=== PATIENT | male | born 1970 | race American Indian/Alaskan Native ===

== ENCOUNTER 2016-10-09 08:55 | Emergency (ER) | payer MEDICAID ==
[2016-10-09 09:06] VITALS: BP 130/86
--- NOTE | 2016-10-09 09:26 | Emergency Department Report ---
ED Medical Clearance HPI - General Chief complaint: Medical Clearance Stated complaint: PRESCRIPTION REFILL/SEIZURE MEDS Time Seen by Provider: 10/09/16 09:12 Source: patient, family Mode of arrival: Ambulatory - History of Present Illness Initial comments: Worry 6-year-old male with history of seizure disorder currently on Dilantin 300 mg twice a day presenting to the ED for refill of his medication. Denies any symptoms at this time. Home medications: Previous Rx's Medication Instructions Recorded Last Taken Type Phenytoin Sodium Extended 300 mg PO BID #120 capsule 10/09/16 Unknown Rx Allergies/Adverse reactions: Allergies Allergy/AdvReac Type Severity Reaction Status Date / Time No Known Allergies Allergy Unverified 10/09/16 09:01 ED Review of Systems ROS: Stated complaint: PRESCRIPTION REFILL/SEIZURE MEDS Other details as noted in HPI Constitutional: denies: chills, fever Eyes: denies: eye pain, eye discharge, vision change ENT: denies: ear pain, throat pain Respiratory: denies: cough, shortness of breath, wheezing Cardiovascular: denies: chest pain, palpitations Endocrine: no symptoms reported Gastrointestinal: denies: abdominal pain, nausea, diarrhea Genitourinary: denies: urgency, dysuria Musculoskeletal: denies: back pain, joint swelling, arthralgia Skin: denies: rash, lesions Neurological: denies: headache, weakness, paresthesias Psychiatric: denies: anxiety, depression Hematological/Lymphatic: denies: easy bleeding, easy bruising ED Past Medical Hx - Past Medical History Previous Medical History?: Yes Hx Seizures: Yes - Surgical History Past Surgical History?: No - Social History Smoking Status: Former Smoker Substance Use Type: Prescribed - Medications Home Medications: Home Medications Medication Instructions Recorded Confirmed Last Taken Type Phenytoin Sodium Extended 300 mg PO BID #120 capsule 10/09/16 Unknown Rx ED Physical Exam - General Limitations: No Limitations General appearance: alert, in no apparent distress - Head Head exam: Present: atraumatic, normocephalic - Eye Eye exam: Present: normal appearance - ENT ENT exam: Present: mucous membranes moist - Neck Neck exam: Present: normal inspection - Respiratory Respiratory exam: Present: normal lung sounds bilaterally. Absent: respiratory distress - Cardiovascular Cardiovascular Exam: Present: regular rate, normal rhythm. Absent: systolic murmur, diastolic murmur, rubs, gallop - GI/Abdominal GI/Abdominal exam: Present: soft, normal bowel sounds - Rectal Rectal exam: Present: deferred - Extremities Exam Extremities exam: Present: normal inspection - Back Exam Back exam: Present: normal inspection - Neurological Exam Neurological exam: Present: alert, oriented X3 - Psychiatric Psychiatric exam: Present: normal affect, normal mood - Skin Skin exam: Present: warm, dry, intact, normal color. Absent: rash ED Course Vital Signs 10/09/16 09:02 Temperature 98.5 F Pulse Rate 76 Respiratory 18 Rate Blood Pressure 130/86 O2 Sat by Pulse 99 Oximetry ED Medical Decision Making - Medical Decision Making patient in NAD at this time. VSS and will fu with [facility] for future refills. ED Disposition Clinical Impression: Medication refill Disposition: DISCHARGED TO HOME OR SELFCARE Is pt being admited?: No Does the pt Need Aspirin: No Condition: Good Instructions: Epilepsy (ED) Additional Instructions: follow up with [facility] for medication refill. Prescriptions: Phenytoin Sodium Extended 300 mg PO BID #120 capsule Referrals: PRIMARY CARE, [Primary Care Provider] - 3-5 Days [facility] [Provider Group] - 3-5 Days Forms: Work/School Release Form(ED) Time of Disposition: 09:25
== END 2016-10-09 09:33 | disposition home or self-care (01) ==
LOC: ED 08:55
DX: Z76.0 Encounter for issue of repeat prescription (principal); Z87.891 Personal history of nicotine dependence
CPT/HCPCS: 99282

== ENCOUNTER 2017-01-14 14:47 | Outpatient (CLI) | payer MEDICAID ==
--- NOTE | 2017-01-14 16:49 | Magnetic Resonance Report ---
MRI BRAIN WITHOUT CONTRAST INDICATION: Seizure. COMPARISON: None similar at this institution. FINDINGS: Noncontrast multiplanar and multisequence MRI of the brain demonstrates normal ventricles and sulci without acute infarct, hemorrhage, mass effect or midline shift. No abnormal extra-axial masses or fluid collections. Normal major intracranial vascular flow voids. Mild to moderate cerebellar atrophy noted. Symmetric seventh and eighth nerve complexes. Grossly unremarkable eye globes. Right mastoiditis. Right frontoethmoid mucosal thickening as well. Slight bilateral maxillary sinus mucosal thickening inferiorly. Clear remainder imaged paranasal sinuses and mastoid air cells. Approximately 8mm Thornwaldt cyst may be present. Normal remainder midline structures without evidence of Chiari malformation. CONCLUSION: 1. Cerebellar atrophy, of uncertain etiology. Please correlate clinically. 2. Few other incidental findings, including right mastoiditis and mild sinusitis. Thank you for the opportunity to participate in this patient's care.
== END 2017-01-14 14:48 | disposition home or self-care (01) ==
LOC: MRI 14:47
PROVIDERS: ATTEND Psychiatry & Neurology Neurology
DX: G40.309 Generalized idiopathic epilepsy and epileptic syndromes, not intractable, without status epilepticus (principal); G31.89 Other specified degenerative diseases of nervous system; H70.91 Unspecified mastoiditis, right ear; J32.9 Chronic sinusitis, unspecified
CPT/HCPCS: 70551

== ENCOUNTER 2018-04-13 20:41 | Emergency (ER) | payer MEDICAID ==
[2018-04-13] MEDS ORDERED: NACL 0.9% 1000 ML 1,000 ML IV ONE (21:02)
[2018-04-13] MEDS ORDERED: ATIVAN IV ONE (21:02)
--- NOTE | 2018-04-13 21:02 | Emergency Department Report ---
ED Seizure HPI - General Chief Complaint: Seizure Stated Complaint: SEIZURE Time Seen by Provider: 04/13/18 21:02 Source: patient, EMS Mode of arrival: Stretcher Limitations: No Limitations - History of Present Illness MD Complaint: seizure -: Sudden, This evening Description of Episode: loss of consciousness, tonic-clonic movement Witnessed:: No Trauma: No Seizure History: known seizure disorder, history of non-compliance Place: other ([facility]) Possible Precipitating Event: head injury Associated Symptoms: denies other symptoms Treatments Prior to Arrival: none - Related Data Previous Rx's Medication Instructions Recorded Last Taken Type Phenytoin Sodium Extended 300 mg PO BID #120 capsule 10/09/16 Unknown Rx Ibuprofen [Motrin] 800 mg PO Q8HR PRN #20 tablet 04/14/18 Unknown Rx Phenytoin Sodium Extended 300 mg PO BID #60 capsule 04/14/18 Unknown Rx [Dilantin] Allergies Allergy/AdvReac Type Severity Reaction Status Date / Time No Known Allergies Allergy Verified 04/13/18 21:13 ED Review of Systems ROS: Stated complaint: SEIZURE Other details as noted in HPI Comment: All other systems reviewed and negative Constitutional: denies: chills, fever Eyes: denies: eye pain ENT: denies: ear pain Respiratory: denies: cough, shortness of breath Cardiovascular: denies: chest pain, palpitations, dyspnea on exertion Endocrine: no symptoms reported Gastrointestinal: denies: abdominal pain, nausea, vomiting, diarrhea Genitourinary: denies: urgency, dysuria, frequency Musculoskeletal: denies: back pain, joint swelling Skin: denies: rash, lesions, change in color Neurological: headache. denies: weakness, numbness, paresthesias, confusion Psychiatric: denies: anxiety, depression Hematological/Lymphatic: denies: easy bleeding, easy bruising ED Past Medical Hx - Past Medical History Hx Seizures: Yes - Social History Smoking Status: Current Every Day Smoker Substance Use Type: None - Medications Home Medications: Home Medications Medication Instructions Recorded Confirmed Last Taken Type Phenytoin Sodium Extended 300 mg PO BID #120 capsule 10/09/16 Unknown Rx Ibuprofen [Motrin] 800 mg PO Q8HR PRN #20 tablet 04/14/18 Unknown Rx Phenytoin Sodium Extended 300 mg PO BID #60 capsule 04/14/18 Unknown Rx [Dilantin] ED Physical Exam - General Limitations: No Limitations General appearance: alert, in no apparent distress - Head Head exam: Present: other (Left eye brow laceration.) - Eye Eye exam: Present: normal appearance, PERRL, EOMI Pupils: Present: normal accommodation - ENT ENT exam: Present: normal exam, normal orophraynx, mucous membranes moist - Neck Neck exam: Present: normal inspection, tenderness, full ROM - Respiratory Respiratory exam: Present: normal lung sounds bilaterally. Absent: respiratory distress, wheezes, rales, rhonchi, stridor - Cardiovascular Cardiovascular Exam: Present: regular rate, normal rhythm, normal heart sounds - GI/Abdominal GI/Abdominal exam: Present: soft, normal bowel sounds. Absent: distended, tenderness, guarding, rebound, rigid - Extremities Exam Extremities exam: Present: normal inspection, full ROM, normal capillary refill. Absent: tenderness, pedal edema - Back Exam Back exam: Present: normal inspection, full ROM. Absent: tenderness - Neurological Exam Neurological exam: Present: alert, oriented X3, CN II-XII intact - Psychiatric Psychiatric exam: Present: normal affect, normal mood - Skin Skin exam: Present: warm, dry, normal color. Absent: rash ED Course Vital Signs 04/13/18 04/13/18 04/13/18 20:59 21:00 22:00 Temperature 98.6 F Pulse Rate 84 82 82 Respiratory 12 17 16 Rate Blood Pressure 114/77 126/74 Blood Pressure 122/76 [Left] O2 Sat by Pulse 100 99 100 Oximetry 04/13/18 04/13/18 04/14/18 23:00 23:25 00:00 Temperature Pulse Rate 78 76 79 Respiratory 16 11 L 17 Rate Blood Pressure 123/77 123/77 111/72 Blood Pressure [Left] O2 Sat by Pulse 100 100 100 Oximetry 04/14/18 04/14/18 01:00 02:00 Temperature Pulse Rate 82 77 Respiratory 16 26 H Rate Blood Pressure 105/81 105/81 Blood Pressure [Left] O2 Sat by Pulse 100 100 Oximetry - Reevaluation(s) Reevaluation #1: 04/14/18 03:56 Patient is awake and alert. He has no medical complaint currently. - Laceration /Wound Repair Left Upper Face Wound Location: face Wound Length (cm): 3 Wound's Depth, Shape: superficial Wound Explored: clean Irrigated w/ Saline (ccs): 100 Betadine Prep?: Yes Anesthesia: Lidocaine w/ Epi Wound Repaired With: sutures Suture Size/Type: 5:0, proline Number of Sutures: 4 Layer Closure?: No Sterile Dressing Applied?: No (Bacitracin Ointment) Progress: Patient tolerated the procedure well. No complication. ED Medical Decision Making - Lab Data Result diagrams: 04/13/18 21:25 04/13/18 21:25 - Radiology Data Radiology results: report reviewed, image reviewed - Medical Decision Making Seizure Disorder. Head injury. Left Eyebrow Laceration. Critical care attestation.: If time is entered above; I have spent that time in minutes in the direct care of this critically ill patient, excluding procedure time. ED Disposition Clinical Impression: Seizure disorder Laceration of left eyebrow Qualifiers: Encounter type: initial encounter Qualified Code(s): S01.112A - Laceration without foreign body of left eyelid and periocular area, initial encounter Disposition: TO HOME OR SELFCARE Is pt being admited?: No Does the pt Need Aspirin: No Condition: Stable Instructions: Epilepsy (ED), Laceration (ED), Suture Care (ED), Minor Head Injury (ED) Additional Instructions: Please follow up with the Neurologist Dr Radha pires on Saturday morning. Return to the ED if your condition worsens. Prescriptions: Ibuprofen [Motrin] 800 mg PO Q8HR PRN #20 tablet PRN Reason: Pain , Severe (7-10) Phenytoin Sodium Extended [Dilantin] 300 mg PO BID #60 capsule Referrals: PRIMARY CAREMD [Primary Care Provider] - 3-5 Days MILLICENT MENA MD [Staff] - 3-5 Days Time of Disposition: 03:56
[2018-04-13 21:47] LABS: Basophils % (Auto) 0.8 % (0.0-1.8); Eosinophils # (Auto) 0.2 K/mm3 (0.0-0.4); Eosinophils % (Auto) 3.4 % (0.0-4.3); Hematocrit 37.3 % (35.5-45.6); Hemoglobin 11.9 gm/dl (11.8-15.2); Lymphocytes # (Auto) 1.1 K/mm3 (1.2-5.4); Lymphocytes % (Auto) 22.4 % (13.4-35.0); Mean Corpuscular HGB Conc 32 % (32-34); Mean Corpuscular Volume 78 fl (84-94); Monocytes # (Auto) 0.5 K/mm3 (0.0-0.8); Monocytes % (Auto) 10.8 % (0.0-7.3); Platelet Count 185 K/mm3 (140-440); Red Cell Distribution Width 13.4 % (13.2-15.2)
[2018-04-13 21:48] LABS: Mean Corpuscular Hemoglobin 25 pg (28-32)
[2018-04-13] MEDS ORDERED: NACL 0.9% 500 ML IR ONE (21:48)
--- NOTE | 2018-04-13 21:56 | Cat Scan Report ---
FINAL REPORT PROCEDURE: CT CERVICAL SPINE WO CON TECHNIQUE: Computerized tomography of the cervical spine was performed from the skull base to T1 without contrast material. HISTORY: Seizure, fall COMPARISON: No prior studies are available for comparison. FINDINGS: Vertebral height is normal. An acute fracture is not identified. Visualized lung apices are clear. C1-2: No significant abnormality. C2-3: No significant abnormality. C3-4: Broad-based disc osteophyte complex is noted resulting in mild degree spinal canal stenosis. Mild to moderate degree left neural foraminal stenosis is noted secondary to uncovertebral and facet degenerative changes.. C4-5: No significant abnormality. C5-6: No significant abnormality. C6-7: No significant abnormality. C7-T1: No significant abnormality. Other: No additional findings. IMPRESSION: No acute fracture Multilevel cervical spondylosis most marked at C3-4 as described above..
[2018-04-13] MEDS ORDERED: POLYSPORIN TP ONE (22:00)
[2018-04-13] MEDS ORDERED: BOOSTRIX IM ONE (22:00)
[2018-04-13] MEDS ORDERED: XYLOCAINE 1%/ EPI 1:100,000 INFILTRATI NR (22:00)
--- NOTE | 2018-04-13 22:00 | Cat Scan Report ---
FINAL REPORT PROCEDURE: CT HEAD/BRAIN WO CON TECHNIQUE: Computerized tomography of the head was performed without contrast material. HISTORY: Seizure COMPARISON: No prior studies are available for comparison. FINDINGS: Skull and scalp: Normal. Paranasal sinuses: Mild degree mucosal thickening is noted involving left maxillary sinus. Left ethmoid air cells also demonstrate mild degree mucosal thickening.. Ventricles and subarachnoid spaces: Are prominent consistent with cerebral atrophy appropriate for patient's age.. Cerebrum: No evidence of hemorrhage, acute infarction or mass . Cerebellum and brainstem: Prominent cerebellar sulci are noted which appear to be advanced for patient's age.. Vasculature: Atherosclerotic calcification is noted involving vertebral arteries.. Comments: None. IMPRESSION: No acute intracranial abnormality Cerebellar atrophy which appears to be advanced for patient's age Chronic left maxillary and ethmoid sinusitis
[2018-04-13 22:03] LABS: BUN/Creatinine Ratio 13; Blood Urea Nitrogen 10 mg/dL (9-20); Calcium 8.8 mg/dL (8.4-10.2); Hemolysis Index 7
[2018-04-13 22:07] LABS: Alanine Aminotransferase 14 units/L (7-56); Albumin 3.7 g/dL (3.9-5)
[2018-04-13 22:10] LABS: Bilirubin,Direct < 0.2 mg/dL (0-0.2)
[2018-04-13] MEDS ORDERED: CEREBYX 1,000 MG.PE in NACL 0.9% 100 ML IV ONE (22:28)
[2018-04-13 23:46] LABS: Bilirubin,Urine NEG (Negative); Blood,Urine NEG (Negative); Color,Urine Straw (Yellow); Mucus,Urine FEW /HPF; Protein,Urine <15 mg/dL mg/dL (Negative); Urobilinogen,Urine < 2.0 mg/dL (<2.0); WBC,Urine < 1.0 /HPF (0.0-6.0)
[2018-04-14 06:26] VITALS: BP 115/66
== END 2018-04-14 08:27 | disposition home or self-care (01) ==
LOC: ED 04-14 01:56
DX: G40.909 Epilepsy, unspecified, not intractable, without status epilepticus (principal); S01.112A Laceration without foreign body of left eyelid and periocular area, initial encounter; F17.200 Nicotine dependence, unspecified, uncomplicated; X58.XXXA Exposure to other specified factors, initial encounter; Y93.89 Activity, other specified; Y92.89 Other specified places as the place of occurrence of the external cause; Y99.8 Other external cause status
CPT/HCPCS: 12013; 36415; 70450; 72125; 80048; 80074; 80185; 81001; 82962; 85025; 85027; 90471; 90715; 96365; 96375; 99285; G0480; J2060; J7030; Q2009; 80320

== ENCOUNTER 2019-03-24 20:17 | Emergency (ER) | payer MEDICAID ==
[2019-03-24 20:48] LABS: Basophils # (Auto) 0.1 K/mm3 (0.0-0.1); Basophils % (Auto) 1.1 % (0.0-1.8); Eosinophils # (Auto) 0.1 K/mm3 (0.0-0.4); Eosinophils % (Auto) 1.9 % (0.0-4.3); Hematocrit 41.1 % (35.5-45.6); Hemoglobin 13.3 gm/dl (11.8-15.2); Lymphocytes % (Auto) 40.5 % (13.4-35.0); Mean Corpuscular HGB Conc 32 % (32-34); Mean Corpuscular Volume 76 fl (84-94); Monocytes # (Auto) 0.4 K/mm3 (0.0-0.8); Monocytes % (Auto) 8.5 % (0.0-7.3); Platelet Count 222 K/mm3 (140-440); Red Blood Count 5.39 M/mm3 (3.65-5.03); Red Cell Distribution Width 13.2 % (13.2-15.2)
[2019-03-24 21:09] LABS: Bilirubin,Urine NEG (Negative); Blood,Urine SM (Negative); Calcium Oxalate Crystals,Urine 1+; Color,Urine Yellow (Yellow); Mucus,Urine FEW /HPF; Protein,Urine <15 mg/dL mg/dL (Negative); Urobilinogen,Urine < 2.0 mg/dL (<2.0)
[2019-03-24 21:11] LABS: Alanine Aminotransferase 12 units/L (7-56); Albumin 4.3 g/dL (3.9-5); BUN/Creatinine Ratio 30; Blood Urea Nitrogen 21 mg/dL (9-20); Calcium 9.6 mg/dL (8.4-10.2); Hemolysis Index 17
[2019-03-24 21:15] LABS: Amphetamine Screen,Urine PRESUMPTIVE NEGATIVE; Benzodiazepines Screen,Urine PRESUMPTIVE NEGATIVE; Cannabinoid Screen,Urine PRESUMPTIVE NEGATIVE; Cocaine Screen,Urine PRESUMPTIVE NEGATIVE; Methadone Screen,Urine PRESUMPTIVE NEGATIVE; Opiate Screen,Urine PRESUMPTIVE NEGATIVE
--- NOTE | 2019-03-24 22:09 | Emergency Department Report ---
ED Psych HPI - General Chief Complaint: Psych Stated Complaint: MH EVAL/SUICIDAL Time Seen by Provider: 03/24/19 21:23 Source: patient, EMS Mode of arrival: Ambulatory - History of Present Illness Initial Comments: Patient reports hx of seizures. Reports he had a seizure today. Denies trauma. Denies drugs/alcohol. MD Complaint: suicidal ideation, feels depressed -: Gradual, days(s) Associated Psychiatric Symptoms: depression, suicidal ideation Quality: getting worse Improves With: none Worsens With: none Associated Symptoms: other (seizure today. Reports last seizure approximately 2 months ago. Reports compliant with anti-epileptics) Treatments Prior to Arrival: placed on mental he If Self Harm: admits thoughts of - Related Data Home Medications Medication Instructions Recorded Confirmed Last Taken PHENobarbital 03/24/19 Unknown Previous Rx's Medication Instructions Recorded Last Taken Type Phenytoin Sodium Extended 300 mg PO BID #120 capsule 10/09/16 Unknown Rx Ibuprofen [Motrin] 800 mg PO Q8HR PRN #20 tablet 04/14/18 Unknown Rx Allergies Allergy/AdvReac Type Severity Reaction Status Date / Time No Known Allergies Allergy Verified 04/18/18 08:26 ED Review of Systems ROS: Stated complaint: MH EVAL/SUICIDAL Other details as noted in HPI Other: GENERAL: No weight change, fatigue, weakness, fever, chills, or night sweats SKIN: No changes in skin or hair, no itching, no rashes, no jaundice HEAD: No trauma, headache, or visual changes EYES: No blurriness, tearing, itching, acute visual loss, conjunctival discoloration, or scleral icterus EARS: No hearing loss, tinnitus, vertigo, or earache NOSE: No rhinorrhea, stuffiness, sneezing, itching, or epistaxis MOUTH: No bleeding gums, hoarseness, sore throat, or swelling CARDIAC: No new murmur, chest pain, palpitations, dyspnea on exertion, orthopnea, PND, or edema RESPIRATORY: No shortness of breath, wheeze, cough, sputum production, hemoptysis, pneumonia, asthma, bronchitis, or emphysema GI: No change in appetite, nausea, vomiting, dysphagia, change in bowel frequency, diarrhea, constipation, bleeding, hematemesis, melena, hematochezia, or abdominal pain URINARY: No frequency, urgency, polyuria, dysuria, hematuria, or incontinence MUSCULOSKELETAL: No muscle weakness, joint stiffness, decrease in range of motion, redness, swelling NEUROLOGIC: Seizure. No loss of sensation, numbness, tingling, tremors, weakness, paralysis HEMATOLOGIC: No anemia, easy bruising, bleeding, petechiae, or purpura ENDOCRINE: No hot or cold intolerance, sweating, polyuria, polydipsia or, polyphagia no thyroid problems PSYCHIATRIC: Depression and SI ED Past Medical Hx - Past Medical History Hx Seizures: Yes Hx Psychiatric Treatment: Yes (bipolar) - Surgical History Past Surgical History?: No - Social History Smoking Status: Current Every Day Smoker Substance Use Type: None - Medications Home Medications: Home Medications Medication Instructions Recorded Confirmed Last Taken Type Phenytoin Sodium Extended 300 mg PO BID #120 capsule 10/09/16 03/24/19 Unknown Rx Ibuprofen [Motrin] 800 mg PO Q8HR PRN #20 tablet 04/14/18 03/24/19 Unknown Rx PHENobarbital 03/24/19 Unknown History ED Physical Exam - General Limitations: No Limitations - Other Other exam information: GENERAL: Patient in no acute distress HEAD: Normocephalic, atraumatic EYES: PERRLA, EOM intact, no scleral icterus, no conjunctival hemorrhage, visual grey and acuity wnl NOSE: No tenderness, discharge, sinus tenderness MOUTH: No erythema, bleeding, exudate HEART: Regular rate and rhythm, no murmur, S1-S2 are auscultated, pulses are symmetric LUNGS: Bilateral breath sounds, No tachypnea, No retractions, No wheezing, rales, rhonchi ABDOMEN: Normal bowel sounds, no tenderness, no rebound, no guarding, no masses, no CVA tenderness MUSCULOSKELETAL: Normal joint range of motion, no redness, no swelling, no tenderness NEUROLOGIC: GCS 15, Alert and Oriented x3, Cranial nerves intact, normal sensation, normal strength, normal gait, no cerebellar deficit PSYCHIATRIC: Depression, SI. No HI. No hallucinations SKIN: Skin is warm and dry, no wounds, no rashes ED Course Vital Signs 03/24/19 03/24/19 20:49 22:10 Temperature 98.6 F Pulse Rate 55 L Respiratory 16 16 Rate Blood Pressure 120/74 [Left] O2 Sat by Pulse 96 98 Oximetry ED Medical Decision Making - Lab Data Result diagrams: 03/24/19 20:38 03/24/19 20:38 Laboratory Results - last 24 hr 03/24/19 03/24/19 03/24/19 20:38 20:38 20:38 WBC 4.9 RBC 5.39 H Hgb 13.3 Hct 41.1 MCV 76 L MCH 25 L MCHC 32 RDW 13.2 Plt Count 222 Lymph % (Auto) 40.5 H Barren % (Auto) 8.5 H Eos % (Auto) 1.9 Baso % (Auto) 1.1 Lymph # 2.0 Barren # 0.4 Eos # 0.1 Baso # 0.1 Seg Neutrophils % 48.0 Seg Neutrophils # 2.3 Sodium 138 Potassium 4.0 Chloride 102.5 Carbon Dioxide 20 L Anion Gap 20 BUN 21 H Creatinine 0.7 L Estimated GFR > 60 BUN/Creatinine Ratio 30 Glucose 111 H Calcium 9.6 Total Bilirubin < 0.20 AST 16 ALT 12 Alkaline Phosphatase 95 Total Protein 7.8 Albumin 4.3 Albumin/Globulin Ratio 1.2 Urine Color Urine Turbidity Urine pH Ur Specific [place] Urine Protein Urine Glucose (UA) Urine Ketones Urine Blood Urine Nitrite Urine Bilirubin Urine Urobilinogen Ur Leukocyte Esterase Urine WBC (Auto) Urine RBC (Auto) U Epithel Cells (Auto) Calcium Oxalate Crystal Urine Mucus Salicylates < 0.3 L Urine Opiates Screen Urine Methadone Screen Acetaminophen Ur Barbiturates Screen Ur Phencyclidine Scrn Ur Amphetamines Screen U Benzodiazepines Scrn Urine Cocaine Screen U Marijuana (THC) Screen Drugs of Abuse Note Plasma/Serum Alcohol 03/24/19 03/24/19 03/24/19 20:38 20:38 20:55 WBC RBC Hgb Hct MCV MCH MCHC RDW Plt Count Lymph % (Auto) Barren % (Auto) Eos % (Auto) Baso % (Auto) Lymph # Barren # Eos # Baso # Seg Neutrophils % Seg Neutrophils # Sodium Potassium Chloride Carbon Dioxide Anion Gap BUN Creatinine Estimated GFR BUN/Creatinine Ratio Glucose Calcium Total Bilirubin AST ALT Alkaline Phosphatase Total Protein Albumin Albumin/Globulin Ratio Urine Color Yellow Urine Turbidity Clear Urine pH 5.0 Ur Specific [place] 1.026 Urine Protein <15 mg/dl Urine Glucose (UA) Neg Urine Ketones Neg Urine Blood Sm Urine Nitrite Neg Urine Bilirubin Neg Urine Urobilinogen < 2.0 Ur Leukocyte Esterase Tr Urine WBC (Auto) 4.0 Urine RBC (Auto) 5.0 U Epithel Cells (Auto) 1.0 Calcium Oxalate Crystal 1+ Urine Mucus Few Salicylates Urine Opiates Screen Urine Methadone Screen Acetaminophen < 5.0 L Ur Barbiturates Screen Ur Phencyclidine Scrn Ur Amphetamines Screen U Benzodiazepines Scrn Urine Cocaine Screen U Marijuana (THC) Screen Drugs of Abuse Note Plasma/Serum Alcohol < 0.01 03/24/19 20:55 WBC RBC Hgb Hct MCV MCH MCHC RDW Plt Count Lymph % (Auto) Barren % (Auto) Eos % (Auto) Baso % (Auto) Lymph # Barren # Eos # Baso # Seg Neutrophils % Seg Neutrophils # Sodium Potassium Chloride Carbon Dioxide Anion Gap BUN Creatinine Estimated GFR BUN/Creatinine Ratio Glucose Calcium Total Bilirubin AST ALT Alkaline Phosphatase Total Protein Albumin Albumin/Globulin Ratio Urine Color Urine Turbidity Urine pH Ur Specific [place] Urine Protein Urine Glucose (UA) Urine Ketones Urine Blood Urine Nitrite Urine Bilirubin Urine Urobilinogen Ur Leukocyte Esterase Urine WBC (Auto) Urine RBC (Auto) U Epithel Cells (Auto) Calcium Oxalate Crystal Urine Mucus Salicylates Urine Opiates Screen Presumptive negative Urine Methadone Screen Presumptive negative Acetaminophen Ur Barbiturates Screen Presumptive negative Ur Phencyclidine Scrn Presumptive negative Ur Amphetamines Screen Presumptive negative U Benzodiazepines Scrn Presumptive negative Urine Cocaine Screen Presumptive negative U Marijuana (THC) Screen Presumptive negative Drugs of Abuse Note Disclamer Plasma/Serum Alcohol - Medical Decision Making Patient medically clear for transfer. Critical care attestation.: If time is entered above; I have spent that time in minutes in the direct care of this critically ill patient, excluding procedure time. ED Disposition Clinical Impression: Seizure disorder, Suicidal ideation Disposition: [id number] PSY HOSP/PSY UNIT Is pt being admited?: No Condition: Stable Referrals: CINDY MARKS MD [Primary Care Provider] - 3-5 Days
[2019-03-25] MEDS ORDERED: NON-FORMULARY (Levetiracetam [Keppra Tab] 750 MG) PO SCH (10:00)
[2019-03-25] MEDS ORDERED: KEPPRA PO ONE (10:01)
[2019-03-25] MEDS: KEPPRA PO SCH ×2 (10:49→22:16)
--- NOTE | 2019-03-25 15:52 | Consultation ---
History of Present Illness - Reason for Consult Consult date: 03/25/19 Reason for consult: Initial Psychiatric Evaluation - Chief Complaint Chief complaint: " I came for epilepsy" - History of Present Psychiatric Illness Patient is a 49 year old male that presents to the emergency room after a seizure. Patient unsure of PPHx. Today the patient is cooperative but anxious during the assessment. Appears somewhat confused. Alert and oriented x 2 . He is alert and oriented to person and place. Patient reports " every time I have a seizure I tend to think that I'm going to hurt myself." He presents with impoverished thought process. Patient not oriented to date. Patient is unable to explain the events that happen prior to seizure. He reports decrease energy, good appetite, and decrease sleep. Endorses intermittent AH's and paranoid delusions toward family. Responses to questions are inappropriate and not logical. Needs redirection to stay on topic. Currently, patient denies SI/HI's and A/VH's . Current Psychiatric Medications: Patient denies any current psychiatric me dications. He states, " I've only taken medication for epilepsy." Past Psychiatric History: Unsure of any previous psychiatric diagnosis; no inpatient psychiatric hospitalizations; no outpatient psychiatrist; no previous suicide attempt other than the most current. Past Medication Trials: Patient denies. History of Trauma/Abuse: Patient denies trauma. Patient denies sexual, physical, and mental abuse. History of Drug/Alcohol Abuse: Patient denies. UDS negative. Social History: GED - highest level of education ; Lives with brother; SSI - $ 693; limited support system; 2 children; no pending legal issues. Family History of Psychiatric Illness/Substance Abuse: Patient denies. able Medications and Allergies Allergies Allergy/AdvReac Type Severity Reaction Status Date / Time No Known Allergies Allergy Verified 04/18/18 08:26 Home Medications Medication Instructions Recorded Confirmed Last Taken Type levETIRAcetam [Keppra TAB] 750 mg PO BID 03/25/19 03/25/19 Unknown History Active Meds: Active Medications Levetiracetam (Keppra) 750 mg PO BID LEYDA Last Admin: 03/25/19 10:49 Dose: Not Given Documented by: Mental Status Exam - Vital signs Last Vital Signs Temp 97.7 F 03/25/19 07:00 Pulse 61 08/14/19 07:00 Resp 18 03/25/19 07:00 BP 163/82 03/25/19 07:00 Pulse Ox 100 03/25/19 07:00 - Exam Narrative exam: Mental Status Exam Appearance: calm, cooperative Behavior: regular eye contact Speech: regular rate and tone Mood: "not too good" Affect: congruent to mood Thought Process: circumstantial Thought Content: denies SI/HI's and A/VH's; + paranoid delusions toward family Motor Activity: ambulatory Cognition: A/O x 2 Insight: variable Judgment: variable Results Result Diagrams: 03/24/19 20:38 03/24/19 20:38 Abnormal lab results 03/24/19 03/24/19 03/24/19 Range/Units 20:38 20:38 20:38 RBC 5.39 H (3.65-5.03) M/mm3 MCV 76 L (84-94) fl MCH 25 L (28-32) pg Lymph % (Auto) 40.5 H (13.4-35.0) % [place] % (Auto) 8.5 H (0.0-7.3) % Carbon Dioxide 20 L (22-30) mmol/L BUN 21 H (9-20) mg/dL Creatinine 0.7 L (0.8-1.5) mg/dL Glucose 111 H (75-100) mg/dL Salicylates < 0.3 L (2.8-20.0) mg/dL Acetaminophen (10.0-30.0) ug/mL 03/24/19 Range/Units 20:38 RBC (3.65-5.03) M/mm3 MCV (84-94) fl MCH (28-32) pg Lymph % (Auto) (13.4-35.0) % [place] % (Auto) (0.0-7.3) % Carbon Dioxide (22-30) mmol/L BUN (9-20) mg/dL Creatinine (0.8-1.5) mg/dL Glucose (75-100) mg/dL Salicylates (2.8-20.0) mg/dL Acetaminophen < 5.0 L (10.0-30.0) ug/mL All other labs normal. Assessment and Plan Assessment and plan: Impression: Mood Disorder with psychotic features. Today the patient is cooperative but anxious during the assessment. He denies SI/HI's, A/VH's, and delusions. Patient appears confused. Alert and oriented x 2 ( person, place). Recommendations/Plan: 1. Continue 1013. 2. Will attempt to gain collateral and reassess in 24 hours. 3. Will determine if psychiatric medication is necessary after patient is reassess on 03/26/19 and after patient is less confused. Disposition: Will reassess in 24 hours. Will staff with Dr. Miguel Saldaña.
[2019-03-25 19:54] VITALS: BP 130/86
== END 2019-03-26 01:15 ==
LOC: ED 20:17 → EEVIPCON 20:17 → ED 03-26 01:15
DX: G40.909 Epilepsy, unspecified, not intractable, without status epilepticus (principal); F31.9 Bipolar disorder, unspecified; F17.200 Nicotine dependence, unspecified, uncomplicated; Z79.1 Long term (current) use of non-steroidal anti-inflammatories (NSAID)
CPT/HCPCS: 36415; 80053; 80307; 80320; 81001; 85025; 99285; G0480

== ENCOUNTER 2019-04-03 17:32 | Inpatient (IN) | payer MEDICAID ==
--- NOTE | 2019-04-03 17:51 | Event Note ---
ED Screening Note ED Screening Note: pt called EMS for ear popping reports this is what happened before his last sz he has paperwork with him- just dc from [facility] yesterday has rx in folder- never filled rx- keppra, zyprexa, seroquel admit to cocaine 3 days ago no hi no si agitated in triage no focal def concern for aura for sz This initial assessment/diagnostic orders/clinical plan/treatment(s) is/are subject to change based on patients health status, clinical progression and re- assessment by fellow clinical providers in the ED. Further treatment and workup at subsequent clinical providers discretion. Patient/guardian urged not to elope from the ED as their condition may be serious if not clinically assessed and managed. Initial orders include: labs monitor for sz
[2019-04-03 18:13] LABS: Hematocrit 41.1 % (35.5-45.6); Mean Corpuscular HGB Conc 32 % (32-34); Mean Corpuscular Volume 78 fl (84-94); Platelet Count 200 K/mm3 (140-440); Red Cell Distribution Width 13.5 % (13.2-15.2)
[2019-04-03 18:25] LABS: Alanine Aminotransferase 15 units/L (7-56); Albumin 4.5 g/dL (3.9-5); BUN/Creatinine Ratio 17; Blood Urea Nitrogen 12 mg/dL (9-20); Calcium 10.2 mg/dL (8.4-10.2); Hemolysis Index 29
--- NOTE | 2019-04-03 18:39 | Emergency Department Report ---
ED General Adult HPI - General Chief complaint: Altered Mental Status Stated complaint: EARS POPPING Time Seen by Provider: 04/03/19 17:48 Source: patient Mode of arrival: Wheelchair Limitations: Altered Mental Status - History of Present Illness Initial comments: Patient is a 49-year-old male that presents emergency room with complaints of ears popping. Patient states he going on for 24 hours ago. Patient states she was discharged from [facility] yesterday. Patient states she is staying with his in a new apartment. Denies ear pain. Patient denies any physical pain.. Patient denies physical symptoms. Patient denies diff iculties walking. Report from EMS reviewed and EMS states the patient called EMS. Her popping and patient was confused and had an unsteady gait. EMS states patient was unable to answer questions. -: Sudden - Related Data Home Medications Medication Instructions Recorded Confirmed Last Taken levETIRAcetam [Keppra TAB] 750 mg PO BID 03/25/19 04/03/19 Unknown Allergies Allergy/AdvReac Type Severity Reaction Status Date / Time No Known Allergies Allergy Verified 04/18/18 08:26 ED Review of Systems ROS: Stated complaint: EARS POPPING Other details as noted in HPI Constitutional: denies: chills, fever Eyes: denies: eye pain, eye discharge, vision change ENT: as per HPI, other. denies: ear pain, throat pain Respiratory: denies: cough, shortness of breath, wheezing Cardiovascular: denies: chest pain, palpitations Endocrine: no symptoms reported Gastrointestinal: denies: abdominal pain, nausea, diarrhea Genitourinary: denies: urgency, dysuria Musculoskeletal: denies: back pain, joint swelling, arthralgia Skin: denies: rash, lesions Neurological: denies: headache, weakness, paresthesias Psychiatric: auditory hallucinations, visual hallucinations. denies: anxiety, depression Hematological/Lymphatic: denies: easy bleeding, easy bruising ED Past Medical Hx - Past Medical History Previous Medical History?: Yes Hx Seizures: Yes Hx Psychiatric Treatment: Yes (bipolar) - Surgical History Past Surgical History?: No - Social History Smoking Status: Never Smoker Substance Use Type: None - Medications Home Medications: Home Medications Medication Instructions Recorded Confirmed Last Taken Type levETIRAcetam [Keppra TAB] 750 mg PO BID 08/14/19 08/23/19 Unknown History ED Physical Exam - General Limitations: No Limitations General appearance: alert, in no apparent distress - Head Head exam: Present: atraumatic, normocephalic - Eye Eye exam: Present: normal appearance, PERRL, EOMI Pupils: Present: normal accommodation - ENT ENT exam: Present: normal exam, mucous membranes dry, TM's normal bilaterally, normal external ear exam - Neck Neck exam: Present: normal inspection, full ROM. Absent: tenderness, meningismus - Respiratory Respiratory exam: Present: normal lung sounds bilaterally. Absent: respiratory distress, wheezes, rales - Cardiovascular Cardiovascular Exam: Present: regular rate, normal rhythm. Absent: systolic murmur, diastolic murmur, rubs, gallop - GI/Abdominal GI/Abdominal exam: Present: soft, normal bowel sounds. Absent: distended, tenderness, guarding - Rectal Rectal exam: Present: deferred - Extremities Exam Extremities exam: Present: normal inspection, full ROM. Absent: tenderness - Back Exam Back exam: Present: normal inspection - Neurological Exam Neurological exam: Present: alert, altered, abnormal gait - Psychiatric Psychiatric exam: Present: flat affect - Expanded Psychiatric Exam Expanded Focused psych exam: Present: delusional, paranoid, loose associations - Skin Skin exam: Present: warm, dry, intact, normal color. Absent: rash ED Course Vital Signs 04/03/19 04/03/19 04/03/19 17:47 19:00 19:15 Temperature 98.8 F Pulse Rate 81 69 82 Respiratory 18 25 H 14 Rate Blood Pressure 114/78 119/77 Blood Pressure [Right] O2 Sat by Pulse 99 100 97 Oximetry 04/03/19 04/03/19 04/03/19 19:16 19:20 19:30 Temperature 97.9 F Pulse Rate 82 73 Respiratory 18 18 14 Rate Blood Pressure 119/75 Blood Pressure 119/77 [Right] O2 Sat by Pulse 99 99 100 Oximetry 04/03/19 04/03/19 04/03/19 19:45 20:03 20:15 Temperature Pulse Rate 85 101 H 78 Respiratory 11 L 25 H Rate Blood Pressure 119/77 97/58 119/76 Blood Pressure [Right] O2 Sat by Pulse 92 97 Oximetry 04/03/19 04/03/19 04/03/19 20:37 20:45 21:01 Temperature Pulse Rate 74 77 Respiratory 11 L 13 Rate Blood Pressure 97/58 132/80 119/76 Blood Pressure [Right] O2 Sat by Pulse 100 99 Oximetry 04/03/19 04/03/19 04/03/19 21:15 21:30 21:45 Temperature Pulse Rate 71 74 84 Respiratory 14 14 12 Rate Blood Pressure 119/77 123/80 132/72 Blood Pressure [Right] O2 Sat by Pulse 99 98 98 Oximetry 04/03/19 04/03/19 04/03/19 22:10 22:15 22:30 Temperature Pulse Rate 71 79 80 Respiratory 18 14 15 Rate Blood Pressure 126/77 116/76 124/74 Blood Pressure [Right] O2 Sat by Pulse 96 Oximetry 04/03/19 04/03/19 04/03/19 22:45 23:05 23:30 Temperature 97.8 F Pulse Rate 76 91 H 84 Respiratory 15 15 13 Rate Blood Pressure 120/74 124/83 Blood Pressure 123/82 [Right] O2 Sat by Pulse 95 96 Oximetry 04/04/19 00:00 Temperature Pulse Rate 75 Respiratory 12 Rate Blood Pressure 124/77 Blood Pressure [Right] O2 Sat by Pulse 94 Oximetry - Reevaluation(s) Reevaluation #1: Patient is still unable to ambulate. Patient is still confused. Patient is still having hallucinations. 04/03/19 21:27 - Consultations Consultation #1: Hospitalist consult for admission. Hospital to admit patient. 04/03/19 23:18 ED Medical Decision Making - Lab Data Result diagrams: 04/03/19 17:52 04/03/19 17:52 - Radiology Data Radiology results: report reviewed CT LUMBAR SPINE WITHOUT CONTRAST INDICATION / CLINICAL INFORMATION: unsteady gait. TECHNIQUE: Axial CT images were obtained through the lumbar spine. Sagittal and coronal reformatted images were produced. All CT scans at this location are performed using CT dose reduction for ALARA by means of automated exposure control. COMPARISON: None available. FINDINGS: VERTEBRAE: No significant abnormality. ALIGNMENT: No significant abnormality. DISC SPACES: No significant abnormality. FACET JOINTS: Mild diffuse facet degenerative change throughout the lumbar spine. SPINAL CANAL: No significant abnormality. SACRUM:No significant abnormality of the visualized sacrum. PARASPINAL SOFT TISSUES: No significant abnormality. ADDITIONAL FINDINGS: Mild central disc bulge is noted at L3-L4, L4-L5, and L5- S1. IMPRESSION: 1. Multilevel mild central disc bulges, as described above. 2. No other significant finding. CT HEAD WITHOUT CONTRAST INDICATION : AMS. TECHNIQUE: Axial, coronal and sagittal CT imaging was performed from the skull apex through the skull base without contrast. All CT scans at this location are performed using CT dose reduction for ALARA by means of automated exposure control. COMPARISON: CT head without contrast from 04/13/2018. FINDINGS: PARENCHYMA: No mass, midline shift, hemorrhage, extraaxial collection or acute territorial infarction. Atrophy is again seen that is predominantly infratentorial. VENTRICLES: Symmetric and normal in size. SOFT TISSUES: Soft tissues including the orbits appear normal. BONES: No acute osseous abnormality. SINUSES: No significant abnormality. ADDITIONAL FINDINGS: None. IMPRESSION: No acute intracranial abnormality. - Medical Decision Making Patient is a 49-year-old male that presents emergency room with complaints of confusion, unsteady gait, altered mental status, acute psychosis and hallucinations. Patient has a long psychiatric history of just discharged from a psychiatric 1 day ago. The patient's labs. Patient had a lumbar CT was negative for acute finding. Patient had a head CT was negative for acute findings. Patient still confused and unable to ambulate. Patient admitted to the hospitalist service. Patient's labs unremarkable except for a UTI. - Differential Diagnosis unsteady gait. Altered mental status. Acute psychosis. Confusion Critical Care Time: Yes Critical care attestation.: If time is entered above; I have spent that time in minutes in the direct care of this critically ill patient, excluding procedure time. Critical Care Time: 35 minutes ED Disposition Clinical Impression: Confusion, Unsteady gait, Acute psychosis, Hallucination, Delusions, Encephalopathy Altered mental state Qualifiers: Altered mental status type: unspecified Qualified Code(s): R41.82 - Altered mental status, unspecified UTI (urinary tract infection) Qualifiers: Urinary tract infection type: acute cystitis Hematuria presence: with hematuria Qualified Code(s): N30.01 - Acute cystitis with hematuria Disposition: 09 OP ADMIT IP TO THIS HOSP Is pt being admited?: Yes Does the pt Need Aspirin: No Condition: Critical Time of Disposition: 23:18
[2019-04-03 19:28] LABS: Bacteria,Urine 1+ /HPF (Negative); Bilirubin,Urine NEG (Negative); Blood,Urine SM (Negative); Color,Urine Yellow (Yellow); Mucus,Urine FEW /HPF; Protein,Urine <15 mg/dL mg/dL (Negative); Urobilinogen,Urine < 2.0 mg/dL (<2.0)
[2019-04-03 19:43] LABS: Amphetamine Screen,Urine PRESUMPTIVE NEGATIVE; Benzodiazepines Screen,Urine PRESUMPTIVE NEGATIVE; Cannabinoid Screen,Urine PRESUMPTIVE NEGATIVE; Cocaine Screen,Urine PRESUMPTIVE NEGATIVE; Methadone Screen,Urine PRESUMPTIVE NEGATIVE; Opiate Screen,Urine PRESUMPTIVE NEGATIVE
--- NOTE | 2019-04-03 20:54 | Cat Scan Report ---
CT HEAD WITHOUT CONTRAST INDICATION : AMS. TECHNIQUE: Axial, coronal and sagittal CT imaging was performed from the skull apex through the skul l base without contrast. All CT scans at this location are performed using CT dose reduction for ALA RA by means of automated exposure control. COMPARISON: CT head without contrast from 04/13/2018. FINDINGS: PARENCHYMA: No mass, midline shift, hemorrhage, extraaxial collection or acute territorial infarctio n. Atrophy is again seen that is predominantly infratentorial. VENTRICLES: Symmetric and normal in size. SOFT TISSUES: Soft tissues including the orbits appear normal. BONES: No acute osseous abnormality. SINUSES: No significant abnormality. ADDITIONAL FINDINGS: None. IMPRESSION: No acute intracranial abnormality. Signer Name: Juan Carlos Fraser MD Signed: 04/03/2019 8:50 PM Workstation Name: [id number]
[2019-04-03] MEDS ORDERED: MAXIPIME/NS 2 GM/100 ML 2 GM/100 ML BAG IV ONE (21:28)
--- NOTE | 2019-04-03 22:34 | Cat Scan Report ---
CT LUMBAR SPINE WITHOUT CONTRAST INDICATION / CLINICAL INFORMATION: unsteady gait. TECHNIQUE: Axial CT images were obtained through the lumbar spine. Sagittal and coronal reformatted images were produced. All CT scans at this location are performed using CT dose reduction for ALARA by means of a utomated exposure control. COMPARISON: None available. FINDINGS: VERTEBRAE: No significant abnormality. ALIGNMENT: No significant abnormality. DISC SPACES: No significant abnormality. FACET JOINTS: Mild diffuse facet degenerative change throughout the lumbar spine. SPINAL CANAL: No significant abnormality. SACRUM:No significant abnormality of the visualized sacrum. PARASPINAL SOFT TISSUES: No significant abnormality. ADDITIONAL FINDINGS: Mild central disc bulge is noted at L3-L4, L4-L5, and L5-S1. IMPRESSION: 1. Multilevel mild central disc bulges, as described above. 2. No other significant finding. Signer Name: Maggie Garvin MD Signed: 04/03/2019 10:29 PM Workstation Name: [id number]
[2019-04-03] MEDS ORDERED: SODIUM CHLORIDE FLUSH SYRINGE 10 ML IV PRN (23:52)
[2019-04-03] MEDS ORDERED: TYLENOL PO PRN (23:52)
[2019-04-03] MEDS ORDERED: ZOFRAN IV PRN (23:52)
--- NOTE | 2019-04-03 23:54 | History and Physical Report ---
History of Present Illness Date of examination: 04/04/19 History of present illness: 49-year-old man with a history of bipolar, seizure was just discharged from [facility] psych facility comes to this emergency room for evaluation. She is thought to be confused and is being admitted. He was seen earlier this month by psych and they thought that he was confused versus this being is normal baseline. Patient can give me a clear reason why he is here, state that he really his medication. He was given prescriptions from [facility] to fill however he has not filled those prescription. He is upset that I'm asking him all these questions, review of system is difficult to obtain and as he will not participate. Patient totally emergency physician that terry walk. He was able to ambulate in the ER PAST MEDICAL HISTORY:bipolar, seizure PAST SURGICAL HISTORY: Cholecystectomy FAMILY HISTORY:hypertension, diabetes SOCIAL HISTORY: Denies tobacco, drugs, alcohol Medications and Allergies Allergies Allergy/AdvReac Type Severity Reaction Status Date / Time No Known Allergies Allergy Verified 04/18/18 08:26 Home Medications Medication Instructions Recorded Confirmed Last Taken Type levETIRAcetam [Keppra TAB] 750 mg PO BID 03/25/19 04/03/19 Unknown History Exam - Physical Exam Narrative exam: General Apperance: The patient sitting in bed no acute distress HEENT: Normocephalic, atraumatic. Pupils equally round and reactive to light, extraocular movement intact, and no sclericterus or JVD or thyromegaly or nodule. Neck supple, no carotid bruit, mucous membranes moist, no exudate or erythema Heart: S1-S2, regular is rhythm Lungs: Clear to auscultation bilaterally, breathing comfortable Abdomen: Positive bowel sounds, soft, nontender, nondistended, no organomegaly Extremities: No edema cyanosis clubbing Skin: no rash, nodule, warm and dry Neuro:CN 2 -12 intact, motor/sensory intact, speech is fluent - Constitutional Vitals: Temp Pulse Resp BP Pulse Ox 97.8 F 91 H 15 123/82 95 04/03/19 23:05 04/03/19 23:05 04/03/19 23:05 04/03/19 23:05 04/03/19 23:05 Results - Labs CBC & Chem 7: 04/03/19 17:52 04/03/19 17:52 Labs: Abnormal lab results 04/03/19 04/03/19 04/03/19 Range/Units 17:52 17:52 17:57 RBC 5.30 H (3.65-5.03) M/mm3 MCV 78 L (84-94) fl MCH 25 L (28-32) pg Creatinine 0.7 L (0.8-1.5) mg/dL Total Creatine Kinase 333 H (55-170) units/L Urine WBC (Auto) (0.0-6.0) /HPF Salicylates < 0.3 L (2.8-20.0) mg/dL Acetaminophen (10.0-30.0) ug/mL 04/03/19 04/03/19 Range/Units 17:57 18:54 RBC (3.65-5.03) M/mm3 MCV (84-94) fl MCH (28-32) pg Creatinine (0.8-1.5) mg/dL Total Creatine Kinase (55-170) units/L Urine WBC (Auto) 28.0 H (0.0-6.0) /HPF Salicylates (2.8-20.0) mg/dL Acetaminophen < 5.0 L (10.0-30.0) ug/mL - Imaging and Cardiology EKG: image reviewed Chest x-ray: image reviewed Assessment and Plan Assessment Failure to thrive Urinary Tract infection Bipolar seizure Plan admit to medicine Consult psych, start rocephin His mental status appeared to be at baseline DVT prophalaxis
[2019-04-04 05:14] LABS: Basophils # (Auto) 0.1 K/mm3 (0.0-0.1); Basophils % (Auto) 1.6 % (0.0-1.8); Eosinophils # (Auto) 0.2 K/mm3 (0.0-0.4); Eosinophils % (Auto) 3.5 % (0.0-4.3); Hematocrit 44.1 % (35.5-45.6); Hemoglobin 14.3 gm/dl (11.8-15.2); Mean Corpuscular HGB Conc 32 % (32-34); Mean Corpuscular Volume 77 fl (84-94); Monocytes # (Auto) 0.5 K/mm3 (0.0-0.8); Monocytes % (Auto) 9.7 % (0.0-7.3); Platelet Count 208 K/mm3 (140-440); Red Blood Count 5.73 M/mm3 (3.65-5.03); Red Cell Distribution Width 13.4 % (13.2-15.2)
[2019-04-04 05:32] LABS: BUN/Creatinine Ratio 16; Blood Urea Nitrogen 11 mg/dL (9-20); Calcium 9.7 mg/dL (8.4-10.2); Hemolysis Index 3
[2019-04-04] MEDS ORDERED: KEPPRA 1,000 MG/NS 0.75% 100ML 1,000 MG/100 ML BAG IV ONE (05:41)
[2019-04-04] MEDS ORDERED: ATIVAN IV PRN (05:41)
--- NOTE | 2019-04-04 10:05 | Consultation ---
History of Present Illness - Reason for Consult Consult date: 04/04/19 Reason for consult: Mental Health Evaluation Requesting physician: SEVEN BAUM - Chief Complaint Chief complaint: "The patient was sedated" - History of Present Psychiatric Illness 49 y.o. AA male who presented to the hospital for "ear popping." Psychiatry was consulted to see the patient because he was seen by our team in the ER on 03/25/2019. Today the patient was sedated during the assessment. Per the MAR, the patient was given Ativan PRN for seizure activity at 0554. No gestures of SI/HI's. Medications and Allergies Allergies Allergy/AdvReac Type Severity Reaction Status Date / Time No Known Allergies Allergy Verified 04/18/18 08:26 Home Medications Medication Instructions Recorded Confirmed Last Taken Type levETIRAcetam [Keppra TAB] 750 mg PO BID 03/25/19 04/03/19 Unknown History Active Meds: Active Medications Acetaminophen (Tylenol) 650 mg PO Q4H PRN PRN Reason: Pain MILD(1-3)/Fever >100.5/SEPULVEDA Enoxaparin Sodium (Lovenox) 40 mg SUB-Q QDAY LEYDA Ceftriaxone Sodium (Rocephin/Ns 1 Gm/50 Ml) 1 gm in 50 mls @ 100 mls/hr IV Q24HR LEYDA; Protocol Levetiracetam (Keppra) 750 mg PO BID LEYDA Lorazepam (Ativan) 1 mg IV Q4H PRN PRN Reason: Seizures Last Admin: 04/04/19 05:54 Dose: 1 mg Documented by: Ondansetron HCl (Zofran) 4 mg IV Q8H PRN PRN Reason: Nausea And Vomiting Sodium Chloride (Sodium Chloride Flush Syringe 10 Ml) 10 ml IV BID LEYDA Sodium Chloride (Sodium Chloride Flush Syringe 10 Ml) 10 ml IV PRN PRN PRN Reason: LINE FLUSH Past psychiatric history - Past Medical History Past Medical History: other (Unable to obtain ) Past Surgical History: Other (Unable to obtain ) - past Psychiatric treatment and history psychiatric treatment history: Per the record, the patient was recently discharged from a mental health facility. Unable to obtain a fam psy hx. - Social History Social history: other (Unable to obtain ) Mental Status Exam - Vital signs Last Vital Signs Temp 97.8 F 04/04/19 05:43 Pulse 91 H 04/04/19 05:49 Resp 24 04/04/19 05:43 BP 130/65 04/04/19 05:43 Pulse Ox 100 04/04/19 09:50 - Exam Narrative exam: Unable to complete the MSE because of the patient's condition. Results Result Diagrams: 04/04/19 04:52 04/04/19 04:52 Abnormal lab results 04/03/19 04/03/19 04/03/19 Range/Units 17:52 17:52 17:57 RBC 5.30 H (3.65-5.03) M/mm3 MCV 78 L (84-94) fl MCH 25 L (28-32) pg Lymph % (Auto) (13.4-35.0) % [place] % (Auto) (0.0-7.3) % Creatinine 0.7 L (0.8-1.5) mg/dL Glucose (75-100) mg/dL Total Creatine Kinase 333 H (55-170) units/L Urine WBC (Auto) (0.0-6.0) /HPF Salicylates < 0.3 L (2.8-20.0) mg/dL Acetaminophen (10.0-30.0) ug/mL 04/03/19 04/03/19 04/04/19 Range/Units 17:57 18:54 04:52 RBC 5.73 H (3.65-5.03) M/mm3 MCV 77 L (84-94) fl MCH 25 L (28-32) pg Lymph % (Auto) 36.0 H (13.4-35.0) % [place] % (Auto) 9.7 H (0.0-7.3) % Creatinine (0.8-1.5) mg/dL Glucose (75-100) mg/dL Total Creatine Kinase (55-170) units/L Urine WBC (Auto) 28.0 H (0.0-6.0) /HPF Salicylates (2.8-20.0) mg/dL Acetaminophen < 5.0 L (10.0-30.0) ug/mL 04/04/19 Range/Units 04:52 RBC (3.65-5.03) M/mm3 MCV (84-94) fl MCH (28-32) pg Lymph % (Auto) (13.4-35.0) % [place] % (Auto) (0.0-7.3) % Creatinine 0.7 L (0.8-1.5) mg/dL Glucose 74 L (75-100) mg/dL Total Creatine Kinase (55-170) units/L Urine WBC (Auto) (0.0-6.0) /HPF Salicylates (2.8-20.0) mg/dL Acetaminophen (10.0-30.0) ug/mL All other labs normal. Assessment and Plan Assessment and plan: Impression: The patient was sedated during the assessment. Recommendation/Plan: Will attempt to reassess the patient in [address] Miguel Saldaña.
[2019-04-04] MEDS: LOVENOX SUB-Q SCH (12:11)
[2019-04-04] MEDS: ROCEPHIN/NS 1 GM/50 ML 1 GM/50 ML BAG IV SCH (12:11)
[2019-04-04] MEDS: KEPPRA PO SCH ×2 (12:12→21:28)
[2019-04-04] MEDS: SODIUM CHLORIDE FLUSH SYRINGE 10 ML IV SCH ×2 (12:13→21:28)
--- NOTE | 2019-04-04 12:35 | Progress Note ---
Assessment and Plan Acute encephalopathy, likely metabolic Failure to thrive with unsteady gait Urinary Tract infection without sepsis Bipolar disorder seizure disorder Plan Monitor at medicine, IV fluid Consulted psych - we'll follow recommendation Continue rocephin, follow blood culture His mental status appeared to be at baseline today Nutrition consults, PT consult DVT prophalaxis Disposition: Continue to monitor, disciplining per PT and psych recommendation Brief History: Patient is a 49-year-old male that presents emergency room with complaints of ears popping for 24 hours. Patient was discharged from [facility] recently. Patient states he is staying with his in a new apartment. Report from EMS reviewed and EMS states the patient called EMS. EMS noted that patient was confused and had an unsteady gait. EMS states patient was unable to answer questions so he was brought to ER for further management. CT head: No acute intracranial abnormality. CT cervical spine and lumbar spine: No acute fracture Multilevel cervical spondylosis most marked at C3-4 and Multilevel mild central disc bulges on lumbar area, Hospitalist Physical exam: GENERAL: well-developed and well-nourished -English male lying on bed appeared to be in no discomfort. HEENT: Normocephalic. Atraumatic. No conjunctival congestion or icterus. Patient has moist mucous membranes. NECK: Supple. Trachea midline. CHEST/LUNGS: Clear to auscultated bilaterally, breathing nonlabored. No wheezes crackles or rhonchi. HEART/CARDIOVASCULAR: Regular in rate and rhythm. S1 and S2 positive. ABDOMEN: Abdomen is soft, nontender. Patient has normal bowel sounds. SKIN: There is no rash. Warm and dry. NEURO: No focal motor deficit. Follows command. MUSCULOSKELETAL: No joint effusion or tenderness. EXTRIMITY: No edema, no cyanosis or clubbing. PSYCH: Cooperative. Subjective Date of service: 04/04/19 Interval history: Patient seen and examined. Medical records and medication list reviewed. No acute event overnight noted by the RN. Patient denies any chest pain or difficulty breathing. Patient is uncooperative with the exam, prefers not to be bothered Objective - Constitutional Vitals: Vital Signs - 12hr 04/04/19 04/04/19 04/04/19 01:24 02:19 02:30 Temperature 98.3 F Pulse Rate 87 74 Respiratory 22 16 Rate Blood Pressure 120/76 Blood Pressure 125/82 [Right] O2 Sat by Pulse 96 100 96 Oximetry 04/04/19 04/04/19 04/04/19 05:43 05:49 09:50 Temperature 97.8 F Pulse Rate 91 H Respiratory 24 Rate Blood Pressure 130/65 Blood Pressure [Right] O2 Sat by Pulse 100 100 Oximetry 04/04/19 11:27 Temperature 98.4 F Pulse Rate 69 Respiratory 22 Rate Blood Pressure 118/71 Blood Pressure [Right] O2 Sat by Pulse 100 Oximetry - Labs CBC & Chem 7: 04/04/19 04:52 04/04/19 04:52 Labs: Abnormal lab results 04/03/19 04/03/19 04/03/19 Range/Units 17:52 17:52 17:57 RBC 5.30 H (3.65-5.03) M/mm3 MCV 78 L (84-94) fl MCH 25 L (28-32) pg Lymph % (Auto) (13.4-35.0) % [place] % (Auto) (0.0-7.3) % Creatinine 0.7 L (0.8-1.5) mg/dL Glucose (75-100) mg/dL Total Creatine Kinase 333 H (55-170) units/L Urine WBC (Auto) (0.0-6.0) /HPF Salicylates < 0.3 L (2.8-20.0) mg/dL Acetaminophen (10.0-30.0) ug/mL 04/03/19 04/03/19 04/04/19 Range/Units 17:57 18:54 04:52 RBC 5.73 H (3.65-5.03) M/mm3 MCV 77 L (84-94) fl MCH 25 L (28-32) pg Lymph % (Auto) 36.0 H (13.4-35.0) % [place] % (Auto) 9.7 H (0.0-7.3) % Creatinine (0.8-1.5) mg/dL Glucose (75-100) mg/dL Total Creatine Kinase (55-170) units/L Urine WBC (Auto) 28.0 H (0.0-6.0) /HPF Salicylates (2.8-20.0) mg/dL Acetaminophen < 5.0 L (10.0-30.0) ug/mL 04/04/19 Range/Units 04:52 RBC (3.65-5.03) M/mm3 MCV (84-94) fl MCH (28-32) pg Lymph % (Auto) (13.4-35.0) % [place] % (Auto) (0.0-7.3) % Creatinine 0.7 L (0.8-1.5) mg/dL Glucose 74 L (75-100) mg/dL Total Creatine Kinase (55-170) units/L Urine WBC (Auto) (0.0-6.0) /HPF Salicylates (2.8-20.0) mg/dL Acetaminophen (10.0-30.0) ug/mL
[2019-04-05] MEDS: KEPPRA PO SCH ×2 (09:20→21:03)
[2019-04-05] MEDS: ROCEPHIN/NS 1 GM/50 ML 1 GM/50 ML BAG IV SCH (09:22)
[2019-04-05] MEDS: LOVENOX SUB-Q SCH (09:22)
[2019-04-05] MEDS: SODIUM CHLORIDE FLUSH SYRINGE 10 ML IV SCH ×2 (10:00→21:03)
--- NOTE | 2019-04-05 11:14 | Progress Note ---
Subjective - Reason for Consult Consult date: 04/05/19 Reason for consult: Psychiatry Follow-up - Chief Complaint Chief complaint: "It's the seizures" 49 y.o. AA male who presented to the hospital for "ear popping." Psychiatry was consulted to see the patient because he was seen by our team in the ER on 03/25/2019. Today the patient was calm and cooperative with some confusion during the assessment. He is adamant that his issues stem from his seizures. He was asked about his hospital stay recently at [facility], he stated, "My seizures was my issue." Per the chart the patient was transferred to [facility] mental health 03/26/2019 from [facility]. He was able to give me his brother's number (Luis A [phone]) to obtain collateral information. The patient denies SI/HI's and AVH's. The patient was able to follow simple commands, state his , but could only recall 1/3 numbers in 5 mins. Mental Status Exam - Vital signs Last Vital Signs Temp 97.6 F 04/05/19 05:13 Pulse 62 04/05/19 05:13 Resp 18 04/05/19 05:13 BP 104/58 04/05/19 05:13 Pulse Ox 97 04/05/19 05:13 - Exam Narrative exam: MSE: Appearance: calm, cooperative Behavior: regular eye contact Speech: regular rate and tone Mood: "okay" Affect: congruent to mood Thought Process: somewhat circumstantial Thought Content: denies SI/HI's and AVH's Motor Activity: sitting up in bed Cognition: A/O x2, with some confusion Insight: variable to fair Judgment: fair Assessment and Plan Impression: Today the patient was calm and cooperative, with some confusion during the assessment. Recommendation/Plan: Gather collateral information from [facility] to help determine patient's baseline. Recommend Neuro Consult. Will staff with Dr Miguel Saldaña.
--- NOTE | 2019-04-05 15:50 | Progress Note ---
Assessment and Plan Acute encephalopathy, likely metabolic Failure to thrive with unsteady gait Urinary Tract infection without sepsis Bipolar disorder seizure disorder Plan Monitor at medicine, IV fluid Consulted psych - we'll follow recommendation Continue rocephin, follow blood culture His mental status appeared to be at baseline today Nutrition consults, PT consult DVT prophalaxis Disposition: Continue to monitor, discharge planning per PT and psych recommendation Brief History: Patient is a 49-year-old male that presents emergency room with complaints of ears popping for 24 hours. Patient was discharged from [facility] recently. Patient states he is staying with his in a new apartment. Report from EMS reviewed and EMS states the patient called EMS. EMS noted that patient was confused and had an unsteady gait. EMS states patient was unable to answer questions so he was brought to ER for further management. CT head: No acute intracranial abnormality. CT cervical spine and lumbar spine: No acute fracture Multilevel cervical spondylosis most marked at C3-4 and Multilevel mild central disc bulges on lumbar area, Hospitalist Physical exam: GENERAL: well-developed and well-nourished -Luxembourger male lying on bed appeared to be in no discomfort. HEENT: Normocephalic. Atraumatic. No conjunctival congestion or icterus. Patient has moist mucous membranes. NECK: Supple. Trachea midline. CHEST/LUNGS: Clear to auscultated bilaterally, breathing nonlabored. No wheezes crackles or rhonchi. HEART/CARDIOVASCULAR: Regular in rate and rhythm. S1 and S2 positive. ABDOMEN: Abdomen is soft, nontender. Patient has normal bowel sounds. SKIN: There is no rash. Warm and dry. NEURO: No focal motor deficit. Follows command. MUSCULOSKELETAL: No joint effusion or tenderness. EXTRIMITY: No edema, no cyanosis or clubbing. PSYCH: Cooperative. Subjective Date of service: 04/05/19 Interval history: Patient seen and examined. Medical records and medication list reviewed. No acute event overnight noted by the RN. Patient denies any chest pain or difficulty breathing. Patient is much cooperative today Objective - Constitutional Vitals: Vital Signs - 12hr 04/05/19 04/05/19 04/05/19 05:13 10:00 11:21 Temperature 97.6 F 98.0 F Pulse Rate 62 72 Respiratory 18 22 Rate Respiratory 20 Rate [ Generalized] Blood Pressure 104/58 112/71 O2 Sat by Pulse 97 100 Oximetry - Labs CBC & Chem 7: 04/04/19 04:52 04/04/19 04:52
[2019-04-06] MEDS: KEPPRA PO SCH (09:44)
[2019-04-06] MEDS: LOVENOX SUB-Q SCH (09:44)
[2019-04-06] MEDS: SODIUM CHLORIDE FLUSH SYRINGE 10 ML IV SCH (09:45)
[2019-04-06] MEDS: ROCEPHIN/NS 1 GM/50 ML 1 GM/50 ML BAG IV SCH (10:00)
--- NOTE | 2019-04-06 12:51 | Progress Note ---
Subjective - Reason for Consult Consult date: 04/06/19 Reason for consult: Psychiatry Follow-up - Chief Complaint Chief complaint: "Hello" 49 y.o. AA male who presented to the hospital for "ear popping." Psychiatry was consulted to see the patient because he was seen by our team in the ER on 03/25/2019. Today the patient was calm and cooperative during the assessment. He was more organized today. The patient stated that the number that he gave to me the provider yesterday is the only number he had to contact his brother (wrong number). He stated that his biggest issue is being homeless. He was asked about his mental health, he stated, "I will see someone if need be." He denies SI/HI's, AVH's, and being depressed. Per the record, no behavioral disturbances overnight by the patient. Mental Status Exam - Vital signs Last Vital Signs Temp 98.2 F 04/06/19 05:33 Pulse 54 L 04/06/19 05:33 Resp 18 04/06/19 05:33 BP 118/76 04/06/19 05:33 Pulse Ox 100 04/06/19 05:33 - Exam Narrative exam: MSE: Appearance: calm, cooperative Behavior: regular eye contact Speech: regular rate and tone Mood: "okay" Affect: congruent to mood Thought Process: more organized Thought Content: denies SI/HI's and AVH's Motor Activity: sitting up in bed Cognition: A/O x3 Insight: fair Judgment: fair Assessment and Plan Impression: Today the patient was calm and cooperative during the assessment. Recommendation/Plan: Discussed the importance to follow up with his PCP (seizures), he verbalized understanding. Case Mgmt involvement, the patient will need assistance with placement. Psy sign off. Dispo: The patient can follow up with [facility] for outpatient psy services. Will staff with Dr Miguel Saldaña.
--- NOTE | 2019-04-06 16:16 | Discharge Summary ---
Providers - Providers Date of Admission: 04/03/19 23:52 Date of discharge: 04/06/19 Attending physician: MELANIE FERRERA 04/03/19 23:54 psychiatry consult [Consult to Mental Health] [CONS] Routine Reason For Exam: pysch Place consult to:: psych Notified:: Phone number called:: [phone] Was contact made?: No Time called:: 08:02 Comment:: no answer. 04/05/19 15:48 Consult to Dietitian/Nutrition [CONS] Routine Physician Instructions: Reason For Exam: Reason for Consult: Malnutrition Physical Therapy Evaluation and Treat [CONS] Routine Comment: Reason For Exam: placement 04/06/19 12:53 Consult to Case Management [CONS] Stat Services Needed at Discharge: Waste Water Operator Notified:: called assistant case manager [facility] Hospital[facility] Condition: Fair Hospital course: Patient is a 49-year-old male that presents emergency room with complaints of ears popping for 24 hours. Patient was discharged from [facility] recently. Patient states he is staying with his in a new apartment. Report from EMS reviewed and EMS states the patient called EMS. EMS noted that patient was confused and had an unsteady gait. EMS states patient was unable to answer questions so he was brought to ER for further management. Monitor at medicine, IV fluid Consulted psych - we'll follow recommendation Continue rocephin, follow blood culture His mental status appeared to be at baseline today CT head: No acute intracranial abnormality. CT cervical spine and lumbar spine: No acute fracture Multilevel cervical spondylosis most marked at C3-4 and Multilevel mild central disc bulges on lumbar area, Discharge diagnosis: Acute encephalopathy, likely metabolic vs postictal from likely from breakthrough seizure Failure to thrive with unsteady gait, PT cleared for d/c Urinary Tract infection without sepsis, treated Bipolar disorder, outpt f/u seizure disorder, outpt f/u Disposition: home with self care when clears by psych Hospitalist Physical exam: GENERAL: well-developed and well-nourished -Ugandan male lying on bed appeared to be in no discomfort. HEENT: Normocephalic. Atraumatic. No conjunctival congestion or icterus. Patient has moist mucous membranes. NECK: Supple. Trachea midline. CHEST/LUNGS: Clear to auscultated bilaterally, breathing nonlabored. No wheezes crackles or rhonchi. HEART/CARDIOVASCULAR: Regular in rate and rhythm. S1 and S2 positive. ABDOMEN: Abdomen is soft, nontender. Patient has normal bowel sounds. SKIN: There is no rash. Warm and dry. NEURO: No focal motor deficit. Follows command. MUSCULOSKELETAL: No joint effusion or tenderness. EXTRIMITY: No edema, no cyanosis or clubbing. PSYCH: Cooperative. Disposition: -01 TO HOME OR SELFCARE Time spent for discharge: 34 minutes Core Measure Documentation - Palliative Care Palliative Care/ Comfort Measures: Not Applicable - Core Measures Any of the following diagnoses?: none Exam - Constitutional Vitals: Temp Pulse Resp BP Pulse Ox 97.7 F 65 14 110/69 100 04/06/19 12:04 04/06/19 12:04 04/06/19 12:04 04/06/19 12:04 04/06/19 12:04 Plan Activity: advance as tolerated Weight Bearing Status: Weight Bear as Tolerated Diet: regular Follow up with: CINDY MARKS MD [Primary Care Provider] - 3-5 Days Prescriptions: levETIRAcetam [Keppra TAB] 750 mg PO BID #60 tablet
[2019-04-06 17:47] VITALS: BP 135/81
== END 2019-04-06 18:36 | disposition home or self-care (01) | DRG 690 ==
LOC: ED 17:32 → 3A 23:52
PROVIDERS: ADMIT Internal Medicine; ATTEND Internal Medicine
DX: N30.01 Acute cystitis with hematuria (principal); F23 Brief psychotic disorder; Z68.1 Body mass index [BMI] 19.9 or less, adult; G40.909 Epilepsy, unspecified, not intractable, without status epilepticus; F31.9 Bipolar disorder, unspecified; R26.9 Unspecified abnormalities of gait and mobility; Z90.49 Acquired absence of other specified parts of digestive tract; R62.7 Adult failure to thrive; M47.812 Spondylosis without myelopathy or radiculopathy, cervical region
CPT/HCPCS: 36415; 70450; 72131; 80048; 80053; 80177; 80307; 80320; 81001; 82550; 82962; 85025; 85027; 87086; 87116; 94760; 99406; G0378; G0480; J0692; J0696; J1650; J1953; J2060

== ENCOUNTER 2019-04-22 07:16 | Emergency (ER) | payer MEDICAID ==
[2019-04-22] MEDS ORDERED: KEPPRA 1,000 MG/NS 0.75% 100ML 1,000 MG/100 ML BAG IV ONE (07:48)
[2019-04-22 08:30] LABS: Basophils % (Auto) 0.5 % (0.0-1.8); Eosinophils % (Auto) 0.2 % (0.0-4.3); Hematocrit 42.7 % (35.5-45.6); Hemoglobin 13.8 gm/dl (11.8-15.2); Lymphocytes # (Auto) 0.9 K/mm3 (1.2-5.4); Lymphocytes % (Auto) 11.8 % (13.4-35.0); Mean Corpuscular HGB Conc 32 % (32-34); Mean Corpuscular Volume 77 fl (84-94); Monocytes # (Auto) 0.7 K/mm3 (0.0-0.8); Monocytes % (Auto) 9.1 % (0.0-7.3); Platelet Count 173 K/mm3 (140-440); Red Blood Count 5.56 M/mm3 (3.65-5.03); Red Cell Distribution Width 13.3 % (13.2-15.2)
[2019-04-22 08:39] LABS: INR 1.04 (0.87-1.13); Partial Thromboplastin Time 27.6 Sec. (24.2-36.6)
[2019-04-22 08:50] LABS: Alanine Aminotransferase 24 units/L (7-56); Albumin 4.8 g/dL (3.9-5); BUN/Creatinine Ratio 13; Blood Urea Nitrogen 8 mg/dL (9-20); Calcium 9.8 mg/dL (8.4-10.2); Hemolysis Index 10
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
--- NOTE | 2019-04-22 09:30 | XRay Report ---
LEFT HAND 2 VIEWS INDICATION: hand swelling COMPARISON: None available. FINDINGS: There is no fracture, subluxation, or other acute radiographic abnormality of the left hand. Moderate osteoarthritis of the basal joint of the thumb, the first MCP joint and PIP joints of the index and middle fingers. Mild nonspecific swelling of the dorsum of the hand the index and middle fingers. No soft tissue air or foreign body. IMPRESSION: Nonspecific soft tissue swelling. Osteoarthritis. Signer Name: Juni Rivera MD Signed: 04/22/2019 9:26 AM Workstation Name: [id number]
[2019-04-22 09:55] LABS: Amphetamine Screen,Urine PRESUMPTIVE NEGATIVE; Benzodiazepines Screen,Urine PRESUMPTIVE NEGATIVE; Cannabinoid Screen,Urine PRESUMPTIVE NEGATIVE; Cocaine Screen,Urine PRESUMPTIVE NEGATIVE; Methadone Screen,Urine PRESUMPTIVE NEGATIVE; Opiate Screen,Urine PRESUMPTIVE NEGATIVE
[2019-04-22 09:56] LABS: Bilirubin,Urine NEG (Negative); Blood,Urine SM (Negative); Color,Urine Yellow (Yellow); Mucus,Urine FEW /HPF; Protein,Urine <15 mg/dL mg/dL (Negative); Urobilinogen,Urine < 2.0 mg/dL (<2.0)
[2019-04-22 09:59] LABS: Bacteria,Urine 1+ /HPF (Negative)
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
[2019-04-22 16:18] VITALS: BP 113/64
== END 2019-04-22 16:24 | disposition home or self-care (01) ==
LOC: ED 07:16
DX: S60.222A Contusion of left hand, initial encounter (principal); S60.512A Abrasion of left hand, initial encounter; S60.511A Abrasion of right hand, initial encounter; I10 Essential (primary) hypertension; F31.9 Bipolar disorder, unspecified; R10.9 Unspecified abdominal pain; M54.6 Pain in thoracic spine; Z90.49 Acquired absence of other specified parts of digestive tract; F17.200 Nicotine dependence, unspecified, uncomplicated; Z79.899 Other long term (current) drug therapy; V03.99XA Pedestrian with other conveyance injured in collision with car, pick-up truck or van, unspecified whether traffic or nontraffic accident, initial encounter; Y93.89 Activity, other specified; Y92.488 Other paved roadways as the place of occurrence of the external cause; Y99.8 Other external cause status
CPT/HCPCS: 36415; 70450; 70486; 71045; 71250; 72125; 73130; 74176; 80053; 80307; 81001; 82962; 83735; 85025; 85610; 85730; 86850; 86900; 86901; 96374; 99285; J1953; 80320; G0480

== ENCOUNTER 2019-04-23 23:12 | Emergency (ER) | payer MEDICAID ==
[2019-04-24 00:12] LABS: Basophils # (Auto) 0.1 K/mm3 (0.0-0.1); Basophils % (Auto) 0.9 % (0.0-1.8); Eosinophils # (Auto) 0.1 K/mm3 (0.0-0.4); Eosinophils % (Auto) 0.7 % (0.0-4.3); Hematocrit 38.6 % (35.5-45.6); Hemoglobin 12.2 gm/dl (11.8-15.2); Lymphocytes # (Auto) 1.5 K/mm3 (1.2-5.4); Lymphocytes % (Auto) 20.4 % (13.4-35.0); Mean Corpuscular HGB Conc 32 % (32-34); Mean Corpuscular Volume 77 fl (84-94); Monocytes # (Auto) 0.7 K/mm3 (0.0-0.8); Monocytes % (Auto) 9.9 % (0.0-7.3); Platelet Count 173 K/mm3 (140-440); Red Blood Count 5.02 M/mm3 (3.65-5.03); Red Cell Distribution Width 13.5 % (13.2-15.2)
[2019-04-24 00:35] LABS: BUN/Creatinine Ratio 19; Blood Urea Nitrogen 15 mg/dL (9-20); Calcium 9.3 mg/dL (8.4-10.2); Hemolysis Index 4
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
[2019-04-24 07:04] LABS: Bacteria,Urine 4+ /HPF (Negative); Bilirubin,Urine NEG (Negative); Blood,Urine MOD (Negative); Color,Urine Yellow (Yellow); Mucus,Urine 2+ /HPF; Protein,Urine <15 mg/dL mg/dL (Negative); Urobilinogen,Urine < 2.0 mg/dL (<2.0)
[2019-04-24 13:41] LABS: Amphetamine Screen,Urine PRESUMPTIVE NEGATIVE; Cannabinoid Screen,Urine PRESUMPTIVE NEGATIVE; Cocaine Screen,Urine PRESUMPTIVE NEGATIVE; Methadone Screen,Urine PRESUMPTIVE NEGATIVE; Opiate Screen,Urine PRESUMPTIVE NEGATIVE
[2019-04-24 13:54] LABS: Benzodiazepines Screen,Urine PRESUMPTIVE POSITIVE
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
[2019-04-24] MEDS ORDERED: MELATONIN PO PRN (15:45)
[2019-04-24] MEDS: INVEGA PO SCH (16:36)
[2019-04-24] MEDS: COGENTIN PO SCH (22:30)
--- NOTE | 2019-04-25 09:43 | Progress Note ---
Subjective - Reason for Consult Consult date: 04/25/19 Reason for consult: Psychiatry Follow-up - Chief Complaint Chief complaint: "Brenda" 49 y.o. A male who presented to the ER for bizarre behavior. This patient is known to me. Today the patient was calm and cooperative during the assessment. He still could not explain what happened to his face when asked, but was more engaging. He stated he got "much rest" last night. Per the staff, the patient have been pleasant since his ER arrival. He denies SI/HI's and AVH's. No indications of side effects from his medication. Mental Status Exam - Vital signs Last Vital Signs Temp 97.9 F 04/25/19 09:33 Pulse 102 H 04/25/19 09:33 Resp 18 04/25/19 01:00 BP 125/80 04/25/19 09:33 Pulse Ox 98 04/25/19 09:33 - Exam Narrative exam: MSE: Appearance: calm, cooperative Behavior: regular eye contact Speech: regular rate and tone Mood: "okay" Affect: congruent to mood Thought Process: circumstantial Thought Content: denies SI/HI's and AVH's Motor Activity: sitting up in bed Cognition: A/O x3 Insight: variable Judgment: variable to fair Assessment and Plan Impression: Unspecified Psychosis. Today the patient was calm and cooperative during the assessment. DDX: Schizophrenia, Delusional Do Recommendation/Plan: reevaluate the patient's 1013 in 24 hours. Continue Invega 3 mg PO daily for psychosis, Cogentin 0.5 mg PO daily for EPS prevention, and Melatonin 5 mg PO HS PRN for sleep. Attempted to discuss possible metabolic side effects of Invega with the patient. Case Mgmt involvement, the patient may need assistance with placement. Dispo: If the patient's 1013 is rescinded in 24 hours, he can follow up with [facility] for outpatient psy services. Will staff with Dr Miguel Saldaña.
[2019-04-25] MEDS: INVEGA PO SCH (10:18)
[2019-04-25] MEDS: COGENTIN PO SCH (22:57)
[2019-04-25] MEDS ORDERED: TYLENOL ONE (23:18)
[2019-04-25] MEDS ORDERED: TYLENOL PO ONE (23:19)
[2019-04-26 08:17] VITALS: BP 115/87
[2019-04-26] MEDS ORDERED: COGENTIN PO SCH (10:00)
[2019-04-26] MEDS: INVEGA PO SCH (10:35)
--- NOTE | 2019-04-26 11:36 | Progress Note ---
Subjective - Reason for Consult Consult date: 04/26/19 Reason for consult: Psychiatry Follow-up - Chief Complaint Chief complaint: "Will I be leaving today" 49 y.o. A male who presented to the ER for bizarre behavior. This patient is known to me. Today the patient was calm and cooperative during the assessment. He was more engaging. He stated that he want to return to his home that he share with his brother. Per the record, no behavioral disturbances overnight. The patient denies SI/HI's and AVH's. No indications of side effects from his medication. Mental Status Exam - Vital signs Last Vital Signs Temp 98.6 F 04/26/19 08:15 Pulse 89 04/26/19 08:15 Resp 18 04/26/19 08:15 BP 115/87 04/26/19 08:15 Pulse Ox 100 04/26/19 08:15 - Exam Narrative exam: MSE: Appearance: calm, cooperative Behavior: regular eye contact Speech: regular rate and tone Mood: "okay" Affect: congruent to mood Thought Process: circumstantial Thought Content: denies SI/HI's and AVH's Motor Activity: sitting up in bed Cognition: A/O x3 Insight: fair Judgment: fair Assessment and Plan Impression: Unspecified Psychosis. Today the patient was calm and cooperative during the assessment. DDX: Schizophrenia, Delusional DO Recommendation/Plan: Rescind 1013 and continue Invega 3 mg PO daily for psychosis, Cogentin 0.5 mg PO daily for EPS prevention, and Klonopin 0.5 mg PO HS. Discussed possible metabolic side effects of Invega with the patient, he verbalized understanding. Case Mgmt involvement, the patient may need assistance with placement. Dispo: The patient can fdollow up with [facility] for outpatient psy services. Will staff with Dr Miguel Saldaña.
== END 2019-04-26 12:42 | disposition home or self-care (01) ==
LOC: ED 23:12 → EEVIPCON 23:12 → ED 04-26 12:42
DX: F25.0 Schizoaffective disorder, bipolar type (principal); I10 Essential (primary) hypertension; Z90.49 Acquired absence of other specified parts of digestive tract; Z79.899 Other long term (current) drug therapy
CPT/HCPCS: 36415; 80048; 80307; 80320; 81001; 85025; G0480

== ENCOUNTER 2019-05-14 21:52 | Inpatient (IN) | payer MEDICAID ==
[2019-05-15] MEDS ORDERED: PHENYTOIN 100 MG CAPSULE.ER PO ONE (00:20)
[2019-05-15] MEDS ORDERED: SODIUM CHLORIDE 0.9% 1000 ML 1,000 ML IV ONE (00:27)
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
--- NOTE | 2019-05-15 00:54 | XRay Report ---
CHEST 1 VIEW 05/15/2019 12:32 AM INDICATION / CLINICAL INFORMATION: fever. COMPARISON: 04/22/19 FINDINGS: SUPPORT DEVICES: None. HEART / MEDIASTINUM: No significant abnormality. LUNGS / PLEURA: New, patchy densities in the right midlung and right lung base could represent infilt rate such as pneumonia. Mild patchy density in the left lung base as well. No pneumothorax. ADDITIONAL FINDINGS: No significant additional findings. IMPRESSION: 1. Possible multifocal pneumonia. Signer Name: Prosper Healy MD Signed: 05/15/2019 12:50 AM Workstation Name: [id number]
[2019-05-15 01:02] LABS: Basophils # (Auto) 0.1 K/mm3 (0.0-0.1); Basophils % (Auto) 0.4 % (0.0-1.8); Eosinophils % (Auto) 0.2 % (0.0-4.3); Hemoglobin 11.6 gm/dl (11.8-15.2); Lymphocytes # (Auto) 1.6 K/mm3 (1.2-5.4); Mean Corpuscular HGB Conc 31 % (32-34); Mean Corpuscular Volume 76 fl (84-94); Monocytes # (Auto) 1.4 K/mm3 (0.0-0.8); Monocytes % (Auto) 6.9 % (0.0-7.3); Platelet Count 202 K/mm3 (140-440); Red Blood Count 4.84 M/mm3 (3.65-5.03); Red Cell Distribution Width 13.2 % (13.2-15.2)
[2019-05-15 01:24] LABS: BUN/Creatinine Ratio 21; Blood Urea Nitrogen 15 mg/dL (9-20); Calcium 9.2 mg/dL (8.4-10.2); Hemolysis Index 1
[2019-05-15] MEDS ORDERED: VANCOMYCIN PHARMACY TO DOSE IV SCH (02:00)
[2019-05-15] MEDS ORDERED: CEFEPIME/NS 2 GM/100 ML 2 GM/100 ML BAG IV SCH (02:00)
[2019-05-15] MEDS ORDERED: VANCOMYCIN 1,500 MG in SODIUM CHLORIDE 0.9% 500 ML 500 ML IV ONE (02:15)
[2019-05-15] MEDS ORDERED: ACETAMINOPHEN 325 MG TAB PO PRN (02:50)
[2019-05-15] MEDS ORDERED: ONDANSETRON 4 MG/2 ML INJ IV PRN (02:50)
--- NOTE | 2019-05-15 02:53 | History and Physical Report ---
History of Present Illness Date of examination: 05/15/19 History of present illness: 49-year-old man with a history of seizure comes emergency room with complaints of having a seizure today. He stated that he is compliant with his Keppra and Dilantin. She was just discharged from the hospital . Plans of a cough produ ctive of brown phlegm, shortness of breath. Denies homicidal and suicidal ideation Review Of Systems: Constitutional: no weight loss, fever, chills Ears, eyes, nose, mouth and throat: no nasal congestion, no nasal discharge, no sinus pressure, blurry vision, diplopia Neck: No neck pain or rigidity. Cardiovascular: No palpitations, chest pain Respiratory:+ shortness of breath, cough Gastrointestinal: No hematochezia, abdominal pain Genitourinary : no dysuria, frequency , hematuria Musculoskeletal: no muscle ache , joint pain Integumentary: no rash, no pruritis Neurological: no parathesias, focal weakness Endocrine: no cold or heat intolerance, no polyuria or polydipsia Hematologic/Lymphatic: no easy bruising, no easy bleeding, no gland swelling Allergic/Immunologic: no urticaria, no angioedema. PAST MEDICAL HISTORY:seizure PAST SURGICAL HISTORY:none FAMILY HISTORY:hypertension, diabetes SOCIAL HISTORY: Denies tobacco, drugs, alcohol Medications and Allergies Allergies Allergy/AdvReac Type Severity Reaction Status Date / Time No Known Allergies Allergy Verified 05/01/19 16:42 Home Medications Medication Instructions Recorded Confirmed Last Taken Type Naproxen [Naprosyn] 500 mg PO BID #14 tablet 05/02/19 05/08/19 Unknown Rx OLANzapine [Zyprexa] 15 mg PO HS #30 tablet 05/14/19 Unknown Rx Phenytoin [Dilantin] 100 mg PO Q8HR #90 capsule 05/14/19 Unknown Rx levETIRAcetam [Keppra TAB] 750 mg PO BID 30 Days #60 tablet 05/14/19 Unknown Rx Active Meds: Active Medications Vancomycin HCl 1,500 mg/ (Sodium Chloride) 530 mls @ 333 mls/hr IV ONCE ONE; Protocol Stop: 05/15/19 03:50 Cefepime HCl (Maxipime/Ns 2 Gm/100 Ml) 2 gm in 100 mls @ 200 mls/hr IV Q8H LEYDA; Protocol Vancomycin HCl (Vancomycin/Ns 1 Gm/250 Ml) 1 gm in 250 mls @ 250 mls/hr IV Q12H LEYDA Exam - Physical Exam Narrative exam: General Apperance: The patient sitting in bed no acute distress HEENT: Normocephalic, atraumatic. Pupils equally round and reactive to light, extraocular movement intact, and no sclericterus or JVD or thyromegaly or nodule. Neck supple, no carotid bruit, mucous membranes moist, no exudate or erythema Heart: S1-S2, regular is rhythm Lungs:Crackles bilaterally, breathing comfortable Abdomen: Positive bowel sounds, soft, nontender, nondistended, no organomegaly Extremities: No edema cyanosis clubbing Skin: no rash, nodule, warm and dry Neuro:CN 2 -12 intact, motor/sensory intact, speech is fluent - Constitutional Vitals: Temp Pulse Resp BP Pulse Ox 101.4 F H 105 H 18 123/79 96 05/14/19 22:10 05/14/19 22:10 05/14/19 22:33 05/14/19 22:10 05/14/19 22:10 Results - Labs CBC & Chem 7: 05/15/19 00:29 05/15/19 00:29 Labs: Abnormal lab results 05/15/19 05/15/19 Range/Units 00:29 00:29 WBC 20.1 H (4.5-11.0) K/mm3 Hgb 11.6 L (11.8-15.2) gm/dl MCV 76 L (84-94) fl MCH 24 L (28-32) pg MCHC 31 L (32-34) % Lymph % (Auto) 8.0 L (13.4-35.0) % Ada # 1.4 H (0.0-0.8) K/mm3 Seg Neutrophils % 84.5 H (40.0-70.0) % Seg Neutrophils # 17.0 H (1.8-7.7) K/mm3 Sodium 135 L (137-145) mmol/L Creatinine 0.7 L (0.8-1.5) mg/dL - Imaging and Cardiology EKG: image reviewed Chest x-ray: report reviewed Assessment and Plan Assessment Pneumonia, HCAP Seizure, acute on chronic Plan Admit to medicine Start IV Zosyn, IV Ativan as needed for seizure control Check Dilantin level, consult neurology DVT prophylaxis
[2019-05-15] MEDS ORDERED: SODIUM CHLORIDE 0.9% 1000 ML 1,000 ML IV SCH (03:00)
[2019-05-15] MEDS ORDERED: LORazepam 2 MG/ML VIAL IV PRN (03:19)
[2019-05-15] MEDS ORDERED: PIPERACIL/TAZOBACTA 4.5/NS 100 4.5 GM/100 ML VIAL IV ONE (03:31)
[2019-05-15] MEDS: PIPERACIL/TAZOBACTA 4.5/NS 100 4.5 GM/100 ML VIAL IV SCH ×3 (03:53→15:45)
[2019-05-15 05:54] LABS: Amphetamine Screen,Urine PRESUMPTIVE NEGATIVE; Benzodiazepines Screen,Urine PRESUMPTIVE NEGATIVE; Cannabinoid Screen,Urine PRESUMPTIVE NEGATIVE; Cocaine Screen,Urine PRESUMPTIVE NEGATIVE; Methadone Screen,Urine PRESUMPTIVE NEGATIVE; Opiate Screen,Urine PRESUMPTIVE NEGATIVE
[2019-05-15 05:55] LABS: Bilirubin,Urine NEG (Negative); Blood,Urine MOD (Negative); Color,Urine Yellow (Yellow); Protein,Urine <15 mg/dL mg/dL (Negative); Urobilinogen,Urine < 2.0 mg/dL (<2.0)
--- NOTE | 2019-05-15 09:20 | Consultation ---
Medications and Allergies Allergies Allergy/AdvReac Type Severity Reaction Status Date / Time No Known Allergies Allergy Verified 05/01/19 16:42 Home Medications Medication Instructions Recorded Confirmed Last Taken Type OLANzapine [Zyprexa] 15 mg PO HS #30 tablet 05/14/19 05/15/19 05/14/19 Rx Phenytoin [Dilantin] 100 mg PO Q8HR #90 capsule 05/14/19 05/15/19 05/14/19 Rx levETIRAcetam [Keppra TAB] 750 mg PO BID 30 Days #60 tablet 05/14/19 05/15/19 05/14/19 Rx Active Meds: Active Medications Acetaminophen (Tylenol) 650 mg PO Q4H PRN PRN Reason: Pain MILD(1-3)/Fever >100.5/SEPULVEDA Enoxaparin Sodium (Lovenox) 40 mg SUB-Q QDAY LEYDA Vancomycin HCl (Vancomycin/Ns 1 Gm/250 Ml) 1 gm in 250 mls @ 250 mls/hr IV Q12H LEYDA Sodium Chloride (Nacl 0.9% 1000 Ml) 1,000 mls @ 100 mls/hr IV DIRECT LEYDA Piperacillin Sod/Tazobactam Sod (Zosyn/Ns 4.5gm/100ml) 4.5 gm in 100 mls @ 200 mls/hr IV Q8H LEYDA; Protocol Last Admin: 05/15/19 03:53 Dose: 200 mls/hr Documented by: Levetiracetam (Keppra) 750 mg PO BID LEYDA Lorazepam (Ativan) 1 mg IV Q4H PRN PRN Reason: Seizures Olanzapine (Zyprexa) 15 mg PO HS LEYDA Ondansetron HCl (Zofran) 4 mg IV Q8H PRN PRN Reason: Nausea And Vomiting Phenytoin (Dilantin) 100 mg PO Q8HR LEYDA Sodium Chloride (Sodium Chloride Flush Syringe 10 Ml) 10 ml IV BID LEYDA Sodium Chloride (Sodium Chloride Flush Syringe 10 Ml) 10 ml IV PRN PRN PRN Reason: LINE FLUSH Physical Examination - Vital Signs Vital Signs: Vital Signs Temp Pulse Resp BP Pulse Ox 101.4 F H 105 H 18 123/79 96 05/14/19 22:10 05/14/19 22:10 05/14/19 22:10 05/14/19 22:10 05/14/19 22:10 Results - Laboratory Findings CBC and BMP: 05/15/19 00:29 05/15/19 00:29 Abnormal Lab Findings: Abnormal Labs 05/15/19 05/15/19 00:29 00:29 WBC 20.1 H Hgb 11.6 L MCV 76 L MCH 24 L MCHC 31 L Lymph % (Auto) 8.0 L Bertie # 1.4 H Seg Neutrophils % 84.5 H Seg Neutrophils # 17.0 H Sodium 135 L Creatinine 0.7 L Assessment and Plan 49 YR OLD MALE WITH HISTORY OF SCHIZOPHRENIA,DEPRESSION,SEIZURE WHO HAS BEEN ON KEPPRA AND DILANTIN CAME TO THE EMERGENCY ON 05/14/2019 BECAUSE OF RECURRENCE OF SEIZURE. PATIENT STATES THAT HIS SEIZURE WA OBSERVED BY HIS BROTHER WITH WHOM HE LIVES AND HE KNOWS ABOUT SEIZURE,, PATIENT REPORTS HIS LAST DRINK OF ALCOHOL TWO DAYS AGO. NO OTHER DESCRIPTION OF THE SEIZURE WAS AVAILABLE FROM THE PATIENT.PATIENT STATES THAT HE IS COMPLIANT WITH MEDICATION, WORK UP AFTER ADMISSION SHOWS INCREASED WBC WITH INCREASED NEUTROPHIL COUNT.INDICATING SOME INFECTION IS GOING ON. PATIENT ALSO REPORTS CHRONIC SLEEP DEPRIVATION FROM INSOMNIA WHICH HAS NEVER BEEN ADDRESSED., PHYSICAL EXAMINATION PATEINT IS ALERT AND AWAKE, ANSWERS QUESTIONS APPROPRIATELY, HAS INSIGHT INTO HIS PROBLEM HEART-NORMAL RATE AND RHYTHM, CAROTIDS-BOTH PALPABLE CRANIAL NERVES - PUPILS REACT TO LIGHT,EXTRA OCULAR MOVEMENT IS INTACT, NO FACIAL ASYMMETRY, OTHER CRANIAL NERVES ARE WITH IN NORMAL LIMIT, MOTOR- NO ASYMMETRY OF STRENGTH,STRENGTH IN BOTH UPPER AND LOWER EXTREMITIES ARE NORMAL COORDINATION- FINGER TO NOSE IS NORMAL. REFLEXES- REFLEXES ARE WITH IN NORMAL LIMIT WITH BILATERAL DOWN GOING TOES. SENSORY- SENSORY EXAMINATION IS GROSSLY WITH IN NORMAL LIMIT, IMPRESSION. 1. RECURRENCE OF SEIZURE WHILE COMPLIANT WITH MEDICATION COULD BE DUE TO ALCOHOL, SLEEP DEPRIVATION AND OR CONCURRENT INFECTION. RECOMMEND. 1. PATIENT SHOULD BE GIVEN MELATONIN 5MG QHS PRN INSOMNIA 2. PLEASE LOOK FOR SOURCE OF INFECTION AND INITIATE ANTIBIOTICS 3. PATIENT WAS COUNSELED TO QUIT DRINKING AND HE WAS EXPLAINED THE DANGER OF ALCOHOL IN A SEIZURE PATIENT PATIENT. HE VOICED UNDERSTANDING 4. CONTINUE KEPPRA AND DIANTIN PRESCRIBED.
[2019-05-15] MEDS: ENOXAPARIN 40 MG/0.4 ML INJ SUB-Q SCH (10:00)
[2019-05-15] MEDS: levETIRAcetam 500 MG TAB PO SCH ×2 (11:32→21:43)
[2019-05-15] MEDS ORDERED: VANCOMYCIN/NS 1 GM/250 ML 1 GM/250 ML BAG IV SCH ×2 (12:00→18:00)
[2019-05-15] MEDS: PHENYTOIN 100 MG CAPSULE.ER PO SCH ×3 (13:51→21:42)
[2019-05-15] MEDS: VANCOMYCIN 1,250 MG in SODIUM CHLORIDE 0.9% 250ML 250 ML IV SCH (17:20)
[2019-05-16] MEDS: PIPERACIL/TAZOBACTA 4.5/NS 100 4.5 GM/100 ML VIAL IV SCH ×3 (00:23→16:16)
[2019-05-16] MEDS: VANCOMYCIN 1,250 MG in SODIUM CHLORIDE 0.9% 250ML 250 ML IV SCH (05:52)
[2019-05-16] MEDS: PHENYTOIN 100 MG CAPSULE.ER PO SCH ×2 (05:53→13:55)
[2019-05-16 05:54] LABS: Basophils # (Auto) 0.1 K/mm3 (0.0-0.1); Basophils % (Auto) 0.5 % (0.0-1.8); Eosinophils # (Auto) 0.2 K/mm3 (0.0-0.4); Eosinophils % (Auto) 1.7 % (0.0-4.3); Hematocrit 36.9 % (35.5-45.6); Hemoglobin 11.7 gm/dl (11.8-15.2); Lymphocytes # (Auto) 1.1 K/mm3 (1.2-5.4); Lymphocytes % (Auto) 10.1 % (13.4-35.0); Mean Corpuscular HGB Conc 32 % (32-34); Mean Corpuscular Volume 77 fl (84-94); Monocytes # (Auto) 1.1 K/mm3 (0.0-0.8); Monocytes % (Auto) 9.6 % (0.0-7.3); Platelet Count 182 K/mm3 (140-440); Red Blood Count 4.83 M/mm3 (3.65-5.03); Red Cell Distribution Width 13.4 % (13.2-15.2)
[2019-05-16 06:07] LABS: BUN/Creatinine Ratio 11; Blood Urea Nitrogen 8 mg/dL (9-20); Hemolysis Index 0
[2019-05-16] MEDS: ENOXAPARIN 40 MG/0.4 ML INJ SUB-Q SCH (09:00)
[2019-05-16] MEDS: levETIRAcetam 500 MG TAB PO SCH (09:00)
--- NOTE | 2019-05-16 10:43 | Discharge Summary ---
Providers - Providers Date of Admission: 05/15/19 02:50 Attending physician: FAREED VILLALOBOS MD 05/15/19 02:50 Consult to Physician [CONS] Routine Comment: Consulting Provider: MEDARDO MILIAN Physician Instructions: Reason For Exam: aline Primary care physician: [employer] Hospitalization Condition: Stable Hospital course: 49-year-old man with history of seizure disorder, schizophrenia, polysubstance abuse, who has been having some social issues, he has not had a place to stay. The patient was discharged from the ER when he was being seen because he was frustrated with not having a place to stay, 7 hours after he was discharged he returned to the hospital stating that he had a seizure. The patient stated that he wanted placement in a usp, but his brother did not feel like he would be compliant and remain in placement. The brother is also allowing the patient to return home. When he returned to the ER after leaving for 7 hours, he had 2 witnessed seizures in the ER. These were most likely instigated by fevers. Patient presented with fever, found to have pneumonia. Which was likely cause of his seizure. He was treated with antibiotics, he defervesced. He was seen by neurology who recommended continue his antiepileptic drugs. He was also recommended to abstain from alcohol, as this exacerbates seizures Preventative health counseling performed for 17 minutes Diagnosis Status epilepticus Sepsis Community acquired pneumonia Alcohol abuse/dependence Disposition: DC-01 TO HOME OR SELFCARE Time spent for discharge: 35 minutes Core Measure Documentation - Palliative Care Palliative Care/ Comfort Measures: Not Applicable - Core Measures Any of the following diagnoses?: none Exam - Constitutional Vitals: Temp Pulse Resp BP Pulse Ox 99.6 F 94 H 20 110/66 96 05/16/19 05:32 05/16/19 05:32 05/16/19 05:32 05/16/19 05:32 05/16/19 05:32 General appearance: Present: no acute distress, well-nourished - EENT Eyes: Present: PERRL ENT: hearing intact, clear oral mucosa - Neck Neck: Present: supple, normal ROM - Respiratory Respiratory effort: normal Respiratory: bilateral: CTA - Cardiovascular Heart Sounds: Present: S1 & S2. Absent: rub, click - Extremities Extremities: pulses symmetrical, No edema Peripheral Pulses: within normal limits - Abdominal General gastrointestinal: Present: soft, non-tender, non-distended, normal bowel sounds Male genitourinary: Present: normal - Integumentary Integumentary: Present: clear, warm, dry - Musculoskeletal Musculoskeletal: gait normal, strength equal bilaterally - Psychiatric Psychiatric: appropriate mood/affect, intact judgment & insight - Neurologic Neurologic: CNII-XII intact, moves all extremities Plan Follow up with: PRIMARY CARE,MD [Primary Care Provider] - 3-5 Days Prescriptions: Amoxicillin/Potassium Clav [Augmentin 875-125 Tablet] 1 each PO BID #10 tablet Phenytoin [Dilantin] 100 mg PO Q8HR #90 capsule levETIRAcetam [Keppra TAB] 750 mg PO BID 30 Days #60 tablet Azithromycin [Zithromax Z-KYRA] 0 mg PO DAILY #1 pack OLANzapine [Zyprexa] 15 mg PO HS #30 tablet
[2019-05-16 17:49] VITALS: BP 130/91
== END 2019-05-16 18:58 | disposition home or self-care (01) | DRG 871 ==
LOC: ED 21:52 → 3A 05-15 02:50
PROVIDERS: ADMIT Internal Medicine; ATTEND Internal Medicine
DX: A41.9 Sepsis, unspecified organism (principal); J18.8 Other pneumonia, unspecified organism; G40.901 Epilepsy, unspecified, not intractable, with status epilepticus; F20.9 Schizophrenia, unspecified; F10.20 Alcohol dependence, uncomplicated; F32.9 Major depressive disorder, single episode, unspecified; I10 Essential (primary) hypertension; F17.200 Nicotine dependence, unspecified, uncomplicated; Z71.9 Counseling, unspecified; Z79.899 Other long term (current) drug therapy; Z82.49 Family history of ischemic heart disease and other diseases of the circulatory system; Z83.3 Family history of diabetes mellitus; Z90.49 Acquired absence of other specified parts of digestive tract
CPT/HCPCS: 36415; 71045; 80048; 80053; 80185; 80307; 80320; 81001; 82140; 82550; 85025; 87040; 87086; G0378; G0480; J0692; J1650; J1953; J2543; J3370; J7030; J7040; J7050; Q2009

== ENCOUNTER 2019-05-16 20:55 | Emergency (ER) | payer MEDICAID ==
[2019-05-17] MEDS ORDERED: levETIRAcetam 1000 MG/NS 0.75% 1,000 MG/100 ML BAG IV ONE (00:48)
--- NOTE | 2019-05-17 00:51 | Emergency Department Report ---
<ESTRADA LUCIO - Last Filed: 05/17/19 03:02> ED Psych HPI - General Chief Complaint: Seizure Stated Complaint: SEIZURE Time Seen by Provider: 05/17/19 00:29 Source: patient Mode of arrival: Ambulatory - History of Present Illness Initial Comments: Mr. Recinos is a 49 yo male with history of schizophrenia, polysubstance abuse and epilepsy who presents to the ED today stating that he had seizure episode earlier today prior to coming to the ER. Patient states that this episode was unwitnessed and he does not know how long the seizure lasted. He is also suicidal ideation without a plan to overdose on his medications. Patient states his shortness for the past 2 days and is worse today. Patient states that he did take his medication for seizure. But when I asked who his primary care physician or psychiatrist was patient states she does not have any. Denies any symptoms today MD Complaint: suicidal ideation History of same: Yes Quality: getting worse Improves With: none Worsens With: none Associated Symptoms: denies other symptoms. denies: confusion, headache, nausea, vomiting If Self Harm: has plan - Related Data Home Medications Medication Instructions Recorded Confirmed Last Taken OLANzapine [ZyPREXA] 10 mg PO HS 05/17/19 05/17/19 Unknown Phenytoin [Dilantin] 100 mg PO Q8HR 05/17/19 05/18/19 Unknown levETIRAcetam [Keppra XR TAB] 750 mg PO BID 05/17/19 05/18/19 1 Day Ago ~05/17/19 Previous Rx's Medication Instructions Recorded Last Taken Type Amoxicillin/Potassium Clav 1 each PO BID 7 Days #14 tablet 05/19/19 Unknown Rx [Augmentin 875-125 Tablet] Phenytoin [Dilantin] 3 tab PO QHS 7 Days #21 capsule 05/19/19 Unknown Rx Allergies Allergy/AdvReac Type Severity Reaction Status Date / Time No Known Allergies Allergy Verified 05/01/19 16:42 ED Review of Systems Comment: All other systems reviewed and negative ED Past Medical Hx - Past Medical History Hx Hypertension: Yes Hx Congestive Heart Failure: No Hx Diabetes: No Hx Seizures: Yes Hx Psychiatric Treatment: Yes (bipolar) Hx Asthma: No Hx COPD: No Hx HIV: No - Surgical History Past Surgical History?: Yes Hx Cholecystectomy: Yes - Social History Smoking Status: Current Every Day Smoker Substance Use Type: None - Medications Home Medications: Home Medications Medication Instructions Recorded Confirmed Last Taken Type OLANzapine [ZyPREXA] 10 mg PO HS 05/17/19 05/17/19 Unknown History Phenytoin [Dilantin] 100 mg PO Q8HR 05/17/19 05/18/19 Unknown History levETIRAcetam [Keppra XR TAB] 750 mg PO BID 05/17/19 05/18/19 1 Day Ago History ~05/17/19 Amoxicillin/Potassium Clav 1 each PO BID 7 Days #14 tablet 05/19/19 Unknown Rx [Augmentin 875-125 Tablet] Phenytoin [Dilantin] 3 tab PO QHS 7 Days #21 capsule 05/19/19 Unknown Rx ED Physical Exam - General Limitations: No Limitations General appearance: alert, in no apparent distress - Head Head exam: Present: atraumatic, normocephalic - Eye Eye exam: Present: normal appearance - ENT ENT exam: Present: mucous membranes moist - Neck Neck exam: Present: normal inspection - Respiratory Respiratory exam: Present: normal lung sounds bilaterally. Absent: respiratory distress - Cardiovascular Cardiovascular Exam: Present: regular rate, normal rhythm. Absent: systolic murmur, diastolic murmur, rubs, gallop - GI/Abdominal GI/Abdominal exam: Present: soft, normal bowel sounds - Rectal Rectal exam: Present: deferred - Extremities Exam Extremities exam: Present: normal inspection - Back Exam Back exam: Present: normal inspection - Neurological Exam Neurological exam: Present: alert, oriented X3 - Psychiatric Psychiatric exam: Present: normal affect, normal mood - Skin Skin exam: Present: warm, dry, intact, normal color. Absent: rash ED Medical Decision Making - Lab Data Result diagrams: 05/17/19 00:53 05/17/19 00:53 Laboratory Last Values WBC 8.4 K/mm3 (4.5-11.0) 05/17/19 00:53 RBC 4.90 M/mm3 (3.65-5.03) 05/17/19 00:53 Hgb 12.1 gm/dl (11.8-15.2) 05/17/19 00:53 Hct 37.5 % (35.5-45.6) 05/17/19 00:53 MCV 76 fl (84-94) L 05/17/19 00:53 MCH 25 pg (28-32) L 05/17/19 00:53 MCHC 32 % (32-34) 05/17/19 00:53 RDW 13.0 % (13.2-15.2) L 05/17/19 00:53 Plt Count 180 K/mm3 (140-440) 05/17/19 00:53 Lymph % (Auto) 18.3 % (13.4-35.0) 05/17/19 00:53 [place] % (Auto) 11.0 % (0.0-7.3) H 05/17/19 00:53 Eos % (Auto) 2.0 % (0.0-4.3) 05/17/19 00:53 Baso % (Auto) 0.8 % (0.0-1.8) 05/17/19 00:53 Lymph # 1.5 K/mm3 (1.2-5.4) 05/17/19 00:53 [place] # 0.9 K/mm3 (0.0-0.8) H 05/17/19 00:53 Eos # 0.2 K/mm3 (0.0-0.4) 05/17/19 00:53 Baso # 0.1 K/mm3 (0.0-0.1) 05/17/19 00:53 Seg Neutrophils % 67.9 % (40.0-70.0) 05/17/19 00:53 Seg Neutrophils # 5.7 K/mm3 (1.8-7.7) 05/17/19 00:53 Sodium 139 mmol/L (137-145) 05/17/19 00:53 Potassium 4.0 mmol/L (3.6-5.0) 05/17/19 00:53 Chloride 101.0 mmol/L (98-107) 05/17/19 00:53 Carbon Dioxide 24 mmol/L (22-30) 05/17/19 00:53 Anion Gap 18 mmol/L 05/17/19 00:53 BUN 8 mg/dL (9-20) L 05/17/19 00:53 Creatinine 0.6 mg/dL (0.8-1.5) L 05/17/19 00:53 Estimated GFR > 60 ml/min 05/17/19 00:53 BUN/Creatinine Ratio 13 % 05/17/19 00:53 Glucose 112 mg/dL (75-100) H 05/17/19 00:53 Calcium 9.1 mg/dL (8.4-10.2) 05/17/19 00:53 Urine Color Yellow (Yellow) 05/17/19 00:57 Urine Turbidity Clear (Clear) 05/17/19 00:57 Urine pH 6.0 (5.0-7.0) 05/17/19 00:57 Ur Specific [place] 1.015 (1.003-1.030) 05/17/19 00:57 Urine Protein <15 mg/dl mg/dL (Negative) 05/17/19 00:57 Urine Glucose (UA) Neg mg/dL (Negative) 05/17/19 00:57 Urine Ketones Neg mg/dL (Negative) 05/17/19 00:57 Urine Blood Mod (Negative) 05/17/19 00:57 Urine Nitrite Neg (Negative) 05/17/19 00:57 Urine Bilirubin Neg (Negative) 05/17/19 00:57 Urine Urobilinogen < 2.0 mg/dL (<2.0) 05/17/19 00:57 Ur Leukocyte Esterase Mod (Negative) 05/17/19 00:57 Urine WBC (Auto) 25.0 /HPF (0.0-6.0) H 05/17/19 00:57 Urine RBC (Auto) 12.0 /HPF (0.0-6.0) 05/17/19 00:57 U Epithel Cells (Auto) < 1.0 /HPF (0-13.0) 05/17/19 00:57 Urine Mucus Few /HPF 05/17/19 00:57 Urine Opiates Screen Presumptive negative 05/17/19 00:57 Urine Methadone Screen Presumptive negative 05/17/19 00:57 Acetaminophen < 5.0 ug/mL (10.0-30.0) L 05/17/19 00:53 Ur Barbiturates Screen Presumptive negative 05/17/19 00:57 Valproic Acid < 2.8 ug/mL (50-100) L 05/17/19 00:53 Carbamazepine 2.0 ug/mL (4-12) L 05/17/19 00:53 Ur Phencyclidine Scrn Presumptive negative 05/17/19 00:57 Ur Amphetamines Screen Presumptive negative 05/17/19 00:57 U Benzodiazepines Scrn Presumptive negative 05/17/19 00:57 Urine Cocaine Screen Presumptive negative 05/17/19 00:57 U Marijuana (THC) Screen Presumptive negative 05/17/19 00:57 Drugs of Abuse Note Disclamer 05/17/19 00:57 Plasma/Serum Alcohol < 0.01 % (0-0.07) 05/17/19 00:53 - Medical Decision Making 49-year-old male with a history of epilepsy presents status post seizure episode. Patient also presents here for suicidal ideation with a plan. Mental health evaluation consult placed. Labs ordered, within normal limits patient placed on 1013 and to the evaluated by the psychiatrist ED Disposition Clinical Impression: Seizure disorder, HCAP (healthcare-associated pneumonia) Disposition: DC- TO HOME OR SELFCARE Is pt being admited?: No Does the pt Need Aspirin: No Condition: Stable Instructions: Epilepsy (ED), Bacterial Pneumonia (ED) Prescriptions: Phenytoin [Dilantin] 3 tab PO QHS 7 Days #21 capsule Amoxicillin/Potassium Clav [Augmentin 875-125 Tablet] 1 each PO BID 7 Days #14 tablet Referrals: CHARITO ARGUELLO MD [Primary Care Provider] - 3-5 Days <VIPUL RODRIGUEZ - Last Filed: 05/19/19 13:54> ED Review of Systems ROS: Stated complaint: SEIZURE Other details as noted in HPI ED Course Vital Signs 05/16/19 05/17/19 05/17/19 21:59 00:44 07:00 Temperature 98.8 F 98.1 F 98.3 F Pulse Rate 98 H 91 H 94 H Respiratory 18 16 20 Rate Blood Pressure 128/81 Blood Pressure 138/72 112/64 [Left] O2 Sat by Pulse 98 100 96 Oximetry 05/17/19 05/17/19 05/18/19 13:00 19:47 02:33 Temperature 98.1 F 100.1 F H 97.9 F Pulse Rate 100 H 91 H 85 Respiratory 20 18 18 Rate Blood Pressure Blood Pressure 131/77 124/80 119/80 [Left] O2 Sat by Pulse 97 98 95 Oximetry 05/18/19 05/18/19 05/18/19 08:25 16:30 21:24 Temperature 98.2 F 98.8 F 98.9 F Pulse Rate 95 H 105 H 99 H Respiratory 18 24 18 Rate Blood Pressure Blood Pressure 104/73 115/73 126/79 [Left] O2 Sat by Pulse 95 97 98 Oximetry 05/19/19 05/19/19 03:06 07:00 Temperature 98.6 F 98.3 F Pulse Rate 98 H 85 Respiratory 20 18 Rate Blood Pressure Blood Pressure 132/80 135/75 [Left] O2 Sat by Pulse 96 94 Oximetry ED Medical Decision Making - Lab Data Result diagrams: 05/17/19 00:53 05/17/19 00:53 - Medical Decision Making I have reviewed recommendations by psychiatric team. 1013 has been rescinded. I am familiar with Mr. Recinos. In my opinion, he has not at risk for imminent self-harm or harm to others. I have prescribed antibiotics which were suggested at recent discharge from the hospital for pneumonia. Also prescribed antiepileptic Dilantin. I do anticipate that Mr. Recinos will return to our emergency department within the near future. Critical care attestation.: If time is entered above; I have spent that time in minutes in the direct care of this critically ill patient, excluding procedure time. ED Disposition Is pt being admited?: No Does the pt Need Aspirin: No
[2019-05-17 01:25] LABS: Amphetamine Screen,Urine PRESUMPTIVE NEGATIVE; Benzodiazepines Screen,Urine PRESUMPTIVE NEGATIVE; Cannabinoid Screen,Urine PRESUMPTIVE NEGATIVE; Cocaine Screen,Urine PRESUMPTIVE NEGATIVE; Methadone Screen,Urine PRESUMPTIVE NEGATIVE; Opiate Screen,Urine PRESUMPTIVE NEGATIVE
[2019-05-17 01:31] LABS: Bilirubin,Urine NEG (Negative); Blood,Urine MOD (Negative); Color,Urine Yellow (Yellow); Mucus,Urine FEW /HPF; Protein,Urine <15 mg/dL mg/dL (Negative); Urobilinogen,Urine < 2.0 mg/dL (<2.0)
[2019-05-17 01:33] LABS: Basophils # (Auto) 0.1 K/mm3 (0.0-0.1); Basophils % (Auto) 0.8 % (0.0-1.8); Eosinophils # (Auto) 0.2 K/mm3 (0.0-0.4); Hematocrit 37.5 % (35.5-45.6); Hemoglobin 12.1 gm/dl (11.8-15.2); Lymphocytes # (Auto) 1.5 K/mm3 (1.2-5.4); Lymphocytes % (Auto) 18.3 % (13.4-35.0); Mean Corpuscular HGB Conc 32 % (32-34); Mean Corpuscular Volume 76 fl (84-94); Monocytes # (Auto) 0.9 K/mm3 (0.0-0.8); Platelet Count 180 K/mm3 (140-440)
[2019-05-17 01:34] LABS: BUN/Creatinine Ratio 13; Blood Urea Nitrogen 8 mg/dL (9-20); Calcium 9.1 mg/dL (8.4-10.2); Hemolysis Index 3
--- NOTE | 2019-05-17 08:12 | Consultation ---
History of Present Illness - Reason for Consult Consult date: 05/17/19 Reason for consult: Mental Health Evaluation Requesting physician: ESTRADA LUCIO - Chief Complaint Chief complaint: 'It's my brother" - History of Present Psychiatric Illness 49 y.o. AA male who presented to the ER for seizures. This patient is known to me. Today the patient was calm and cooperative during the assessment. He stated that his brother has his "check", so he left their home. He stated that he [place]the park" and the police brought him to the ER. Per the notes, the patient endorsed SI's and he was placed on a 1013. He was asked about being suicidal and hearing voices, he would not confirm or deny. He is adamant that his issues stem from his relationship with his brother. He denies HI's and VH's. He denies erratic sleep and a poor appetite. He denies recreational drug use and alcohol consumption (etoh). Medications and Allergies Allergies Allergy/AdvReac Type Severity Reaction Status Date / Time No Known Allergies Allergy Verified 05/01/19 16:42 Home Medications Medication Instructions Recorded Confirmed Last Taken Type OLANzapine [ZyPREXA] 10 mg PO HS 05/17/19 05/17/19 Unknown History Phenytoin [Dilantin] 100 mg PO Q8HR 05/17/19 05/17/19 Unknown History levETIRAcetam [Keppra XR TAB] 750 mg PO BID 05/17/19 05/17/19 Unknown History Past psychiatric history - Past Medical History Past Medical History: seizures Past Surgical History: No surgical history - past Psychiatric treatment and history psychiatric treatment history: Several inpatient psy services in the past. Denies a fam psy hx. - Social History Social history: lives with family Mental Status Exam - Vital signs Last Vital Signs Temp 98.1 F 05/17/19 00:44 Pulse 91 H 05/17/19 00:44 Resp 16 05/17/19 00:44 BP 138/72 05/17/19 00:44 Pulse Ox 100 05/17/19 00:44 - Exam Narrative exam: MSE: Appearance: calm, cooperative Behavior: regular eye contact Speech: regular rate and tone Mood: "okay" Affect: congruent to mood Thought Process: circumstantial Thought Content: denies HI's and AVH's Motor Activity: sitting up in bed Cognition: A/O x3 Insight: variable to fair Judgment: variable Results Result Diagrams: 05/17/19 00:53 05/17/19 00:53 Abnormal lab results 05/17/19 05/17/19 05/17/19 Range/Units 00:53 00:53 00:53 MCV 76 L (84-94) fl MCH 25 L (28-32) pg RDW 13.0 L (13.2-15.2) % [place] % (Auto) 11.0 H (0.0-7.3) % [place] # 0.9 H (0.0-0.8) K/mm3 BUN 8 L (9-20) mg/dL Creatinine 0.6 L (0.8-1.5) mg/dL Glucose 112 H (75-100) mg/dL Urine WBC (Auto) (0.0-6.0) /HPF Acetaminophen < 5.0 L (10.0-30.0) ug/mL Valproic Acid (50-100) ug/mL Carbamazepine (4-12) ug/mL 05/17/19 05/17/19 Range/Units 00:53 00:57 MCV (84-94) fl MCH (28-32) pg RDW (13.2-15.2) % [place] % (Auto) (0.0-7.3) % [place] # (0.0-0.8) K/mm3 BUN (9-20) mg/dL Creatinine (0.8-1.5) mg/dL Glucose (75-100) mg/dL Urine WBC (Auto) 25.0 H (0.0-6.0) /HPF Acetaminophen (10.0-30.0) ug/mL Valproic Acid < 2.8 L (50-100) ug/mL Carbamazepine 2.0 L (4-12) ug/mL All other labs normal. Assessment and Plan Assessment and plan: Impression: Unspecified Mood DO with psy features. Today the patient was calm during the assessment. DDX: Schizophrenia, SCAD, Delusional DO Recommendation/Plan: Continue 1013. Start home medications Zyprexa 15 mg PO HS for mood/psychosis and Zoloft 50 mg PO daily for depression. Discussed possible metabolic side effects of Zyprexa with the patient, he verbalized understanding. Discussed possible suicidality/medication induced renetta with the patient, he verbalized understanding. Baseline Lipid/Panel/A1C ordered for the AM. Informed the patient's assigned nurse that the patient take Keppra and Dilantin for seizures. Case Mgmt informed, the patient may need assistance with placement when discharged. Dispo: The patient was referred to inpatient psy services. Staffed with Dr Miguel Saldaña.
[2019-05-17] MEDS ORDERED: PHENYTOIN 100 MG CAPSULE.ER PO ONE (10:00)
[2019-05-17] MEDS ORDERED: levETIRAcetam 500 MG TAB PO ONE ×2 (10:01→20:34)
[2019-05-17] MEDS: SERTRALINE 50 MG TAB PO SCH (10:29)
--- NOTE | 2019-05-18 10:08 | Progress Note ---
Subjective - Reason for Consult Consult date: 05/18/19 Reason for consult: Psychiatry Follow-up - Chief Complaint Chief complaint: "Hello" 49 y.o. AA male who presented to the ER for seizures. This patient is known to me. Today the patient was calm and cooperative during the assessment. He stated that his SI's are "decreasing" and would like to go to a intermediate when discharged. He stated, "I can't return to my home because of my brother." He denies SI/HI's and AVH's. He denies any side effects from his medication. Mental Status Exam - Vital signs Last Vital Signs Temp 98.2 F 05/18/19 08:25 Pulse 95 H 05/18/19 08:25 Resp 18 05/18/19 08:25 BP 104/73 05/18/19 08:25 Pulse Ox 95 05/18/19 08:25 - Exam Narrative exam: MSE: Appearance: calm, cooperative Behavior: regular eye contact Speech: regular rate and tone Mood: "okay" Affect: congruent to mood Thought Process: circumstantial Thought Content: denies HI's and AVH's Motor Activity: sitting up in bed Cognition: A/O x3 Insight: variable to fair Judgment: variable to fair Assessment and Plan Impression: Unspecified Mood DO with psy features. Today the patient was calm during the assessment. DDX: Schizophrenia, SCAD, Delusional DO Recommendation/Plan: Continue 1013, Zyprexa 5 mg PO HS for mood/psychosis, and Zoloft 50 mg PO daily for depression. Discussed possible metabolic side effects of Zyprexa with the patient, he verbalized understanding. Discussed possible suicidality/medication induced renetta with the patient, he verbalized understanding. Baseline Lipid/Panel/A1C ordered for the AM. Case Mgmt informed, the patient may need assistance with placement when discharged. Dispo: If the patient's 1013 is rescinded in 24 hours, he can follow up at [facility] for outpatient psy services. Will staff with Dr Miguel Saldaña.
[2019-05-18] MEDS ORDERED: PHENYTOIN 100 MG CAPSULE.ER PO ONE (10:37)
[2019-05-18] MEDS: levETIRAcetam 500 MG TAB PO SCH ×2 (11:00→21:34)
[2019-05-18] MEDS: SERTRALINE 50 MG TAB PO SCH (11:00)
[2019-05-18] MEDS: AMOXICILLIN/K CLAV 875/125MG TAB PO SCH ×2 (14:00→21:33)
[2019-05-18] MEDS ORDERED: PHENYTOIN 100 MG CAPSULE.ER PO SCH (22:00)
[2019-05-19 07:24] LABS: Chol/HDL Ratio 2.45 %
[2019-05-19 08:04] VITALS: BP 135/75
[2019-05-19] MEDS ORDERED: AZITHROMYCIN 250 MG TAB PO SCH (10:00)
--- NOTE | 2019-05-19 10:36 | Progress Note ---
Subjective - Reason for Consult Consult date: 05/19/19 Reason for consult: Psychiatry Follow-up - Chief Complaint Chief complaint: "I am well" 49 y.o. AA male who presented to the ER for seizures. This patient is known to me. Today the patient was calm and cooperative during the assessment. He stated that he feel better and would like to be discharged. The patient was more organized. He answer questions more logically. He denies SI/HI's and AVH's. He denies any side effects from his medication. Mental Status Exam - Vital signs Last Vital Signs Temp 98.3 F 05/19/19 07:00 Pulse 85 05/19/19 07:00 Resp 18 05/19/19 07:00 BP 135/75 05/19/19 07:00 Pulse Ox 94 05/19/19 07:00 - Exam Narrative exam: MSE: Appearance: calm, cooperative Behavior: regular eye contact Speech: regular rate and tone Mood: "better" Affect: congruent to mood Thought Process: more organized Thought Content: denies SI/HI's and AVH's Motor Activity: sitting up in bed Cognition: A/O x3 Insight: fair Judgment: fair Assessment and Plan Impression: Unspecified Mood DO with psy features. Today the patient was calm and cooperative during the assessment. DDX: Schizophrenia, SCAD, Delusional DO Recommendation/Plan: Rescind 1013 and continue Zyprexa 5 mg PO HS for mood/psychosis and Zoloft 50 mg PO daily for depression. Discussed possible metabolic side effects of Zyprexa with the patient, he verbalized understanding. Discussed possible suicidality/medication induced renetta with the patient, he verbalized understanding. Discussed the importance of a proper diet and exercise with the patient reference his HDL Cholesterol, he verbalized understanding. Case Mgmt involvement, he may need assistance with placement. Dispo: The patient cam follow up at [facility] for outpatient psy services. Will staff with Dr Miguel Saldaña.
[2019-05-19] MEDS: levETIRAcetam 500 MG TAB PO SCH (11:00)
[2019-05-19] MEDS: SERTRALINE 50 MG TAB PO SCH (11:00)
[2019-05-19] MEDS: AMOXICILLIN/K CLAV 875/125MG TAB PO SCH (11:00)
== END 2019-05-19 16:30 | disposition home or self-care (01) ==
LOC: ED 20:55 → EEVIPCON 20:55 → ED 05-19 16:30
DX: G40.909 Epilepsy, unspecified, not intractable, without status epilepticus (principal); F39 Unspecified mood [affective] disorder; I10 Essential (primary) hypertension; F17.200 Nicotine dependence, unspecified, uncomplicated
CPT/HCPCS: 36415; 80048; 80061; 80156; 80164; 80307; 81001; 83036; 85025; 87086; 96365; 99284; J1953; 80320; G0480

== ENCOUNTER 2019-05-21 11:53 | Emergency (ER) | payer MEDICAID ==
[2019-05-21 12:15] VITALS: BP 116/68
--- NOTE | 2019-05-21 12:16 | Event Note ---
ED Screening Note Date of service: 05/21/19 Time: 12:13 ED Screening Note: 49 y/o male seizure this morning. Currently on amoxicillin, Phenytoin 100mg 1 cap tid, Keppra 750 mg bid, Olanzapine, PMH Biploar This initial assessment/diagnostic orders/clinical plan/treatment(s) is/are subject to change based on patients health status, clinical progression and re- assessment by fellow clinical providers in the ED. Further treatment and workup at subsequent clinical providers discretion. Patient/guardian urged not to elope from the ED as their condition may be serious if not clinically assessed and managed. Initial orders include:
--- NOTE | 2019-05-21 13:26 | Emergency Department Report ---
ED General Adult HPI - General Chief complaint: Seizure Stated complaint: SEIZURE Time Seen by Provider: 05/21/19 11:58 Source: patient Mode of arrival: Ambulatory Limitations: No Limitations - History of Present Illness Initial comments: This is a 49-year-old male who denies any history of mental health disorder. However he's been coming to the emergency department every other day with similar symptoms. His last visit found no evidence of any suicidal ideation per the mental health denturist nurse counselor. His impression was as follows: Impression: Unspecified Mood DO with psy features. Today the patient was calm and cooperative during the assessment. DDX: Schizophrenia, SCAD, Delusional DO Recommendation/Plan: Rescind 1013 and continue Zyprexa 5 mg PO HS for mood/psychosis and Zoloft 50 mg PO daily for depression. Discussed possible metabolic side effects of Zyprexa with the patient, he verbalized understanding. Discussed possible suicidality/medication induced renetta with the patient, he verbalized understanding. Discussed the importance of a proper diet and exercise with the patient reference his HDL Cholesterol, he verbalized understanding. Case Mgmt involvement, he may need assistance with placement. Dispo: The patient cam follow up at [facility] for outpatient psy services. Patient makes no mention to me any suicidal ideation whatsoever. He tells me that he had a seizure this morning but no injury. He states that did mention that he sometimes wants to hurt himself to the driver courier and the triage nurse. His comment to me was "sometimes I do and sometimes I don't". He has no active suicidal ideation. He has not committed any violent acts. He is not hallucinating. -: month(s) - Related Data Home Medications Medication Instructions Recorded Confirmed Last Taken OLANzapine [ZyPREXA] 10 mg PO HS 05/17/19 05/21/19 05/20/19 Phenytoin [Dilantin] 100 mg PO Q8HR 05/17/19 05/21/19 05/20/19 levETIRAcetam [Keppra XR TAB] 750 mg PO BID 05/17/19 05/21/19 05/20/19 Previous Rx's Medication Instructions Recorded Last Taken Type Amoxicillin/Potassium Clav 1 each PO BID 7 Days #14 tablet 05/19/19 05/20/19 Rx [Augmentin 875-125 Tablet] Phenytoin [Dilantin] 3 tab PO QHS 7 Days #21 capsule 05/19/19 05/20/19 Rx Allergies Allergy/AdvReac Type Severity Reaction Status Date / Time No Known Allergies Allergy Verified 05/01/19 16:42 ED Review of Systems ROS: Stated complaint: SEIZURE Other details as noted in HPI Constitutional: denies: chills, fever Eyes: denies: eye pain, eye discharge, vision change ENT: denies: ear pain, throat pain Respiratory: denies: cough, shortness of breath, wheezing Cardiovascular: denies: chest pain, palpitations Endocrine: no symptoms reported Gastrointestinal: denies: abdominal pain, nausea, diarrhea Genitourinary: other ("I urinated on myself"). denies: urgency, dysuria Musculoskeletal: denies: back pain, joint swelling, arthralgia Skin: denies: rash, lesions Neurological: denies: headache, weakness, paresthesias Psychiatric: denies: anxiety, depression Hematological/Lymphatic: denies: easy bleeding, easy bruising ED Past Medical Hx - Past Medical History Previous Medical History?: Yes Hx Hypertension: Yes Hx Congestive Heart Failure: No Hx Diabetes: No Hx Seizures: Yes Hx Psychiatric Treatment: Yes (bipolar) Hx Asthma: No Hx COPD: No Hx HIV: No - Surgical History Past Surgical History?: Yes Hx Cholecystectomy: Yes - Social History Smoking Status: Current Every Day Smoker Substance Use Type: None - Medications Home Medications: Home Medications Medication Instructions Recorded Confirmed Last Taken Type OLANzapine [ZyPREXA] 10 mg PO HS 05/17/19 05/21/19 05/20/19 History Phenytoin [Dilantin] 100 mg PO Q8HR 05/17/19 05/21/19 05/20/19 History levETIRAcetam [Keppra XR TAB] 750 mg PO BID 05/17/19 05/21/19 05/20/19 History Amoxicillin/Potassium Clav 1 each PO BID 7 Days #14 tablet 05/19/19 05/21/19 05/20/19 Rx [Augmentin 875-125 Tablet] Phenytoin [Dilantin] 3 tab PO QHS 7 Days #21 capsule 05/19/19 05/21/19 05/20/19 Rx ED Physical Exam - General Limitations: No Limitations General appearance: alert, in no apparent distress - Head Head exam: Present: atraumatic, normocephalic - Eye Eye exam: Present: normal appearance. Absent: scleral icterus - ENT ENT exam: Present: mucous membranes moist - Neck Neck exam: Present: normal inspection - Respiratory Respiratory exam: Present: normal lung sounds bilaterally. Absent: respiratory distress - Cardiovascular Cardiovascular Exam: Present: regular rate, normal rhythm. Absent: systolic murmur, diastolic murmur, rubs, gallop - GI/Abdominal GI/Abdominal exam: Present: soft, normal bowel sounds. Absent: distended, tenderness, guarding, rebound, rigid - Rectal Rectal exam: Present: deferred - Extremities Exam Extremities exam: Present: normal inspection - Back Exam Back exam: Present: normal inspection - Neurological Exam Neurological exam: Present: alert, oriented X3, CN II-XII intact. Absent: motor sensory deficit - Psychiatric Psychiatric exam: Present: normal affect, normal mood - Skin Skin exam: Present: warm, dry, intact, normal color. Absent: rash ED Course Vital Signs 05/21/19 12:12 Temperature 98.4 F Pulse Rate 100 H Respiratory 18 Rate Blood Pressure 116/68 O2 Sat by Pulse 96 Oximetry - Reevaluation(s) Reevaluation #1: Patient does not meet 1013 criteria. His urine was consistent with urinary infection on his last visit. He was prescribed Augmentin which he has just sta rted. Do not find any evidence of recent seizure. He is not postictal. It seemed that his obsessive-compulsive disorder is now incorporating emergency department visits. He does not have any indication for further medical screening at this time. He will be referred to [facility] and [facility] as per previous psychiatric practitioner recommendations. 05/21/19 13:26 Critical care attestation.: If time is entered above; I have spent that time in minutes in the direct care of this critically ill patient, excluding procedure time. ED Disposition Clinical Impression: Psychiatric disorder UTI (urinary tract infection) Qualifiers: Urinary tract infection type: site unspecified Hematuria presence: without hematuria Qualified Code(s): N39.0 - Urinary tract infection, site not specified Disposition: DC-01 TO HOME OR SELFCARE Is pt being admited?: No Does the pt Need Aspirin: No Condition: Stable Instructions: Schizophrenia (ED), Suicide Prevention for Adults (ED), Urinary Tract Infection in Men (ED) Additional Instructions: Follow up with [facility] and [facility]. She department for any acute illness, change or worsening problems. Referrals: PRIMARY CARE, [Primary Care Provider] - 3-5 Days [facility] [Outside] - 3-5 Days [facility] [Provider Group] - 3-5 Days [facility] [Outside] - 24 Hours Time of Disposition: 13:27
== END 2019-05-21 13:45 | disposition home or self-care (01) ==
LOC: ED 11:53
DX: R56.9 Unspecified convulsions (principal); F29 Unspecified psychosis not due to a substance or known physiological condition; N39.0 Urinary tract infection, site not specified; I10 Essential (primary) hypertension; F31.9 Bipolar disorder, unspecified; F17.200 Nicotine dependence, unspecified, uncomplicated
CPT/HCPCS: 99282

== ENCOUNTER 2019-05-21 21:58 | Emergency (ER) | payer MEDICAID ==
--- NOTE | 2019-05-21 22:49 | Event Note ---
ED Screening Note Date of service: 05/21/19 Time: 22:48 ED Screening Note: 49 y/o male comes in for seizures. Patient report that he is homeless. This initial assessment/diagnostic orders/clinical plan/treatment(s) is/are subject to change based on patients health status, clinical progression and re- assessment by fellow clinical providers in the ED. Further treatment and workup at subsequent clinical providers discretion. Patient/guardian urged not to elope from the ED as their condition may be serious if not clinically assessed and managed. Initial orders include:
[2019-05-22] MEDS ORDERED: levETIRAcetam 500 MG/5 ML ORAL LIQD PO ONE (00:02)
--- NOTE | 2019-05-22 00:04 | Emergency Department Report ---
ED General Adult HPI - General Chief complaint: Seizure Stated complaint: SEIZURE Time Seen by Provider: 05/21/19 22:46 Source: patient, EMS (ems notes not available at time of chart dictation), RN notes reviewed Mode of arrival: Ambulatory Limitations: Other (the patient is a poor historian) - History of Present Illness Initial comments: This is a 49-year-old gentleman. The patient presents to the ER today with complaint of possible seizure. He states that he was at a park. He believes that he contacted 911. He does not think that he hit his head. He is not homicidal or suicidal. Patient was recently evaluated in this department multiple times for breakthrough seizure. In addition, he was given multiple seizure medications recently. In addition, he was presumptively started on Augmentin for presumed urinary tract infection. However cultures are negative. He also denies recent sexual contacts. He has chronic lower abdominal pain. He also endorses testicular pain to this provider. He denied additional pain. The patient is a poor historian. He is not able to describe exacerbating or relieving factors, qualitative nature of his symptoms, or radiation. Severity scale (0 -10): 0 - Related Data Home Medications Medication Instructions Recorded Confirmed Last Taken OLANzapine [ZyPREXA] 10 mg PO HS 05/17/19 05/21/19 05/20/19 Phenytoin [Dilantin] 100 mg PO Q8HR 05/17/19 05/21/19 05/20/19 levETIRAcetam [Keppra XR TAB] 750 mg PO BID 05/17/19 05/21/19 05/20/19 Previous Rx's Medication Instructions Recorded Last Taken Type Amoxicillin/Potassium Clav 1 each PO BID 7 Days #14 tablet 05/19/19 05/20/19 Rx [Augmentin 875-125 Tablet] Phenytoin [Dilantin] 3 tab PO QHS 7 Days #21 capsule 05/19/19 05/20/19 Rx Allergies Allergy/AdvReac Type Severity Reaction Status Date / Time No Known Allergies Allergy Verified 05/01/19 16:42 ED Review of Systems ROS: Stated complaint: SEIZURE Other details as noted in HPI Constitutional: denies: fever Eyes: denies: eye discharge ENT: denies: congestion Respiratory: denies: wheezing Cardiovascular: denies: syncope Gastrointestinal: abdominal pain Genitourinary: dysuria, testicular pain Musculoskeletal: denies: back pain Skin: denies: lesions Neurological: denies: headache Psychiatric: denies: homicidal thoughts, suicidal thoughts ED Past Medical Hx - Past Medical History Hx Hypertension: Yes Hx Congestive Heart Failure: No Hx Diabetes: No Hx Seizures: Yes Hx Psychiatric Treatment: Yes (bipolar) Hx Asthma: No Hx COPD: No Hx HIV: No - Surgical History Hx Cholecystectomy: Yes - Social History Smoking Status: Never Smoker Substance Use Type: None - Medications Home Medications: Home Medications Medication Instructions Recorded Confirmed Last Taken Type OLANzapine [ZyPREXA] 10 mg PO HS 05/17/19 05/21/19 05/20/19 History Phenytoin [Dilantin] 100 mg PO Q8HR 05/17/19 05/21/19 05/20/19 History levETIRAcetam [Keppra XR TAB] 750 mg PO BID 05/17/19 05/21/19 05/20/19 History Amoxicillin/Potassium Clav 1 each PO BID 7 Days #14 tablet 05/19/19 05/21/19 05/20/19 Rx [Augmentin 875-125 Tablet] Phenytoin [Dilantin] 3 tab PO QHS 7 Days #21 capsule 05/19/19 05/21/19 05/20/19 Rx ED Physical Exam - General Limitations: No Limitations General appearance: alert, in no apparent distress - Head Head exam: Present: atraumatic, normocephalic - Eye Eye exam: Present: normal appearance, EOMI, other (visual acuity is intact to finger counting and color perception at a close distance). Absent: nystagmus - ENT ENT exam: Present: normal exam, normal orophraynx, mucous membranes moist, normal external ear exam - Neck Neck exam: Present: normal inspection, full ROM. Absent: tenderness, meningismus - Respiratory Respiratory exam: Present: normal lung sounds bilaterally. Absent: respiratory distress - Cardiovascular Cardiovascular Exam: Present: regular rate, normal rhythm, normal heart sounds. Absent: bradycardia, tachycardia, irregular rhythm, systolic murmur, diastolic murmur, rubs, gallop - GI/Abdominal GI/Abdominal exam: Present: soft. Absent: distended, tenderness, guarding, rebound, rigid, pulsatile mass - Rectal Rectal exam: Present: deferred - exam: Present: normal inspection, other (there is no testicular tenderness. There is normal testicular lie bilaterally. There is normal cremasteric reflex bilaterally.). Absent: testicular tenderness External exam: Present: normal external exam, other (chaperoned by prescription clerk lenses Bryant Bustamante) - Extremities Exam Extremities exam: Present: normal inspection, full ROM, other (2+ pulses noted in the bilateral upper, lower extremities. Compartments soft. No long bony tenderness. The pelvis is stable.). Absent: pedal edema, calf tenderness - Back Exam Back exam: Present: normal inspection, full ROM. Absent: tenderness, CVA tenderness (R), CVA tenderness (L), paraspinal tenderness, vertebral tenderness - Neurological Exam Neurological exam: Present: alert, other (Extraocular movements intact. Tongue midline. No facial droop. Facial sensation intact to light touch in the V1, V2, V3 distribution bilaterally. 5 and 5 strength in 4 extremities.. Sensation is intact to light touch in 4 extremities.) - Psychiatric Psychiatric exam: Present: flat affect. Absent: homicidal ideation, suicidal ideation - Skin Skin exam: Present: warm, dry, intact, normal color. Absent: rash ED Course Vital Signs 05/21/19 05/21/19 22:41 23:35 Temperature 98.2 F 98.2 F Pulse Rate 98 H 91 H Respiratory 18 13 Rate Blood Pressure 127/89 Blood Pressure 122/78 [Left] O2 Sat by Pulse 99 98 Oximetry - Reevaluation(s) Reevaluation #1: 05/22/19 00:58 Differential diagnosis, including not limited to: Seizure, breakthrough seizure, pseudoseizure, intracranial injury Assessment and plan: 49-year-old gentleman with a complaint of seizure. He was seen in this department within the past 24 hours for similar symptoms. The patient is afebrile, with reassuring vital signs. His physical examination is unremarkable. He follows commands. He is clinically sober. He does not meet 1013 criteria at this time. Screening laboratory studies ordered, did not demonstrate any acute toxicologic emergent condition. Noncontrast CT scan of the brain is ordered, to my interpretation, does not demonstrate any acute findings. 05/22/19 00:59 Genitourinary exam unremarkable. Patient was prescribed antibiotic by one of my colleagues on a recent evaluation. Urine cultures have been negative. He can follow up with an outpatient doctor for this. Reevaluation #2: 05/22/19 01:[address] scan of the brain is negative for acute disease. Vital signs r emained stable and unremarkable. No convulsive events thus far, patient does not appear to have an emergent medical condition at this time. The patient is medically suitable for discharge at this point in time. ED Medical Decision Making - Lab Data Result diagrams: 05/22/19 00:10 Vital Signs 05/21/19 05/21/19 22:41 23:35 Temperature 98.2 F 98.2 F Pulse Rate 98 H 91 H Respiratory 18 13 Rate Blood Pressure 127/89 Blood Pressure 122/78 [Left] O2 Sat by Pulse 99 98 Oximetry Lab Results 05/22/19 05/22/19 Range/Units 00:10 00:10 Sodium 137 (137-145) mmol/L Potassium 4.3 (3.6-5.0) mmol/L Chloride 101.4 (98-107) mmol/L Carbon Dioxide 25 (22-30) mmol/L Anion Gap 15 mmol/L BUN 9 (9-20) mg/dL Creatinine 0.7 L (0.8-1.5) mg/dL Estimated GFR > 60 ml/min BUN/Creatinine Ratio 13 % Glucose 99 (75-100) mg/dL Calcium 9.4 (8.4-10.2) mg/dL Total Creatine Kinase 99 (55-170) units/L Phenytoin 6.5 L (10.0-20.0) ug/mL - EKG Data -: EKG Interpreted by Or EKG shows normal: sinus rhythm Rate: normal - EKG Data When compared to previous EKG there are: no significant change 05/22/19 00:57 EKG today shows a sinus rhythm, 87 bpm, normal axis, QTC is 439 ms, there is left ventricular hypertrophy, there is no endorsement of chest pain, this EKG is abnormal, it is unchanged from prior EKG, the EKG today is not consistent with ST elevation myocardial infarction. - Radiology Data Radiology results: pending, image reviewed Critical care attestation.: If time is entered above; I have spent that time in minutes in the direct care of this critically ill patient, excluding procedure time. ED Disposition Clinical Impression: History of seizure Disposition: TO HOME OR SELFCARE Is pt being admited?: No Does the pt Need Aspirin: No Condition: Stable Additional Instructions: Do not drive or operate motor vehicles for the next 6 months. Continue outpatient seizure medications. Follow up with a primary care doctor within the next 2 weeks. Noncompliance of medications may result in breakthrough seizure, which may cause disability, , paralysis, loss of quality of life. Return to the emergency room right away with [place], worsened or different symptoms, or symptoms not present on the initial emergency room evaluation. Referrals: [facility] [Provider Group] - 3-5 Days [facility] [Provider Group] - 3-5 Days
[2019-05-22 00:56] LABS: BUN/Creatinine Ratio 13; Blood Urea Nitrogen 9 mg/dL (9-20); Calcium 9.4 mg/dL (8.4-10.2); Hemolysis Index 3
--- NOTE | 2019-05-22 01:09 | Cat Scan Report ---
CT head/brain wo con INDICATION: states seizure cant recall what happened. TECHNIQUE: Routine CT head without contrast. All CT scans at this location are performed using CT dos e reduction for ALARA by means of automated exposure control. COMPARISON: CT brain 05/01/2019 FINDINGS: BRAIN / INTRACRANIAL CONTENTS: No acute hemorrhage, mass effect, midline shift, or hydrocephalus. No appreciable acute large territorial or lacunar infarct. Unchanged cerebellar atrophy. ORBITS: No significant abnormality of visualized orbits. SINUSES / MASTOIDS: Unchanged partial right mastoid effusion. Visualized paranasal sinuses are clear. ADDITIONAL FINDINGS: None. IMPRESSION: 1. No acute intracranial abnormality on noncontrast CT of the brain. No significant change from prior examination. Signer Name: Yeni Wing MD Signed: 05/22/2019 1:05 AM Workstation Name: [id number]
[2019-05-22 01:42] VITALS: BP 111/67
== END 2019-05-22 02:20 | disposition home or self-care (01) ==
LOC: ED 21:58
DX: R56.9 Unspecified convulsions (principal); F31.9 Bipolar disorder, unspecified; R30.0 Dysuria; N50.819 Testicular pain, unspecified
CPT/HCPCS: 36415; 70450; 80048; 80164; 80185; 80320; 82550; 93005; 93010; 94644; 99282; G0480

== ENCOUNTER 2019-05-26 10:34 | Emergency (ER) | payer MEDICAID ==
--- NOTE | 2019-05-26 12:37 | Emergency Department Report ---
HPI - General Chief Complaint: Seizure Time Seen by Provider: 05/26/19 11:50 - HPI HPI: 49-year-old male presents to the emergency department with a complaint of having a few seizures prior to arrival. He has a past nuchal history of hypertension, bipolar disorder, depression and a seizure disorder. The patient takes Keppra and Dilantin and says he is compliant with his medication. This patient has been to this emergency department multiple times for similar symptoms including for previous visits this month alone. The patient has not made any comments regarding having suicidal or homicidal ideations. He denies any current headache, vision change, slurred speech or any other neurological deficits. The patient says that he has a neurologist but is unable to follow up with them regarding transportation issues. Every time the patient comes to this emergency department he arrives via EMS. The patient recently had a CT scan of the head without contrast, 4 days ago, and was negative for any acute process including any bleed, shift, mass, ischemia. ED Past Medical Hx - Past Medical History Previous Medical History?: Yes Hx Hypertension: Yes Hx Congestive Heart Failure: No Hx Diabetes: No Hx Seizures: Yes Hx Psychiatric Treatment: Yes (bipolar) Hx Asthma: No Hx COPD: No Hx HIV: No - Surgical History Past Surgical History?: Yes Hx Cholecystectomy: Yes - Social History Smoking Status: Unknown if ever smoked - Medications Home Medications: Home Medications Medication Instructions Recorded Confirmed Last Taken Type OLANzapine [ZyPREXA] 10 mg PO HS 05/17/19 05/21/19 05/20/19 History Phenytoin [Dilantin] 100 mg PO Q8HR 05/17/19 05/21/19 05/20/19 History levETIRAcetam [Keppra XR TAB] 750 mg PO BID 05/17/19 05/21/19 05/20/19 History Amoxicillin/Potassium Clav 1 each PO BID 7 Days #14 tablet 05/19/19 05/21/19 05/20/19 Rx [Augmentin 875-125 Tablet] Phenytoin [Dilantin] 3 tab PO QHS 7 Days #21 capsule 05/19/19 05/21/19 05/20/19 Rx ED Review of Systems ROS: Stated complaint: SEIZURES Other details as noted in HPI Comment: All other systems reviewed and negative Constitutional: denies: chills, fever Eyes: denies: eye pain, vision change ENT: denies: ear pain, throat pain Respiratory: denies: cough, shortness of breath Cardiovascular: denies: chest pain, palpitations Gastrointestinal: denies: abdominal pain, vomiting Genitourinary: denies: dysuria, discharge Musculoskeletal: denies: back pain, arthralgia Neurological: other (seizures). denies: headache, weakness Physical Exam - Physical Exam Vital Signs: Vital Signs 05/26/19 10:40 Temperature 98 F Pulse Rate 90 Respiratory 20 Rate Blood Pressure 110/74 [Right] O2 Sat by Pulse 97 Oximetry Physical Exam: GENERAL: The patient is well-developed well-nourished. HENT: Normocephalic. Atraumatic. Patient has moist mucous membranes. EYES: Extraocular motions are intact. Pupils equal reactive to light bilaterally. NECK: Supple. Trachea is midline. CHEST/LUNGS: Clear to auscultation. There is no respiratory distress noted. HEART/CARDIOVASCULAR: Regular. There is no tachycardia. There is no murmur. ABDOMEN: Abdomen is soft, nontender. Patient has normal bowel sounds. There is no abdominal distention. SKIN: Skin is warm and dry. NEURO: The patient is awake, alert, and cooperative. The patient has no focal neurologic deficits. Normal speech. Cranial nerves II through XII grossly intact. MUSCULOSKELETAL: There is no tenderness or deformity. There is no limitation range of motion. There is no evidence of acute injury. ED Course Vital Signs 05/26/19 10:40 Temperature 98 F Pulse Rate 90 Respiratory 20 Rate Blood Pressure 110/74 [Right] O2 Sat by Pulse 97 Oximetry ED Medical Decision Making - Lab Data Result diagrams: 05/26/19 13:37 05/26/19 13:37 - Medical Decision Making This patient has both a psychiatric history and a seizure disorder history. He has been here multiple times in the past 2 weeks, and even beyond, with similar symptoms. He allegedly had a few seizures prior to arrival. There has been no seizure activity since presentation to the emergency department. He is awake, alert and appropriate. His vital signs are stable throughout his ED course. His labs have been mostly unremarkable except for a low phenytoin/Dilantin level. This subtherapeutic antiepileptic level may be the reason for the patient's recurrent seizures. He was given another dose of the Dilantin here. He was reevaluated multiple times over multiple hours and has remained stable without any seizure-like activity. For this reason, I did not feel that the patient required any CT imaging of the head. On top of that, he had a negative CT head a few days ago. He appears safe for discharge home at this time and has been given a referral for neurology. He will return to the ER with any worse suyapa of his symptoms or any acute distress. - Differential Diagnosis epilepsy, pseudoseizures, hypoglycemia, dysrhythmia Critical Care Time: No Critical care attestation.: If time is entered above; I have spent that time in minutes in the direct care of this critically ill patient, excluding procedure time. ED Disposition Clinical Impression: Seizure disorder, Subtherapeutic serum dilantin level Disposition: DC-01 TO HOME OR SELFCARE Is pt being admited?: No Condition: Stable Instructions: Epilepsy (ED), Recurrent Seizures Adult (ED) Additional Instructions: Please follow-up with a neurologist and your primary care physician in the next few days. Please take your seizure medications as previously prescribed. Return to the emergency Department with any worsening of your symptoms or any acute distress. Referrals: [facility] [Outside] - 2-3 Days CHRISTOPHER HOFF MD [Referring] - 2-3 Days Time of Disposition: 17:42
[2019-05-26 14:07] LABS: Basophils # (Auto) 0.1 K/mm3 (0.0-0.1); Basophils % (Auto) 1.2 % (0.0-1.8); Eosinophils # (Auto) 0.1 K/mm3 (0.0-0.4); Eosinophils % (Auto) 2.2 % (0.0-4.3); Hematocrit 39.1 % (35.5-45.6); Hemoglobin 12.5 gm/dl (11.8-15.2); Lymphocytes # (Auto) 1.4 K/mm3 (1.2-5.4); Lymphocytes % (Auto) 26.6 % (13.4-35.0); Mean Corpuscular HGB Conc 32 % (32-34); Mean Corpuscular Volume 77 fl (84-94); Monocytes # (Auto) 0.4 K/mm3 (0.0-0.8); Platelet Count 271 K/mm3 (140-440); Red Blood Count 5.08 M/mm3 (3.65-5.03); Red Cell Distribution Width 13.3 % (13.2-15.2)
[2019-05-26 14:30] LABS: Alanine Aminotransferase 13 units/L (7-56); Albumin 3.9 g/dL (3.9-5); BUN/Creatinine Ratio 10; Blood Urea Nitrogen 6 mg/dL (9-20); Calcium 9.3 mg/dL (8.4-10.2); Hemolysis Index 16
[2019-05-26] MEDS ORDERED: DILANTIN PO ONE (14:43)
[2019-05-26 15:34] VITALS: BP 134/71
== END 2019-05-26 15:30 | disposition home or self-care (01) ==
LOC: ED 10:34
DX: G40.909 Epilepsy, unspecified, not intractable, without status epilepticus (principal); I10 Essential (primary) hypertension; F31.9 Bipolar disorder, unspecified; Z90.49 Acquired absence of other specified parts of digestive tract; Z79.899 Other long term (current) drug therapy
CPT/HCPCS: 36415; 80053; 80185; 82550; 84443; 85025

== ENCOUNTER 2019-05-26 22:04 | Emergency (ER) | payer MEDICAID ==
[2019-05-26 23:49] LABS: Hematocrit 37.1 % (35.5-45.6); Hemoglobin 11.6 gm/dl (11.8-15.2); Mean Corpuscular HGB Conc 31 % (32-34); Mean Corpuscular Volume 76 fl (84-94); Platelet Count 266 K/mm3 (140-440); Red Cell Distribution Width 13.2 % (13.2-15.2)
[2019-05-26 23:56] LABS: BUN/Creatinine Ratio 10; Blood Urea Nitrogen 5 mg/dL (9-20); Hemolysis Index 0
[2019-05-27] MEDS ORDERED: KEPPRA PO ONE (01:02)
[2019-05-27] MEDS ORDERED: DILANTIN PO ONE (01:02)
--- NOTE | 2019-05-27 01:03 | Emergency Department Report ---
ED General Adult HPI - General Chief complaint: Seizure Stated complaint: SEIZURE Time Seen by Provider: 05/26/19 23:03 Source: patient, EMS ( EMS documentation not available at time of chart dictation ), RN notes reviewed, old records reviewed Mode of arrival: Stretcher Limitations: No Limitations (EMS disclaimer) - History of Present Illness Initial comments: This is a 49-year-old gentleman. I have evaluated this patient in the past. He has been seen in this department multiple times recently, by myself and by other physicians. He was reportedly brought to the emergency room with a complaint of a seizure. He was seen within the past few days for similar complaints. He was loaded with antiepileptic drug medication. He's recently been discharged with a number of prescriptions. He denies physical pain. He is asking to eat and drink. Severity scale (0 -10): 0 Consistency: now resolved Improves with: none Worsens with: none - Related Data Home Medications Medication Instructions Recorded Confirmed Last Taken OLANzapine [ZyPREXA] 10 mg PO HS 05/17/19 05/21/19 05/20/19 Phenytoin [Dilantin] 100 mg PO Q8HR 05/17/19 05/21/19 05/20/19 levETIRAcetam [Keppra XR TAB] 750 mg PO BID 05/17/19 05/21/19 05/20/19 Previous Rx's Medication Instructions Recorded Last Taken Type Amoxicillin/Potassium Clav 1 each PO BID 7 Days #14 tablet 05/19/19 05/20/19 Rx [Augmentin 875-125 Tablet] Phenytoin [Dilantin] 3 tab PO QHS 7 Days #21 capsule 05/19/19 05/20/19 Rx Allergies Allergy/AdvReac Type Severity Reaction Status Date / Time No Known Allergies Allergy Verified 05/26/19 10:37 ED Review of Systems ROS: Stated complaint: SEIZURE Other details as noted in HPI Constitutional: denies: fever Eyes: denies: eye discharge ENT: denies: congestion Respiratory: denies: wheezing Cardiovascular: denies: syncope Gastrointestinal: denies: abdominal pain Musculoskeletal: denies: back pain Neurological: denies: confusion Psychiatric: denies: homicidal thoughts, suicidal thoughts ED Past Medical Hx - Past Medical History Hx Hypertension: Yes Hx Congestive Heart Failure: No Hx Diabetes: No Hx Seizures: Yes Hx Psychiatric Treatment: Yes (bipolar) Hx Asthma: No Hx COPD: No Hx HIV: No - Surgical History Hx Cholecystectomy: Yes - Social History Smoking Status: Never Smoker Substance Use Type: None - Medications Home Medications: Home Medications Medication Instructions Recorded Confirmed Last Taken Type OLANzapine [ZyPREXA] 10 mg PO HS 05/17/19 05/21/19 05/20/19 History Phenytoin [Dilantin] 100 mg PO Q8HR 05/17/19 05/21/19 05/20/19 History levETIRAcetam [Keppra XR TAB] 750 mg PO BID 05/17/19 05/21/19 05/20/19 History Amoxicillin/Potassium Clav 1 each PO BID 7 Days #14 tablet 05/19/19 05/21/19 05/20/19 Rx [Augmentin 875-125 Tablet] Phenytoin [Dilantin] 3 tab PO QHS 7 Days #21 capsule 05/19/19 05/21/19 05/20/19 Rx ED Physical Exam - General Limitations: No Limitations General appearance: alert, in no apparent distress - Head Head exam: Present: atraumatic, normocephalic - Eye Eye exam: Present: normal appearance, EOMI, other (visual acuity intact to finger counting and color perception at a close distance). Absent: nystagmus - ENT ENT exam: Present: normal exam, normal orophraynx, mucous membranes moist, normal external ear exam - Neck Neck exam: Present: normal inspection, full ROM. Absent: tenderness, meningismus - Respiratory Respiratory exam: Present: normal lung sounds bilaterally. Absent: respiratory distress - Cardiovascular Cardiovascular Exam: Present: regular rate, normal rhythm, normal heart sounds. Absent: bradycardia, tachycardia, irregular rhythm, systolic murmur, diastolic murmur, rubs, gallop - GI/Abdominal GI/Abdominal exam: Present: soft. Absent: distended, tenderness, guarding, rebound, rigid, pulsatile mass - Rectal Rectal exam: Present: deferred - Extremities Exam Extremities exam: Present: normal inspection, full ROM, other (2+ pulses noted in the bilateral upper, lower extremities. There is no long bone tenderness. Musculoskeletal compartments are soft. The pelvis is stable.). Absent: pedal edema, calf tenderness - Back Exam Back exam: Present: normal inspection, full ROM. Absent: tenderness, CVA tende rness (R), CVA tenderness (L), paraspinal tenderness, vertebral tenderness - Neurological Exam Neurological exam: Present: alert, oriented X3, normal gait, other (there is no facial droop. The tongue is midline. Extraocular movements are intact bilaterally. Patient speaking in full complete sentences. Shoulder shrug is intact bilaterally. Hearing is grossly intact bilaterally. Visual acuity intact to finger counting and color perception at a close distance. 5/5 strength 4 extremities. Sensation intact to light touch in 4 extremities.) - Psychiatric Psychiatric exam: Present: flat affect. Absent: homicidal ideation, suicidal ideation - Skin Skin exam: Present: warm, dry, intact, normal color. Absent: rash ED Course Vital Signs 05/26/19 22:20 Temperature 98.8 F Pulse Rate 92 H Respiratory 15 Rate Blood Pressure 115/73 [Left] O2 Sat by Pulse 95 Oximetry ED Medical Decision Making - Lab Data Result diagrams: 05/26/19 23:21 05/26/19 23:21 Vital Signs 05/26/19 22:20 Temperature 98.8 F Pulse Rate 92 H Respiratory 15 Rate Blood Pressure 115/73 [Left] O2 Sat by Pulse 95 Oximetry Lab Results 05/26/19 05/26/19 Range/Units 23:21 23:21 WBC 6.0 (4.5-11.0) K/mm3 RBC 4.90 (3.65-5.03) M/mm3 Hgb 11.6 L (11.8-15.2) gm/dl Hct 37.1 (35.5-45.6) % MCV 76 L (84-94) fl MCH 24 L (28-32) pg MCHC 31 L (32-34) % RDW 13.2 (13.2-15.2) % Plt Count 266 (140-440) K/mm3 Sodium 137 (137-145) mmol/L Potassium 4.1 (3.6-5.0) mmol/L Chloride 102.2 (98-107) mmol/L Carbon Dioxide 23 (22-30) mmol/L Anion Gap 16 mmol/L BUN 5 L (9-20) mg/dL Creatinine 0.5 L (0.8-1.5) mg/dL Estimated GFR > 60 ml/min BUN/Creatinine Ratio 10 % Glucose 112 H (75-100) mg/dL Calcium 9.0 (8.4-10.2) mg/dL - Radiology Data Radiology results: pending, report reviewed, image reviewed Previous imaging studies are reviewed and appreciated by myself - Medical Decision Making Differential diagnosis, including not limited to: Seizure, pseudoseizure, secondary gain, malingering, homelessness Assessment and plan: 49-year-old gentleman with recurrent complaint of seizure. Patient has been seen in this hospital multiple times by multiple providers for this complaint. Currently, the patient is afebrile, sober, walking with a steady gait, and has been observed in this department for approximately 5 hours without clinical decompensation recurred convulsive event. Multiple recent laboratory studies are reviewed and appreciated, along with imaging studies. Patient does not have any physical exam evidence to suggest blunt head trauma. I do not see an indication for advanced imaging at this time. He is alert and oriented to name, place and location. He was given additional doses of seizure medicines while here in the emergency room. Critical care attestation.: If time is entered above; I have spent that time in minutes in the direct care of this critically ill patient, excluding procedure time. ED Disposition Clinical Impression: History of seizure Disposition: DC-01 TO HOME OR SELFCARE Is pt being admited?: No Does the pt Need Aspirin: No Condition: Stable Additional Instructions: Continue outpatient seizure medications. Do not drive or operate motor vehicles for the next 6 months. Makes intermittent compliance with seizure medications. Noncompliance with seizure medications may result in breakthrough seizure, which may cause , disability, paralysis, loss of quality of life. Please follow-up with the primary care doctor within the next 2 weeks. Please return to the emergency room right away with new, worsened or different symptoms not present on the initial emergency room evaluation. Referrals: PRIMARY MD NURIA [Primary Care Provider] - 3-5 Days [facility] [Provider Group] - 3-[address] [facility] [Provider Group] - 3-5 Days
[2019-05-27 07:31] VITALS: BP 130/68
== END 2019-05-27 03:30 | disposition home or self-care (01) ==
LOC: ED 22:04
DX: R56.9 Unspecified convulsions (principal); F31.9 Bipolar disorder, unspecified; Z90.49 Acquired absence of other specified parts of digestive tract; Z79.899 Other long term (current) drug therapy; Z87.898 Personal history of other specified conditions
CPT/HCPCS: 36415; 80048; 85027

== ENCOUNTER 2019-05-28 23:37 | Emergency (ER) | payer MEDICAID ==
[2019-05-29 01:23] LABS: Basophils # (Auto) 0.1 K/mm3 (0.0-0.1); Basophils % (Auto) 1.2 % (0.0-1.8); Eosinophils # (Auto) 0.1 K/mm3 (0.0-0.4); Eosinophils % (Auto) 2.6 % (0.0-4.3); Hematocrit 37.2 % (35.5-45.6); Hemoglobin 11.6 gm/dl (11.8-15.2); Lymphocytes # (Auto) 1.6 K/mm3 (1.2-5.4); Lymphocytes % (Auto) 29.6 % (13.4-35.0); Mean Corpuscular HGB Conc 31 % (32-34); Mean Corpuscular Volume 78 fl (84-94); Monocytes # (Auto) 0.7 K/mm3 (0.0-0.8); Monocytes % (Auto) 13.7 % (0.0-7.3); Platelet Count 241 K/mm3 (140-440); Red Blood Count 4.79 M/mm3 (3.65-5.03); Red Cell Distribution Width 13.4 % (13.2-15.2)
[2019-05-29] MEDS: DILANTIN PO ONE (01:27)
[2019-05-29] MEDS: KEPPRA PO ONE (01:27)
[2019-05-29 01:34] LABS: Alanine Aminotransferase 12 units/L (7-56); Albumin 4.3 g/dL (3.9-5); BUN/Creatinine Ratio 22; Blood Urea Nitrogen 13 mg/dL (9-20); Calcium 9.2 mg/dL (8.4-10.2); Hemolysis Index 6
--- NOTE | 2019-05-29 02:17 | Emergency Department Report ---
HPI - General Chief Complaint: Seizure Time Seen by Provider: 05/29/19 01:04 - HPI HPI: 49-year-old -[place] male, who is well-known to myself and this department, presents to the emergency department with the complaint of having a seizure at about 10 PM this evening. The patient has a seizure disorder history, as well as a history of hypertension and bipolar disorder. The patient has been seen in the emergency department here at least 3 times this month, including over the past 3 days. He allegedly is compliant with his phenytoin and Keppra. At the time of my examination he is awake, alert, sitting at the side of the bed and reading a book. ED Past Medical Hx - Past Medical History Previous Medical History?: Yes Hx Hypertension: Yes Hx Congestive Heart Failure: No Hx Diabetes: No Hx Seizures: Yes Hx Psychiatric Treatment: Yes (bipolar) Hx Asthma: No Hx COPD: No Hx HIV: No - Surgical History Past Surgical History?: Yes Hx Cholecystectomy: Yes - Social History Smoking Status: Never Smoker Substance Use Type: None - Medications Home Medications: Home Medications Medication Instructions Recorded Confirmed Last Taken Type OLANzapine [ZyPREXA] 10 mg PO HS 05/17/19 05/21/19 05/20/19 History Phenytoin [Dilantin] 100 mg PO Q8HR 05/17/19 05/21/19 05/20/19 History levETIRAcetam [Keppra XR TAB] 750 mg PO BID 05/17/19 05/21/19 05/20/19 History Amoxicillin/Potassium Clav 1 each PO BID 7 Days #14 tablet 05/19/19 05/21/19 05/20/19 Rx [Augmentin 875-125 Tablet] Phenytoin [Dilantin] 3 tab PO QHS 7 Days #21 capsule 05/19/19 05/21/19 05/20/19 Rx ED Review of Systems ROS: Stated complaint: FEELS LIKE POSS SEIZURE Other details as noted in HPI Comment: All other systems reviewed and negative Constitutional: denies: chills, fever Eyes: denies: eye pain, vision change ENT: denies: ear pain, throat pain Respiratory: denies: cough, shortness of breath Cardiovascular: denies: chest pain, palpitations Gastrointestinal: denies: abdominal pain, vomiting Genitourinary: denies: dysuria, discharge Musculoskeletal: denies: back pain, arthralgia Neurological: other (seizure). denies: headache, weakness Physical Exam - Physical Exam Vital Signs: Vital Signs 05/29/19 00:56 Temperature 98.9 F Pulse Rate 88 Respiratory 20 Rate Blood Pressure 119/77 O2 Sat by Pulse 100 Oximetry Physical Exam: GENERAL: The patient is well-developed well-nourished. HENT: Normocephalic. Atraumatic. Patient has moist mucous membranes. EYES: Extraocular motions are intact. Pupils equal reactive to light bilaterally. NECK: Supple. Trachea is midline. CHEST/LUNGS: Clear to auscultation. There is no respiratory distress noted. HEART/CARDIOVASCULAR: Regular. There is no tachycardia. There is no murmur. ABDOMEN: Abdomen is soft, nontender. Patient has normal bowel sounds. There is no abdominal distention. SKIN: Skin is warm and dry. NEURO: The patient is awake, alert, and cooperative. The patient has no focal neurologic deficits. Normal speech. Cranial nerves II through XII grossly intact. No facial asymmetry. No dysmetria. MUSCULOSKELETAL: There is no tenderness or deformity. There is no limitation range of motion. There is no evidence of acute injury. ED Course Vital Signs 05/29/19 00:56 Temperature 98.9 F Pulse Rate 88 Respiratory 20 Rate Blood Pressure 119/77 O2 Sat by Pulse 100 Oximetry ED Medical Decision Making - Lab Data Result diagrams: 05/29/19 01:03 05/29/19 01:03 - EKG Data -: EKG Interpreted by Me EKG shows normal: sinus rhythm, axis, intervals, QRS complexes (LBBB), ST-T waves Rate: normal - EKG Data When compared to previous EKG there are: no significant change Interpretation: unchanged when compared t (05/23/19) - Medical Decision Making This patient is well known to both myself and this department regarding his history of seizures. He has been seen by both myself and my colleagues and it seems like the visits are increasing in frequency, including 3 visits over the last 3 days. Apparently the patient does have an established seizure disorder history but usually he presents with the complaint of unwitnessed seizures and generally he is awake, alert without any signs of any postictal period. The same is true for today. At the time of my examination he is awake, alert, sitting at the edge of the bed and reading a book. His vital signs stable throughout his ED course. Labs have been mostly unremarkable including CBC, metabolic panel, CK level. The patient was loaded with both Keppra and phenytoin. The phenytoin level is subtherapeutic but is increased from when I saw him a few days ago. The patient was reevaluated multiple times over the past 3-4 hours and there has been no further seizure-like activity or change in mental status. For all these reasons, the patient does not appear to require any advanced imaging and did recently have a negative CT scan of the head without contrast. He has been given a referral for neurology. He has been instructed to return to the ER with any worsening of his symptoms or any acute distress. - Differential Diagnosis epilepsy, pseudoseizures, electrolyte abnormalities, dysrhythmia Critical Care Time: No Critical care attestation.: If time is entered above; I have spent that time in minutes in the direct care of this critically ill patient, excluding procedure time. ED Disposition Clinical Impression: Seizure disorder Disposition: DC-01 TO HOME OR SELFCARE Is pt being admited?: No Condition: Stable Instructions: Recurrent Seizures Adult (ED) Additional Instructions: Please take your seizure medications as previously prescribed. Return to the emergency Department with any worsening of your symptoms or any acute distress. I have given you a referral for a local neurologist, Dr. Hoff. Referrals: JANET QUIÑONES MD [Primary Care Provider] - 2-3 Days CHRISTOPHER HOFF MD [Referring] - 2-3 Days Time of Disposition: 02:52
[2019-05-29 03:11] VITALS: BP 116/71
== END 2019-05-29 03:13 | disposition home or self-care (01) ==
LOC: ED 23:37
DX: G43.909 Migraine, unspecified, not intractable, without status migrainosus (principal); I10 Essential (primary) hypertension; F31.9 Bipolar disorder, unspecified; Z90.49 Acquired absence of other specified parts of digestive tract; Z79.899 Other long term (current) drug therapy
CPT/HCPCS: 36415; 80053; 80185; 82550; 85025; 93005; 93010

== ENCOUNTER 2019-06-01 23:07 | Emergency (ER) | payer MEDICAID ==
--- NOTE | 2019-06-01 23:59 | Cat Scan Report ---
CT head without contrast INDICATION : Altered mental status. TECHNIQUE: Axial imaging performed from the skull apex through the skull base without the use of con trast. All CT examinations performed at this facility utilize dose modulation, iterative reconstruct ion or weight-based dosing, when appropriate, to reduce radiation dose to as low as reasonably achiev able. COMPARISON: 05/22/2019 FINDINGS: No acute intracranial hemorrhage or parenchymal abnormality. Ventricles are normal in si ze and appear symmetric. Soft tissues including the orbits appear normal. No acute osseous abnorm ality. Sinuses and mastoid air cells are clear. IMPRESSION: No acute abnormality. Signer Name: Jose Ortiz MD Signed: 06/01/2019 11:54 PM Workstation Name: [id number]
[2019-06-02 00:45] LABS: Alanine Aminotransferase 19 units/L (7-56); Albumin 4.5 g/dL (3.9-5); BUN/Creatinine Ratio 18; Blood Urea Nitrogen 11 mg/dL (9-20); Calcium 9.3 mg/dL (8.4-10.2); Hemolysis Index 1
[2019-06-02 01:12] LABS: Basophils # (Auto) 0.1 K/mm3 (0.0-0.1); Eosinophils # (Auto) 0.1 K/mm3 (0.0-0.4); Eosinophils % (Auto) 1.7 % (0.0-4.3); Hematocrit 37.5 % (35.5-45.6); Hemoglobin 11.9 gm/dl (11.8-15.2); Lymphocytes # (Auto) 1.3 K/mm3 (1.2-5.4); Lymphocytes % (Auto) 20.6 % (13.4-35.0); Mean Corpuscular HGB Conc 32 % (32-34); Mean Corpuscular Volume 77 fl (84-94); Monocytes # (Auto) 0.8 K/mm3 (0.0-0.8); Monocytes % (Auto) 12.3 % (0.0-7.3); Platelet Count 268 K/mm3 (140-440); Red Blood Count 4.89 M/mm3 (3.65-5.03); Red Cell Distribution Width 13.6 % (13.2-15.2)
[2019-06-02 03:34] LABS: Bilirubin,Urine NEG (Negative); Blood,Urine SM (Negative); Color,Urine Yellow (Yellow); Mucus,Urine 2+ /HPF; Protein,Urine <15 mg/dL mg/dL (Negative); Urobilinogen,Urine < 2.0 mg/dL (<2.0)
[2019-06-02] MEDS ORDERED: CEREBYX IV ONE ×2 (03:34→04:00)
[2019-06-02 03:39] LABS: Amphetamine Screen,Urine PRESUMPTIVE NEGATIVE; Benzodiazepines Screen,Urine PRESUMPTIVE NEGATIVE; Cannabinoid Screen,Urine PRESUMPTIVE NEGATIVE; Cocaine Screen,Urine PRESUMPTIVE NEGATIVE; Methadone Screen,Urine PRESUMPTIVE NEGATIVE; Opiate Screen,Urine PRESUMPTIVE NEGATIVE
[2019-06-02] MEDS ORDERED: [UNRECOGNIZED DRUG - OTHER] IV ONE (04:00)
[2019-06-02] MEDS ORDERED: NACL IV ONE (04:00)
--- NOTE | 2019-06-02 04:04 | Emergency Department Report ---
<VIPUL RODRIGUEZ - Last Filed: 06/02/19 03:56> ED Psych HPI - General Chief Complaint: Psych Stated Complaint: PSYCH EVAL Time Seen by Provider: 06/01/19 23:20 Source: patient, EMS Mode of arrival: Ambulatory - History of Present Illness Initial Comments: Mr. Recinos is a 49 yo male with hx of schizophrenia, polysubstance abuse, seizure disorder who presents with visual hallucinations. He told paramedics that he was seeing ghosts. He does not provide any additional history. MD Complaint: other ("seeing ghosts") -: unknown Associated Psychiatric Symptoms: visual hallucinations Quality: constant Improves With: none, medication Context: not taking psychiatric Associated Symptoms: other (refused to give further hx) Treatments Prior to Arrival: none - Related Data Home Medications Medication Instructions Recorded Confirmed Last Taken OLANzapine [ZyPREXA] 10 mg PO HS 05/17/19 06/02/19 05/20/19 Phenytoin [Dilantin] 100 mg PO Q8HR 05/17/19 06/02/19 05/20/19 levETIRAcetam [Keppra XR TAB] 750 mg PO BID 05/17/19 06/02/19 05/20/19 Previous Rx's Medication Instructions Recorded Last Taken Type Amoxicillin/Potassium Clav 1 each PO BID 7 Days #14 tablet 05/19/19 05/20/19 Rx [Augmentin 875-125 Tablet] Phenytoin [Dilantin] 3 tab PO QHS 7 Days #21 capsule 05/19/19 05/20/19 Rx Allergies Allergy/AdvReac Type Severity Reaction Status Date / Time No Known Allergies Allergy Verified 05/26/19 10:37 ED Review of Systems Comment: Unobtainable due to pts medical conditions (Mr. Recinos will not cooperate with hx) ED Past Medical Hx - Past Medical History Previous Medical History?: Yes Hx Hypertension: Yes Hx Congestive Heart Failure: No Hx Diabetes: No Hx Seizures: Yes Hx Psychiatric Treatment: Yes (bipolar) Hx Asthma: No Hx COPD: No Hx HIV: No - Surgical History Hx Cholecystectomy: Yes - Social History Smoking Status: Never Smoker Substance Use Type: None - Medications Home Medications: Home Medications Medication Instructions Recorded Confirmed Last Taken Type OLANzapine [ZyPREXA] 10 mg PO HS 05/17/19 06/02/19 05/20/19 History Phenytoin [Dilantin] 100 mg PO Q8HR 05/17/19 06/02/19 05/20/19 History levETIRAcetam [Keppra XR TAB] 750 mg PO BID 05/17/19 06/02/19 05/20/19 History Amoxicillin/Potassium Clav 1 each PO BID 7 Days #14 tablet 05/19/19 06/02/19 05/20/19 Rx [Augmentin 875-125 Tablet] Phenytoin [Dilantin] 3 tab PO QHS 7 Days #21 capsule 05/19/19 06/02/19 05/20/19 Rx ED Physical Exam - General Limitations: No Limitations General appearance: alert, in no apparent distress, other (will follow commands, will not provide further hx) - Head Head exam: Present: atraumatic, normocephalic - Eye Eye exam: Present: normal appearance - ENT ENT exam: Present: mucous membranes moist - Neck Neck exam: Present: normal inspection, full ROM - Respiratory Respiratory exam: Present: normal lung sounds bilaterally. Absent: respiratory distress, wheezes, rales, rhonchi, stridor - Cardiovascular Cardiovascular Exam: Present: regular rate, normal rhythm, normal heart sounds. Absent: systolic murmur, diastolic murmur, rubs, gallop - GI/Abdominal GI/Abdominal exam: Present: soft, normal bowel sounds. Absent: distended, tenderness, guarding, rebound - Rectal Rectal exam: Present: deferred - Extremities Exam Extremities exam: Present: normal inspection - Back Exam Back exam: Present: normal inspection - Neurological Exam Neurological exam: Present: alert, oriented X3 - Psychiatric Psychiatric exam: Present: depressed, flat affect - Skin Skin exam: Present: warm, dry, intact, normal color. Absent: rash ED Medical Decision Making - Lab Data Result diagrams: 06/01/19 23:39 06/01/19 23:39 Laboratory Results - last 24 hr 06/01/19 06/01/19 06/01/19 07:32 23:39 23:39 WBC 6.2 RBC 4.89 Hgb 11.9 Hct 37.5 MCV 77 L MCH 24 L MCHC 32 RDW 13.6 Plt Count 268 Lymph % (Auto) 20.6 [place] % (Auto) 12.3 H Eos % (Auto) 1.7 Baso % (Auto) 1.0 Lymph # 1.3 [place] # 0.8 Eos # 0.1 Baso # 0.1 Seg Neutrophils % 64.4 Seg Neutrophils # 4.0 Sodium 140 Potassium 4.1 Chloride 99.4 Carbon Dioxide 27 Anion Gap 18 BUN 11 Creatinine 0.6 L Estimated GFR > 60 BUN/Creatinine Ratio 18 Glucose 101 H Calcium 9.3 Total Bilirubin 0.30 AST 39 ALT 19 Alkaline Phosphatase 97 Total Protein 8.1 Albumin 4.5 Albumin/Globulin Ratio 1.3 Urine Color Urine Turbidity Urine pH Ur Specific [place] Urine Protein Urine Glucose (UA) Urine Ketones Urine Blood Urine Nitrite Urine Bilirubin Urine Urobilinogen Ur Leukocyte Esterase Urine WBC (Auto) Urine RBC (Auto) U Epithel Cells (Auto) Urine Mucus Salicylates < 0.3 L Urine Opiates Screen Urine Methadone Screen Acetaminophen Ur Barbiturates Screen Phenytoin 1.4 L Ur Phencyclidine Scrn Ur Amphetamines Screen U Benzodiazepines Scrn Urine Cocaine Screen U Marijuana (THC) Screen Plasma/Serum Alcohol 06/01/19 06/01/19 06/01/19 23:39 23:39 Unknown WBC RBC Hgb Hct MCV MCH MCHC RDW Plt Count Lymph % (Auto) [place] % (Auto) Eos % (Auto) Baso % (Auto) Lymph # [place] # Eos # Baso # Seg Neutrophils % Seg Neutrophils # Sodium Potassium Chloride Carbon Dioxide Anion Gap BUN Creatinine Estimated GFR BUN/Creatinine Ratio Glucose Calcium Total Bilirubin AST ALT Alkaline Phosphatase Total Protein Albumin Albumin/Globulin Ratio Urine Color Yellow Urine Turbidity Clear Urine pH 5.0 Ur Specific [place] 1.030 Urine Protein <15 mg/dl Urine Glucose (UA) Neg Urine Ketones Tr Urine Blood Sm Urine Nitrite Neg Urine Bilirubin Neg Urine Urobilinogen < 2.0 Ur Leukocyte Esterase Tr Urine WBC (Auto) 13.0 H Urine RBC (Auto) 6.0 U Epithel Cells (Auto) 2.0 Urine Mucus 2+ Salicylates Urine Opiates Screen Urine Methadone Screen Acetaminophen < 5.0 L Ur Barbiturates Screen Phenytoin Ur Phencyclidine Scrn Ur Amphetamines Screen U Benzodiazepines Scrn Urine Cocaine Screen U Marijuana (THC) Screen Plasma/Serum Alcohol < 0.01 06/01/19 Unknown WBC RBC Hgb Hct MCV MCH MCHC RDW Plt Count Lymph % (Auto) [place] % (Auto) Eos % (Auto) Baso % (Auto) Lymph # [place] # Eos # Baso # Seg Neutrophils % Seg Neutrophils # Sodium Potassium Chloride Carbon Dioxide Anion Gap BUN Creatinine Estimated GFR BUN/Creatinine Ratio Glucose Calcium Total Bilirubin AST ALT Alkaline Phosphatase Total Protein Albumin Albumin/Globulin Ratio Urine Color Urine Turbidity Urine pH Ur Specific [place] Urine Protein Urine Glucose (UA) Urine Ketones Urine Blood Urine Nitrite Urine Bilirubin Urine Urobilinogen Ur Leukocyte Esterase Urine WBC (Auto) Urine RBC (Auto) U Epithel Cells (Auto) Urine Mucus Salicylates Urine Opiates Screen Presumptive negative Urine Methadone Screen Presumptive negative Acetaminophen Ur Barbiturates Screen Presumptive negative Phenytoin Ur Phencyclidine Scrn Presumptive negative Ur Amphetamines Screen Presumptive negative U Benzodiazepines Scrn Presumptive negative Urine Cocaine Screen Presumptive negative U Marijuana (THC) Screen Presumptive negative Plasma/Serum Alcohol - Medical Decision Making Mr. Recinos presents with statement of "seeing ghosts". He has hx of seizure disorder. Neurologically intact. Ambulatory. Will follow commands. Awaiting psychiatric and case management consultation. His labs are unremarkable with exception of nontherapeutic Dilantin level. He received IV fosphenytoin load. By mouth Dilantin has been ordered on a scheduled basis. Mr. Recinos is medically clear for psychiatric care. No indication of medical condition which needs further resuscitation. Concern for substance-induced psychosis versus exacerbation of mental illness with history of schizophrenia versus bipolar disorder ED Disposition Clinical Impression: Seizure disorder, Acute psychosis Disposition: DC/TX-65 PSY HOSP/PSY UNIT Condition: Stable <PEDRO MARSHALL - Last Filed: 06/03/19 14:39> ED Review of Systems ROS: Stated complaint: PSYCH EVAL Other details as noted in HPI ED Course Vital Signs 06/01/19 06/02/19 06/02/19 23:10 08:40 17:50 Temperature 98.3 F 98.4 F 98.3 F Pulse Rate 71 93 H 89 Respiratory 18 18 18 Rate Blood Pressure 144/94 133/77 130/62 [Left] O2 Sat by Pulse 98 99 Oximetry 06/02/19 06/03/19 06/03/19 19:33 01:00 07:00 Temperature 98.4 F 98.0 F 98.2 F Pulse Rate 99 H 78 96 H Respiratory 18 18 18 Rate Blood Pressure 124/79 137/82 127/86 [Left] O2 Sat by Pulse 98 97 100 Oximetry 06/03/19 13:00 Temperature 98.1 F Pulse Rate 93 H Respiratory 18 Rate Blood Pressure 123/69 [Left] O2 Sat by Pulse 100 Oximetry ED Medical Decision Making - Lab Data Result diagrams: 06/01/19 23:39 06/01/19 23:39 Critical care attestation.: If time is entered above; I have spent that time in minutes in the direct care of this critically ill patient, excluding procedure time. ED Disposition Is pt being admited?: No
--- NOTE | 2019-06-02 08:32 | Consultation ---
History of Present Illness - Reason for Consult Consult date: 06/02/19 Reason for consult: Mental Health Evaluation Requesting physician: VIPUL RODRIGUEZ - Chief Complaint Chief complaint: "I'm not well" - History of Present Psychiatric Illness 49 y.o. AA male who presented to the ER for AH's. This patient is known to me. Today the patient was disorganized during the assessment. He was malodorous and not logical during the interview when asked questions. This isn't the patient's baseline. Overall, the patient's insight is poor. No gesture of SI/HI's. Medications and Allergies Allergies Allergy/AdvReac Type Severity Reaction Status Date / Time No Known Allergies Allergy Verified 05/26/19 10:37 Home Medications Medication Instructions Recorded Confirmed Last Taken Type OLANzapine [ZyPREXA] 10 mg PO HS 05/17/19 06/02/19 05/20/19 History Phenytoin [Dilantin] 100 mg PO Q8HR 05/17/19 06/02/19 05/20/19 History levETIRAcetam [Keppra XR TAB] 750 mg PO BID 05/17/19 06/02/19 05/20/19 History Amoxicillin/Potassium Clav 1 each PO BID 7 Days #14 tablet 05/19/19 06/02/19 05/20/19 Rx [Augmentin 875-125 Tablet] Phenytoin [Dilantin] 3 tab PO QHS 7 Days #21 capsule 05/19/19 06/02/19 05/20/19 Rx Active Meds: Active Medications Phenytoin (Dilantin) 300 mg PO QHS LEYDA Past psychiatric history - Past Medical History Past Medical History: seizures Past Surgical History: No surgical history - past Psychiatric treatment and history psychiatric treatment history: Several inpatient psy settings. Unable to obtain a [facility] psy hx. - Social History Social history: lives with family Mental Status Exam - Vital signs Last Vital Signs Temp 98.3 F 06/01/19 23:10 Pulse 71 06/01/19 23:10 Resp 18 06/01/19 23:10 BP 144/94 06/01/19 23:10 Pulse Ox - Exam Narrative exam: MSE: Appearance: disheveled, malodorous Behavior: poor eye contact Speech: regular rate and tone Mood: unable to assess Affect: flat Thought Process: disorganized Thought Content: no gestures of SI/HI's Motor Activity: sitting up in bed Cognition: A/O x3 Insight: poor Judgment: unable to assess Results Result Diagrams: 06/01/19 23:39 06/01/19 23:39 Abnormal lab results 06/01/19 06/01/19 06/01/19 Range/Units 07:32 23:39 23:39 MCV 77 L (84-94) fl MCH 24 L (28-32) pg [place] % (Auto) 12.3 H (0.0-7.3) % Creatinine 0.6 L (0.8-1.5) mg/dL Glucose 101 H (75-100) mg/dL Urine WBC (Auto) (0.0-6.0) /HPF Salicylates < 0.3 L (2.8-20.0) mg/dL Acetaminophen (10.0-30.0) ug/mL Phenytoin 1.4 L (10.0-20.0) ug/mL 06/01/19 06/01/19 Range/Units 23:39 Unknown MCV (84-94) fl MCH (28-32) pg [place] % (Auto) (0.0-7.3) % Creatinine (0.8-1.5) mg/dL Glucose (75-100) mg/dL Urine WBC (Auto) 13.0 H (0.0-6.0) /HPF Salicylates (2.8-20.0) mg/dL Acetaminophen < 5.0 L (10.0-30.0) ug/mL Phenytoin (10.0-20.0) ug/mL All other labs normal. Assessment and Plan Assessment and plan: Impression: Unspecified Psychosis. Today the patient was disorganized during the assessment. The patient isn't at his baseline. DDX: Schizophrenia Recommendation/Plan: Initiate 1013 and start Zyprexa 5 mg PO HS for psychosis. Attempted to discuss possible metabolic side effects of Zyprexa with the patient. Dispo: The patient was referred to inpatient psy services. Staffed with Dr Miguel Saldaña.
[2019-06-02] MEDS ORDERED: DILANTIN PO SCH (22:00)
[2019-06-03 14:33] VITALS: BP 123/69
== END 2019-06-03 14:56 | disposition home or self-care (01) ==
LOC: ED 23:07 → EEVIPCON 23:07 → ED 06-03 14:56
DX: F23 Brief psychotic disorder (principal); G40.909 Epilepsy, unspecified, not intractable, without status epilepticus; I10 Essential (primary) hypertension; F31.9 Bipolar disorder, unspecified; Z90.49 Acquired absence of other specified parts of digestive tract
CPT/HCPCS: 36415; 70450; 80053; 80185; 80307; 81001; 85025; 87086; 96365; 99285; Q2009; 80320; G0480

== ENCOUNTER 2019-06-12 11:56 | Emergency (ER) | payer MEDICAID ==
[2019-06-12] MEDS ORDERED: FOSPHENYTOIN 1,000 MG.PE in SODIUM CHLORIDE 0.9% 100 ML IV ONE (12:10)
[2019-06-12] MEDS ORDERED: SODIUM CHLORIDE 0.9% 1000 ML 1,000 ML IV ONE (12:10)
--- NOTE | 2019-06-12 12:10 | Emergency Department Report ---
ED Seizure HPI - General Chief Complaint: Seizure Stated Complaint: CONVULSIONS Time Seen by Provider: 06/12/19 12:07 Source: patient, EMS Mode of arrival: Stretcher Limitations: No Limitations - History of Present Illness Initial Comments: 49 yo comes to ER via EMS with family reports of pt having 3 witnessed seizures this AM. Pt incontinent of urine. Pt will answer only simple questions on initial exam. He appears post ictic for he is somulent on exam. PERRL moving all extremities no evidence of trauma Lives with brother who I called and no answer. Last known sz meds as of 06-01 dilantin and keppra. Also has documented psych history and med non adherence history Head ct 06-01 zahraa [place] Complaint: seizure -: Sudden Description of Episode: tonic-clonic movement -: second(s) Witnessed:: Yes Trauma: No Seizure History: known seizure disorder Possible Precipitating Event: medication (NONADH) Associated Symptoms: denies other symptoms Treatments Prior to Arrival: other (EMS) - Related Data Previous Rx's Medication Instructions Recorded Last Taken Type Mirtazapine [Remeron 15mg TAB] 15 mg PO QHS #30 tablet 06/08/19 Unknown Rx Paliperidone Palmitate (Nf) 156 mg IM MO #7 ml 06/08/19 Unknown Rx [Invega Sustenna (Nf)] Paliperidone Palmitate(Nf) [Invega 234 mg IM ONCE #1 syringe 06/08/19 Unknown Rx Sustenna(Nf)] Phenytoin [Dilantin] 100 mg PO Q8HR #90 capsule.er 06/08/19 Unknown Rx levETIRAcetam [Keppra XR TAB] 750 mg PO BID #60 06/08/19 Unknown Rx risperiDONE [RisperDAL] 2 mg PO BID #60 tablet 06/08/19 Unknown Rx Allergies Allergy/AdvReac Type Severity Reaction Status Date / Time No Known Allergies Allergy Verified 06/12/19 12:04 ED Review of Systems ROS: Stated complaint: CONVULSIONS Other details as noted in HPI Comment: Unobtainable due to pts medical conditions ED Past Medical Hx - Past Medical History Previous Medical History?: Yes Hx Hypertension: Yes Hx Congestive Heart Failure: No Hx Diabetes: No Hx Seizures: Yes Hx Psychiatric Treatment: Yes (bipolar) Hx Asthma: No Hx COPD: No Hx HIV: No - Surgical History Past Surgical History?: Yes Hx Cholecystectomy: Yes - Family History Family history: no significant - Social History Smoking Status: Never Smoker Substance Use Type: Other (unknown) - Medications Home Medications: Home Medications Medication Instructions Recorded Confirmed Last Taken Type Mirtazapine [Remeron 15mg TAB] 15 mg PO QHS #30 tablet 06/08/19 Unknown Rx Paliperidone Palmitate (Nf) 156 mg IM MO #7 ml 06/08/19 Unknown Rx [Invega Sustenna (Nf)] Paliperidone Palmitate(Nf) [Invega 234 mg IM ONCE #1 syringe 06/08/19 Unknown Rx Sustenna(Nf)] Phenytoin [Dilantin] 100 mg PO Q8HR #90 capsule.er 06/08/19 Unknown Rx levETIRAcetam [Keppra XR TAB] 750 mg PO BID #60 06/08/19 Unknown Rx risperiDONE [RisperDAL] 2 mg PO BID #60 tablet 06/08/19 Unknown Rx ED Physical Exam - General Limitations: No Limitations General appearance: alert, in no apparent distress - Head Head exam: Present: atraumatic, normocephalic - Eye Eye exam: Present: normal appearance - ENT ENT exam: Present: mucous membranes moist - Neck Neck exam: Present: normal inspection - Respiratory Respiratory exam: Present: normal lung sounds bilaterally. Absent: respiratory distress - Cardiovascular Cardiovascular Exam: Present: regular rate, normal rhythm. Absent: systolic murmur, diastolic murmur, rubs, gallop - GI/Abdominal GI/Abdominal exam: Present: soft, normal bowel sounds - Rectal Rectal exam: Present: deferred - Extremities Exam Extremities exam: Present: normal inspection - Back Exam Back exam: Present: normal inspection - Neurological Exam Neurological exam: Present: alert, oriented X3 - Psychiatric Psychiatric exam: Present: normal affect, normal mood - Skin Skin exam: Present: warm, dry, intact, normal color. Absent: rash ED Course Vital Signs 06/12/19 06/12/19 06/12/19 12:01 12:15 12:18 Temperature 98.2 F Pulse Rate 93 H 97 H Respiratory 16 15 Rate Blood Pressure 132/81 O2 Sat by Pulse 97 97 Oximetry 06/12/19 06/12/19 06/12/19 12:30 12:45 13:00 Temperature Pulse Rate 95 H 95 H 89 Respiratory 14 13 11 L Rate Blood Pressure 146/92 147/90 147/92 O2 Sat by Pulse 98 98 98 Oximetry 06/12/19 06/12/19 06/12/19 13:15 13:31 13:45 Temperature Pulse Rate 90 90 85 Respiratory 11 L 12 14 Rate Blood Pressure 150/87 120/75 120/75 O2 Sat by Pulse 97 96 97 Oximetry 06/12/19 06/12/19 06/12/19 14:00 14:15 14:31 Temperature Pulse Rate 98 H 87 92 H Respiratory 11 L 11 L 7 L Rate Blood Pressure 133/85 142/85 142/85 O2 Sat by Pulse 96 96 Oximetry ED Medical Decision Making - Lab Data Result diagrams: 06/12/19 12:21 06/12/19 12:21 - Medical Decision Making Lab Results 06/12/19 06/12/19 06/12/19 Range/Units 08:23 12:21 12:21 WBC 5.5 (4.5-11.0) K/mm3 RBC 4.98 (3.65-5.03) M/mm3 Hgb 11.9 (11.8-15.2) gm/dl Hct 38.6 (35.5-45.6) % MCV 78 L (84-94) fl MCH 24 L (28-32) pg MCHC 31 L (32-34) % RDW 14.0 (13.2-15.2) % Plt Count 192 (140-440) K/mm3 Lymph % (Auto) 15.9 (13.4-35.0) % [place] % (Auto) 8.6 H (0.0-7.3) % Eos % (Auto) 1.1 (0.0-4.3) % Baso % (Auto) 1.2 (0.0-1.8) % Lymph # 0.9 L (1.2-5.4) K/mm3 [place] # 0.5 (0.0-0.8) K/mm3 Eos # 0.1 (0.0-0.4) K/mm3 Baso # 0.1 (0.0-0.1) K/mm3 Seg Neutrophils % 73.2 H (40.0-70.0) % Seg Neutrophils # 4.0 (1.8-7.7) K/mm3 Sodium 139 (137-145) mmol/L Potassium 4.6 (3.6-5.0) mmol/L Chloride 104.5 (98-107) mmol/L Carbon Dioxide 24 (22-30) mmol/L Anion Gap 15 mmol/L BUN 9 (9-20) mg/dL Creatinine 0.6 L (0.8-1.5) mg/dL Estimated GFR > 60 ml/min BUN/Creatinine Ratio 15 % Glucose 95 (75-100) mg/dL Calcium 9.2 (8.4-10.2) mg/dL Total Bilirubin < 0.20 (0.1-1.2) mg/dL AST 19 (5-40) units/L ALT 23 (7-56) units/L Alkaline Phosphatase 96 (35-129) units/L Total Creatine Kinase (55-170) units/L Total Protein 7.2 (6.3-8.2) g/dL Albumin 4.3 (3.9-5) g/dL Albumin/Globulin Ratio 1.5 % Salicylates < 0.3 L (2.8-20.0) mg/dL Acetaminophen (10.0-30.0) ug/mL Phenytoin 7.0 L (10.0-20.0) ug/mL Plasma/Serum Alcohol (0-0.07) % 06/12/19 06/12/19 06/12/19 Range/Units 12:21 12:21 12:21 WBC (4.5-11.0) K/mm3 RBC (3.65-5.03) M/mm3 Hgb (11.8-15.2) gm/dl Hct (35.5-45.6) % MCV (84-94) fl MCH (28-32) pg MCHC (32-34) % RDW (13.2-15.2) % Plt Count (140-440) K/mm3 Lymph % (Auto) (13.4-35.0) % [place] % (Auto) (0.0-7.3) % Eos % (Auto) (0.0-4.3) % Baso % (Auto) (0.0-1.8) % Lymph # (1.2-5.4) K/mm3 [place] # (0.0-0.8) K/mm3 Eos # (0.0-0.4) K/mm3 Baso # (0.0-0.1) K/mm3 Seg Neutrophils % (40.0-70.0) % Seg Neutrophils # (1.8-7.7) K/mm3 Sodium (137-145) mmol/L Potassium (3.6-5.0) mmol/L Chloride (98-107) mmol/L Carbon Dioxide (22-30) mmol/L Anion Gap mmol/L BUN (9-20) mg/dL Creatinine (0.8-1.5) mg/dL Estimated GFR ml/min BUN/Creatinine Ratio % Glucose (75-100) mg/dL Calcium (8.4-10.2) mg/dL Total Bilirubin (0.1-1.2) mg/dL AST (5-40) units/L ALT (7-56) units/L Alkaline Phosphatase (35-129) units/L Total Creatine Kinase 177 H (55-170) units/L Total Protein (6.3-8.2) g/dL Albumin (3.9-5) g/dL Albumin/Globulin Ratio % Salicylates (2.8-20.0) mg/dL Acetaminophen < 5.0 L (10.0-30.0) ug/mL Phenytoin (10.0-20.0) ug/mL Plasma/Serum Alcohol < 0.01 (0-0.07) % Vital Signs 06/12/19 06/12/19 06/12/19 12:01 12:15 12:18 Temperature 98.2 F Pulse Rate 93 H 97 H Respiratory 16 15 Rate Blood Pressure 132/81 O2 Sat by Pulse 97 97 Oximetry 06/12/19 06/12/19 06/12/19 12:30 12:45 13:00 Temperature Pulse Rate 95 H 95 H 89 Respiratory 14 13 11 L Rate Blood Pressure 146/92 147/90 147/92 O2 Sat by Pulse 98 98 98 Oximetry 06/12/19 06/12/19 13:15 13:31 Temperature Pulse Rate 90 90 Respiratory 11 L 12 Rate Blood Pressure 150/87 120/75 O2 Sat by Pulse 97 96 Oximetry LABS NOTED DILANTIN LEVEL 7.7 VS TRENDED SZ PRECAUTIONS LOADED WITH DILANTIN AND KEPPRA DISCUSSED WITH DR PARNELL WHO KNOWS PT. OK TO DC PT HOME PT MONITORED IN ER OVER THE COURSE OF TIME HERE HE IS MORE ALERT AND COMMUNICATIVE. HE IS ALERT AND ORIENTED X 3 WITH NO FOCAL DEF AT 1415. NO TRAUMA/LACS/BRUISING/TONGUE INJURY NOTED FAMILY CALLED- THEY WILL BE HOME AT 1999. BROTHER EDUCATED ON THE FACT THE PT WILL NEED ASSISTED TO BE SURE HE TAKES HIS DAILY MEDS AND THAT HE FOLLOWS UP WITH HIS PCP FOR MEDS. PT IS TO BE DC HOME WITH ADULT WHO CAN ASSIST HIM. - Differential Diagnosis SZ DO Critical care attestation.: If time is entered above; I have spent that time in minutes in the direct care of this critically ill patient, excluding procedure time. ED Disposition Clinical Impression: Seizure disorder, Non-adherence to medical treatment, Witnessed seizure Disposition: DC-01 TO HOME OR SELFCARE Is pt being admited?: No Does the pt Need Aspirin: No Condition: Stable Additional Instructions: PLEASE ASSIST PATIENT TO GET HIS DAILY MEDICATIONS PER RESEARCH MICROBIOLOGIST FOLLOW UP WITH PCP REFERRAL BELOW Referrals: [facility] [Outside] - 3-5 Days Time of Disposition: 14:27
[2019-06-12] MEDS ORDERED: levETIRAcetam 1000 MG/NS 0.75% 1,000 MG/100 ML BAG IV ONE (12:14)
[2019-06-12 12:42] LABS: Basophils # (Auto) 0.1 K/mm3 (0.0-0.1); Basophils % (Auto) 1.2 % (0.0-1.8); Eosinophils # (Auto) 0.1 K/mm3 (0.0-0.4); Eosinophils % (Auto) 1.1 % (0.0-4.3); Hematocrit 38.6 % (35.5-45.6); Hemoglobin 11.9 gm/dl (11.8-15.2); Lymphocytes # (Auto) 0.9 K/mm3 (1.2-5.4); Lymphocytes % (Auto) 15.9 % (13.4-35.0); Mean Corpuscular HGB Conc 31 % (32-34); Mean Corpuscular Volume 78 fl (84-94); Monocytes # (Auto) 0.5 K/mm3 (0.0-0.8); Monocytes % (Auto) 8.6 % (0.0-7.3); Platelet Count 192 K/mm3 (140-440); Red Blood Count 4.98 M/mm3 (3.65-5.03)
[2019-06-12 13:04] LABS: Alanine Aminotransferase 23 units/L (7-56); Albumin 4.3 g/dL (3.9-5); BUN/Creatinine Ratio 15; Blood Urea Nitrogen 9 mg/dL (9-20); Calcium 9.2 mg/dL (8.4-10.2); Hemolysis Index 6
[2019-06-12 14:35] VITALS: BP 142/85
== END 2019-06-12 14:56 | disposition home or self-care (01) ==
LOC: ED 11:56
DX: G40.909 Epilepsy, unspecified, not intractable, without status epilepticus (principal); I10 Essential (primary) hypertension; F31.9 Bipolar disorder, unspecified
CPT/HCPCS: 36415; 80053; 80185; 82550; 85025; 96365; 96366; 96367; 99284; J1953; J7030; Q2009; 80320; G0480

== ENCOUNTER 2019-06-22 23:44 | Emergency (ER) | payer MEDICAID ==
[2019-06-23 00:49] LABS: Hematocrit 39.9 % (35.5-45.6); Hemoglobin 12.4 gm/dl (11.8-15.2); Mean Corpuscular HGB Conc 31 % (32-34); Mean Corpuscular Volume 77 fl (84-94); Platelet Count 216 K/mm3 (140-440); Red Blood Count 5.19 M/mm3 (3.65-5.03)
[2019-06-23 01:29] LABS: BUN/Creatinine Ratio 12; Blood Urea Nitrogen 7 mg/dL (9-20); Calcium 9.2 mg/dL (8.4-10.2); Hemolysis Index 30
[2019-06-23] MEDS ORDERED: FOSPHENYTOIN 500 MG PE/10 ML INJ IV ONE (02:39)
[2019-06-23] MEDS ORDERED: SODIUM CHLORIDE IV ONE (03:00)
[2019-06-23] MEDS ORDERED: FOSPHENYTOIN IV ONE (03:00)
[2019-06-23] MEDS ORDERED: [UNRECOGNIZED DRUG - OTHER] IV ONE (03:00)
--- NOTE | 2019-06-23 03:55 | Emergency Department Report ---
ED Seizure HPI - General Chief Complaint: Seizure Stated Complaint: FELLING LIKE POSS SEIZURE Time Seen by Provider: 06/23/19 02:38 Source: patient, EMS Mode of arrival: Ambulatory Limitations: No Limitations - History of Present Illness Initial Comments: Mr. Recinos is a 49-year-old male with history of epilepsy schizophrenia and polysubstance abuse who presents with reported seizure. He arrived per EMS. He states that he's been compliant with his medications. He is currently living with his brother. He denies any pain. No other concerns. MD Complaint: seizure -: Sudden, This evening Witnessed:: No Seizure [facility]: [facility] Possible Precipitating Event: other (unknown) Associated Symptoms: denies other symptoms Treatments Prior to Arrival: none - Related Data Previous Rx's Medication Instructions Recorded Last Taken Type Mirtazapine [Remeron 15mg TAB] 15 mg PO QHS #30 tablet 06/08/19 Unknown Rx Paliperidone Palmitate (Nf) 156 mg IM MO #7 ml 06/08/19 Unknown Rx [Invega Sustenna (Nf)] Paliperidone Palmitate(Nf) [Invega 234 mg IM ONCE #1 syringe 06/08/19 Unknown Rx Sustenna(Nf)] Phenytoin [Dilantin] 100 mg PO Q8HR #90 capsule.er 06/08/19 Unknown Rx levETIRAcetam [Keppra XR TAB] 750 mg PO BID #60 06/08/19 Unknown Rx risperiDONE [RisperDAL] 2 mg PO BID #60 tablet 06/08/19 Unknown Rx Phenytoin [Dilantin] 3 tab PO QHS 30 Days #90 capsule 06/23/19 Unknown Rx Allergies Allergy/AdvReac Type Severity Reaction Status Date / Time No Known Allergies Allergy Verified 06/12/19 12:04 ED Review of Systems ROS: Stated complaint: FELLING LIKE POSS SEIZURE Other details as noted in HPI Comment: All other systems reviewed and negative Constitutional: denies: fever, malaise Cardiovascular: denies: chest pain Neurological: denies: headache, weakness, numbness, paresthesias ED Past Medical Hx - Past Medical History Previous Medical History?: Yes Hx Hypertension: Yes Hx Congestive Heart Failure: No Hx Diabetes: No Hx of Cancer: No Hx Seizures: Yes Hx Psychiatric Treatment: Yes (bipolar) Hx Asthma: No Hx COPD: No Hx HIV: No - Surgical History Hx Cholecystectomy: Yes - Social History Smoking Status: Current Every Day Smoker Substance Use Type: None - Medications Home Medications: Home Medications Medication Instructions Recorded Confirmed Last Taken Type Mirtazapine [Remeron 15mg TAB] 15 mg PO QHS #30 tablet 06/08/19 Unknown Rx Paliperidone Palmitate (Nf) 156 mg IM MO #7 ml 06/08/19 Unknown Rx [Invega Sustenna (Nf)] Paliperidone Palmitate(Nf) [Invega 234 mg IM ONCE #1 syringe 06/08/19 Unknown Rx Sustenna(Nf)] Phenytoin [Dilantin] 100 mg PO Q8HR #90 capsule.er 06/08/19 Unknown Rx levETIRAcetam [Keppra XR TAB] 750 mg PO BID #60 06/08/19 Unknown Rx risperiDONE [RisperDAL] 2 mg PO BID #60 tablet 06/08/19 Unknown Rx Phenytoin [Dilantin] 3 tab PO QHS 30 Days #90 capsule 06/23/19 Unknown Rx ED Physical Exam - General Limitations: No Limitations General appearance: alert, in no apparent distress - Head Head exam: Present: atraumatic, normocephalic - Eye Eye exam: Present: normal appearance - ENT ENT exam: Present: mucous membranes moist - Neck Neck exam: Present: normal inspection, full ROM - Respiratory Respiratory exam: Present: normal lung sounds bilaterally. Absent: respiratory distress, wheezes, rales, rhonchi - Cardiovascular Cardiovascular Exam: Present: regular rate, normal rhythm, normal heart sounds. Absent: systolic murmur, diastolic murmur, rubs, gallop - GI/Abdominal GI/Abdominal exam: Present: soft, normal bowel sounds. Absent: distended, tenderness, guarding, rebound - Rectal Rectal exam: Present: deferred - Extremities Exam Extremities exam: Present: normal inspection - Back Exam Back exam: Present: normal inspection - Neurological Exam Neurological exam: Present: alert, oriented X3 - Psychiatric Psychiatric exam: Present: normal mood, flat affect. Absent: manic, homicidal ideation, suicidal ideation - Skin Skin exam: Present: warm, dry, intact, normal color. Absent: rash ED Course Vital Signs 06/23/19 03:15 Temperature 98.3 F Pulse Rate 86 Respiratory 16 Rate Blood Pressure 131/78 [Left] O2 Sat by Pulse 98 Oximetry ED Medical Decision Making - Lab Data Result diagrams: 06/23/19 00:28 06/23/19 00:28 Laboratory Results - last 24 hr 06/23/19 06/23/19 06/23/19 00:28 00:28 00:28 WBC 8.6 RBC 5.19 H Hgb 12.4 Hct 39.9 MCV 77 L MCH 24 L MCHC 31 L RDW 14.0 Plt Count 216 Sodium 137 Potassium 4.2 Chloride 102.6 Carbon Dioxide 22 Anion Gap 17 BUN 7 L Creatinine 0.6 L Estimated GFR > 60 BUN/Creatinine Ratio 12 Glucose 104 H Calcium 9.2 Phenytoin 2.3 L - Medical Decision Making Mr. Garland presents after reported seizure. He has normal neuro exam in the emergency department. His mental status is at baseline. He is not therapeutic on phenytoin. He received fosphenytoin IV load in the emergency department. Discharge with prescription for Dilantin. Critical care attestation.: If time is entered above; I have spent that time in minutes in the direct care of this critically ill patient, excluding procedure time. ED Disposition Clinical Impression: Epilepsy Disposition: DC-01 TO HOME OR SELFCARE Is pt being admited?: No Does the pt Need Aspirin: No Condition: Stable Prescriptions: Phenytoin [Dilantin] 3 tab PO QHS 30 Days #90 capsule Referrals: CINDY MARKS MD [Primary Care Provider] - 3-5 Days
[2019-06-23 06:31] VITALS: BP 108/78
== END 2019-06-23 10:28 | disposition home or self-care (01) ==
LOC: ED 23:44
DX: G40.909 Epilepsy, unspecified, not intractable, without status epilepticus (principal); F20.9 Schizophrenia, unspecified; I10 Essential (primary) hypertension; F31.9 Bipolar disorder, unspecified; F17.200 Nicotine dependence, unspecified, uncomplicated; Z90.49 Acquired absence of other specified parts of digestive tract; Z79.899 Other long term (current) drug therapy
CPT/HCPCS: 36415; 80048; 80185; 82962; 85027; 96365; 99284; Q2009

== ENCOUNTER 2019-06-23 20:38 | Inpatient (IN) | payer MEDICAID ==
--- NOTE | 2019-06-23 22:25 | Emergency Department Report ---
ED General Adult HPI - General Chief complaint: Altered Mental Status Stated complaint: AMS Time Seen by Provider: 06/23/19 22:24 Source: EMS Mode of arrival: Stretcher Limitations: Altered Mental Status - History of Present Illness Initial comments: 49-year-old male with a history of epilepsy, schizophrenia and polysubstance abuse presents after being found with altered mental status per EMS. EMS states the patient is normally altered. Patient states the patient wasn't answering any questions upon arrival. Currently when questioned patient is oriented to person and place but not to time. Patient denies any urinary incontinence. Patient states he does not know if he had a seizure or not. According to EMS patient was picked up by EMS [facility] [place] home. Patient currently denies any chest pain or shortness of breath. Severity scale (0 -10): 0 - Related Data Previous Rx's Medication Instructions Recorded Last Taken Type Mirtazapine [Remeron 15mg TAB] 15 mg PO QHS #30 tablet 06/08/19 Unknown Rx Paliperidone Palmitate (Nf) 156 mg IM MO #7 ml 06/08/19 Unknown Rx [Invega Sustenna (Nf)] Paliperidone Palmitate(Nf) [Invega 234 mg IM ONCE #1 syringe 06/08/19 Unknown Rx Sustenna(Nf)] Phenytoin [Dilantin] 100 mg PO Q8HR #90 capsule.er 06/08/19 Unknown Rx levETIRAcetam [Keppra XR TAB] 750 mg PO BID #60 06/08/19 Unknown Rx risperiDONE [RisperDAL] 2 mg PO BID #60 tablet 06/08/19 Unknown Rx Phenytoin [Dilantin] 3 tab PO QHS 30 Days #90 capsule 06/23/19 Unknown Rx Allergies Allergy/AdvReac Type Severity Reaction Status Date / Time No Known Allergies Allergy Verified 06/12/19 12:04 ED Review of Systems ROS: Stated complaint: AMS Other details as noted in HPI Constitutional: denies: chills, fever Eyes: denies: eye pain, eye discharge, vision change ENT: denies: ear pain, throat pain Respiratory: denies: cough, shortness of breath, wheezing Cardiovascular: denies: chest pain, palpitations Endocrine: no symptoms reported Gastrointestinal: denies: abdominal pain, nausea, diarrhea Genitourinary: denies: urgency, dysuria Musculoskeletal: denies: back pain, joint swelling, arthralgia Skin: denies: rash, lesions Neurological: denies: headache, weakness, paresthesias Psychiatric: denies: anxiety, depression Hematological/Lymphatic: denies: easy bleeding, easy bruising ED Past Medical Hx - Past Medical History Previous Medical History?: Yes Hx Hypertension: Yes Hx Congestive Heart Failure: No Hx Diabetes: No Hx Seizures: Yes Hx Psychiatric Treatment: Yes (bipolar Schizophrenia) Hx Asthma: No Hx COPD: No Hx HIV: No - Surgical History Past Surgical History?: Yes Hx Cholecystectomy: Yes - Social History Smoking Status: Unknown if ever smoked Substance Use Type: Other - Medications Home Medications: Home Medications Medication Instructions Recorded Confirmed Last Taken Type Mirtazapine [Remeron 15mg TAB] 15 mg PO QHS #30 tablet 06/08/19 Unknown Rx Paliperidone Palmitate (Nf) 156 mg IM MO #7 ml 06/08/19 Unknown Rx [Invega Sustenna (Nf)] Paliperidone Palmitate(Nf) [Invega 234 mg IM ONCE #1 syringe 06/08/19 Unknown Rx Sustenna(Nf)] Phenytoin [Dilantin] 100 mg PO Q8HR #90 capsule.er 06/08/19 Unknown Rx levETIRAcetam [Keppra XR TAB] 750 mg PO BID #60 06/08/19 Unknown Rx risperiDONE [RisperDAL] 2 mg PO BID #60 tablet 06/08/19 Unknown Rx Phenytoin [Dilantin] 3 tab PO QHS 30 Days #90 capsule 06/23/19 Unknown Rx ED Physical Exam - General Limitations: Altered Mental Status General appearance: alert, other (dehydrated; awake) - Head Head exam: Present: atraumatic, normocephalic - Eye Eye exam: Present: normal appearance - ENT ENT exam: Present: mucous membranes dry - Neck Neck exam: Present: normal inspection - Respiratory Respiratory exam: Present: normal lung sounds bilaterally. Absent: respiratory distress - Cardiovascular Cardiovascular Exam: Present: regular rate, normal rhythm. Absent: systolic murmur, diastolic murmur, rubs, gallop - GI/Abdominal GI/Abdominal exam: Present: soft, normal bowel sounds - Rectal Rectal exam: Present: deferred - Extremities Exam Extremities exam: Present: normal inspection - Back Exam Back exam: Present: normal inspection - Neurological Exam Neurological exam: Present: alert, CN II-XII intact, other (oreinted to person and place but not to time). Absent: motor sensory deficit - Psychiatric Psychiatric exam: Present: flat affect. Absent: suicidal ideation - Skin Skin exam: Present: warm, dry, intact, normal color. Absent: rash ED Course Vital Signs 06/23/19 06/23/19 06/23/19 21:11 23:00 23:35 Temperature 98.3 F Pulse Rate 83 85 82 Respiratory 14 14 12 Rate Blood Pressure 125/84 129/81 129/81 Blood Pressure 125/84 [Left] O2 Sat by Pulse 99 99 99 Oximetry 06/24/19 06/24/19 00:00 01:00 Temperature Pulse Rate 92 H 92 H Respiratory 14 19 Rate Blood Pressure 130/78 130/78 Blood Pressure [Left] O2 Sat by Pulse 99 100 Oximetry ED Medical Decision Making - Lab Data Result diagrams: 06/23/19 22:26 - EKG Data -: EKG Interpreted by [place] EKG shows normal: sinus rhythm Rate: normal - EKG Data When compared to previous EKG there are: no significant change Interpretation: no acute changes - Medical Decision Making Patient received IV fluids while here in emergency department. Patient currently is oriented to person and to place. Patient however is not oriented to time. With the patient presumptively not at baseline was admitted to the hospitalist service for continued management and treatment. Patient has no neuro deficits. Patient able to ambulate while in the emergency department. - Differential Diagnosis arrhythmia; STEMI; intracranial bleed; electrolyte abnormality; anemia Critical care attestation.: If time is entered above; I have spent that time in minutes in the direct care of this critically ill patient, excluding procedure time. ED Disposition Clinical Impression: Altered mental state Disposition: -09 OP ADMIT IP TO THIS HOSP Is pt being admited?: Yes Does the pt Need Aspirin: No Condition: Stable Referrals: PRIMARY CARE, [Primary Care Provider] - 3-5 Days Time of Disposition: 02:55
[2019-06-23] MEDS ORDERED: SODIUM CHLORIDE 0.9% 1000 ML 1,000 ML IV ONE ×2 (22:26→22:50)
[2019-06-23 23:23] LABS: Basophils # (Auto) 0.1 K/mm3 (0.0-0.1); Basophils % (Auto) 0.9 % (0.0-1.8); Eosinophils # (Auto) 0.2 K/mm3 (0.0-0.4); Eosinophils % (Auto) 2.5 % (0.0-4.3); Hematocrit 38.6 % (35.5-45.6); Hemoglobin 12.1 gm/dl (11.8-15.2); Lymphocytes # (Auto) 1.7 K/mm3 (1.2-5.4); Lymphocytes % (Auto) 26.5 % (13.4-35.0); Mean Corpuscular HGB Conc 31 % (32-34); Mean Corpuscular Volume 77 fl (84-94); Monocytes # (Auto) 0.6 K/mm3 (0.0-0.8); Monocytes % (Auto) 8.7 % (0.0-7.3); Platelet Count 210 K/mm3 (140-440); Red Blood Count 4.98 M/mm3 (3.65-5.03); Red Cell Distribution Width 14.1 % (13.2-15.2)
[2019-06-24 02:52] LABS: Alanine Aminotransferase 11 units/L (7-56); Albumin 4.2 g/dL (3.9-5); BUN/Creatinine Ratio 14; Blood Urea Nitrogen 7 mg/dL (9-20); Calcium 9.2 mg/dL (8.4-10.2); Hemolysis Index 1
--- NOTE | 2019-06-24 03:16 | XRay Report ---
CHEST 1 VIEW INDICATION / CLINICAL INFORMATION: CHEST PAIN. COMPARISON: 05/15/2019, 90 07/01/2019 FINDINGS: SUPPORT DEVICES: None. HEART / MEDIASTINUM: No significant abnormality. LUNGS / PLEURA: There is mild interstitial prominence which appears grossly unchanged from older ches t radiograph, 04/22/2019. The lungs are otherwise grossly clear. No evidence for pneumonia or pleural effusion. No pneumothorax. ADDITIONAL FINDINGS: No significant additional findings. IMPRESSION: 1. Mild chronic interstitial disease. No acute pulmonary abnormality.. Signer Name: Maggie Garvin MD Signed: 06/24/2019 3:12 AM Workstation Name: [id number]
--- NOTE | 2019-06-24 04:05 | History and Physical Report ---
History of Present Illness Date of examination: 06/23/19 Date of admission: 06/23/19 Chief complaint: Altered mental status History of present illness: Patient is a 49-year-old -[place] male with known history of seizure disorder, schizophrenia and bipolar disorder was brought into the emergency room today because of a increased confusion patient could not give any good history. He has been no history of fever or chills, no seizure activity. Patient is b eing managed at home by his brother. His work-up in the emergency room was unremarkable however patient may need to be evaluated for placement. Past History Past Medical History: hypertension, other (Bipolar disorder and schizophrenia) Past Surgical History: cholecystectomy Social history: no significant social history Family history: no significant family history Medications and Allergies Allergies Allergy/AdvReac Type Severity Reaction Status Date / Time No Known Allergies Allergy Verified 06/12/19 12:04 Home Medications Medication Instructions Recorded Confirmed Last Taken Type Mirtazapine [Remeron 15mg TAB] 15 mg PO QHS #30 tablet 06/08/19 06/24/19 Unknown Rx Paliperidone Palmitate (Nf) 156 mg IM MO #7 ml 06/08/19 06/24/19 Unknown Rx [Invega Sustenna (Nf)] Paliperidone Palmitate(Nf) [Invega 234 mg IM ONCE #1 syringe 06/08/19 06/24/19 Unknown Rx Sustenna(Nf)] Phenytoin [Dilantin] 100 mg PO Q8HR #90 capsule.er 06/08/19 06/24/19 Unknown Rx levETIRAcetam [Keppra XR TAB] 750 mg PO BID #60 06/08/19 06/24/19 Unknown Rx risperiDONE [RisperDAL] 2 mg PO BID #60 tablet 06/08/19 06/24/19 Unknown Rx Phenytoin [Dilantin] 3 tab PO QHS 30 Days #90 capsule 06/23/19 06/24/19 Unknown Rx Review of Systems Neurological: confusion Psychiatric: depression, confusion Exam - Constitutional Vitals: Temp Pulse Resp BP Pulse Ox 98.1 F 100 H 18 146/81 97 06/24/19 03:02 06/24/19 03:02 06/24/19 03:02 06/24/19 03:02 06/24/19 03:02 General appearance: Present: no acute distress, well-nourished - EENT Eyes: Present: PERRL, EOM intact ENT: hearing intact, clear oral mucosa, dentition normal - Neck Neck: Present: supple, normal ROM - Respiratory Respiratory effort: normal Respiratory: bilateral: CTA - Cardiovascular Rhythm: regular Heart Sounds: Present: S1 & S2 - Extremities Extremities: no ischemia, No edema, Full ROM Peripheral Pulses: within normal limits - Abdominal General gastrointestinal: Present: soft, non-tender, non-distended - Integumentary Integumentary: Present: clear, warm, dry - Musculoskeletal Musculoskeletal: strength equal bilaterally - Psychiatric Psychiatric: appropriate mood/affect, intact judgment & insight - Neurologic Neurologic: CNII-XII intact, focal deficits Results - Labs CBC & Chem 7: 06/23/19 22:26 06/23/19 22:26 Labs: Abnormal lab results 06/23/19 06/23/19 06/23/19 Range/Units 22:26 22:26 22:26 MCV 77 L (84-94) fl MCH 24 L (28-32) pg MCHC 31 L (32-34) % Wolfe % (Auto) 8.7 H (0.0-7.3) % BUN 7 L (9-20) mg/dL Creatinine 0.5 L (0.8-1.5) mg/dL Total Creatine Kinase (55-170) units/L Salicylates (2.8-20.0) mg/dL Acetaminophen < 5.0 L (10.0-30.0) ug/mL Phenytoin (10.0-20.0) ug/mL 06/23/19 06/24/19 Range/Units 22:27 Unknown MCV (84-94) fl MCH (28-32) pg MCHC (32-34) % Wolfe % (Auto) (0.0-7.3) % BUN (9-20) mg/dL Creatinine (0.8-1.5) mg/dL Total Creatine Kinase 237 H (55-170) units/L Salicylates < 0.3 L (2.8-20.0) mg/dL Acetaminophen (10.0-30.0) ug/mL Phenytoin 23.9 H (10.0-20.0) ug/mL Assessment and Plan - Patient Problems (1) Altered mental state Current Visit: Yes Status: Acute Plan to address problem: Etiology is unclear. Will monitor on the medical floor. He has known history of bipolar disorder schizophrenia. It is unclear whether patient is compliant with his medications. He will require case management evaluation prior to discharge for possible placement (2) DVT prophylaxis Current Visit: Yes Status: Acute Plan to address problem: We will place her subcutaneous heparin (3) Full code status Current Visit: Yes Status: Acute
[2019-06-24] MEDS ORDERED: ACETAMINOPHEN 325 MG TAB PO PRN (04:28)
[2019-06-24 05:19] LABS: Basophils # (Auto) 0.1 K/mm3 (0.0-0.1); Basophils % (Auto) 1.2 % (0.0-1.8); Eosinophils # (Auto) 0.2 K/mm3 (0.0-0.4); Hematocrit 36.9 % (35.5-45.6); Hemoglobin 11.5 gm/dl (11.8-15.2); Lymphocytes # (Auto) 1.4 K/mm3 (1.2-5.4); Lymphocytes % (Auto) 28.9 % (13.4-35.0); Mean Corpuscular HGB Conc 31 % (32-34); Mean Corpuscular Volume 77 fl (84-94); Monocytes # (Auto) 0.6 K/mm3 (0.0-0.8); Monocytes % (Auto) 11.6 % (0.0-7.3); Platelet Count 195 K/mm3 (140-440); Red Blood Count 4.78 M/mm3 (3.65-5.03); Red Cell Distribution Width 13.9 % (13.2-15.2)
[2019-06-24 05:34] LABS: BUN/Creatinine Ratio 15; Blood Urea Nitrogen 9 mg/dL (9-20); Calcium 8.8 mg/dL (8.4-10.2); Hemolysis Index 4
[2019-06-24] MEDS ORDERED: PHENYTOIN 100 MG CAPSULE.ER PO SCH ×2 (06:00→22:00)
[2019-06-24] MEDS: levETIRAcetam 500 MG TAB PO SCH ×2 (09:39→23:17)
[2019-06-24] MEDS: risperiDONE 1 MG TAB PO SCH ×2 (09:39→23:17)
[2019-06-24] MEDS: HEPARIN 5,000 UNIT/1 ML VIAL SUB-Q SCH ×3 (09:40→23:17)
--- NOTE | 2019-06-24 12:02 | Event Note ---
Date: 06/24/19 This is a follow-up from an admission earlier this morning. We'll continue the plan as outlined in H&P. Psych consultation.
[2019-06-24 17:07] LABS: Amphetamine Screen,Urine PRESUMPTIVE NEGATIVE; Benzodiazepines Screen,Urine PRESUMPTIVE NEGATIVE; Cannabinoid Screen,Urine PRESUMPTIVE NEGATIVE; Cocaine Screen,Urine PRESUMPTIVE NEGATIVE; Methadone Screen,Urine PRESUMPTIVE NEGATIVE; Opiate Screen,Urine PRESUMPTIVE NEGATIVE
[2019-06-24] MEDS: MIRTAZAPINE 15 MG TAB PO SCH (23:18)
[2019-06-25] MEDS: HEPARIN 5,000 UNIT/1 ML VIAL SUB-Q SCH ×3 (06:13→22:45)
[2019-06-25] MEDS: levETIRAcetam 500 MG TAB PO SCH ×2 (09:09→22:45)
[2019-06-25] MEDS: risperiDONE 1 MG TAB PO SCH ×2 (09:10→22:45)
--- NOTE | 2019-06-25 10:57 | Progress Note ---
Assessment and Plan Assessment and plan: Acute psychosis. Continue Risperdal. Await psychiatry evaluation. Bipolar disorder/schizophrenia. Psychiatry patient pending. Seizure disorder. Continue seizure precautions. Dilantin 300 mg by mouth daily at bedtime and Keppra 750 twice a day Medical noncompliance. History Interval history: No new issues overnight. Hospitalist Physical - Constitutional Vitals: Temp Pulse Resp BP Pulse Ox 97.6 F 84 24 122/67 97 06/25/19 04:28 06/25/19 04:28 06/25/19 04:28 06/25/19 04:28 06/25/19 04:28 General appearance: Present: no acute distress, well-nourished - EENT Eyes: Present: PERRL, EOM intact ENT: hearing intact, clear oral mucosa, dentition normal - Neck Neck: Present: supple, normal ROM - Respiratory Respiratory effort: normal Respiratory: bilateral: CTA - Cardiovascular Rhythm: regular Heart Sounds: Present: S1 & S2. Absent: gallop, rub - Extremities Extremities: no ischemia, No edema, Full ROM - Abdominal General gastrointestinal: soft, non-tender, non-distended, normal bowel sounds - Integumentary Integumentary: Present: clear, warm, dry - Neurologic Neurologic: CNII-XII intact, moves all extremities Results - Labs CBC & Chem 7: 06/24/19 04:52 06/24/19 04:52 Labs: Laboratory Last Values WBC 5.0 K/mm3 (4.5-11.0) 06/24/19 04:52 RBC 4.78 M/mm3 (3.65-5.03) 06/24/19 04:52 Hgb 11.5 gm/dl (11.8-15.2) L 06/24/19 04:52 Hct 36.9 % (35.5-45.6) 06/24/19 04:52 MCV 77 fl (84-94) L 06/24/19 04:52 MCH 24 pg (28-32) L 06/24/19 04:52 MCHC 31 % (32-34) L 06/24/19 04:52 RDW 13.9 % (13.2-15.2) 06/24/19 04:52 Plt Count 195 K/mm3 (140-440) 06/24/19 04:52 Lymph % (Auto) 28.9 % (13.4-35.0) 06/24/19 04:52 Robeson % (Auto) 11.6 % (0.0-7.3) H 06/24/19 04:52 Eos % (Auto) 5.0 % (0.0-4.3) H 06/24/19 04:52 Baso % (Auto) 1.2 % (0.0-1.8) 06/24/19 04:52 Lymph # 1.4 K/mm3 (1.2-5.4) 06/24/19 04:52 Robeson # 0.6 K/mm3 (0.0-0.8) 06/24/19 04:52 Eos # 0.2 K/mm3 (0.0-0.4) 06/24/19 04:52 Baso # 0.1 K/mm3 (0.0-0.1) 06/24/19 04:52 Seg Neutrophils % 53.3 % (40.0-70.0) 06/24/19 04:52 Seg Neutrophils # 2.6 K/mm3 (1.8-7.7) 06/24/19 04:52 Sodium 140 mmol/L (137-145) 06/24/19 04:52 Potassium 4.1 mmol/L (3.6-5.0) 06/24/19 04:52 Chloride 104.8 mmol/L (98-107) 06/24/19 04:52 Carbon Dioxide 26 mmol/L (22-30) 06/24/19 04:52 Anion Gap 13 mmol/L 06/24/19 04:52 BUN 9 mg/dL (9-20) 06/24/19 04:52 Creatinine 0.6 mg/dL (0.8-1.5) L 06/24/19 04:52 Estimated GFR > 60 ml/min 06/24/19 04:52 BUN/Creatinine Ratio 15 % 06/24/19 04:52 Glucose 92 mg/dL (75-100) 06/24/19 04:52 Lactic Acid 1.30 mmol/L (0.7-2.0) 06/23/19 23:00 Calcium 8.8 mg/dL (8.4-10.2) 06/24/19 04:52 Total Bilirubin 0.20 mg/dL (0.1-1.2) 06/23/19 22:26 AST 15 units/L (5-40) 06/23/19 22:26 ALT 11 units/L (7-56) 06/23/19 22:26 Alkaline Phosphatase 110 units/L (35-129) 06/23/19 22:26 Total Creatine Kinase 198 units/L (55-170) H 06/24/19 04:52 Troponin T < 0.010 ng/mL (0.00-0.029) 06/23/19 22:26 Total Protein 7.5 g/dL (6.3-8.2) 06/23/19 22:26 Albumin 4.2 g/dL (3.9-5) 06/23/19 22:26 Albumin/Globulin Ratio 1.3 % 06/23/19 22:26 Salicylates < 0.3 mg/dL (2.8-20.0) L 06/24/19 Unknown Urine Opiates Screen Presumptive negative 06/24/19 16:30 Urine Methadone Screen Presumptive negative 06/24/19 16:30 Acetaminophen < 5.0 ug/mL (10.0-30.0) L 06/24/19 04:52 Ur Barbiturates Screen Presumptive negative 06/24/19 16:30 Phenytoin 23.9 ug/mL (10.0-20.0) H 06/24/19 Unknown Ur Phencyclidine Scrn Presumptive negative 06/24/19 16:30 Ur Amphetamines Screen Presumptive negative 06/24/19 16:30 U Benzodiazepines Scrn Presumptive negative 06/24/19 16:30 Urine Cocaine Screen Presumptive negative 06/24/19 16:30 U Marijuana (THC) Screen Presumptive negative 06/24/19 16:30 Drugs of Abuse Note Disclamer 06/24/19 16:30 Plasma/Serum Alcohol < 0.01 % (0-0.07) 06/23/19 22:27 Active Medications - Current Medications Current Medications: Generic Name Dose Route Start Last Admin Trade Name Freq PRN Reason Stop Dose Admin Acetaminophen 650 mg 06/24/19 04:28 06/24/19 23:18 Tylenol PO 650 mg Q4H PRN Administration Pain, Mild (1-3) Heparin Sodium (Porcine) 5,000 unit 06/24/19 06:00 06/25/19 06:13 Heparin SUB-Q 5,000 unit Q8HR LEYDA Administration Levetiracetam 750 mg 06/24/19 10:00 06/25/19 09:09 Keppra PO 750 mg BID LEYDA Administration Mirtazapine 15 mg 06/24/19 22:00 06/24/19 23:18 Remeron PO 15 mg QHS LEYDA Administration Phenytoin 300 mg 06/25/19 22:00 Dilantin PO QHS LEYDA Risperidone 2 mg 06/24/19 10:00 06/25/19 09:10 Risperdal PO 2 mg BID LEYDA Administration
--- NOTE | 2019-06-25 13:57 | Consultation ---
History of Present Illness - Reason for Consult Consult date: 06/25/19 Reason for consult: Initial Psychiatric Evaluation - History of Present Psychiatric Illness Patient is a 49 year old male that presents to the hospital with altered mental status. Patient has a past medical history of epilepsy, schizophrenia and polysubstance abuse presents after being found with altered mental status per EMS. EMS states the patient is normally altered. Today the patient is c ooperative and calm during the assessment. Patient responses to questions are inappropriate. Patient need redirection to stay on topic. Patient appears to have disorganized (minimal)/impoverished thought process. He reports appropriate sleep and appetite. He denies SI/HI's, A/VH's, and delusions. Current Psychiatric Medication: Risperdal 2mg po BID, Remeron 15mg po QHS Past Psychiatric History: Unable to obtain. History of Drug/Alcohol Abuse: Patient denies- " I don't." UDS negative. History of Trauma/Abuse: Patient denies trauma; Patient denies sexual, mental, or physical abuse. Social History: 8th grade- highest level of education; Patient reports that he lives with his brother in [place]; no children; single; good support system . Family History of Psychiatric Illness/Substance Abuse: Patient denies. Medications and Allergies Allergies Allergy/AdvReac Type Severity Reaction Status Date / Time No Known Allergies Allergy Verified 06/12/19 12:04 Home Medications Medication Instructions Recorded Confirmed Last Taken Type Mirtazapine [Remeron 15mg TAB] 15 mg PO QHS #30 tablet 06/08/19 06/24/19 Unknown Rx Paliperidone Palmitate (Nf) 156 mg IM MO #7 ml 06/08/19 06/24/19 Unknown Rx [Invega Sustenna (Nf)] Paliperidone Palmitate(Nf) [Invega 234 mg IM ONCE #1 syringe 06/08/19 06/24/19 Unknown Rx Sustenna(Nf)] Phenytoin [Dilantin] 100 mg PO Q8HR #90 capsule.er 06/08/19 06/24/19 Unknown Rx levETIRAcetam [Keppra XR TAB] 750 mg PO BID #60 06/08/19 06/24/19 Unknown Rx risperiDONE [RisperDAL] 2 mg PO BID #60 tablet 06/08/19 06/24/19 Unknown Rx Phenytoin [Dilantin] 3 tab PO QHS 30 Days #90 capsule 06/23/19 06/24/19 Unknown Rx Active Meds: Active Medications Acetaminophen (Tylenol) 650 mg PO Q4H PRN PRN Reason: Pain, Mild (1-3) Last Admin: 06/24/19 23:18 Dose: 650 mg Documented by: Heparin Sodium (Porcine) (Heparin) 5,000 unit SUB-Q Q8HR [facility] Last Admin: 06/25/19 06:13 Dose: 5,000 unit Documented by: Levetiracetam (Keppra) 750 mg PO BID [facility] Last Admin: 06/25/19 09:09 Dose: 750 mg Documented by: Mirtazapine (Remeron) 15 mg PO QHS [facility] Last Admin: 06/24/19 23:18 Dose: 15 mg Documented by: Phenytoin (Dilantin) 300 mg PO QHS [facility] Risperidone (Risperdal) 2 mg PO BID [facility] Last Admin: 06/25/19 09:10 Dose: 2 mg Documented by: Mental Status Exam - Vital signs Last Vital Signs Temp 97.6 F 06/25/19 11:57 Pulse 80 06/25/19 11:57 Resp 20 06/25/19 11:57 BP 123/74 06/25/19 11:57 Pulse Ox 100 06/25/19 11:57 - Exam Narrative exam: Mental Status Exam Appearance: cooperative, poorly groomed Behavior: poor eye contact Speech: slow rate with and tone Mood: "I'm okay " Affect: flat Thought Process: impoverished Thought Content: no gestures SI/HI's, A/VH's, and delusions Cognition: A/O x 2 Insight: variable Judgment: variable Results Result Diagrams: 06/24/19 04:52 06/24/19 04:52 All other labs normal. Assessment and Plan Assessment and plan: Impression: PPHx schizophrenia. Today the patient is calm and cooperative during the assessment. Thought content impoverished. He denies SI/HI's, A/VH's, and delusions. Recommendation/Plan: 1. Will reassess in 24 hours. 2. Continue home medications Risperdal 2mg po BID mood/psychosis, Remeron 15mg po QHS mood/sleep. Attempted to discuss possible side effects. Patient verbalizes some understanding Disposition: Will reassess in 24 hours for medication management. Will staff with Dr. Miguel Saldaña.
[2019-06-25] MEDS: PHENYTOIN 100 MG CAPSULE.ER PO SCH (22:44)
[2019-06-25] MEDS: MIRTAZAPINE 15 MG TAB PO SCH (22:45)
[2019-06-26] MEDS: HEPARIN 5,000 UNIT/1 ML VIAL SUB-Q SCH ×3 (06:00→22:43)
[2019-06-26] MEDS: levETIRAcetam 500 MG TAB PO SCH ×2 (09:22→22:42)
[2019-06-26] MEDS: risperiDONE 1 MG TAB PO SCH ×2 (09:22→22:43)
--- NOTE | 2019-06-26 12:02 | Progress Note ---
Assessment and Plan Assessment and plan: Acute psychosis. Continue Risperdal. Await psychiatry evaluation. Bipolar disorder/schizophrenia. Await Psychiatry evaluation Seizure disorder. Continue seizure precautions. Dilantin 300 mg by mouth daily at bedtime and Keppra 750 twice a day Medical noncompliance. History Interval history: No new issues overnight. Hospitalist Physical - Constitutional Vitals: Temp Pulse Resp BP Pulse Ox 97.4 F L 74 18 117/72 97 06/26/19 05:13 06/26/19 05:13 06/26/19 05:13 06/26/19 05:13 06/26/19 05:13 General appearance: Present: no acute distress, well-nourished - EENT Eyes: Present: PERRL, EOM intact ENT: hearing intact, clear oral mucosa, dentition normal - Neck Neck: Present: supple, normal ROM - Respiratory Respiratory effort: normal Respiratory: bilateral: CTA - Cardiovascular Rhythm: regular Heart Sounds: Present: S1 & S2. Absent: gallop, rub - Extremities Extremities: no ischemia, No edema, Full ROM - Abdominal General gastrointestinal: soft, non-tender, non-distended, normal bowel sounds - Integumentary Integumentary: Present: clear, warm, dry - Neurologic Neurologic: CNII-XII intact, moves all extremities Results - Labs CBC & Chem 7: 06/24/19 04:52 06/24/19 04:52 Labs: Laboratory Last Values WBC 5.0 K/mm3 (4.5-11.0) 06/24/19 04:52 RBC 4.78 M/mm3 (3.65-5.03) 06/24/19 04:52 Hgb 11.5 gm/dl (11.8-15.2) L 06/24/19 04:52 Hct 36.9 % (35.5-45.6) 06/24/19 04:52 MCV 77 fl (84-94) L 06/24/19 04:52 MCH 24 pg (28-32) L 06/24/19 04:52 MCHC 31 % (32-34) L 06/24/19 04:52 RDW 13.9 % (13.2-15.2) 06/24/19 04:52 Plt Count 195 K/mm3 (140-440) 06/24/19 04:52 Lymph % (Auto) 28.9 % (13.4-35.0) 06/24/19 04:52 [place] % (Auto) 11.6 % (0.0-7.3) H 06/24/19 04:52 Eos % (Auto) 5.0 % (0.0-4.3) H 06/24/19 04:52 Baso % (Auto) 1.2 % (0.0-1.8) 06/24/19 04:52 Lymph # 1.4 K/mm3 (1.2-5.4) 06/24/19 04:52 [place] # 0.6 K/mm3 (0.0-0.8) 06/24/19 04:52 Eos # 0.2 K/mm3 (0.0-0.4) 06/24/19 04:52 Baso # 0.1 K/mm3 (0.0-0.1) 06/24/19 04:52 Seg Neutrophils % 53.3 % (40.0-70.0) 06/24/19 04:52 Seg Neutrophils # 2.6 K/mm3 (1.8-7.7) 06/24/19 04:52 Sodium 140 mmol/L (137-145) 06/24/19 04:52 Potassium 4.1 mmol/L (3.6-5.0) 06/24/19 04:52 Chloride 104.8 mmol/L (98-107) 06/24/19 04:52 Carbon Dioxide 26 mmol/L (22-30) 06/24/19 04:52 Anion Gap 13 mmol/L 06/24/19 04:52 BUN 9 mg/dL (9-20) 06/24/19 04:52 Creatinine 0.6 mg/dL (0.8-1.5) L 06/24/19 04:52 Estimated GFR > 60 ml/min 06/24/19 04:52 BUN/Creatinine Ratio 15 % 06/24/19 04:52 Glucose 92 mg/dL (75-100) 06/24/19 04:52 Lactic Acid 1.30 mmol/L (0.7-2.0) 06/23/19 23:00 Calcium 8.8 mg/dL (8.4-10.2) 06/24/19 04:52 Total Bilirubin 0.20 mg/dL (0.1-1.2) 06/23/19 22:26 AST 15 units/L (5-40) 06/23/19 22:26 ALT 11 units/L (7-56) 06/23/19 22:26 Alkaline Phosphatase 110 units/L (35-129) 06/23/19 22:26 Total Creatine Kinase 198 units/L (55-170) H 06/24/19 04:52 Troponin T < 0.010 ng/mL (0.00-0.029) 06/23/19 22:26 Total Protein 7.5 g/dL (6.3-8.2) 06/23/19 22:26 Albumin 4.2 g/dL (3.9-5) 06/23/19 22:26 Albumin/Globulin Ratio 1.3 % 06/23/19 22:26 Salicylates < 0.3 mg/dL (2.8-20.0) L 06/24/19 Unknown Urine Opiates Screen Presumptive negative 06/24/19 16:30 Urine Methadone Screen Presumptive negative 06/24/19 16:30 Acetaminophen < 5.0 ug/mL (10.0-30.0) L 06/24/19 04:52 Ur Barbiturates Screen Presumptive negative 06/24/19 16:30 Phenytoin 12.6 ug/mL (10.0-20.0) 06/25/19 09:42 Ur Phencyclidine Scrn Presumptive negative 06/24/19 16:30 Ur Amphetamines Screen Presumptive negative 06/24/19 16:30 U Benzodiazepines Scrn Presumptive negative 06/24/19 16:30 Urine Cocaine Screen Presumptive negative 06/24/19 16:30 U Marijuana (THC) Screen Presumptive negative 06/24/19 16:30 Drugs of Abuse Note Disclamer 06/24/19 16:30 Plasma/Serum Alcohol < 0.01 % (0-0.07) 06/23/19 22:27 Active Medications - Current Medications Current Medications: Generic Name Dose Route Start Last Admin Trade Name Freq PRN Reason Stop Dose Admin Acetaminophen 650 mg 06/24/19 04:28 06/24/19 23:18 Tylenol PO 650 mg Q4H PRN Administration Pain, Mild (1-3) Heparin Sodium (Porcine) 5,000 unit 06/24/19 06:00 06/26/19 06:00 Heparin SUB-Q 5,000 unit Q8HR LEYDA Administration Levetiracetam 750 mg 06/24/19 10:00 06/26/19 09:22 Keppra PO 750 mg BID LEYDA Administration Mirtazapine 15 mg 06/24/19 22:00 06/25/19 22:45 Remeron PO 15 mg QHS LEYDA Administration Phenytoin 300 mg 06/25/19 22:00 06/25/19 22:44 Dilantin PO 300 mg QHS LEYDA Administration Risperidone 2 mg 06/24/19 10:00 06/26/19 09:22 Risperdal PO 2 mg BID LEYDA Administration
--- NOTE | 2019-06-26 13:45 | Progress Note ---
Subjective - Reason for Consult Consult date: 06/26/19 Reason for consult: Psychiatric Follow-up Evaluation - Chief Complaint Chief complaint: " I feel okay" Patient is a 49 year old male that presents to the hospital with altered mental status. Patient has a past medical history of epilepsy, schizophrenia and polysubstance abuse presents after being found with altered mental status per EMS. EMS states the patient is normally altered. Today the patient is cooperative and calm during the assessment. His thought content continues to be impoverished. He reports fair appetite and sleep. He endorses auditory hallucinations but is unable to tell provider what the voices are saying. He denies SI/HI's, VH's, and delusions. Patient is medication compliant. He denies any side effects. At 3:38pm, provider spoke with Barbara from [facility] [place] team ([phone]) , she reports that she has attempted to come to patient's home twice after he was discharged from the hospital but was never able to assess patient because no one was available. Barbara was informed that this freelance writer will notify case management director to coordinate care so that patient can been seen on the same day as discharge. manager enterprise content management on the 3rd floor was informed and she stated the attempt will be made . Mental Status Exam - Vital signs Last Vital Signs Temp 98.2 F 06/26/19 11:51 Pulse 100 H 06/26/19 11:51 Resp 18 06/26/19 11:51 BP 106/74 06/26/19 11:51 Pulse Ox 100 06/26/19 11:51 - Exam Narrative exam: Mental Status Exam Appearance: cooperative, poorly groomed Behavior: poor eye contact Speech: slow rate with and normal tone Mood: "I'm okay " Affect: flat Thought Process: impoverished Thought Content: no gestures SI/HI's, A/VH's, and delusions Cognition: A/O x 2 Insight: variable Judgment: variable Assessment and Plan Impression: PPHx schizophrenia. Today the patient is calm and cooperative during the assessment. Thought content impoverished. He denies SI/HI's, VH's, and delusions. AH's are intermittent. Recommendation/Plan: 1. It recommended that patient transition to a alf to ensure outpatient compliance. Continuity of care needs to be established with an outpatient psychiatrist so that patient can receive optimal level of care. The last 2 discharges patient fail to follow-up with outpatient treatment. 2. Continue home medications Risperdal 2mg po BID mood/psychosis, Remeron 15mg po QHS mood/sleep. Attempted to discuss possible side effects. Patient verbalizes some understanding. 3. On 06-08-19 patient received Invega Sustenna ( long acting injectable). Disposition: We recommend alf. Also, patient is to follow-up with [facility]. Contact number is [phone]. Will staff with Dr. Miguel Saldaña.
[2019-06-26] MEDS: MIRTAZAPINE 15 MG TAB PO SCH (22:42)
[2019-06-26] MEDS: PHENYTOIN 100 MG CAPSULE.ER PO SCH (22:43)
[2019-06-27] MEDS: HEPARIN 5,000 UNIT/1 ML VIAL SUB-Q SCH ×3 (05:42→21:29)
[2019-06-27] MEDS: risperiDONE 1 MG TAB PO SCH ×2 (10:04→21:28)
[2019-06-27] MEDS: levETIRAcetam 500 MG TAB PO SCH ×2 (10:05→21:19)
--- NOTE | 2019-06-27 11:26 | Progress Note ---
Assessment and Plan Assessment and plan: Acute psychosis. Continue Risperdal. Bipolar disorder/schizophrenia. Remeron 15mg po QHS mood/sleep. Seizure disorder. Continue seizure precautions. Dilantin 300 mg by mouth daily at bedtime and Keppra 750 twice a day Medical noncompliance. Disposition. Psychiatry recommends that patient transition to a alf to ensure outpatient compliance. Continuity of care needs to be established with an outpatient psychiatrist so that patient can receive optimal level of care. I have discussed the case with case management History Interval history: No new issues overnight. Hospitalist Physical - Constitutional Vitals: Temp Pulse Resp BP Pulse Ox 97.8 F 83 18 121/77 98 06/27/19 06:33 06/27/19 06:33 06/27/19 06:33 06/27/19 06:33 06/27/19 06:33 General appearance: Present: no acute distress, well-nourished - EENT Eyes: Present: PERRL, EOM intact ENT: hearing intact, clear oral mucosa, dentition normal - Neck Neck: Present: supple, normal ROM - Respiratory Respiratory effort: normal Respiratory: bilateral: CTA - Cardiovascular Rhythm: regular Heart Sounds: Present: S1 & S2. Absent: gallop, rub - Extremities Extremities: no ischemia, No edema, Full ROM - Abdominal General gastrointestinal: soft, non-tender, non-distended, normal bowel sounds - Integumentary Integumentary: Present: clear, warm, dry - Neurologic Neurologic: CNII-XII intact, moves all extremities Results - Labs CBC & Chem 7: 06/24/19 04:52 06/24/19 04:52 Labs: Laboratory Last Values WBC 5.0 K/mm3 (4.5-11.0) 06/24/19 04:52 RBC 4.78 M/mm3 (3.65-5.03) 06/24/19 04:52 Hgb 11.5 gm/dl (11.8-15.2) L 06/24/19 04:52 Hct 36.9 % (35.5-45.6) 06/24/19 04:52 MCV 77 fl (84-94) L 06/24/19 04:52 MCH 24 pg (28-32) L 06/24/19 04:52 MCHC 31 % (32-34) L 06/24/19 04:52 RDW 13.9 % (13.2-15.2) 06/24/19 04:52 Plt Count 195 K/mm3 (140-440) 06/24/19 04:52 Lymph % (Auto) 28.9 % (13.4-35.0) 06/24/19 04:52 [place] % (Auto) 11.6 % (0.0-7.3) H 06/24/19 04:52 Eos % (Auto) 5.0 % (0.0-4.3) H 06/24/19 04:52 Baso % (Auto) 1.2 % (0.0-1.8) 06/24/19 04:52 Lymph # 1.4 K/mm3 (1.2-5.4) 06/24/19 04:52 [place] # 0.6 K/mm3 (0.0-0.8) 06/24/19 04:52 Eos # 0.2 K/mm3 (0.0-0.4) 06/24/19 04:52 Baso # 0.1 K/mm3 (0.0-0.1) 06/24/19 04:52 Seg Neutrophils % 53.3 % (40.0-70.0) 06/24/19 04:52 Seg Neutrophils # 2.6 K/mm3 (1.8-7.7) 06/24/19 04:52 Sodium 140 mmol/L (137-145) 06/24/19 04:52 Potassium 4.1 mmol/L (3.6-5.0) 06/24/19 04:52 Chloride 104.8 mmol/L (98-107) 06/24/19 04:52 Carbon Dioxide 26 mmol/L (22-30) 06/24/19 04:52 Anion Gap 13 mmol/L 06/24/19 04:52 BUN 9 mg/dL (9-20) 06/24/19 04:52 Creatinine 0.6 mg/dL (0.8-1.5) L 06/24/19 04:52 Estimated GFR > 60 ml/min 06/24/19 04:52 BUN/Creatinine Ratio 15 % 06/24/19 04:52 Glucose 92 mg/dL (75-100) 06/24/19 04:52 Lactic Acid 1.30 mmol/L (0.7-2.0) 06/23/19 23:00 Calcium 8.8 mg/dL (8.4-10.2) 06/24/19 04:52 Total Bilirubin 0.20 mg/dL (0.1-1.2) 06/23/19 22:26 AST 15 units/L (5-40) 06/23/19 22:26 ALT 11 units/L (7-56) 06/23/19 22:26 Alkaline Phosphatase 110 units/L (35-129) 06/23/19 22:26 Total Creatine Kinase 198 units/L (55-170) H 06/24/19 04:52 Troponin T < 0.010 ng/mL (0.00-0.029) 06/23/19 22:26 Total Protein 7.5 g/dL (6.3-8.2) 06/23/19 22:26 Albumin 4.2 g/dL (3.9-5) 06/23/19 22:26 Albumin/Globulin Ratio 1.3 % 06/23/19 22:26 Salicylates < 0.3 mg/dL (2.8-20.0) L 06/24/19 Unknown Urine Opiates Screen Presumptive negative 06/24/19 16:30 Urine Methadone Screen Presumptive negative 06/24/19 16:30 Acetaminophen < 5.0 ug/mL (10.0-30.0) L 06/24/19 04:52 Ur Barbiturates Screen Presumptive negative 06/24/19 16:30 Phenytoin 12.6 ug/mL (10.0-20.0) 06/25/19 09:42 Ur Phencyclidine Scrn Presumptive negative 06/24/19 16:30 Ur Amphetamines Screen Presumptive negative 06/24/19 16:30 U Benzodiazepines Scrn Presumptive negative 06/24/19 16:30 Urine Cocaine Screen Presumptive negative 06/24/19 16:30 U Marijuana (THC) Screen Presumptive negative 06/24/19 16:30 Drugs of Abuse Note Disclamer 06/24/19 16:30 Plasma/Serum Alcohol < 0.01 % (0-0.07) 06/23/19 22:27 Active Medications - Current Medications Current Medications: Generic Name Dose Route Start Last Admin Trade Name Freq PRN Reason Stop Dose Admin Acetaminophen 650 mg 06/24/19 04:28 06/24/19 23:18 Tylenol PO 650 mg Q4H PRN Administration Pain, Mild (1-3) Heparin Sodium (Porcine) 5,000 unit 06/24/19 06:00 06/27/19 05:42 Heparin SUB-Q 5,000 unit Q8HR LEYDA Administration Levetiracetam 750 mg 06/24/19 10:00 06/27/19 10:05 Keppra PO 750 mg BID LEYDA Administration Mirtazapine 15 mg 06/24/19 22:00 06/26/19 22:42 Remeron PO 15 mg QHS LEYDA Administration Phenytoin 300 mg 06/25/19 22:00 06/26/19 22:43 Dilantin PO 300 mg QHS LEYDA Administration Risperidone 2 mg 06/24/19 10:00 06/27/19 10:04 Risperdal PO 2 mg BID LEYDA Administration
--- NOTE | 2019-06-27 20:39 | Progress Note ---
Subjective - Reason for Consult Consult date: 06/27/19 Reason for consult: follow up - Chief Complaint Chief complaint: " I feel okay" Patient is a 49 year old male that presents to the hospital with altered mental status. Patient has a past medical history of epilepsy, schizophrenia and polysubstance abuse presents after being found with altered mental status per EMS. EMS states the patient is normally altered. Although, the compliance quality performance analyst present today reports he is not at baseline and is usually communicative about his symptoms. He stared and would take pauses before speaking. He would speak one word but appropriately. The record indicates He is on [employer] team ([phone]) , she reports that she has attempted to come to patient's home twice after he was discharged from the hospital but was never able to assess patient because no one was available. Barbara was informed that this curriculum writer will notify telephonic case manager to coordinate care so that patient can been seen on the same day as discharge. hospitality services manager on the 3rd floor was informed and she stated the attempt will be made . Mental Status Exam - Vital signs Last Vital Signs Temp 97.8 F 06/27/19 06:33 Pulse 90 06/27/19 12:15 Resp 18 06/27/19 06:33 BP 121/77 06/27/19 06:33 Pulse Ox 99 06/27/19 12:15 Assessment and Plan Mental status exam. Appearance: cooperative, poorly groomed Behavior: poor eye contact Speech: minimal response Mood: unable to assess Affect: flat Thought Process: impoverished Thought Content: no gestures SI/HI's, A/VH's, and delusions Cognition: A/O x 2 Insight: variable Judgment: variable Assessment and Plan Impression: PPHx schizophrenia. Today the patient is calm and would stare and speak one word in response to questions. Questionable catatonic symptoms Recommendation/Plan: 1. ativan 1mg tid for catatonic like symptoms 2. Continue home medications Risperdal 2mg po BID mood/psychosis, Remeron 15mg po QHS mood/sleep. Attempted to discuss possible side effects. Patient verbalizes some understanding. 3. On 06-08-19 patient received Invega Sustenna ( long acting injectable). Disposition: Psych will assess response to ativan over 24-48 hours. We recommend half-way. Also, patient is to follow-up with [facility]. Contact number is [phone]. Will staff with Dr. Miguel Saldaña.
[2019-06-27] MEDS: PHENYTOIN 100 MG CAPSULE.ER PO SCH (21:18)
[2019-06-27] MEDS: MIRTAZAPINE 15 MG TAB PO SCH (21:24)
[2019-06-27] MEDS: LORazepam 1 MG TAB PO SCH (21:28)
[2019-06-28] MEDS: HEPARIN 5,000 UNIT/1 ML VIAL SUB-Q SCH ×3 (06:28→22:14)
[2019-06-28] MEDS: risperiDONE 1 MG TAB PO SCH ×2 (09:54→22:10)
[2019-06-28] MEDS: levETIRAcetam 500 MG TAB PO SCH ×2 (09:54→22:10)
[2019-06-28] MEDS: LORazepam 1 MG TAB PO SCH ×3 (09:56→22:10)
--- NOTE | 2019-06-28 10:17 | Progress Note ---
Assessment and Plan Assessment and plan: Acute psychosis. Continue Risperdal. Bipolar disorder/schizophrenia. Remeron 15mg po QHS mood/sleep. Seizure disorder. Continue seizure precautions. Dilantin 300 mg by mouth daily at bedtime and Keppra 750 twice a day Medical noncompliance. Disposition. Psychiatry recommends that patient transition to a long-term to ensure outpatient compliance. Continuity of care needs to be established with an outpatient psychiatrist so that patient can receive optimal level of care. I have discussed the case with case management History Interval history: No new issues overnight. Hospitalist Physical - Constitutional Vitals: Temp Pulse Resp BP Pulse Ox 97.9 F 80 18 121/77 97 06/28/19 06:03 06/28/19 06:03 06/28/19 06:03 06/28/19 06:03 06/28/19 06:03 General appearance: Present: no acute distress, well-nourished Results - Labs CBC & Chem 7: 06/24/19 04:52 06/24/19 04:52 Labs: Laboratory Last Values WBC 5.0 K/mm3 (4.5-11.0) 06/24/19 04:52 RBC 4.78 M/mm3 (3.65-5.03) 06/24/19 04:52 Hgb 11.5 gm/dl (11.8-15.2) L 06/24/19 04:52 Hct 36.9 % (35.5-45.6) 06/24/19 04:52 MCV 77 fl (84-94) L 06/24/19 04:52 MCH 24 pg (28-32) L 06/24/19 04:52 MCHC 31 % (32-34) L 06/24/19 04:52 RDW 13.9 % (13.2-15.2) 06/24/19 04:52 Plt Count 195 K/mm3 (140-440) 06/24/19 04:52 Lymph % (Auto) 28.9 % (13.4-35.0) 06/24/19 04:52 [place] % (Auto) 11.6 % (0.0-7.3) H 06/24/19 04:52 Eos % (Auto) 5.0 % (0.0-4.3) H 06/24/19 04:52 Baso % (Auto) 1.2 % (0.0-1.8) 06/24/19 04:52 Lymph # 1.4 K/mm3 (1.2-5.4) 06/24/19 04:52 [place] # 0.6 K/mm3 (0.0-0.8) 06/24/19 04:52 Eos # 0.2 K/mm3 (0.0-0.4) 06/24/19 04:52 Baso # 0.1 K/mm3 (0.0-0.1) 06/24/19 04:52 Seg Neutrophils % 53.3 % (40.0-70.0) 06/24/19 04:52 Seg Neutrophils # 2.6 K/mm3 (1.8-7.7) 06/24/19 04:52 Sodium 140 mmol/L (137-145) 06/24/19 04:52 Potassium 4.1 mmol/L (3.6-5.0) 06/24/19 04:52 Chloride 104.8 mmol/L (98-107) 06/24/19 04:52 Carbon Dioxide 26 mmol/L (22-30) 06/24/19 04:52 Anion Gap 13 mmol/L 06/24/19 04:52 BUN 9 mg/dL (9-20) 06/24/19 04:52 Creatinine 0.6 mg/dL (0.8-1.5) L 06/24/19 04:52 Estimated GFR > 60 ml/min 06/24/19 04:52 BUN/Creatinine Ratio 15 % 06/24/19 04:52 Glucose 92 mg/dL (75-100) 06/24/19 04:52 Lactic Acid 1.30 mmol/L (0.7-2.0) 06/23/19 23:00 Calcium 8.8 mg/dL (8.4-10.2) 06/24/19 04:52 Total Bilirubin 0.20 mg/dL (0.1-1.2) 06/23/19 22:26 AST 15 units/L (5-40) 06/23/19 22:26 ALT 11 units/L (7-56) 06/23/19 22:26 Alkaline Phosphatase 110 units/L (35-129) 06/23/19 22:26 Total Creatine Kinase 198 units/L (55-170) H 06/24/19 04:52 Troponin T < 0.010 ng/mL (0.00-0.029) 06/23/19 22:26 Total Protein 7.5 g/dL (6.3-8.2) 06/23/19 22:26 Albumin 4.2 g/dL (3.9-5) 06/23/19 22:26 Albumin/Globulin Ratio 1.3 % 06/23/19 22:26 Salicylates < 0.3 mg/dL (2.8-20.0) L 06/24/19 Unknown Urine Opiates Screen Presumptive negative 06/24/19 16:30 Urine Methadone Screen Presumptive negative 06/24/19 16:30 Acetaminophen < 5.0 ug/mL (10.0-30.0) L 06/24/19 04:52 Ur Barbiturates Screen Presumptive negative 06/24/19 16:30 Phenytoin 12.6 ug/mL (10.0-20.0) 06/25/19 09:42 Ur Phencyclidine Scrn Presumptive negative 06/24/19 16:30 Ur Amphetamines Screen Presumptive negative 06/24/19 16:30 U Benzodiazepines Scrn Presumptive negative 06/24/19 16:30 Urine Cocaine Screen Presumptive negative 06/24/19 16:30 U Marijuana (THC) Screen Presumptive negative 06/24/19 16:30 Drugs of Abuse Note Disclamer 06/24/19 16:30 Plasma/Serum Alcohol < 0.01 % (0-0.07) 06/23/19 22:27 Active Medications - Current Medications Current Medications: Generic Name Dose Route Start Last Admin Trade Name Darwinq PRN Reason Stop Dose Admin Acetaminophen 650 mg 06/24/19 04:28 06/24/19 23:18 Tylenol PO 650 mg Q4H PRN Administration Pain, Mild (1-3) Heparin Sodium (Porcine) 5,000 unit 06/24/19 06:00 06/28/19 06:28 Heparin SUB-Q 5,000 unit Q8HR LEYDA Administration Levetiracetam 750 mg 06/24/19 10:00 06/28/19 09:54 Keppra PO 750 mg BID LEYDA Administration Lorazepam 1 mg 06/27/19 21:00 06/28/19 09:56 Ativan PO Not Given TID LEYDA Mirtazapine 15 mg 06/24/19 22:00 06/27/19 21:24 Remeron PO 15 mg QHS LEYDA Administration Phenytoin 300 mg 06/25/19 22:00 06/27/19 21:18 Dilantin PO 300 mg QHS LEYDA Administration Risperidone 2 mg 06/24/19 10:00 06/28/19 09:54 Risperdal PO 2 mg BID LEYDA Administration
--- NOTE | 2019-06-28 20:38 | Progress Note ---
Subjective - Reason for Consult Consult date: 06/28/19 Reason for consult: follow up - Chief Complaint Chief complaint: " no response today" Patient is a 49 year old male that presents to the hospital with altered mental status. Patient has a past medical history of epilepsy, schizophrenia and polysubstance abuse presents after being found with altered mental status per EMS. EMS states the patient is normally altered. Although, the caramel cutter machine present today reports he is not at baseline and is usually communicative about his symptoms. He would not speak today. He is on ativan 1mg tid to address possible catatonic symptoms The record indicates He is on [facility] ([phone]) , she reports that she has attempted to come to patient's home twice after he was discharged from the hospital but was never able to assess patient because no one was available. Barbara was informed that this telegraphic typewriter repairer will notify disease case manager to coordinate care so that patient can been seen on the same day as discharge. case management manager on the 3rd floor was informed and she stated the attempt will be made . Mental Status Exam - Vital signs Last Vital Signs Temp 99.0 F 06/28/19 17:20 Pulse 96 H 06/28/19 17:20 Resp 20 06/28/19 17:20 BP 132/85 06/28/19 17:20 Pulse Ox 100 06/28/19 17:20 Assessment and Plan Mental status exam. Appearance: cooperative, poorly groomed Behavior: poor eye contact Speech: minimal response Mood: unable to assess Affect: flat Thought Process: impoverished Thought Content: no gestures SI/HI's, A/VH's, and delusions Cognition: A/O x 2 Insight: variable Judgment: variable Assessment and Plan Impression: PPHx schizophrenia. Today the patient is calm and would stare and speak one word in response to questions. Questionable catatonic symptoms Recommendation/Plan: 1. ativan 1mg tid for catatonic like symptoms 2. Continue home medications Risperdal 2mg po BID mood/psychosis, Remeron 15mg po QHS mood/sleep. Attempted to discuss possible side effects. Patient verbalizes some understanding. 3. On 06-08-19 patient received Invega Sustenna ( long acting injectable). Disposition: Psych will assess response to ativan over 24-48 hours. Also, patient is to follow-up with [facility]. Contact number is [phone]. Will staff with Dr. Miguel Saldaña.
[2019-06-28] MEDS: MIRTAZAPINE 15 MG TAB PO SCH (22:10)
[2019-06-28] MEDS: PHENYTOIN 100 MG CAPSULE.ER PO SCH (22:10)
[2019-06-29] MEDS: HEPARIN 5,000 UNIT/1 ML VIAL SUB-Q SCH ×3 (06:16→21:31)
[2019-06-29] MEDS: LORazepam 1 MG TAB PO SCH ×2 (08:34→21:30)
[2019-06-29] MEDS: levETIRAcetam 500 MG TAB PO SCH ×2 (09:40→21:30)
[2019-06-29] MEDS: risperiDONE 1 MG TAB PO SCH ×2 (09:40→21:30)
--- NOTE | 2019-06-29 09:57 | Cat Scan Report ---
CT head/brain wo con INDICATION / CLINICAL INFORMATION: MAIN: Altered mental status. TECHNIQUE: Axial CT imaging of the brain was obtained without contrast. Coronal and sagittal reformatted imaging obtained and reviewed. All CT scans at this location are performed using CT dose reduction for ALAR A by means of automated exposure control. COMPARISON: 06/01/2019 FINDINGS: No intracranial hemorrhage, mass, or midline shift. No extra-axial fluid collection or suggestion of acute territorial infarct. Ventricular system and basilar cisterns are unremarkable. Cerebellar atrop hy noted, unchanged. Visualized paranasal sinuses and mastoid air cells are well aerated and clear. No calvarial fracture. Skin case are seen overlying a laceration along the posterior scalp region. IMPRESSION: 1. No acute intracranial abnormality. Signer Name: Maggie Garvin MD Signed: 06/24/2019 12:15 AM Workstation Name: [id number]
--- NOTE | 2019-06-29 11:26 | Progress Note ---
Subjective - Reason for Consult Consult date: 06/29/19 Reason for consult: Psychiatry Follow-up - Chief Complaint Chief complaint: "Hello" 49 year old male that presents to the hospital with altered mental status. This patient is known to me. Today the patient was calm and cooperative during the assessment. He was able to answer most questions asked of him, He didn't have a blank stare throughout the interview. He stated that he still reside with his brother. He could not elaborate about the monthly Invega injection when asked. He denies SI/HI's and AVH's. No indication of side effects from his medication. Per conversation with Barbara from [facility] team (mental health), the patient will need a initial assessment. She stated that she will contact the patient's current case repairer to coordinate follow up care for the patient. Mental Status Exam - Vital signs Last Vital Signs Temp 98.2 F 06/29/19 05:45 Pulse 78 06/29/19 05:45 Resp 17 06/29/19 05:45 BP 122/79 06/29/19 05:45 Pulse Ox 100 06/29/19 05:45 - Exam Narrative exam: MSE: Appearance: calm, cooperative Behavior: regular eye contact Speech: regular rate and tone Mood: "okay" Affect: congruent to mood Thought Process: circumstantial Thought Content: denies SI/HI's and AVH's Motor Activity: sitting up in bed Cognition: A/O x3 Insight: variable Judgment: fair Assessment and Plan Impression: Hx of Schizophrenia. No catatonic symptoms at this time. Today the patient was calm and cooperative during the assessment. The patient is returning to his baseline. Recommendation/Plan: Modify Ativan to 1 mg BID (taper). Continue Risperdal 2 mg PO BID for mood/psychosis and Remeron 15mg PO QHS for mood/sleep. Attempted to discuss possible side effects from Ripserdal and Remeron with the patient reference side effects. he verbalized some understanding. Per the record, the patient received the monthly Invega injection. Dispo: Case Mgmt will be collaborating with [facility] for outpatient psy services. Staffed with Dr. Miguel Saldaña.
--- NOTE | 2019-06-29 15:46 | Progress Note ---
Assessment and Plan Acute Encephalopathy sec to psychosis. Continue Risperdal. R/o other causes Bipolar disorder/schizophrenia. Remeron 15mg po QHS mood/sleep. Seizure disorder. Continue seizure precautions. Dilantin 300 mg by mouth daily at bedtime and Keppra 750 twice a day Medical noncompliance. Disposition. Psychiatry recommends that patient transition to a usp to ensure outpatient compliance. Continuity of care needs to be established with an outpatient psychiatrist so that patient can receive optimal level of care. I have discussed the case with case management Subjective Date of service: 06/29/19 Principal diagnosis: Seizures, Interval history: Patient is a 49-year-old -Malaysian male with known history of seizure disorder, schizophrenia and bipolar disorder was brought into the emergency room today because of a increased confusion, patient could not give any good history. No history of fever or chills, no seizure activity. Patient is being managed at home by his brother. His work-up in the emergency room was unremarkable however patient may need to be evaluated for placement. No recent seizure in 24 hours. Objective - Constitutional Vitals: Vital Signs - 12hr 06/29/19 06/29/19 05:45 11:38 Temperature 98.2 F 97.9 F Pulse Rate 78 89 Respiratory 17 16 Rate Blood Pressure 122/79 117/75 O2 Sat by Pulse 100 98 Oximetry General appearance: Present: no acute distress, well-nourished - EENT Eyes: PERRL, EOM intact ENT: hearing intact, clear oral mucosa Ears: bilateral: normal - Neck Neck: supple, normal ROM - Respiratory Respiratory effort: normal Respiratory: bilateral: CTA - Breasts Breasts: normal - Cardiovascular Rhythm: regular Heart Sounds: Present: S1 & S2. Absent: gallop, rub Extremities: pulses intact, No edema, normal color, Full ROM - Gastrointestinal General gastrointestinal: Present: soft, non-tender, non-distended, normal bowel sounds - Genitourinary Male genitourinary: normal - Integumentary Integumentary: clear, warm, dry - Musculoskeletal Musculoskeletal: 1, strength equal bilaterally - Neurologic Neurologic: moves all extremities - Psychiatric Psychiatric: memory intact, appropriate mood/affect, intact judgment & insight - Labs CBC & Chem 7: 06/24/19 04:52 06/24/19 04:52
[2019-06-29] MEDS: MIRTAZAPINE 15 MG TAB PO SCH (21:30)
[2019-06-29] MEDS: PHENYTOIN 100 MG CAPSULE.ER PO SCH (21:30)
[2019-06-29] MEDS ORDERED: LORazepam 0.5 MG TAB PO SCH (22:00)
[2019-06-30] MEDS: HEPARIN 5,000 UNIT/1 ML VIAL SUB-Q SCH ×2 (05:22→14:39)
[2019-06-30] MEDS: levETIRAcetam 500 MG TAB PO SCH (09:46)
[2019-06-30] MEDS: LORazepam 1 MG TAB PO SCH (09:46)
[2019-06-30] MEDS: risperiDONE 1 MG TAB PO SCH (09:46)
--- NOTE | 2019-06-30 12:01 | Progress Note ---
Subjective - Reason for Consult Consult date: 06/30/19 Reason for consult: Psychiatry Follow-up - Chief Complaint Chief complaint: "I'm well" 49 year old male that presents to the hospital with altered mental status. This patient is known to me. Today the patient was calm and cooperative during the assessment. He stated that he was "little tired." He was more engaging. He denies SI/HI's and AVH's. No indications of side effects from his medication. Mental Status Exam - Vital signs Last Vital Signs Temp 98.2 F 06/30/19 05:17 Pulse 77 06/30/19 05:17 Resp 16 06/30/19 05:17 BP 120/78 06/30/19 05:17 Pulse Ox 98 06/30/19 05:17 - Exam Narrative exam: MSE: Appearance: calm, cooperative Behavior: regular eye contact Speech: regular rate and tone Mood: "a little tired" Affect: congruent to mood Thought Process: circumstantial Thought Content: denies SI/HI's and AVH's Motor Activity: sitting up in bed Cognition: A/O x3 Insight: variable to fair Judgment: fair Assessment and Plan Impression: Hx of Schizophrenia. No catatonic symptoms at this time. Today the patient was calm and cooperative during the assessment. The patient is returning to his baseline. Recommendation/Plan: Continue Risperdal 2 mg PO BID for mood/psychosis and Remeron 15mg PO QHS for mood/sleep. Attempted to discuss possible side effects f rom Ripserdal and Remeron with the patient reference side effects. he verbalized some understanding. Per the record, the patient received the monthly Invega injection. Psy sign off. Dispo: The patient can follow up with [facility] for outpatient psy services. Staffed with Dr. Miguel Saldaña.
[2019-06-30 14:20] VITALS: BP 112/73
--- NOTE | 2019-06-30 15:44 | Discharge Summary ---
Providers - Providers Date of Admission: 06/24/19 04:12 Date of discharge: 06/30/19 Attending physician: JACKSON MERCADO 06/24/19 05:07 Consult to Case Management [CONS] Routine Services Needed at Discharge: Other Notified:: No Additional Physician Instructions: Discharge planning placement 06/24/19 12:02 psychiatry consult [Consult to Mental Health] [CONS] Routine Reason For Exam: AMS, Bipolar d/o Place consult to:: pls Notified:: Phone number called:: [phone] Was contact made?: No Time called:: 12:28 Comment:: no answer Primary care physician: EGG CANDLER Hospitalization Condition: Stable Hospital course: Patient is a 49-year-old -Dominican male with known history of seizure disorder, schizophrenia and bipolar disorder was brought into the emergency room today because of a increased confusion patient could not give any good history. He has been no history of fever or chills, no seizure activity. Patient is being managed at home by his brother. His work-up in the emergency room was unremarkable however patient may need to be evaluated for placement. [atient improved and alert /oriented Cleared for discharge. Acute Encephalopathy sec to psychosis. Continue Risperdal. Improved Bipolar disorder/schizophrenia. Remeron 15mg po QHS mood/sleep. Seizure disorder. Continue seizure precautions. Dilantin 300 mg by mouth daily at bedtime and Keppra 750 twice a day Medical noncompliance. Disposition. Discharge to home Disposition: DC-01 TO HOME OR SELFCARE Core Measure Documentation - Palliative Care Palliative Care/ Comfort Measures: Not Applicable - Core Measures Any of the following diagnoses?: none Exam - Constitutional Vitals: Temp Pulse Resp BP Pulse Ox 97.9 F 99 H 18 112/73 98 06/30/19 12:04 06/30/19 12:04 06/30/19 12:04 06/30/19 12:04 06/30/19 12:04 General appearance: Present: no acute distress, well-nourished - EENT Eyes: Present: PERRL ENT: hearing intact, clear oral mucosa - Neck Neck: Present: supple, normal ROM - Respiratory Respiratory effort: normal Respiratory: bilateral: CTA - Cardiovascular Heart rate: 78 Rhythm: regular Heart Sounds: Present: S1 & S2. Absent: rub, click - Extremities Extremities: no ischemia, pulses intact, pulses symmetrical, No edema Peripheral Pulses: within normal limits - Abdominal General gastrointestinal: Present: soft, non-tender, non-distended, normal bowel sounds Male genitourinary: Present: normal - Rectal Rectal Exam: deferred - Integumentary Integumentary: Present: clear, warm, dry - Musculoskeletal Musculoskeletal: gait normal, strength equal bilaterally - Psychiatric Psychiatric: appropriate mood/affect, intact judgment & insight - Neurologic Neurologic: CNII-XII intact, moves all extremities - Allied Health Allied health notes reviewed: nursing, case management Plan Activity: no restrictions Diet: regular Follow up with: PRIMARY CARE, [Primary Care Provider] - 3-5 Days LENNOX CALZADA MD [Referring] - 7 Days
== END 2019-06-30 18:00 | disposition home or self-care (01) | DRG 71 ==
LOC: ED 20:38 → 3A 06-24 04:12
PROVIDERS: ADMIT Internal Medicine Geriatric Medicine; ATTEND Internal Medicine
DX: G93.49 Other encephalopathy (principal); F23 Brief psychotic disorder; F20.9 Schizophrenia, unspecified; F17.210 Nicotine dependence, cigarettes, uncomplicated; G40.909 Epilepsy, unspecified, not intractable, without status epilepticus; I10 Essential (primary) hypertension; Z90.49 Acquired absence of other specified parts of digestive tract; Z91.19 Patient's noncompliance with other medical treatment and regimen; Z71.6 Tobacco abuse counseling
CPT/HCPCS: 36415; 70450; 71045; 80048; 80053; 80185; 80307; 80320; 82140; 82550; 82962; 84484; 85025; 85027; 93005; 93010; 96365; 99406; G0378; G0480; J1644; J7030; Q2009

== ENCOUNTER 2019-07-01 10:47 | Emergency (ER) | payer MEDICAID ==
[2019-07-01 11:39] LABS: Hematocrit 43.4 % (35.5-45.6); Hemoglobin 13.7 gm/dl (11.8-15.2); Mean Corpuscular HGB Conc 32 % (32-34); Mean Corpuscular Volume 78 fl (84-94); Platelet Count 214 K/mm3 (140-440); Red Cell Distribution Width 14.1 % (13.2-15.2)
[2019-07-01 11:57] LABS: BUN/Creatinine Ratio 15; Blood Urea Nitrogen 9 mg/dL (9-20); Calcium 9.9 mg/dL (8.4-10.2); Hemolysis Index 11
[2019-07-01] MEDS ORDERED: PHENYTOIN 100 MG CAPSULE.ER PO ONE (12:24)
--- NOTE | 2019-07-01 13:38 | Emergency Department Report ---
ED Seizure HPI - General Chief Complaint: Seizure Stated Complaint: SEZIURE Time Seen by Provider: 07/01/19 11:54 Source: patient Mode of arrival: Ambulatory Limitations: No Limitations - History of Present Illness Initial Comments: 49-year-old male with a past medical history. No schizophrenia and seizures presents to the Hospital stating that he is going to have a seizure as per triage. He tells me that he [place]. pt was just discharged from the hospital yesterday. He denies any complaints currently. He states he is compliant with his medications. - Related Data Previous Rx's Medication Instructions Recorded Last Taken Type Paliperidone Palmitate (Nf) 156 mg IM MO #7 ml 06/08/19 Unknown Rx [Invega Sustenna (Nf)] Paliperidone Palmitate(Nf) [Invega 234 mg IM ONCE #1 syringe 06/08/19 Unknown Rx Sustenna(Nf)] Phenytoin [Dilantin] 100 mg PO Q8HR #90 capsule.er 06/08/19 Unknown Rx Mirtazapine [Remeron 15mg TAB] 15 mg PO QHS #30 tablet 06/30/19 Unknown Rx Phenytoin [Dilantin] 3 tab PO QHS 30 Days #90 capsule 06/30/19 Unknown Rx levETIRAcetam [Keppra XR TAB] 750 mg PO BID #60 06/30/19 Unknown Rx risperiDONE [RisperDAL] 2 mg PO BID #60 tablet 06/30/19 Unknown Rx Allergies Allergy/AdvReac Type Severity Reaction Status Date / Time No Known Allergies Allergy Verified 06/12/19 12:04 ED Review of Systems ROS: Stated complaint: SEZIURE Other details as noted in HPI ED Past Medical Hx - Past Medical History Previous Medical History?: Yes Hx Hypertension: Yes Hx Congestive Heart Failure: No Hx Diabetes: No Hx Seizures: Yes Hx Psychiatric Treatment: Yes (bipolar Schizophrenia) Hx Asthma: No Hx COPD: No Hx HIV: No - Surgical History Past Surgical History?: Yes Hx Cholecystectomy: Yes - Social History Smoking Status: Current Every Day Smoker Substance Use Type: Alcohol - Medications Home Medications: Home Medications Medication Instructions Recorded Confirmed Last Taken Type Paliperidone Palmitate (Nf) 156 mg IM MO #7 ml 06/08/19 06/24/19 Unknown Rx [Invega Sustenna (Nf)] Paliperidone Palmitate(Nf) [Invega 234 mg IM ONCE #1 syringe 06/08/19 06/24/19 Unknown Rx Sustenna(Nf)] Phenytoin [Dilantin] 100 mg PO Q8HR #90 capsule.er 06/08/19 06/24/19 Unknown Rx Mirtazapine [Remeron 15mg TAB] 15 mg PO QHS #30 tablet 06/30/19 Unknown Rx Phenytoin [Dilantin] 3 tab PO QHS 30 Days #90 capsule 06/30/19 Unknown Rx levETIRAcetam [Keppra XR TAB] 750 mg PO BID #60 06/30/19 Unknown Rx risperiDONE [RisperDAL] 2 mg PO BID #60 tablet 06/30/19 Unknown Rx ED Physical Exam - General Limitations: No Limitations - Other Other exam information: General: No acute distress Head: Atraumatic Eyes: normal appearance ENT: Moist mucous membranes, no tongue laceration Neck: Normal appearance, no midline tenderness Chest: Clear to auscultation bilaterally CV: Regular rate and rhythm Abdomen: Soft, normal bowel sounds, nontender, nondistended, no rebound or guarding Back: Normal inspection Extremity: Normal inspection infection, full range of motion Neuro: Alert O x to self and only, not to year or placed, no facial asymmetry, speech clear, no gross motor sensory deficit Psych: Appropriate behavior Skin: No rash ED Course Vital Signs 07/01/19 07/01/19 10:55 15:10 Temperature 98.8 F 98.7 F Pulse Rate 94 H 91 H Respiratory 18 18 Rate Blood Pressure 128/76 Blood Pressure 123/86 [Right] O2 Sat by Pulse 95 99 Oximetry - Consultations Consultation #1: 07/01/19 consult obtained ED Medical Decision Making - Lab Data Result diagrams: 07/01/19 11:15 07/01/19 11:15 Lab Results 07/01/19 07/01/19 07/01/19 Range/Units 11:10 11:15 11:15 WBC 4.9 (4.5-11.0) K/mm3 RBC 5.60 H (3.65-5.03) M/mm3 Hgb 13.7 (11.8-15.2) gm/dl Hct 43.4 (35.5-45.6) % MCV 78 L (84-94) fl MCH 24 L (28-32) pg MCHC 32 (32-34) % RDW 14.1 (13.2-15.2) % Plt Count 214 (140-440) K/mm3 Sodium 137 (137-145) mmol/L Potassium 4.6 (3.6-5.0) mmol/L Chloride 99.9 (98-107) mmol/L Carbon Dioxide 21 L (22-30) mmol/L Anion Gap 21 mmol/L BUN 9 (9-20) mg/dL Creatinine 0.6 L (0.8-1.5) mg/dL Estimated GFR > 60 ml/min BUN/Creatinine Ratio 15 % Glucose 113 H (75-100) mg/dL POC Glucose 65 L (70-105) Calcium 9.9 (8.4-10.2) mg/dL Phenytoin (10.0-20.0) ug/mL 07/01/19 Range/Units 11:15 WBC (4.5-11.0) K/mm3 RBC (3.65-5.03) M/mm3 Hgb (11.8-15.2) gm/dl Hct (35.5-45.6) % MCV (84-94) fl MCH (28-32) pg MCHC (32-34) % RDW (13.2-15.2) % Plt Count (140-440) K/mm3 Sodium (137-145) mmol/L Potassium (3.6-5.0) mmol/L Chloride (98-107) mmol/L Carbon Dioxide (22-30) mmol/L Anion Gap mmol/L BUN (9-20) mg/dL Creatinine (0.8-1.5) mg/dL Estimated GFR ml/min BUN/Creatinine Ratio % Glucose (75-100) mg/dL POC Glucose (70-105) Calcium (8.4-10.2) mg/dL Phenytoin 8.4 L (10.0-20.0) ug/mL - Medical Decision Making Patient presents to the hospital with without injury or pain stating that he had a seizure earlier today prior to arrival. He is alert and oriented times one. Since patient was just in the ED and assessed by mental health and requested their re-assessment to determine if he is at his baseline. Please refer to mental health note. Patient is at his baseline. Apparently they were trying to get patient into the intermediate prior to discharge however, the brother/wet primer powder blender would not agree to this. Pt's Dilantin is subtherapeutic. He provided by mouth Dilantin by mouth Keppra prior to discharge. No seizure activity in the ED. Other labs unremarkable. - Differential Diagnosis sz, homeless Critical Care Time: No Critical care attestation.: If time is entered above; I have spent that time in minutes in the direct care of this critically ill patient, excluding procedure time. ED Disposition Clinical Impression: Seizure disorder, Paranoid schizophrenia Disposition: TO HOME OR SELFCARE Is pt being admited?: No Does the pt Need Aspirin: No Condition: Stable Instructions: Schizophrenia (ED), Epilepsy (ED) Additional Instructions: Take the medication as prescribed. Follow-up with your doctor or doctor/clinic provided. Return if symptoms worsen as indicated by your discharge instru ctions. Referrals: JANET QUIÑONES MD [Primary Care Provider] - 3-5 Days [facility] [Provider Group] - 3-[address] [facility] [Outside] - 3-5 Days ESSIE DOWNING MD [Staff Physician] - 3-5 Days Time of Disposition: 15:47
[2019-07-01 15:14] VITALS: BP 123/86
[2019-07-01] MEDS ORDERED: levETIRAcetam 500 MG/5 ML ORAL LIQD PO ONE (15:38)
== END 2019-07-01 16:00 | disposition home or self-care (01) ==
LOC: ED 10:47
DX: G40.909 Epilepsy, unspecified, not intractable, without status epilepticus (principal); F20.0 Paranoid schizophrenia; I10 Essential (primary) hypertension; F17.200 Nicotine dependence, unspecified, uncomplicated; Z90.49 Acquired absence of other specified parts of digestive tract; Z79.899 Other long term (current) drug therapy
CPT/HCPCS: 36415; 80048; 80185; 82962; 85027

== ENCOUNTER 2019-07-04 09:11 | Emergency (ER) | payer MEDICAID ==
[2019-07-04] MEDS ORDERED: levETIRAcetam 1000 MG/NS 0.75% 1,000 MG/100 ML BAG IV ONE (09:49)
--- NOTE | 2019-07-04 09:54 | Emergency Department Report ---
ED Seizure HPI - General Chief Complaint: Seizure Stated Complaint: SEIZURE Time Seen by Provider: 07/04/19 09:42 Source: patient, EMS Mode of arrival: Stretcher Limitations: Altered Mental Status - History of Present Illness Initial Comments: Mr. Recinos is a 49 years old male with history of seizure. Patient is familiar to me and previous ER. Patient had multiple ER visits to this hospital and other hospital for seizure. Patient is on Keppra and Dilantin. Patient stated that he is compliant with his medication. Patient brought into the emergency room via EMS accompanied by his brother for evaluation of one episode of seizure this morning. Patient brother described this seizure as generalized tonic colonic similar to his previous seizure. Patient was seen in another ER 2 days ago with a head injury and laceration to the back of this called for which she received case. Patient fell and hit his head again with 1 off his stables slightly displaced with controlled bleeding now. Patient is alert, oriented 3 in no acute distress. MD Complaint: seizure -: This morning Description of Episode: loss of consciousness, tonic-clonic movement, post-event confusion Witnessed:: Yes Trauma: Yes Seizure History: known seizure disorder Place: home Possible Precipitating Event: head injury Associated Symptoms: denies other symptoms Treatments Prior to Arrival: none - Related Data Previous Rx's Medication Instructions Recorded Last Taken Type Paliperidone Palmitate (Nf) 156 mg IM MO #7 ml 06/08/19 Unknown Rx [Invega Sustenna (Nf)] Paliperidone Palmitate(Nf) [Invega 234 mg IM ONCE #1 syringe 06/08/19 Unknown Rx Sustenna(Nf)] Phenytoin [Dilantin] 100 mg PO Q8HR #90 capsule.er 06/08/19 Unknown Rx Mirtazapine [Remeron 15mg TAB] 15 mg PO QHS #30 tablet 06/30/19 Unknown Rx Phenytoin [Dilantin] 3 tab PO QHS 30 Days #90 capsule 06/30/19 Unknown Rx levETIRAcetam [Keppra XR TAB] 750 mg PO BID #60 06/30/19 Unknown Rx risperiDONE [RisperDAL] 2 mg PO BID #60 tablet 06/30/19 Unknown Rx Allergies Allergy/AdvReac Type Severity Reaction Status Date / Time No Known Allergies Allergy Verified 06/12/19 12:04 ED Review of Systems ROS: Stated complaint: SEIZURE Other details as noted in HPI Comment: All other systems reviewed and negative Constitutional: denies: chills, fever Respiratory: denies: cough, shortness of breath, SOB with exertion, wheezing Cardiovascular: denies: chest pain, palpitations Gastrointestinal: denies: abdominal pain, nausea, vomiting, diarrhea, constipation, hematemesis Musculoskeletal: denies: back pain Neurological: denies: headache, weakness, numbness, paresthesias, confusion ED Past Medical Hx - Past Medical History Previous Medical History?: Yes Hx Hypertension: Yes Hx Congestive Heart Failure: No Hx Diabetes: No Hx Seizures: Yes Hx Psychiatric Treatment: Yes (bipolar Schizophrenia) Hx Asthma: No Hx COPD: No Hx HIV: No - Surgical History Past Surgical History?: Yes Hx Cholecystectomy: Yes - Social History Smoking Status: Unknown if ever smoked - Medications Home Medications: Home Medications Medication Instructions Recorded Confirmed Last Taken Type Paliperidone Palmitate (Nf) 156 mg IM MO #7 ml 06/08/19 06/24/19 Unknown Rx [Invega Sustenna (Nf)] Paliperidone Palmitate(Nf) [Invega 234 mg IM ONCE #1 syringe 06/08/19 06/24/19 Unknown Rx Sustenna(Nf)] Phenytoin [Dilantin] 100 mg PO Q8HR #90 capsule.er 06/08/19 06/24/19 Unknown Rx Mirtazapine [Remeron 15mg TAB] 15 mg PO QHS #30 tablet 06/30/19 Unknown Rx Phenytoin [Dilantin] 3 tab PO QHS 30 Days #90 capsule 06/30/19 Unknown Rx levETIRAcetam [Keppra XR TAB] 750 mg PO BID #60 06/30/19 Unknown Rx risperiDONE [RisperDAL] 2 mg PO BID #60 tablet 06/30/19 Unknown Rx ED Physical Exam - General Limitations: Altered Mental Status General appearance: alert, in no apparent distress - Head Head exam: Present: other (old laceration to the back of the scalp, bleeding controlled. Stable in place.) - Eye Eye exam: Present: normal appearance - ENT ENT exam: Present: normal exam, normal orophraynx, mucous membranes moist - Neck Neck exam: Present: normal inspection, full ROM. Absent: tenderness, meningismus, lymphadenopathy, thyromegaly - Respiratory Respiratory exam: Present: normal lung sounds bilaterally. Absent: respiratory distress, wheezes, rales, rhonchi, stridor, chest wall tenderness, accessory muscle use, decreased breath sounds, prolonged expiratory - Cardiovascular Cardiovascular Exam: Present: regular rate, normal rhythm, normal heart sounds - GI/Abdominal GI/Abdominal exam: Present: soft, normal bowel sounds. Absent: distended, tenderness, guarding, rebound, rigid, organomegaly, mass, bruit, pulsatile mass, hernia - Extremities Exam Extremities exam: Present: normal inspection, full ROM, normal capillary refill. Absent: pedal edema, calf tenderness - Back Exam Back exam: Present: normal inspection, full ROM. Absent: CVA tenderness (R), CVA tenderness (L), muscle spasm, paraspinal tenderness - Neurological Exam Neurological exam: Present: alert, oriented X3, CN II-XII intact, normal gait, reflexes normal - Psychiatric Psychiatric exam: Present: normal mood - Skin Skin exam: Present: warm, intact, normal color ED Course Vital Signs 07/04/19 07/04/19 09:45 10:54 Pulse Rate 103 H 90 Respiratory 15 14 Rate Blood Pressure 128/72 130/79 [Left] O2 Sat by Pulse 97 97 Oximetry ED Medical Decision Making - Lab Data Result diagrams: 07/04/19 11:17 07/04/19 10:27 - Radiology Data Radiology results: report reviewed - Medical Decision Making Mr. Recinos is a 49 years old male with history of seizure. Patient is familiar to me and previous ER. Patient had multiple ER visits to this hospital and other hospital for seizure. Patient is on Keppra and Dilantin. Patient stated that he is compliant with his medication. Patient brought into the emergency room via EMS accompanied by his brother for evaluation of one episode of seizure this morning. Patient brother described this seizure as generalized tonic colonic similar to his previous seizure. Patient was seen in another ER 2 days ago with a head injury and laceration to the back of this called for which she received case. Patient fell and hit his head again with 1 off his stables slightly displaced with controlled bleeding now. Patient is alert, oriented 3 in no acute distress. Patient received Keppra 1 g, Dilantin 1 g. No seizure activity observed in the ER. CT brain is negative for acute finding. Labs reviewed and is unremarkable. Patient does have a prescription for Keppra and Dilantin he did patient advised to follow-up with his primary care physician in the next 2-3 days and to attend to the ER if symptoms are not improved. Patient advised not to drive or operate machinery. Critical care attestation.: If time is entered above; I have spent that time in minutes in the direct care of this critically ill patient, excluding procedure time. ED Disposition Clinical Impression: Seizure disorder, Head injury Disposition: DC-01 TO HOME OR SELFCARE Is pt being admited?: No Condition: Stable Instructions: Recurrent Seizures Adult (ED) Referrals: PRIMARY CARE, [Primary Care Provider] - 3-5 Days
[2019-07-04 11:19] LABS: Alanine Aminotransferase 15 units/L (7-56); Albumin 4.4 g/dL (3.9-5); BUN/Creatinine Ratio 17; Blood Urea Nitrogen 12 mg/dL (9-20); Calcium 9.7 mg/dL (8.4-10.2); Hemolysis Index 27
--- NOTE | 2019-07-04 11:19 | Cat Scan Report ---
CT HEAD WITHOUT CONTRAST INDICATION : Posterior head injury. TECHNIQUE: Axial, coronal and sagittal CT imaging was performed from the skull apex through the skul l base without contrast. All CT scans at this location are performed using CT dose reduction for ALA RA by means of automated exposure control. COMPARISON: CT head without contrast from 06/23/2019. FINDINGS: PARENCHYMA: No mass, midline shift, hemorrhage, extraaxial collection or acute territorial infarctio n. VENTRICLES: Symmetric and normal in size. SOFT TISSUES: Skin case are again seen along the left posterior parietal scalp at the site of a p reviously seen laceration. No other significant abnormality is identified along the visualized soft t issues/orbits. BONES: No acute osseous abnormality. SINUSES: The right mastoid air cells are partially opacified by fluid. The left mastoid air cells and the visualized sinuses are clear. ADDITIONAL FINDINGS: None. IMPRESSION: 1. No acute intracranial abnormality. 2. Additional findings as above. Signer Name: Juan Carlos Fraser MD Signed: 07/04/2019 11:15 AM Workstation Name: [id number]
[2019-07-04 11:25] LABS: Bilirubin,Direct < 0.2 mg/dL (0-0.2)
[2019-07-04 12:09] LABS: Basophils # (Auto) 0.1 K/mm3 (0.0-0.1); Basophils % (Auto) 1.5 % (0.0-1.8); Eosinophils # (Auto) 0.1 K/mm3 (0.0-0.4); Eosinophils % (Auto) 1.2 % (0.0-4.3); Hematocrit 39.4 % (35.5-45.6); Hemoglobin 12.2 gm/dl (11.8-15.2); Lymphocytes % (Auto) 16.2 % (13.4-35.0); Mean Corpuscular HGB Conc 31 % (32-34); Mean Corpuscular Volume 78 fl (84-94); Monocytes # (Auto) 0.6 K/mm3 (0.0-0.8); Monocytes % (Auto) 10.5 % (0.0-7.3); Platelet Count 211 K/mm3 (140-440); Red Blood Count 5.07 M/mm3 (3.65-5.03); Red Cell Distribution Width 14.1 % (13.2-15.2)
[2019-07-04] MEDS ORDERED: PHENYTOIN 1,000 MG in SODIUM CHLORIDE 0.9% 250ML 250 ML IV ONE (14:00)
[2019-07-04] MEDS ORDERED: PHENYTOIN 100 MG CAPSULE.ER PO ONE (14:49)
[2019-07-04 15:17] VITALS: BP 127/77
== END 2019-07-04 15:18 | disposition home or self-care (01) ==
LOC: ED 09:11
DX: S09.90XA Unspecified injury of head, initial encounter (principal); G40.909 Epilepsy, unspecified, not intractable, without status epilepticus; I10 Essential (primary) hypertension; F31.9 Bipolar disorder, unspecified; F20.9 Schizophrenia, unspecified; Z90.49 Acquired absence of other specified parts of digestive tract; Z79.899 Other long term (current) drug therapy; X58.XXXA Exposure to other specified factors, initial encounter; Y93.89 Activity, other specified; Y92.89 Other specified places as the place of occurrence of the external cause; Y99.8 Other external cause status
CPT/HCPCS: 36415; 70450; 80048; 80076; 85025; 96365; 99284; J1165; J1953; J7050

== ENCOUNTER 2019-07-06 13:59 | Emergency (ER) | payer MEDICAID ==
[2019-07-06 14:46] VITALS: BP 119/75
--- NOTE | 2019-07-06 14:47 | Event Note ---
ED Screening Note ED Screening Note: states he feels nausea no vomiting no diarrhea mild abd discomfort PMHx seizures disorder, on phenytoin also on risperidone This initial assessment/diagnostic orders/clinical plan/treatment(s) is/are subject to change based on patients health status, clinical progression and re- assessment by fellow clinical providers in the ED. Further treatment and workup at subsequent clinical providers discretion. Patient/guardian urged not to elope from the ED as their condition may be serious if not clinically assessed and managed. Initial orders include: labs, UA
[2019-07-06 15:40] LABS: Basophils # (Auto) 0.1 K/mm3 (0.0-0.1); Basophils % (Auto) 1.1 % (0.0-1.8); Eosinophils # (Auto) 0.1 K/mm3 (0.0-0.4); Eosinophils % (Auto) 2.7 % (0.0-4.3); Lymphocytes # (Auto) 1.4 K/mm3 (1.2-5.4); Lymphocytes % (Auto) 26.9 % (13.4-35.0); Mean Corpuscular HGB Conc 31 % (32-34); Mean Corpuscular Volume 79 fl (84-94); Monocytes # (Auto) 0.5 K/mm3 (0.0-0.8); Platelet Count 203 K/mm3 (140-440); Red Blood Count 5.22 M/mm3 (3.65-5.03); Red Cell Distribution Width 14.3 % (13.2-15.2)
[2019-07-06 15:48] LABS: Hematocrit 41.2 % (35.5-45.6); Hemoglobin 12.7 gm/dl (11.8-15.2)
[2019-07-06 15:56] LABS: Mucus,Urine 1+ /HPF
[2019-07-06] MEDS ORDERED: ONDANSETRON 4 MG/2 ML INJ IV ONE (15:56)
[2019-07-06] MEDS ORDERED: MORPHINE 4 MG/1 ML INJ IV ONE (15:56)
[2019-07-06] MEDS ORDERED: SODIUM CHLORIDE 0.9% 1000 ML 1,000 ML IV ONE (15:56)
[2019-07-06 15:59] LABS: Color,Urine Yellow (Yellow); Ictotest,Urine Negative (Negative); Urobilinogen,Urine < 2.0 mg/dL (<2.0)
[2019-07-06 16:18] LABS: Alanine Aminotransferase 14 units/L (7-56); Albumin 4.3 g/dL (3.9-5); BUN/Creatinine Ratio 13; Blood Urea Nitrogen 9 mg/dL (9-20); Calcium 9.5 mg/dL (8.4-10.2); Hemolysis Index 32
--- NOTE | 2019-07-06 16:56 | XRay Report ---
Abdomen 3 views, 07/06/2019 Indication: Nausea and vomiting Findings: The bowel gas pattern is within normal limits. There are no dilated loops of large or small bowel. No free air is identified. No radiopaque urinary tract calculi are seen. Chronic interstitial pulmonary disease is noted. No acute pulmonary abnormality is seen. Duane morales ent projects over the right midabdomen. This was present previously Impression: No acute findings. Signer Name: Adan Desir MD Signed: 07/06/2019 4:52 PM Workstation Name: [id number]
--- NOTE | 2019-07-06 18:06 | Emergency Department Report ---
ED N/V/D HPI - General Chief complaint: Nausea/Vomiting/Diarrhea Stated complaint: NAUSEA/SEIZURE Time Seen by Provider: 07/06/19 14:45 Source: patient, EMS Mode of arrival: Ambulatory Limitations: No Limitations - History of Present Illness Initial comments: This is a 49-year-old male nontoxic, well nourished in appearance, no acute signs of distress presents to the ED with c/o of nausea and vomiting 1 day. Patient describes vomiting as food content. Patient denies any abdominal pain, chest pain, short of breath, fever, chills, headache, stiff neck, numbness or tingling. Patient denies any diarrhea or constipation. Patient denies any recent travels. Patient denies any drug allergies. Patient does have past medical history of seizure and hypertension. Patient is compliant with seizure medications. MD complaint: nausea, vomiting -: days(s) (1) Associated Abdominal Pain: No Radiation: none Pain Scale: 0 Consistency: constant Improves with: none Worsens with: none Associated Symptoms: nausea/vomiting. denies: myalgias, chest pain, cough, diaphoresis, fever/chills, headaches, loss of appetite, malaise, rash, dysuria, shortness of breath, syncope, weakness - Related Data Previous Rx's Medication Instructions Recorded Last Taken Type Paliperidone Palmitate (Nf) 156 mg IM MO #7 ml 06/08/19 Unknown Rx [Invega Sustenna (Nf)] Paliperidone Palmitate(Nf) [Invega 234 mg IM ONCE #1 syringe 06/08/19 Unknown Rx Sustenna(Nf)] Phenytoin [Dilantin] 100 mg PO Q8HR #90 capsule.er 06/08/19 Unknown Rx Mirtazapine [Remeron 15mg TAB] 15 mg PO QHS #30 tablet 06/30/19 Unknown Rx Phenytoin [Dilantin] 3 tab PO QHS 30 Days #90 capsule 06/30/19 Unknown Rx levETIRAcetam [Keppra XR TAB] 750 mg PO BID #60 06/30/19 Unknown Rx risperiDONE [RisperDAL] 2 mg PO BID #60 tablet 06/30/19 Unknown Rx Ondansetron [Zofran Odt] 4 mg PO Q8HR PRN #20 tab.rapdis 07/06/19 Unknown Rx Allergies Allergy/AdvReac Type Severity Reaction Status Date / Time No Known Allergies Allergy Verified 06/12/19 12:04 ED Review of Systems ROS: Stated complaint: NAUSEA/SEIZURE Other details as noted in HPI Constitutional: denies: chills, fever Eyes: denies: eye pain, eye discharge, vision change ENT: denies: ear pain, throat pain Respiratory: denies: cough, shortness of breath, wheezing Cardiovascular: denies: chest pain, palpitations Endocrine: no symptoms reported Gastrointestinal: nausea, vomiting. denies: abdominal pain, diarrhea Genitourinary: denies: urgency, dysuria Musculoskeletal: denies: back pain, joint swelling, arthralgia Skin: denies: rash, lesions Neurological: denies: headache, weakness, paresthesias Psychiatric: denies: anxiety, depression Hematological/Lymphatic: denies: easy bleeding, easy bruising ED Past Medical Hx - Past Medical History Previous Medical History?: Yes Hx Hypertension: Yes Hx Congestive Heart Failure: No Hx Diabetes: No Hx Seizures: Yes Hx Psychiatric Treatment: Yes (bipolar Schizophrenia) Hx Asthma: No Hx COPD: No Hx HIV: No - Surgical History Past Surgical History?: Yes Hx Cholecystectomy: Yes - Social History Smoking Status: Current Every Day Smoker - Medications Home Medications: Home Medications Medication Instructions Recorded Confirmed Last Taken Type Paliperidone Palmitate (Nf) 156 mg IM MO #7 ml 06/08/19 06/24/19 Unknown Rx [Invega Sustenna (Nf)] Paliperidone Palmitate(Nf) [Invega 234 mg IM ONCE #1 syringe 06/08/19 06/24/19 Unknown Rx Sustenna(Nf)] Phenytoin [Dilantin] 100 mg PO Q8HR #90 capsule.er 06/08/19 06/24/19 Unknown Rx Mirtazapine [Remeron 15mg TAB] 15 mg PO QHS #30 tablet 06/30/19 Unknown Rx Phenytoin [Dilantin] 3 tab PO QHS 30 Days #90 capsule 06/30/19 Unknown Rx levETIRAcetam [Keppra XR TAB] 750 mg PO BID #60 06/30/19 Unknown Rx risperiDONE [RisperDAL] 2 mg PO BID #60 tablet 06/30/19 Unknown Rx Ondansetron [Zofran Odt] 4 mg PO Q8HR PRN #20 tab.rapdis 07/06/19 Unknown Rx ED Physical Exam - General Limitations: No Limitations General appearance: alert, in no apparent distress - Head Head exam: Present: atraumatic, normocephalic - Eye Eye exam: Present: normal appearance - Neck Neck exam: Present: normal inspection, full ROM. Absent: tenderness, meningismus, lymphadenopathy - Respiratory Respiratory exam: Present: normal lung sounds bilaterally. Absent: respiratory distress, wheezes, rales, rhonchi, stridor, chest wall tenderness, accessory muscle use, decreased breath sounds, prolonged expiratory - Cardiovascular Cardiovascular Exam: Present: regular rate, normal rhythm, normal heart sounds. Absent: irregular rhythm, systolic murmur, diastolic murmur, rubs, gallop - GI/Abdominal GI/Abdominal exam: Present: soft, normal bowel sounds. Absent: distended, tenderness, guarding, rebound, rigid, diminished bowel sounds - Extremities Exam Extremities exam: Present: normal inspection - Back Exam Back exam: Present: normal inspection, full ROM. Absent: tenderness, CVA tenderness (R), CVA tenderness (L), muscle spasm, paraspinal tenderness, vertebral tenderness, rash noted - Neurological Exam Neurological exam: Present: alert, oriented X3, normal gait - Psychiatric Psychiatric exam: Present: normal affect, normal mood - Skin Skin exam: Present: warm, dry, intact, normal color. Absent: rash ED Course Vital Signs 07/06/19 14:45 Temperature 99.2 F Pulse Rate 95 H Respiratory 18 Rate Blood Pressure 119/75 [Right] O2 Sat by Pulse 99 Oximetry - Reevaluation(s) Reevaluation #1: 07/06/19 18:04 Patient is speaking in full sentences with no signs of distress noted. ED Medical Decision Making - Lab Data Result diagrams: 07/06/19 14:55 07/06/19 14:55 - Medical Decision Making This is a 49-year-old male that presents with nausea and vomiting. Patient is stable and was examined by me. There is no abdominal tenderness. Negative signs of symptoms of appendicitis, cholecystitis or acute abdomen. Labs obtained. UA obtained. Xr abdomen/chest xray obtained and dictated by the radiologist. Patient is notified of the report with no questions noted by the patient. Vital signs are stable prior to discharge. Patient received Zofran and 1L Normal saline in the ED which patient stated symptoms has resovled and subsided. A by mouth challenge has been obtained and patient tolerated well with no nausea vomiting. Patient was also instructed to Follow-up with a primary care doctor in 3-5 days or if symptoms worsen and continue return to emergency room as soon as possible. At time of discharge, the patient does not seem toxic or ill in appearance. No acute signs of distress noted. Patient agrees to discharge treatment plan of care. No further questions noted by the patient. Critical care attestation.: If time is entered above; I have spent that time in minutes in the direct care of this critically ill patient, excluding procedure time. ED Disposition Clinical Impression: Nausea & vomiting Qualifiers: Vomiting type: unspecified Vomiting Intractability: non-intractable Qualified Code(s): R11.2 - Nausea with vomiting, unspecified Disposition: DC- TO HOME OR SELFCARE Is pt being admited?: No Does the pt Need Aspirin: No Condition: Stable Instructions: Acute Nausea and Vomiting (ED) Additional Instructions: Follow-up with a primary care and dispatch supervisor doctor in 3-5 days or if symptoms worsen and continue return to emergency room as soon as possible. Prescriptions: Ondansetron [Zofran Odt] 4 mg PO Q8HR PRN #20 tab.rapdis PRN Reason: Nausea Referrals: PRIMARY CARE, [Referring] - 3-5 Days ROCHELLE STILL MD [Staff Physician] - 3-5 Days [facility] [Outside] - 3-5 Days [facility] [Outside] - 3-5 Days [facility] [Provider Group] - 3-5 Days
== END 2019-07-06 18:30 | disposition home or self-care (01) ==
LOC: ED 13:59
DX: R11.2 Nausea with vomiting, unspecified (principal); I10 Essential (primary) hypertension; F31.9 Bipolar disorder, unspecified; F20.9 Schizophrenia, unspecified; F17.200 Nicotine dependence, unspecified, uncomplicated; Z90.49 Acquired absence of other specified parts of digestive tract; Z79.899 Other long term (current) drug therapy
CPT/HCPCS: 36415; 74022; 80053; 81001; 83690; 85025; 96361; 96374; 96375; 99284; J2270; J2405; J7030

== ENCOUNTER 2019-07-13 23:37 | Emergency (ER) | payer MEDICAID ==
[2019-07-14 02:12] LABS: Hematocrit 42.7 % (35.5-45.6); Hemoglobin 13.3 gm/dl (11.8-15.2); Mean Corpuscular HGB Conc 31 % (32-34); Mean Corpuscular Volume 77 fl (84-94); Platelet Count 201 K/mm3 (140-440); Red Blood Count 5.53 M/mm3 (3.65-5.03); Red Cell Distribution Width 13.8 % (13.2-15.2)
[2019-07-14 02:38] LABS: BUN/Creatinine Ratio 18; Blood Urea Nitrogen 9 mg/dL (9-20); Calcium 9.6 mg/dL (8.4-10.2); Hemolysis Index 14
[2019-07-14] MEDS ORDERED: PHENYTOIN 100 MG CAPSULE.ER PO ONE (03:29)
[2019-07-14] MEDS ORDERED: PHENYTOIN 1,000 MG in SODIUM CHLORIDE 0.9% 250ML 250 ML IV ONE (03:35)
--- NOTE | 2019-07-14 03:41 | Emergency Department Report ---
ED Seizure HPI - General Chief Complaint: Seizure Stated Complaint: SEIZURE Time Seen by Provider: 07/14/19 03:28 Source: patient, EMS Mode of arrival: Ambulatory Limitations: No Limitations - History of Present Illness Initial Comments: Mr. Beth is 49 years old male with history of seizure on Keppra and Dilantin. Patient is semilunaris to me since I saw him several times patient was frequent ER visits for the same complaint. Patient brought to the emergency room via EMS for evaluation of possible seizure. Patient stated that he feels like he was going to have a seizure however patient did not have a seizure. Patient stated that he is compliant with his medication. MD Complaint: feel seizure coming on -: This morning Seizure History: known seizure disorder Place: home Possible Precipitating Event: none Associated Symptoms: denies other symptoms Treatments Prior to Arrival: none - Related Data Previous Rx's Medication Instructions Recorded Last Taken Type Paliperidone Palmitate (Nf) 156 mg IM MO #7 ml 06/08/19 Unknown Rx [Invega Sustenna (Nf)] Paliperidone Palmitate(Nf) [Invega 234 mg IM ONCE #1 syringe 06/08/19 Unknown Rx Sustenna(Nf)] Phenytoin [Dilantin] 100 mg PO Q8HR #90 capsule.er 06/08/19 Unknown Rx Mirtazapine [Remeron 15mg TAB] 15 mg PO QHS #30 tablet 06/30/19 Unknown Rx Phenytoin [Dilantin] 3 tab PO QHS 30 Days #90 capsule 06/30/19 Unknown Rx levETIRAcetam [Keppra XR TAB] 750 mg PO BID #60 06/30/19 Unknown Rx risperiDONE [RisperDAL] 2 mg PO BID #60 tablet 06/30/19 Unknown Rx Ondansetron [Zofran Odt] 4 mg PO Q8HR PRN #20 tab.rapdis 07/06/19 Unknown Rx Allergies Allergy/AdvReac Type Severity Reaction Status Date / Time No Known Allergies Allergy Verified 06/12/19 12:04 ED Review of Systems ROS: Stated complaint: SEIZURE Other details as noted in HPI Comment: All other systems reviewed and negative Constitutional: denies: chills, fever Respiratory: denies: cough, shortness of breath Cardiovascular: denies: chest pain Gastrointestinal: denies: abdominal pain, nausea Musculoskeletal: denies: back pain Neurological: denies: headache, weakness, numbness, paresthesias ED Past Medical Hx - Past Medical History Previous Medical History?: Yes Hx Hypertension: Yes Hx Congestive Heart Failure: No Hx Diabetes: No Hx Seizures: Yes Hx Psychiatric Treatment: Yes (bipolar Schizophrenia) Hx Asthma: No Hx COPD: No Hx HIV: No - Surgical History Past Surgical History?: Yes Hx Cholecystectomy: Yes - Social History Smoking Status: Former Smoker - Medications Home Medications: Home Medications Medication Instructions Recorded Confirmed Last Taken Type Paliperidone Palmitate (Nf) 156 mg IM MO #7 ml 06/08/19 06/24/19 Unknown Rx [Invega Sustenna (Nf)] Paliperidone Palmitate(Nf) [Invega 234 mg IM ONCE #1 syringe 06/08/19 06/24/19 Unknown Rx Sustenna(Nf)] Phenytoin [Dilantin] 100 mg PO Q8HR #90 capsule.er 06/08/19 06/24/19 Unknown Rx Mirtazapine [Remeron 15mg TAB] 15 mg PO QHS #30 tablet 06/30/19 Unknown Rx Phenytoin [Dilantin] 3 tab PO QHS 30 Days #90 capsule 06/30/19 Unknown Rx levETIRAcetam [Keppra XR TAB] 750 mg PO BID #60 06/30/19 Unknown Rx risperiDONE [RisperDAL] 2 mg PO BID #60 tablet 06/30/19 Unknown Rx Ondansetron [Zofran Odt] 4 mg PO Q8HR PRN #20 tab.rapdis 07/06/19 Unknown Rx ED Physical Exam - General Limitations: No Limitations General appearance: alert, in no apparent distress - Head Head exam: Present: atraumatic - Eye Eye exam: Present: normal appearance - ENT ENT exam: Present: normal exam, normal orophraynx, mucous membranes moist - Neck Neck exam: Present: normal inspection, full ROM. Absent: tenderness, meningismus, lymphadenopathy, thyromegaly - Respiratory Respiratory exam: Present: normal lung sounds bilaterally - Cardiovascular Cardiovascular Exam: Present: regular rate, normal rhythm, normal heart sounds - GI/Abdominal GI/Abdominal exam: Present: soft, normal bowel sounds. Absent: distended, tenderness, guarding, rebound, rigid, organomegaly, mass, bruit, pulsatile mass, hernia - Extremities Exam Extremities exam: Present: normal inspection, full ROM, normal capillary refill - Back Exam Back exam: Present: normal inspection, full ROM. Absent: CVA tenderness (R), CV A tenderness (L) - Neurological Exam Neurological exam: Present: alert, oriented X3, CN II-XII intact, normal gait, reflexes normal - Psychiatric Psychiatric exam: Present: normal mood. Absent: homicidal ideation, suicidal ideation - Skin Skin exam: Present: warm, intact, normal color ED Course Vital Signs 07/14/19 07/14/19 02:36 02:45 Pulse Rate 97 H 107 H Respiratory 19 16 Rate Blood Pressure 134/82 O2 Sat by Pulse 98 Oximetry ED Medical Decision Making - Lab Data Result diagrams: 07/14/19 01:50 07/14/19 01:50 - Medical Decision Making Mr. Beth is 49 years old male with history of seizure on Keppra and Dilantin. Patient is semilunaris to me since I saw him several times patient was frequent ER visits for the same complaint. Patient brought to the emergency room via EMS for evaluation of possible seizure. Patient stated that he feels like he was going to have a seizure however patient did not have a seizure. Patient stated that he is compliant with his medication. Patient Dilantin level is 2.4. Obviously patient is not taking his medication as he supposed too. Patient given Dilantin 1000 IV. The seizure activity observed in the ER. Case management consulted for social help. Critical care attestation.: If time is entered above; I have spent that time in minutes in the direct care of this critically ill patient, excluding procedure time. ED Disposition Clinical Impression: Seizure disorder Disposition: DC-01 TO HOME OR SELFCARE Is pt being admited?: No Condition: Stable Instructions: Recurrent Seizures Adult (ED) Referrals: PRIMARY CARE, [Primary Care Provider] - 3-5 Days
[2019-07-14 06:32] VITALS: BP 106/57
== END 2019-07-14 07:00 | disposition home or self-care (01) ==
LOC: ED 23:37
DX: G40.909 Epilepsy, unspecified, not intractable, without status epilepticus (principal); I10 Essential (primary) hypertension; F20.9 Schizophrenia, unspecified; Z87.891 Personal history of nicotine dependence; Z90.49 Acquired absence of other specified parts of digestive tract; Z79.899 Other long term (current) drug therapy
CPT/HCPCS: 36415; 80048; 80185; 85027; 96365; 96366; 99284; J1165; J7050

== ENCOUNTER 2019-07-16 18:11 | Emergency (ER) | payer MEDICAID ==
--- NOTE | 2019-07-16 19:22 | Emergency Department Report ---
HPI - General Chief Complaint: Psych Time Seen by Provider: 07/16/19 19:03 - HPI HPI: Room 16 The patient is a 49-year-old male presenting with a chief complaint of suicidal ideation. The patient has a history of bipolar disorder and schizophrenia and acknowledges his had suicidal ideation. Patient knowledge as he does not have a plan. Patient will not give further details as to his presenting complaint. ED Past Medical Hx - Past Medical History Hx Hypertension: Yes Hx Seizures: Yes Hx Psychiatric Treatment: Yes (bipolar Schizophrenia) - Surgical History Hx Cholecystectomy: Yes - Family History Family history: no significant - Social History Smoking Status: Never Smoker Substance Use Type: None - Medications Home Medications: Home Medications Medication Instructions Recorded Confirmed Last Taken Type Paliperidone Palmitate (Nf) 156 mg IM MO #7 ml 06/08/19 06/24/19 Unknown Rx [Invega Sustenna (Nf)] Paliperidone Palmitate(Nf) [Invega 234 mg IM ONCE #1 syringe 06/08/19 06/24/19 Unknown Rx Sustenna(Nf)] Phenytoin [Dilantin] 100 mg PO Q8HR #90 capsule.er 06/08/19 06/24/19 Unknown Rx Mirtazapine [Remeron 15mg TAB] 15 mg PO QHS #30 tablet 06/30/19 Unknown Rx Phenytoin [Dilantin] 3 tab PO QHS 30 Days #90 capsule 06/30/19 Unknown Rx levETIRAcetam [Keppra XR TAB] 750 mg PO BID #60 06/30/19 Unknown Rx risperiDONE [RisperDAL] 2 mg PO BID #60 tablet 06/30/19 Unknown Rx Ondansetron [Zofran Odt] 4 mg PO Q8HR PRN #20 tab.rapdis 07/06/19 Unknown Rx Phenytoin [Dilantin] 100 mg PO Q8HR #90 capsule 07/14/19 Unknown Rx ED Review of Systems ROS: Stated complaint: SEIZURE Other details as noted in HPI Comment: Unobtainable due to pts medical conditions Physical Exam - Physical Exam Vital Signs: Vital Signs 07/16/19 18:34 Temperature 99 F Pulse Rate 76 Respiratory 16 Rate Blood Pressure 127/85 O2 Sat by Pulse 98 Oximetry Physical Exam: GENERAL: The patient is well-developed well-nourished male lying on chair not appearing. Acute distress. [] HEENT: Normocephalic. Atraumatic. Extraocular motions are intact. Patient has moist mucous membranes. NECK: Supple. Trachea midline CHEST/LUNGS: Clear to auscultation. There is no respiratory distress noted. HEART/CARDIOVASCULAR: Regular. There is no tachycardia. There is no gallop rub or murmur. ABDOMEN: Abdomen is soft, nontender. Patient has normal bowel sounds. There is no abdominal distention. SKIN: There is no rash. There is no edema. There is no diaphoresis. NEURO: The patient is awake, alert, and oriented. The patient is cooperative. The patient has no focal neurologic deficits. MUSCULOSKELETAL: There is no evidence of acute injury. ED Course Vital Signs 07/16/19 18:34 Temperature 99 F Pulse Rate 76 Respiratory 16 Rate Blood Pressure 127/85 O2 Sat by Pulse 98 Oximetry ED Medical Decision Making - Lab Data Result diagrams: 07/16/19 19:06 07/16/19 19:06 Laboratory Tests 07/16/19 07/16/19 07/16/19 19:06 19:06 19:06 WBC RBC Hgb Hct MCV MCH MCHC RDW Plt Count Glenn % (Auto) Sodium 137 Potassium 4.0 Chloride 98.6 Carbon Dioxide 22 Anion Gap 20 BUN 14 Creatinine 0.8 D Estimated GFR > 60 BUN/Creatinine Ratio 18 Glucose 81 Calcium 9.2 Salicylates < 0.3 L Acetaminophen < 5.0 L Phenytoin 17.8 Plasma/Serum Alcohol 07/16/19 07/16/19 19:06 19:06 WBC 4.2 L RBC 5.16 H Hgb 12.4 Hct 40.1 MCV 78 L MCH 24 L MCHC 31 L RDW 14.0 Plt Count 193 Glenn % (Auto) Senior [employer] Sodium Potassium Chloride Carbon Dioxide Anion Gap BUN Creatinine Estimated GFR BUN/Creatinine Ratio Glucose Calcium Salicylates Acetaminophen Phenytoin Plasma/Serum Alcohol < 0.01 - Differential Diagnosis suicidal ideation Critical care attestation.: If time is entered above; I have spent that time in minutes in the direct care of this critically ill patient, excluding procedure time. ED Disposition Clinical Impression: Suicidal ideation Disposition: DC/TX-65 PSY HOSP/PSY UNIT Is pt being admited?: No Does the pt Need Aspirin: No Condition: Stable Time of Disposition: 19:21 (awaiting acceptance)
[2019-07-16 19:30] LABS: Hematocrit 40.1 % (35.5-45.6); Hemoglobin 12.4 gm/dl (11.8-15.2); Mean Corpuscular HGB Conc 31 % (32-34); Mean Corpuscular Volume 78 fl (84-94); Platelet Count 193 K/mm3 (140-440); Red Blood Count 5.16 M/mm3 (3.65-5.03)
[2019-07-16 19:43] LABS: BUN/Creatinine Ratio 18; Blood Urea Nitrogen 14 mg/dL (9-20); Calcium 9.2 mg/dL (8.4-10.2); Hemolysis Index 5
[2019-07-16 21:44] LABS: Total Cells Counted 100
[2019-07-16 21:45] LABS: Anisocytosis Few; Ovalocytes Few
[2019-07-16 21:46] LABS: Large Platelets Few; Platelet Estimate Cons
[2019-07-17 07:49] VITALS: BP 114/65
--- NOTE | 2019-07-17 12:53 | Consultation ---
History of Present Illness - Reason for Consult Consult date: 07/17/19 Reason for consult: SI with no plan - Chief Complaint Chief complaint: My brother will not let me stay at his place. - History of Present Psychiatric Illness The patient is a disabled 49 year old single male. He is well know in the ED and to me. He presented to the ED with suicidal thoughts with no plan. In my interview with the patient today, he completely denies being suicidal or homicidal at present time. He denies hallucinations or paranoia and describes his mood as ok. He states that the reason he is here is because his brother would not let him stay at his house. He reports taking his medications as prescribed and denies abusing drugs. His Phenytoin level is 17.8 last night. Medications and Allergies Allergies Allergy/AdvReac Type Severity Reaction Status Date / Time No Known Allergies Allergy Verified 07/16/19 18:34 Home Medications Medication Instructions Recorded Confirmed Last Taken Type Paliperidone Palmitate (Nf) 156 mg IM MO #7 ml 06/08/19 07/17/19 Unknown Rx [Invega Sustenna (Nf)] Phenytoin [Dilantin] 100 mg PO Q8HR #90 capsule.er 06/08/19 07/17/19 Unknown Rx Mirtazapine [Remeron 15mg TAB] 15 mg PO QHS #30 tablet 06/30/19 07/17/19 Unknown Rx levETIRAcetam [Keppra XR TAB] 750 mg PO BID #60 06/30/19 07/17/19 Unknown Rx risperiDONE [RisperDAL] 2 mg PO BID #60 tablet 06/30/19 07/17/19 Unknown Rx Ondansetron [Zofran Odt] 4 mg PO Q8HR PRN #20 tab.rapdis 07/06/19 07/17/19 Unknown Rx Phenytoin [Dilantin] 100 mg PO Q8HR #90 capsule 07/14/19 07/17/19 Unknown Rx Past psychiatric history - Past Medical History Past Medical History: seizures - past Psychiatric treatment and history Psych: Schizophrenia - Social History Social history: lives with family Mental Status Exam - Vital signs Last Vital Signs Temp 97.8 F 07/17/19 07:00 Pulse 82 07/17/19 07:00 Resp 18 07/17/19 07:00 BP 114/65 07/17/19 07:00 Pulse Ox 100 07/17/19 07:00 - Exam Orientation: time, place, person Affect: normal Mood: appropriate Thought Process: Intact Perceptions: none Speech: normal rate and pattern Concentration: focused Motor activity: normal Level of consciousness: alert Memory: Intact Sleep Symptoms: None Interaction: cooperative Results Result Diagrams: 07/16/19 19:06 07/16/19 19:06 Abnormal lab results 07/16/19 07/16/19 07/16/19 Range/Units 19:06 19:06 19:06 WBC 4.2 L (4.5-11.0) K/mm3 RBC 5.16 H (3.65-5.03) M/mm3 MCV 78 L (84-94) fl MCH 24 L (28-32) pg MCHC 31 L (32-34) % Monocytes % (Manual) 14.0 H (0.0-7.3) % Salicylates < 0.3 L (2.8-20.0) mg/dL Acetaminophen < 5.0 L (10.0-30.0) ug/mL All other labs normal. Assessment and Plan - Psychiatric problem (1) Paranoid schizophrenia Current Visit: No Status: Acute plan to address problem: Patient is stable, not psychotic, suicidal or homicidal He may be discharged home to resume his home meds when medically stable Please rescind [id number] if already initiated. Provide out-patient resources
== END 2019-07-17 14:37 | disposition home or self-care (01) ==
LOC: ED 18:11
DX: F20.0 Paranoid schizophrenia (principal)
CPT/HCPCS: 36415; 80048; 80185; 80320; 85007; 85025; G0480

== ENCOUNTER 2019-07-20 19:14 | Emergency (ER) | payer MEDICAID ==
[2019-07-20 20:06] VITALS: BP 136/80
--- NOTE | 2019-07-20 20:13 | Emergency Department Report ---
ED Recheck HPI - General Chief Complaint: Seizure Stated Complaint: MED REFILL Time Seen by Provider: 07/20/19 20:03 Source: patient Mode of arrival: Ambulatory Limitations: No Limitations - History of Present Illness Initial Comments: This is a 49-year-old male nontoxic, well in appearance with no signs of distress presents to the ED for seizure medication refill. Patient denies any SZ activity today. Stated took last medication today. Patient stated he is asymptotic. Denies any head trauma. denies any SI/HI. Patient denies any urinary symptoms. Patient denies any fever, chills, headache, nausea, vomiting, chest pain or shortness of breathe. denies any other symptoms or complaints. Denies any allergies. MD Complaint: medication refill request Returns Today for: request for prescription Symptoms Since Prior Visit: no new symptoms Associated Symptoms: none. denies: fever, chills, chest pain, shortness of breath, rash, malaise, nasuea, abdominal pain - Related Data Previous Rx's Medication Instructions Recorded Last Taken Type Paliperidone Palmitate (Nf) 156 mg IM MO #7 ml 06/08/19 Unknown Rx [Invega Sustenna (Nf)] Mirtazapine [Remeron 15mg TAB] 15 mg PO QHS #30 tablet 06/30/19 Unknown Rx levETIRAcetam [Keppra XR TAB] 750 mg PO BID #60 06/30/19 Unknown Rx risperiDONE [RisperDAL] 2 mg PO BID #60 tablet 06/30/19 Unknown Rx Ondansetron [Zofran Odt] 4 mg PO Q8HR PRN #20 tab.rapdis 07/06/19 Unknown Rx Phenytoin [Dilantin] 100 mg PO Q8HR #90 capsule 07/14/19 Unknown Rx Phenytoin [Dilantin] 100 mg PO Q8HR #12 capsule.er 07/20/19 Unknown Rx Allergies Allergy/AdvReac Type Severity Reaction Status Date / Time No Known Allergies Allergy Verified 07/16/19 18:34 ED Review of Systems ROS: Stated complaint: MED REFILL Other details as noted in HPI Constitutional: denies: chills, fever Eyes: denies: eye pain, eye discharge, vision change ENT: denies: ear pain, throat pain Respiratory: denies: cough, shortness of breath, wheezing Cardiovascular: denies: chest pain, palpitations Endocrine: no symptoms reported Gastrointestinal: denies: abdominal pain, nausea, diarrhea Genitourinary: denies: urgency, dysuria Musculoskeletal: denies: back pain, joint swelling, arthralgia Skin: denies: rash, lesions Neurological: denies: headache, weakness, paresthesias Psychiatric: denies: anxiety, depression Hematological/Lymphatic: denies: easy bleeding, easy bruising ED Past Medical Hx - Past Medical History Previous Medical History?: Yes Hx Hypertension: Yes Hx Congestive Heart Failure: No Hx Diabetes: No Hx Seizures: Yes Hx Psychiatric Treatment: Yes (bipolar Schizophrenia) Hx Asthma: No Hx COPD: No Hx HIV: No - Surgical History Past Surgical History?: Yes Hx Cholecystectomy: Yes - Social History Smoking Status: Never Smoker Substance Use Type: None - Medications Home Medications: Home Medications Medication Instructions Recorded Confirmed Last Taken Type Paliperidone Palmitate (Nf) 156 mg IM MO #7 ml 06/08/19 07/17/19 Unknown Rx [Invega Sustenna (Nf)] Mirtazapine [Remeron 15mg TAB] 15 mg PO QHS #30 tablet 06/30/19 07/17/19 Unknown Rx levETIRAcetam [Keppra XR TAB] 750 mg PO BID #60 06/30/19 07/17/19 Unknown Rx risperiDONE [RisperDAL] 2 mg PO BID #60 tablet 06/30/19 07/17/19 Unknown Rx Ondansetron [Zofran Odt] 4 mg PO Q8HR PRN #20 tab.rapdis 07/06/19 07/17/19 Unknown Rx Phenytoin [Dilantin] 100 mg PO Q8HR #90 capsule 07/14/19 07/17/19 Unknown Rx Phenytoin [Dilantin] 100 mg PO Q8HR #12 capsule.er 07/20/19 Unknown Rx ED Physical Exam - General Limitations: No Limitations General appearance: alert, in no apparent distress - Head Head exam: Present: atraumatic, normocephalic - Eye Eye exam: Present: normal appearance, PERRL, EOMI - Neck Neck exam: Present: normal inspection, full ROM. Absent: tenderness, meningismus, lymphadenopathy - Respiratory Respiratory exam: Present: normal lung sounds bilaterally. Absent: respiratory distress, wheezes - Cardiovascular Cardiovascular Exam: Present: regular rate, normal rhythm - GI/Abdominal GI/Abdominal exam: Present: soft. Absent: distended, tenderness - Extremities Exam Extremities exam: Present: full ROM - Back Exam Back exam: Present: normal inspection, full ROM. Absent: tenderness - Neurological Exam Neurological exam: Present: alert, oriented X3, normal gait - Psychiatric Psychiatric exam: Present: normal affect, normal mood. Absent: depressed, agitated, anxious, flat affect, manic, homicidal ideation, suicidal ideation - Skin Skin exam: Present: warm, dry, intact, normal color. Absent: rash ED Course Vital Signs 07/20/19 20:04 Temperature 99 F Pulse Rate 98 H Respiratory 18 Rate Blood Pressure 136/80 O2 Sat by Pulse 100 Oximetry - Reevaluation(s) Reevaluation #1: 07/20/19 20:07 Patient is speaking in full sentences with no signs of distress noted. ED Recheck MDM - Medical Decision Making I will refill patients medications for a few days until he is able to follow-up with PCP. Patient was instructed to Follow-up with a primary care doctor in 3-5 days or if symptoms worsen and continue return to emergency room as soon as possible. At time of discharge, the patient does not seem toxic or ill in appearance. No acute signs of distress noted. Patient agrees to discharge treatment plan of care. No further questions noted by the patient. Critical care attestation.: If time is entered above; I have spent that time in minutes in the direct care of this critically ill patient, excluding procedure time. ED Disposition Clinical Impression: Medication refill Disposition: DC-01 TO HOME OR SELFCARE Is pt being admited?: No Does the pt Need Aspirin: No Condition: Stable Additional Instructions: Follow-up with a primary care doctor in 3-5 days or if symptoms worsen and continue return to emergency room as soon as possible. Prescriptions: Phenytoin [Dilantin] 100 mg PO Q8HR #12 capsule.er Referrals: JANET QUIÑONES MD [Referring] - 3-5 Days CHARITO ARGUELLO MD [Staff Physician] - 3-5 Days [facility] [Outside] - 3-5 Days
== END 2019-07-20 20:27 | disposition home or self-care (01) ==
LOC: ED 19:14
DX: R56.9 Unspecified convulsions (principal); I10 Essential (primary) hypertension; F31.9 Bipolar disorder, unspecified; F20.9 Schizophrenia, unspecified; Z76.0 Encounter for issue of repeat prescription; Z90.49 Acquired absence of other specified parts of digestive tract; Z79.899 Other long term (current) drug therapy

== ENCOUNTER 2019-07-21 17:43 | Emergency (ER) | payer MEDICAID ==
[2019-07-21] MEDS ORDERED: PHENYTOIN 100 MG CAPSULE.ER PO ONE (21:56)
--- NOTE | 2019-07-21 22:01 | Emergency Department Report ---
ED Seizure HPI - General Chief Complaint: Medical Clearance Stated Complaint: IMPENDING SEIZURE Time Seen by Provider: 07/21/19 21:51 Source: patient Mode of arrival: Ambulatory Limitations: No Limitations - History of Present Illness Initial Comments: Patient is 49 years old male with history of schizophrenia and seizure. Patient has multiple ER visits for same complaint. When asking him what brought him to the hospital today, patient replied I have to come. Patient is unable to provide any further information however he told the triage nurse that he feel that he is having a seizure although patient did not have any seizure. Patient is noncompliant with his medication. Patient is on Dilantin 300 mg daily. Patient denied any suicidal or homicidal ideation. No visual or digital hallucination. Patient denied any head injury or any other injuries. Patient has been referred to case management by me several times and also by other providers. MD Complaint: feel seizure coming on Seizure History: known seizure disorder, history of non-compliance Possible Precipitating Event: none Associated Symptoms: denies other symptoms Treatments Prior to Arrival: none - Related Data Previous Rx's Medication Instructions Recorded Last Taken Type Paliperidone Palmitate (Nf) 156 mg IM MO #7 ml 06/08/19 Unknown Rx [Invega Sustenna (Nf)] Mirtazapine [Remeron 15mg TAB] 15 mg PO QHS #30 tablet 06/30/19 Unknown Rx levETIRAcetam [Keppra XR TAB] 750 mg PO BID #60 06/30/19 Unknown Rx risperiDONE [RisperDAL] 2 mg PO BID #60 tablet 06/30/19 Unknown Rx Ondansetron [Zofran Odt] 4 mg PO Q8HR PRN #20 tab.rapdis 07/06/19 Unknown Rx Phenytoin [Dilantin] 100 mg PO Q8HR #90 capsule 07/14/19 Unknown Rx Phenytoin [Dilantin] 100 mg PO Q8HR #12 capsule.er 07/20/19 Unknown Rx Allergies Allergy/AdvReac Type Severity Reaction Status Date / Time No Known Allergies Allergy Verified 07/16/19 18:34 ED Review of Systems ROS: Stated complaint: IMPENDING SEIZURE Other details as noted in HPI Comment: All other systems reviewed and negative Constitutional: denies: chills, fever Respiratory: denies: cough, shortness of breath, SOB with exertion, SOB at rest, wheezing Cardiovascular: denies: chest pain, palpitations Gastrointestinal: denies: abdominal pain, nausea, vomiting, diarrhea, constipation, hematemesis, melena Musculoskeletal: denies: back pain Neurological: denies: headache, weakness, numbness, paresthesias, confusion ED Past Medical Hx - Past Medical History Previous Medical History?: Yes Hx Hypertension: Yes Hx Congestive Heart Failure: No Hx Diabetes: No Hx Seizures: Yes Hx Psychiatric Treatment: Yes (bipolar Schizophrenia) Hx Asthma: No Hx COPD: No Hx HIV: No - Surgical History Past Surgical History?: Yes Hx Cholecystectomy: Yes - Social History Smoking Status: Current Every Day Smoker Substance Use Type: None - Medications Home Medications: Home Medications Medication Instructions Recorded Confirmed Last Taken Type Paliperidone Palmitate (Nf) 156 mg IM MO #7 ml 06/08/19 07/17/19 Unknown Rx [Invega Sustenna (Nf)] Mirtazapine [Remeron 15mg TAB] 15 mg PO QHS #30 tablet 06/30/19 07/17/19 Unknown Rx levETIRAcetam [Keppra XR TAB] 750 mg PO BID #60 06/30/19 07/17/19 Unknown Rx risperiDONE [RisperDAL] 2 mg PO BID #60 tablet 06/30/19 07/17/19 Unknown Rx Ondansetron [Zofran Odt] 4 mg PO Q8HR PRN #20 tab.rapdis 07/06/19 07/17/19 Unknown Rx Phenytoin [Dilantin] 100 mg PO Q8HR #90 capsule 07/14/19 07/17/19 Unknown Rx Phenytoin [Dilantin] 100 mg PO Q8HR #12 capsule.er 07/20/19 Unknown Rx ED Physical Exam - General Limitations: No Limitations General appearance: alert, in no apparent distress - Head Head exam: Present: atraumatic, normocephalic, normal inspection - Eye Eye exam: Present: normal appearance, PERRL - ENT ENT exam: Present: normal exam, normal orophraynx, mucous membranes moist - Neck Neck exam: Present: normal inspection, full ROM. Absent: tenderness, meningismus, lymphadenopathy, thyromegaly - Respiratory Respiratory exam: Present: normal lung sounds bilaterally - Cardiovascular Cardiovascular Exam: Present: regular rate, normal rhythm, normal heart sounds - GI/Abdominal GI/Abdominal exam: Present: soft, normal bowel sounds. Absent: distended, tenderness, guarding, rebound, rigid, organomegaly, mass, bruit, pulsatile mass, hernia - Extremities Exam Extremities exam: Present: normal inspection, full ROM, normal capillary refill. Absent: pedal edema, calf tenderness - Back Exam Back exam: Present: normal inspection, full ROM. Absent: CVA tenderness (R), CVA tenderness (L), muscle spasm, paraspinal tenderness, vertebral tenderness - Neurological Exam Neurological exam: Present: alert, oriented X3, CN II-XII intact, normal gait, reflexes normal - Psychiatric Psychiatric exam: Present: normal mood - Skin Skin exam: Present: warm, intact, normal color ED Course Vital Signs 07/21/19 07/21/19 07/21/19 19:30 21:37 22:50 Temperature 98.8 F Pulse Rate 102 H 78 94 H Respiratory 18 16 16 Rate Blood Pressure 136/71 Blood Pressure 113/79 126/75 [Left] O2 Sat by Pulse 97 100 95 Oximetry ED Medical Decision Making - Medical Decision Making Patient is 49 years old male with history of schizophrenia and seizure. Patient has multiple ER visits for same complaint. When asking him what brought him to the hospital today, patient replied I have to come. Patient is unable to provide any further information however he told the triage nurse that he feel that he is having a seizure although patient did not have any seizure. Patient is noncompliant with his medication. Patient is on Dilantin 300 mg daily. Patient denied any suicidal or homicidal ideation. No visual or digital hallucination. Patient denied any head injury or any other injuries. Patient received Dilantin 300 mg by mouth. Patient observed in the ER no seizure observed. Patient referred to case management for further help in the morning. Critical care attestation.: If time is entered above; I have spent that time in minutes in the direct care of this critically ill patient, excluding procedure time. ED Disposition Clinical Impression: Seizure disorder Disposition: DC-01 TO HOME OR SELFCARE Is pt being admited?: No Condition: Stable Instructions: Recurrent Seizures Adult (ED) Referrals: PRIMARY CARE, [Primary Care Provider] - 3-5 Days
[2019-07-21 22:57] VITALS: BP 126/75
== END 2019-07-21 23:37 | disposition home or self-care (01) ==
LOC: ED 17:43
DX: G40.909 Epilepsy, unspecified, not intractable, without status epilepticus (principal); I10 Essential (primary) hypertension; F25.0 Schizoaffective disorder, bipolar type; F17.200 Nicotine dependence, unspecified, uncomplicated; Z90.49 Acquired absence of other specified parts of digestive tract; Z79.899 Other long term (current) drug therapy

== ENCOUNTER 2019-07-22 14:17 | Emergency (ER) | payer MEDICAID ==
[2019-07-22] MEDS ORDERED: levETIRAcetam 500 MG TAB PO ONE (15:19)
[2019-07-22 15:27] VITALS: BP 139/78
[2019-07-22 15:49] LABS: Basophils % (Auto) 0.9 % (0.0-1.8); Eosinophils # (Auto) 0.1 K/mm3 (0.0-0.4); Eosinophils % (Auto) 2.3 % (0.0-4.3); Hemoglobin 12.7 gm/dl (11.8-15.2); Lymphocytes # (Auto) 1.9 K/mm3 (1.2-5.4); Lymphocytes % (Auto) 38.5 % (13.4-35.0); Mean Corpuscular HGB Conc 32 % (32-34); Mean Corpuscular Volume 77 fl (84-94); Monocytes # (Auto) 0.6 K/mm3 (0.0-0.8); Monocytes % (Auto) 12.2 % (0.0-7.3); Platelet Count 203 K/mm3 (140-440); Red Cell Distribution Width 13.7 % (13.2-15.2)
[2019-07-22 16:07] LABS: Alanine Aminotransferase 12 units/L (7-56); Albumin 4.2 g/dL (3.9-5); BUN/Creatinine Ratio 13; Blood Urea Nitrogen 8 mg/dL (9-20); Calcium 9.2 mg/dL (8.4-10.2); Hemolysis Index 13
--- NOTE | 2019-07-22 17:07 | Emergency Department Report ---
ED General Adult HPI - General Chief complaint: Seizure Stated complaint: SEIZURE Time Seen by Provider: 07/22/19 14:48 Source: patient Mode of arrival: Ambulatory Limitations: No Limitations - History of Present Illness Initial comments: Patient presents to emergency department with a chief complaint of seizure. Patient states that he takes his seizure medications daily. Patient has a history of schizophrenia tells me that he is hearing voices. When further discussed the patient states that last Saturday her voices was a week ago and they were telling him to hurt himself. Patient denies currently wanting to hurt himself or others. - Related Data Previous Rx's Medication Instructions Recorded Last Taken Type Paliperidone Palmitate (Nf) 156 mg IM MO #7 ml 06/08/19 Unknown Rx [Invega Sustenna (Nf)] Mirtazapine [Remeron 15mg TAB] 15 mg PO QHS #30 tablet 06/30/19 Unknown Rx levETIRAcetam [Keppra XR TAB] 750 mg PO BID #60 06/30/19 Unknown Rx risperiDONE [RisperDAL] 2 mg PO BID #60 tablet 06/30/19 Unknown Rx Ondansetron [Zofran Odt] 4 mg PO Q8HR PRN #20 tab.rapdis 07/06/19 Unknown Rx Phenytoin [Dilantin] 100 mg PO Q8HR #90 capsule 07/14/19 Unknown Rx Phenytoin [Dilantin] 100 mg PO Q8HR #12 capsule.er 07/20/19 Unknown Rx Allergies Allergy/AdvReac Type Severity Reaction Status Date / Time No Known Allergies Allergy Verified 07/16/19 18:34 ED Review of Systems ROS: Stated complaint: SEIZURE Other details as noted in HPI Comment: All other systems reviewed and negative Constitutional: denies: chills, fever Eyes: denies: eye pain, eye discharge, vision change ENT: denies: ear pain, throat pain Respiratory: denies: cough, shortness of breath, wheezing Cardiovascular: denies: chest pain, palpitations Endocrine: no symptoms reported Gastrointestinal: denies: abdominal pain, nausea, diarrhea Genitourinary: denies: urgency, dysuria Musculoskeletal: denies: back pain, joint swelling, arthralgia Skin: denies: rash, lesions Neurological: denies: headache, weakness, paresthesias Psychiatric: auditory hallucinations, suicidal thoughts. denies: anxiety, depression Hematological/Lymphatic: denies: easy bleeding, easy bruising ED Past Medical Hx - Past Medical History Hx Hypertension: Yes Hx Congestive Heart Failure: No Hx Diabetes: No Hx Seizures: Yes Hx Psychiatric Treatment: Yes (bipolar Schizophrenia) Hx Asthma: No Hx COPD: No Hx HIV: No - Surgical History Hx Cholecystectomy: Yes - Social History Smoking Status: Never Smoker Substance Use Type: None - Medications Home Medications: Home Medications Medication Instructions Recorded Confirmed Last Taken Type Paliperidone Palmitate (Nf) 156 mg IM MO #7 ml 06/08/19 07/17/19 Unknown Rx [Invega Sustenna (Nf)] Mirtazapine [Remeron 15mg TAB] 15 mg PO QHS #30 tablet 06/30/19 07/17/19 Unknown Rx levETIRAcetam [Keppra XR TAB] 750 mg PO BID #60 06/30/19 07/17/19 Unknown Rx risperiDONE [RisperDAL] 2 mg PO BID #60 tablet 06/30/19 07/17/19 Unknown Rx Ondansetron [Zofran Odt] 4 mg PO Q8HR PRN #20 tab.rapdis 07/06/19 07/17/19 Unknown Rx Phenytoin [Dilantin] 100 mg PO Q8HR #90 capsule 07/14/19 07/17/19 Unknown Rx Phenytoin [Dilantin] 100 mg PO Q8HR #12 capsule.er 07/20/19 Unknown Rx ED Physical Exam - General Limitations: No Limitations General appearance: alert, in no apparent distress - Head Head exam: Present: atraumatic, normocephalic - Eye Eye exam: Present: normal appearance, PERRL, EOMI - ENT ENT exam: Present: mucous membranes moist - Neck Neck exam: Present: normal inspection - Respiratory Respiratory exam: Present: normal lung sounds bilaterally. Absent: respiratory distress - Cardiovascular Cardiovascular Exam: Present: regular rate, normal rhythm. Absent: systolic murmur, diastolic murmur, rubs, gallop - GI/Abdominal GI/Abdominal exam: Present: soft, normal bowel sounds. Absent: distended, tenderness - Rectal Rectal exam: Present: deferred - Extremities Exam Extremities exam: Present: normal inspection - Back Exam Back exam: Present: normal inspection - Neurological Exam Neurological exam: Present: alert, oriented X3, CN II-XII intact. Absent: motor sensory deficit - Psychiatric Psychiatric exam: Present: normal affect, normal mood - Skin Skin exam: Present: warm, dry, intact, normal color. Absent: rash ED Course Vital Signs 07/22/19 07/22/19 14:24 15:24 Temperature 98.7 F Pulse Rate 109 H 96 H Respiratory 20 14 Rate Blood Pressure 116/83 Blood Pressure 139/78 [Left] O2 Sat by Pulse 99 Oximetry ED Medical Decision Making - Lab Data Result diagrams: 07/22/19 15:29 07/22/19 15:29 Lab Results 07/22/19 07/22/19 07/22/19 Range/Units 15:29 15:29 15:29 WBC 4.9 (4.5-11.0) K/mm3 RBC 5.20 H (3.65-5.03) M/mm3 Hgb 12.7 (11.8-15.2) gm/dl Hct 40.0 (35.5-45.6) % MCV 77 L (84-94) fl MCH 24 L (28-32) pg MCHC 32 (32-34) % RDW 13.7 (13.2-15.2) % Plt Count 203 (140-440) K/mm3 Lymph % (Auto) 38.5 H (13.4-35.0) % [place] % (Auto) 12.2 H (0.0-7.3) % Eos % (Auto) 2.3 (0.0-4.3) % Baso % (Auto) 0.9 (0.0-1.8) % Lymph # 1.9 (1.2-5.4) K/mm3 [place] # 0.6 (0.0-0.8) K/mm3 Eos # 0.1 (0.0-0.4) K/mm3 Baso # 0.0 (0.0-0.1) K/mm3 Seg Neutrophils % 46.1 (40.0-70.0) % Seg Neutrophils # 2.2 (1.8-7.7) K/mm3 Sodium 136 L (137-145) mmol/L Potassium 4.1 (3.6-5.0) mmol/L Chloride 100.7 (98-107) mmol/L Carbon Dioxide 23 (22-30) mmol/L Anion Gap 16 mmol/L BUN 8 L (9-20) mg/dL Creatinine 0.6 L (0.8-1.5) mg/dL Estimated GFR > 60 ml/min BUN/Creatinine Ratio 13 % Glucose 76 (75-100) mg/dL Calcium 9.2 (8.4-10.2) mg/dL Total Bilirubin < 0.20 (0.1-1.2) mg/dL AST 15 (5-40) units/L ALT 12 (7-56) units/L Alkaline Phosphatase 100 (35-129) units/L Total Protein 7.5 (6.3-8.2) g/dL Albumin 4.2 (3.9-5) g/dL Albumin/Globulin Ratio 1.3 % Acetaminophen < 5.0 L (10.0-30.0) ug/mL Phenytoin (10.0-20.0) ug/mL Plasma/Serum Alcohol (0-0.07) % 07/22/19 07/22/19 Range/Units 15:29 15:29 WBC (4.5-11.0) K/mm3 RBC (3.65-5.03) M/mm3 Hgb (11.8-15.2) gm/dl Hct (35.5-45.6) % MCV (84-94) fl MCH (28-32) pg MCHC (32-34) % RDW (13.2-15.2) % Plt Count (140-440) K/mm3 Lymph % (Auto) (13.4-35.0) % [place] % (Auto) (0.0-7.3) % Eos % (Auto) (0.0-4.3) % Baso % (Auto) (0.0-1.8) % Lymph # (1.2-5.4) K/mm3 [place] # (0.0-0.8) K/mm3 Eos # (0.0-0.4) K/mm3 Baso # (0.0-0.1) K/mm3 Seg Neutrophils % (40.0-70.0) % Seg Neutrophils # (1.8-7.7) K/mm3 Sodium (137-145) mmol/L Potassium (3.6-5.0) mmol/L Chloride (98-107) mmol/L Carbon Dioxide (22-30) mmol/L Anion Gap mmol/L BUN (9-20) mg/dL Creatinine (0.8-1.5) mg/dL Estimated GFR ml/min BUN/Creatinine Ratio % Glucose (75-100) mg/dL Calcium (8.4-10.2) mg/dL Total Bilirubin (0.1-1.2) mg/dL AST (5-40) units/L ALT (7-56) units/L Alkaline Phosphatase (35-129) units/L Total Protein (6.3-8.2) g/dL Albumin (3.9-5) g/dL Albumin/Globulin Ratio % Acetaminophen (10.0-30.0) ug/mL Phenytoin 4.1 L (10.0-20.0) ug/mL Plasma/Serum Alcohol < 0.01 (0-0.07) % - Medical Decision Making Mental health evaluation done Critical care attestation.: If time is entered above; I have spent that time in minutes in the direct care of this critically ill patient, excluding procedure time. ED Disposition Clinical Impression: Seizure Disposition: DC-01 TO HOME OR SELFCARE Is pt being admited?: No Does the pt Need Aspirin: No Condition: Stable Instructions: Schizophrenia (ED), Recurrent Seizures Adult (ED) Additional Instructions: return if worse Referrals: PRIMARY CARE, [Primary Care Provider] - 3-5 Days [facility] [Outside] - 3-5 Days
== END 2019-07-22 18:00 | disposition home or self-care (01) ==
LOC: ED 14:17
DX: R56.9 Unspecified convulsions (principal); I10 Essential (primary) hypertension; F31.9 Bipolar disorder, unspecified; F20.9 Schizophrenia, unspecified; Z90.49 Acquired absence of other specified parts of digestive tract; Z79.899 Other long term (current) drug therapy
CPT/HCPCS: 36415; 80053; 80185; 80320; 85025; G0480

== ENCOUNTER 2019-07-25 00:59 | Observation (INO) | payer MEDICAID ==
[2019-07-25] MEDS ORDERED: levETIRAcetam 1000 MG/NS 0.75% 1,000 MG/100 ML BAG IV ONE (08:02)
--- NOTE | 2019-07-25 08:12 | Emergency Department Report ---
ED General Adult HPI - General Chief complaint: Seizure Stated complaint: SEIZURE Time Seen by Provider: 07/25/19 07:57 Source: patient Mode of arrival: Ambulatory Limitations: No Limitations - History of Present Illness Initial comments: This is a 49-year-old male who presents to the emergency department on the order of a dozen times or more monthly for recurrent seizures, possibly pseudoseizures associated with a mental health disorder and medical noncompliance. I am told that he was in the waiting room for some time prior to experiencing a seizure. There was no witnessed injury. Review of his prior records does indicate that he was noncompliant with his phenytoin. In addition he runs out of his Keppra I am told. At the time of my encounter the patient does appear postictal. He is not providing any historical information. I have consult case management while we are screening and observing the patient. -: Sudden, minutes(s) - Related Data Previous Rx's Medication Instructions Recorded Last Taken Type Paliperidone Palmitate (Nf) 156 mg IM MO #7 ml 06/08/19 Unknown Rx [Invega Sustenna (Nf)] Mirtazapine [Remeron 15mg TAB] 15 mg PO QHS #30 tablet 06/30/19 Unknown Rx levETIRAcetam [Keppra XR TAB] 750 mg PO BID #60 06/30/19 Unknown Rx risperiDONE [RisperDAL] 2 mg PO BID #60 tablet 06/30/19 Unknown Rx Ondansetron [Zofran Odt] 4 mg PO Q8HR PRN #20 tab.rapdis 07/06/19 Unknown Rx Phenytoin [Dilantin] 100 mg PO Q8HR #90 capsule 07/14/19 Unknown Rx Phenytoin [Dilantin] 100 mg PO Q8HR #12 capsule.er 07/20/19 Unknown Rx Allergies Allergy/AdvReac Type Severity Reaction Status Date / Time No Known Allergies Allergy Verified 07/16/19 18:34 ED Review of Systems ROS: Stated complaint: SEIZURE Other details as noted in HPI Comment: Unobtainable due to pts medical conditions ED Past Medical Hx - Past Medical History Previous Medical History?: Yes Hx Hypertension: Yes Hx Congestive Heart Failure: No Hx Diabetes: No Hx Seizures: Yes Hx Psychiatric Treatment: Yes (bipolar Schizophrenia) Hx Asthma: No Hx COPD: No Hx HIV: No - Surgical History Past Surgical History?: Yes Hx Cholecystectomy: Yes - Social History Smoking Status: Current Every Day Smoker Substance Use Type: None - Medications Home Medications: Home Medications Medication Instructions Recorded Confirmed Last Taken Type Paliperidone Palmitate (Nf) 156 mg IM MO #7 ml 06/08/19 07/17/19 Unknown Rx [Invega Sustenna (Nf)] Mirtazapine [Remeron 15mg TAB] 15 mg PO QHS #30 tablet 06/30/19 07/17/19 Unknown Rx levETIRAcetam [Keppra XR TAB] 750 mg PO BID #60 06/30/19 07/17/19 Unknown Rx risperiDONE [RisperDAL] 2 mg PO BID #60 tablet 06/30/19 07/17/19 Unknown Rx Ondansetron [Zofran Odt] 4 mg PO Q8HR PRN #20 tab.rapdis 07/06/19 07/17/19 Unknown Rx Phenytoin [Dilantin] 100 mg PO Q8HR #90 capsule 07/14/19 07/17/19 Unknown Rx Phenytoin [Dilantin] 100 mg PO Q8HR #12 capsule.er 07/20/19 Unknown Rx ED Physical Exam - General Limitations: Altered Mental Status (postictal) General appearance: lethargic - Head Head exam: Present: atraumatic - Eye Eye exam: Present: PERRL, EOMI. Absent: scleral icterus - ENT ENT exam: Present: normal exam - Neck Neck exam: Absent: tenderness, meningismus - Respiratory Respiratory exam: Present: normal lung sounds bilaterally. Absent: respiratory distress - Cardiovascular Cardiovascular Exam: Present: regular rate, normal rhythm. Absent: systolic m urmur, diastolic murmur, rubs, gallop - GI/Abdominal GI/Abdominal exam: Present: soft, normal bowel sounds. Absent: distended, tenderness, guarding, rebound, rigid - Extremities Exam Extremities exam: Present: normal inspection. Absent: tenderness, pedal edema, calf tenderness - Back Exam Back exam: Present: normal inspection - Neurological Exam Neurological exam: Present: CN II-XII intact (as currently testable). Absent: motor sensory deficit (no apparent asymmetry or focal weakness) - Psychiatric Psychiatric exam: Present: flat affect - Skin Skin exam: Present: warm, dry, intact, normal color. Absent: rash ED Course Vital Signs 12/07/25/19 07/25/19 01:07 08:15 09:24 Temperature 98.9 F Pulse Rate 84 79 Respiratory 18 12 Rate Blood Pressure 117/87 Blood Pressure 128/83 [Left] O2 Sat by Pulse 100 100 99 Oximetry - Reevaluation(s) Reevaluation #1: He has been seen by case management. He has prolonged posticus. He cannot identify a place to go. He has recurrent visits to the emergency department and was found seizing in the waiting room. Case management states best to admit the patient to observation for discharge planning and further observation of his postictal state. 07/25/19 14:46 Reevaluation #2: Discussed with Dr. Servin and will admit. 07/25/19 14:48 ED Medical Decision Making - Lab Data Result diagrams: 07/25/19 08:48 07/25/19 08:39 Laboratory Results - last 24 hr 07/25/19 07/25/19 08:39 08:48 WBC 4.7 RBC 5.28 H Hgb 12.8 Hct 41.7 MCV 79 L MCH 24 L MCHC 31 L RDW 14.2 Plt Count 109 L Lymph % (Auto) 36.2 H [place] % (Auto) 12.0 H Eos % (Auto) 3.1 Baso % (Auto) 1.2 Lymph # 1.7 [place] # 0.6 Eos # 0.1 Baso # 0.1 Seg Neutrophils % 47.5 Seg Neutrophils # 2.2 Sodium 135 L Potassium 4.3 Chloride 97.8 L Carbon Dioxide 18 L Anion Gap 24 BUN 8 L Creatinine 0.7 L Estimated GFR > 60 BUN/Creatinine Ratio 11 Glucose 86 Calcium 9.7 Magnesium 2.30 - Radiology Data Radiology results: pending Critical care attestation.: If time is entered above; I have spent that time in minutes in the direct care of this critically ill patient, excluding procedure time. ED Disposition Clinical Impression: Postictal state, Generalized seizure, Seizure disorder Disposition: OP ADMIT IP TO THIS HOSP Is pt being admited?: Yes Does the pt Need Aspirin: Yes Condition: Stable Time of Disposition: 15:26
[2019-07-25 09:03] LABS: Basophils # (Auto) 0.1 K/mm3 (0.0-0.1); Basophils % (Auto) 1.2 % (0.0-1.8); Eosinophils # (Auto) 0.1 K/mm3 (0.0-0.4); Eosinophils % (Auto) 3.1 % (0.0-4.3); Lymphocytes # (Auto) 1.7 K/mm3 (1.2-5.4); Lymphocytes % (Auto) 36.2 % (13.4-35.0); Mean Corpuscular HGB Conc 31 % (32-34); Mean Corpuscular Volume 79 fl (84-94); Monocytes # (Auto) 0.6 K/mm3 (0.0-0.8); Red Blood Count 5.28 M/mm3 (3.65-5.03); Red Cell Distribution Width 14.2 % (13.2-15.2)
[2019-07-25 09:07] LABS: BUN/Creatinine Ratio 11; Blood Urea Nitrogen 8 mg/dL (9-20); Calcium 9.7 mg/dL (8.4-10.2); Hemolysis Index 24
[2019-07-25 09:12] LABS: Hematocrit 41.7 % (35.5-45.6); Hemoglobin 12.8 gm/dl (11.8-15.2)
[2019-07-25 09:25] LABS: Platelet Count 109 K/mm3 (140-440)
--- NOTE | 2019-07-25 15:41 | Cat Scan Report ---
CT BRAIN: 07/25/2019 INDICATION / CLINICAL INFORMATION: Prolonged postictus/AMS. COMPARISON: 07/04/2019, 06/23/2019, 06/01/2019, and several additional prior exams. FINDINGS: BRAIN/INTRACRANIAL STRUCTURES: Unenhanced CT images of the brain demonstrate no evidence of acute int racranial abnormality. Hemispheric ventricles and sulci are normal in size and shape for a patient of this age. Prominent cerebellar sulci are present, consistent with cerebellar atrophy. There is no evidence of acute ischemic injury, hemorrhage, or mass. There are no abnormal extra-axial fluid collections. EXTRACRANIAL STRUCTURES: Unremarkable. IMPRESSION: No acute abnormality. No change when compared to prior exams. All CT scans at this location are performed using dose reduction to ALARA by means of automated expos ure control. Signer Name: Meir Phillip MD Signed: 07/25/2019 3:37 PM Workstation Name: [id number]
--- NOTE | 2019-07-25 15:44 | History and Physical Report ---
History of Present Illness Date of admission: 07/25/19 14:49 Chief complaint: I keep having seizures History of present illness: 49 YO Male with Schizophrenia, Seizure Disorder, Nicotine Dependence, Medication Noncompliance presents to ED for evaluation. Pt reports multiple seizures over the past 2 days. Pt transported to [facility] via private vehicle. Pt seen and evaluated in ED and found to have recurrent seizures. Pt also experienced a witnessed seizure in the waiting. Pt found to have Subtherapeutic dilantin levels in ED. Pt placed in Observation status, and admitted to Medical floor. Pt is confused at time of my exam and unable to provide detailed history. No reports of fever, chills, CP, Palpitations, NVD, Trauma, BRBPR, Productive cough, headache, or recent ill contacts. Pt was seen and evaluated in ED on 07/23/19. Prior admission on 05/15/19 reviewed. All listed medication reconciled at time of admission. Past History Past Medical History: seizures Past Surgical History: cholecystectomy Social history: single, smoking. denies: alcohol abuse, prescription drug abuse Family history: hypertension Medications and Allergies Allergies Allergy/AdvReac Type Severity Reaction Status Date / Time No Known Allergies Allergy Verified 07/16/19 18:34 Home Medications Medication Instructions Recorded Confirmed Last Taken Type Paliperidone Palmitate (Nf) 156 mg IM MO #7 ml 06/08/19 07/17/19 Unknown Rx [Invega Sustenna (Nf)] Mirtazapine [Remeron 15mg TAB] 15 mg PO QHS #30 tablet 06/30/19 07/17/19 Unknown Rx levETIRAcetam [Keppra XR TAB] 750 mg PO BID #60 06/30/19 07/17/19 Unknown Rx risperiDONE [RisperDAL] 2 mg PO BID #60 tablet 06/30/19 07/17/19 Unknown Rx Ondansetron [Zofran Odt] 4 mg PO Q8HR PRN #20 tab.rapdis 07/06/19 07/17/19 Unknown Rx Phenytoin [Dilantin] 100 mg PO Q8HR #90 capsule 07/14/19 07/17/19 Unknown Rx Phenytoin [Dilantin] 100 mg PO Q8HR #12 capsule.er 07/20/19 Unknown Rx Active Meds: Active Medications Aspirin (Baby Aspirin) 81 mg PO QDAY [facility] Review of Systems ROS unobtainable: due to mental status Exam - Constitutional Vitals: Temp Pulse Resp BP Pulse Ox 98.9 F 79 12 128/83 99 07/25/19 01:07 07/25/19 09:24 07/25/19 09:24 07/25/19 09:24 07/25/19 09:24 General appearance: Present: mild distress - EENT Eyes: Present: PERRL ENT: hearing intact, clear oral mucosa - Neck Neck: Present: supple, normal ROM - Respiratory Respiratory effort: normal Respiratory: bilateral: CTA - Cardiovascular Heart Sounds: Present: S1 & S2. Absent: rub, click - Extremities Extremities: pulses symmetrical, No edema Peripheral Pulses: within normal limits - Abdominal General gastrointestinal: Present: soft, non-tender, non-distended, normal bowel sounds Male genitourinary: Present: normal - Integumentary Integumentary: Present: clear, warm, dry - Musculoskeletal Musculoskeletal: gait normal, strength equal bilaterally - Psychiatric Psychiatric: appropriate mood/affect, intact judgment & insight - Neurologic Neurologic: CNII-XII intact, moves all extremities Results - Labs CBC & Chem 7: 07/25/19 08:48 07/25/19 08:39 Labs: Abnormal lab results 07/25/19 07/25/19 07/25/19 Range/Units 08:24 08:39 08:48 RBC 5.28 H (3.65-5.03) M/mm3 MCV 79 L (84-94) fl MCH 24 L (28-32) pg MCHC 31 L (32-34) % Plt Count 109 L (140-440) K/mm3 Lymph % (Auto) 36.2 H (13.4-35.0) % [place] % (Auto) 12.0 H (0.0-7.3) % Sodium 135 L (137-145) mmol/L Chloride 97.8 L (98-107) mmol/L Carbon Dioxide 18 L (22-30) mmol/L BUN 8 L (9-20) mg/dL Creatinine 0.7 L (0.8-1.5) mg/dL Phenytoin 1.3 L (10.0-20.0) ug/mL Assessment and Plan - Patient Problems (1) Seizure disorder Current Visit: Yes Status: Acute Plan to address problem: Seizure precautions, Keppra loading in ED, Keppra BID, Dilantin level, Dilantin 100mg TID, neuro checks. (2) Nicotine dependence Current Visit: Yes Status: Acute Qualifiers: Substance use status: in withdrawal Plan to address problem: Smoking cessation counseling, +15 min, supportive care. (3) Postictal state Current Visit: Yes Status: Acute Plan to address problem: supportive are, dilantin level, (4) DVT prophylaxis Current Visit: No Status: Acute Plan to address problem: SCD to BLE while in bed, Pt ambulatory
[2019-07-25] MEDS ORDERED: ACETAMINOPHEN 325 MG TAB PO PRN (15:45)
[2019-07-25] MEDS ORDERED: ALBUTEROL 2.5 MG/3 ML NEBU IH PRN (15:45)
[2019-07-25] MEDS ORDERED: ONDANSETRON 4 MG/2 ML INJ IV PRN (15:45)
[2019-07-25] MEDS ORDERED: ONDANSETRON 4 MG ODT TAB PO PRN (15:46)
[2019-07-25] MEDS ORDERED: SODIUM CHLORIDE 0.45% 1000 ML 1,000 ML IV SCH (16:00)
[2019-07-25] MEDS: ASPIRIN 81 MG TAB CHEW PO SCH (17:00)
[2019-07-25] MEDS ORDERED: ASPIRIN 81 MG TAB CHEW ONE (17:01)
[2019-07-25 17:34] LABS: Bilirubin,Urine NEG (Negative); Blood,Urine NEG (Negative); Calcium Oxalate Crystals,Urine 2+; Color,Urine Yellow (Yellow); Mucus,Urine 3+ /HPF
[2019-07-25 17:45] LABS: Amphetamine Screen,Urine PRESUMPTIVE NEGATIVE; Benzodiazepines Screen,Urine PRESUMPTIVE NEGATIVE; Cannabinoid Screen,Urine PRESUMPTIVE NEGATIVE; Cocaine Screen,Urine PRESUMPTIVE NEGATIVE; Methadone Screen,Urine PRESUMPTIVE NEGATIVE; Opiate Screen,Urine PRESUMPTIVE NEGATIVE
[2019-07-25] MEDS ORDERED: MIRTAZAPINE 15 MG TAB PO SCH (22:00)
[2019-07-25] MEDS ORDERED: LEVETIRACETAM 750 MG PO SCH (22:00)
[2019-07-25] MEDS ORDERED: PHENYTOIN 100 MG CAPSULE.ER PO SCH (22:00)
[2019-07-25] MEDS: levETIRAcetam 500 MG/5 ML ORAL LIQD PO SCH (22:15)
[2019-07-25] MEDS: PHENYTOIN 100 MG CAPSULE.ER PO SCH (22:17)
[2019-07-25] MEDS: risperiDONE 1 MG TAB PO SCH (22:17)
[2019-07-26] MEDS: PHENYTOIN 100 MG CAPSULE.ER PO SCH ×2 (06:03→13:26)
[2019-07-26 08:45] LABS: BUN/Creatinine Ratio 11; Blood Urea Nitrogen 8 mg/dL (9-20); Calcium 9.1 mg/dL (8.4-10.2); Hemolysis Index 13
[2019-07-26] MEDS: levETIRAcetam 500 MG/5 ML ORAL LIQD PO SCH (09:11)
[2019-07-26] MEDS: ASPIRIN 81 MG TAB CHEW PO SCH (09:12)
[2019-07-26] MEDS: risperiDONE 1 MG TAB PO SCH (09:12)
--- NOTE | 2019-07-26 13:32 | Discharge Summary ---
Providers - Providers Date of Admission: 07/25/19 14:49 Date of discharge: 07/26/19 Attending physician: MELANIE FERRERA 07/25/19 08:00 Consult to Case Management [CONS] Urgent Services Needed at Discharge: Other Notified:: no Additional Physician Instructions: multiple recurrent visits for seizure and psychiatric disorder [facility] Condition: Stable Pertinent studies: CT head: No acute abnormality Hospital course: 49 YO Male with Schizophrenia, Seizure Disorder, Nicotine Dependence, Medication Noncompliance presents to ED after having multiple seizures over the past 2 days. Pt transported [facility] via private vehicle. Pt also experienced a witnessed seizure in the waiting in the ED. Pt found to have Subtherapeutic dilantin levels in ED. Pt placed in Observation status, and admitted to Medical floor. Placed on Keppra twice a day, counseled for medication compliance. No further seizure episodes observed overnight. Patient was then discharged home in stable condition. Discharge diagnosis: (1) Seizure disorder with recurrent episodes - Due to noncompliance, Dilantin level was low on admission - resume home meds Dilantin and placed on Keppra twice a day - CT head without any acute event (2) Nicotine dependence Smoking cessation counseling, +15 min, supportive care. (3) Postictal state, resolved (4) DVT prophylaxis SCD to BLE while in bed, Pt ambulatory Disposition: DC-01 TO HOME OR SELFCARE Time spent for discharge: 34 minutes Core Measure Documentation - Palliative Care Palliative Care/ Comfort Measures: Not Applicable - Core Measures Any of the following diagnoses?: none Exam - Physical Exam Narrative exam: GENERAL: well-developed and well-nourished male lying on bed appeared to be in no discomfort. HEENT: Normocephalic. Atraumatic. No conjunctival congestion or icterus. Patient has moist mucous membranes. NECK: Supple. Trachea midline. CHEST/LUNGS: Clear to auscultated bilaterally, breathing nonlabored. No wheezes crackles or rhonchi. HEART/CARDIOVASCULAR: Regular in rate and rhythm. S1 and S2 positive. ABDOMEN: Abdomen is soft, nontender. Patient has normal bowel sounds. SKIN: There is no rash. Warm and dry. NEURO: No focal motor deficit. Follows command. MUSCULOSKELETAL: No joint effusion or tenderness. EXTRIMITY: No edema, no cyanosis or clubbing. PSYCH: Cooperative. - Constitutional Vitals: Temp Pulse Resp BP Pulse Ox 98.1 F 68 16 109/60 97 07/26/19 05:16 07/26/19 05:16 07/26/19 05:16 07/26/19 05:16 07/26/19 08:30 Plan Activity: advance as tolerated Weight Bearing Status: Weight Bear as Tolerated Diet: low fat, low salt Follow up with: CINDY MARKS MD [Primary Care Provider] - 3-5 Days ROCHELLE CHRISTIANSON MD [Staff Physician] - 7 Days Prescriptions: Phenytoin [Dilantin] 100 mg PO Q8HR #90 capsule levETIRAcetam [Keppra XR TAB] 750 mg PO BID #60
[2019-07-26 17:19] VITALS: BP 114/81
== END 2019-07-26 18:49 | disposition home or self-care (01) ==
LOC: ED 00:59 → 3A 14:49
PROVIDERS: ADMIT Internal Medicine; ATTEND Internal Medicine
DX: G40.909 Epilepsy, unspecified, not intractable, without status epilepticus (principal); F17.200 Nicotine dependence, unspecified, uncomplicated; Z91.14 Patient's other noncompliance with medication regimen; Z71.6 Tobacco abuse counseling; Z90.49 Acquired absence of other specified parts of digestive tract
CPT/HCPCS: 36415; 70450; 80048; 80185; 80307; 81001; 83735; 85025; 85027; 93005; 93010; 96374; 99284; 99406; G0378; J1953; J7030

== ENCOUNTER 2019-07-27 08:42 | Emergency (ER) | payer MEDICAID ==
[~2019-07-27 08:42] MED LIST: PHENYTOIN 100 MG CAPSULE.ER ONE; levETIRAcetam 500 MG TAB PO ONE
[2019-07-27 09:04] VITALS: BP 126/81
--- NOTE | 2019-07-27 09:31 | Emergency Department Report ---
Chief Complaint: Medical Clearance Stated Complaint: SEIZURE Time Seen by Provider: 07/27/19 09:22 - HPI History of Present Illness: Patient is a 49-year-old gentleman who is here stating that he needs a reprint of his seizure medications. Patient states he has epilepsy area patient was seen here last night after checking him after his inpatient stay. Patient stated last night that he had nowhere to go and that's why he was checking into the emergency department. Patient was screened out for having acute medical emergency. Patient's currently is stating that he needs a reprint of his prescriptions. Patient's last seizure was 2 days ago. - ROS Review of Systems: All other systems are reviewed and are negative - Exam Vital Signs: Vital Signs 07/27/19 09:02 Temperature 97.5 F L Pulse Rate 68 Respiratory 20 Rate Blood Pressure 126/81 O2 Sat by Pulse 100 Oximetry Physical Exam: Patient is alert and oriented 3 in no acute distress. Patient is ambulatory and is moving all extremities with normal strength. MSE screening note: Focused history and physical exam performed. Due to findings the following was ordered: ED Medical Decision Making - Medical Decision Making Patient has no medical emergency at this time. Patient had a reprint of his prescriptions given to him since he states he does not have them and the patient was discharged to follow up with [facility] ED Disposition for MSE Clinical Impression: Seizure disorder Disposition: MED SCREENING EXAM-LEFT Is pt being admited?: No Does the pt Need Aspirin: No Condition: Stable Prescriptions: Phenytoin [Dilantin] 100 mg PO Q8HR #90 capsule levETIRAcetam [Keppra XR TAB] 750 mg PO BID #60 Time of Disposition:
== END 2019-07-27 09:59 | disposition left against medical advice (07) ==
LOC: ED 08:42
DX: G40.909 Epilepsy, unspecified, not intractable, without status epilepticus (principal)
CPT/HCPCS: 99282

== ENCOUNTER 2019-07-30 08:10 | Emergency (ER) | payer MEDICAID ==
[2019-07-30] MEDS ORDERED: levETIRAcetam 1000 MG/NS 0.75% 1,000 MG/100 ML BAG IV ONE (08:31)
--- NOTE | 2019-07-30 08:39 | Emergency Department Report ---
HPI - General Chief Complaint: Medical Clearance Time Seen by Provider: 07/30/19 08:24 - HPI HPI: Room 26 Patient is a 49-year-old male presenting with a chief complaint reportedly of incontinence. The patient has a history of bipolar disorder and schizophrenia in addition to seizure disorder. The patient himself has no specific complaints whoever's reported the patient was sent to the ED by his brother secondary to "soiling himself." The patient does not answer questions verbally during the interview and will not supply further history Location: [See above] Duration: [See above] Quality: [See above] Severity: [See above] Timing: [See above] Context: [See above] Modifying factors: [See above] Associated signs and symptoms: [see above] ED Past Medical Hx - Past Medical History Previous Medical History?: Yes Hx Hypertension: Yes Hx Seizures: Yes Hx Psychiatric Treatment: Yes (bipolar Schizophrenia) - Surgical History Past Surgical History?: Yes Hx Cholecystectomy: Yes - Family History Family history: no significant - Social History Smoking Status: Unknown if ever smoked Substance Use Type: None - Medications Home Medications: Home Medications Medication Instructions Recorded Confirmed Last Taken Type Paliperidone Palmitate (Nf) 156 mg IM MO #7 ml 06/08/19 07/17/19 Unknown Rx [Invega Sustenna (Nf)] Mirtazapine [Remeron 15mg TAB] 15 mg PO QHS #30 tablet 06/30/19 07/17/19 Unknown Rx risperiDONE [RisperDAL] 2 mg PO BID #60 tablet 06/30/19 07/17/19 Unknown Rx Ondansetron [Zofran ODT TAB] 4 mg PO Q8HR PRN #20 tab.rapdis 07/06/19 07/17/19 Unknown Rx levETIRAcetam [Keppra XR TAB] 750 mg PO BID #60 07/27/19 Unknown Rx Phenytoin [Dilantin] 100 mg PO Q8HR #90 capsule 07/30/19 Unknown Rx ED Review of Systems ROS: Stated complaint: NO COMPLIANT Other details as noted in HPI Comment: Unobtainable due to pts medical conditions Physical Exam - Physical Exam Vital Signs: Vital Signs 07/30/19 08:19 Temperature 98.2 F Pulse Rate 84 Respiratory 16 Rate Blood Pressure 145/74 O2 Sat by Pulse 95 Oximetry Physical Exam: GENERAL: The patient is well-developed well-nourished male with poor hygiene sitting on stretcher not appearing to be in acute distress. [] HEENT: Normocephalic. Atraumatic. Extraocular motions are intact. Patient has moist mucous membranes. NECK: Supple. Trachea midline CHEST/LUNGS: Clear to auscultation. There is no respiratory distress noted. HEART/CARDIOVASCULAR: Regular. There is no tachycardia. There is no gallop rub or murmur. ABDOMEN: Abdomen is soft, nontender. Patient has normal bowel sounds. There is no abdominal distention. SKIN: There is no rash. There is no edema. There is no diaphoresis. NEURO: The patient is awake and alert. The patient is not cooperative with history or neurologic exam. MUSCULOSKELETAL: There is no evidence of acute injury. ED Course Vital Signs 07/30/19 08:19 Temperature 98.2 F Pulse Rate 84 Respiratory 16 Rate Blood Pressure 145/74 O2 Sat by Pulse 95 Oximetry ED Medical Decision Making - Lab Data Result diagrams: 07/30/19 10:03 07/30/19 10:03 - Differential Diagnosis seizure disorder, postictal period, schizophrenia Critical care attestation.: If time is entered above; I have spent that time in minutes in the direct care of this critically ill patient, excluding procedure time. ED Disposition Clinical Impression: Seizure disorder, Subtherapeutic serum dilantin level Disposition: DC-01 TO HOME OR SELFCARE Is pt being admited?: No Does the pt Need Aspirin: No Condition: Stable Additional Instructions: Return to the emergency department should you develop worsening symptoms, inability to tolerate food or liquids, high fever or any other concerns Prescriptions: Phenytoin [Dilantin] 100 mg PO Q8HR #90 capsule Referrals: PRIMARY CARE, [Primary Care Provider] - 3-5 Days
[2019-07-30 10:20] LABS: Hematocrit 40.3 % (35.5-45.6); Hemoglobin 12.8 gm/dl (11.8-15.2); Mean Corpuscular HGB Conc 32 % (32-34); Mean Corpuscular Volume 77 fl (84-94); Platelet Count 210 K/mm3 (140-440); Red Blood Count 5.25 M/mm3 (3.65-5.03); Red Cell Distribution Width 13.9 % (13.2-15.2)
[2019-07-30 10:41] LABS: BUN/Creatinine Ratio 14; Blood Urea Nitrogen 7 mg/dL (9-20); Calcium 9.4 mg/dL (8.4-10.2); Hemolysis Index 112
[2019-07-30 11:29] LABS: Total Cells Counted 100
[2019-07-30 11:30] LABS: Anisocytosis 1+; Band Neutrophils # (Manual) 0.5 K/mm3; Basophils % (Manual) 0 % (0.0-1.8); Eosinophils % (Manual) 0 % (0.0-4.3); Hypochromasia 1+
[2019-07-30 11:31] LABS: Platelet Estimate Cons
[2019-07-30] MEDS ORDERED: FOSPHENYTOIN 1,000 MG.PE in SODIUM CHLORIDE 0.9% 100 ML IV ONE (13:43)
[2019-07-30 14:22] VITALS: BP 136/48
== END 2019-07-30 16:43 | disposition home or self-care (01) ==
LOC: ED 08:10
DX: G40.909 Epilepsy, unspecified, not intractable, without status epilepticus (principal); R89.2 Abnormal level of other drugs, medicaments and biological substances in specimens from other organs, systems and tissues; I10 Essential (primary) hypertension; F31.9 Bipolar disorder, unspecified; Z90.49 Acquired absence of other specified parts of digestive tract; Z79.899 Other long term (current) drug therapy
CPT/HCPCS: 36415; 80048; 80185; 83735; 85007; 85025; 96365; 96375; 99284; J1953; Q2009; 80320; G0480

== ENCOUNTER 2019-08-02 03:44 | Emergency (ER) | payer MEDICAID | END 2019-08-02 04:00 | disposition left against medical advice (07) | LOC: ED 03:44 | DX: R11.10 Vomiting, unspecified (principal); Z53.21 Procedure and treatment not carried out due to patient leaving prior to being seen by health care provider ==

== ENCOUNTER 2019-08-12 10:17 | Emergency (ER) | payer MEDICAID ==
[2019-08-12] MEDS ORDERED: levETIRAcetam 500 MG TAB PO ONE (10:51)
--- NOTE | 2019-08-12 10:54 | Emergency Department Report ---
ED General Adult HPI - General Stated complaint: SEIZURE Time Seen by Provider: 08/12/19 10:36 Source: patient, EMS Mode of arrival: Ambulatory - History of Present Illness Initial comments: The patient presents to the ED via EMS without a chief complaint. Patient was discharged from the hospital yesterday and upon EMS taken him home there was no one at the home to answer the door. Patient states he does not have a hernandez to the home. Patient states he lives with his brother. She denies chest pain, shortness breath, or headache Severity scale (0 -10): 0 Improves with: none Worsens with: none Associated Symptoms: denies other symptoms Treatments Prior to Arrival: none - Related Data Previous Rx's Medication Instructions Recorded Last Taken Type Paliperidone Palmitate (Nf) 156 mg IM MO #7 ml 06/08/19 Unknown Rx [Invega Sustenna (Nf)] Mirtazapine [Remeron 15mg TAB] 15 mg PO QHS #30 tablet 06/30/19 Unknown Rx risperiDONE [RisperDAL] 2 mg PO BID #60 tablet 06/30/19 Unknown Rx Ondansetron [Zofran ODT TAB] 4 mg PO Q8HR PRN #20 tab.rapdis 07/06/19 Unknown Rx Phenytoin [Dilantin] 100 mg PO Q8HR #90 capsule 07/30/19 Unknown Rx Acetaminophen [Acetaminophen TAB] 2 tab PO Q4H PRN #15 tablet 08/11/19 Unknown Rx levETIRAcetam [Keppra TAB] 500 mg PO BID #60 tablet 08/11/19 Unknown Rx Allergies Allergy/AdvReac Type Severity Reaction Status Date / Time No Known Allergies Allergy Verified 08/06/19 09:58 ED Review of Systems ROS: Stated complaint: SEIZURE Other details as noted in HPI Comment: All other systems reviewed and negative Constitutional: denies: chills, fever Eyes: denies: eye pain, eye discharge, vision change ENT: denies: ear pain, throat pain Respiratory: denies: cough, shortness of breath, wheezing Cardiovascular: denies: chest pain, palpitations Endocrine: no symptoms reported Gastrointestinal: denies: abdominal pain, nausea, diarrhea Genitourinary: denies: urgency, dysuria Musculoskeletal: denies: back pain, joint swelling, arthralgia Skin: denies: rash, lesions Neurological: denies: headache, weakness, paresthesias Psychiatric: denies: anxiety, depression Hematological/Lymphatic: denies: easy bleeding, easy bruising ED Past Medical Hx - Past Medical History Hx Hypertension: Yes Hx Congestive Heart Failure: No Hx Diabetes: No Hx Seizures: Yes Hx Psychiatric Treatment: Yes (bipolar Schizophrenia) Hx Asthma: No Hx COPD: No Hx HIV: No - Surgical History Hx Cholecystectomy: Yes - Social History Smoking Status: Unknown if ever smoked - Medications Home Medications: Home Medications Medication Instructions Recorded Confirmed Last Taken Type Paliperidone Palmitate (Nf) 156 mg IM MO #7 ml 06/08/19 08/07/19 Unknown Rx [Invega Sustenna (Nf)] Mirtazapine [Remeron 15mg TAB] 15 mg PO QHS #30 tablet 06/30/19 08/07/19 Unknown Rx risperiDONE [RisperDAL] 2 mg PO BID #60 tablet 06/30/19 08/07/19 Unknown Rx Ondansetron [Zofran ODT TAB] 4 mg PO Q8HR PRN #20 tab.rapdis 07/06/19 08/07/19 Unknown Rx Phenytoin [Dilantin] 100 mg PO Q8HR #90 capsule 07/30/19 08/07/19 Unknown Rx Acetaminophen [Acetaminophen TAB] 2 tab PO Q4H PRN #15 tablet 08/11/19 Unknown Rx levETIRAcetam [Keppra TAB] 500 mg PO BID #60 tablet 08/11/19 Unknown Rx ED Physical Exam - General General appearance: alert, in no apparent distress - Head Head exam: Present: atraumatic, normocephalic - Eye Eye exam: Present: normal appearance, PERRL, EOMI - ENT ENT exam: Present: mucous membranes moist - Neck Neck exam: Present: normal inspection - Respiratory Respiratory exam: Present: normal lung sounds bilaterally. Absent: respiratory distress - Cardiovascular Cardiovascular Exam: Present: regular rate, normal rhythm. Absent: systolic murmur, diastolic murmur, rubs, gallop - GI/Abdominal GI/Abdominal exam: Present: soft, normal bowel sounds. Absent: distended, tenderness - Rectal Rectal exam: Present: deferred - Extremities Exam Extremities exam: Present: normal inspection - Back Exam Back exam: Present: normal inspection - Neurological Exam Neurological exam: Present: alert, oriented X3, CN II-XII intact. Absent: motor sensory deficit - Psychiatric Psychiatric exam: Present: normal affect, normal mood - Skin Skin exam: Present: warm, dry, intact, normal color. Absent: rash Critical care attestation.: If time is entered above; I have spent that time in minutes in the direct care of this critically ill patient, excluding procedure time. ED Disposition Clinical Impression: History of seizure Disposition: DC-01 TO HOME OR SELFCARE Is pt being admited?: No Does the pt Need Aspirin: No Condition: Stable Instructions: Recurrent Seizures Adult (ED) Additional Instructions: return if worse Referrals: PRIMARY CARE,MD [Primary Care Provider] - 3-5 Days [facility] [Provider Group] - 3-5 Days [facility] [Provider Group] - 3-5 Days Time of Disposition: 10:53
[2019-08-13 11:21] VITALS: BP 126/89
[2019-08-13] MEDS ORDERED: ONDANSETRON 4 MG ODT TAB PO PRN (13:07)
[2019-08-13] MEDS ORDERED: ACETAMINOPHEN 325 MG TAB PO PRN (13:07)
[2019-08-13] MEDS: PHENYTOIN 100 MG CAPSULE.ER PO SCH ×2 (13:32→21:23)
[2019-08-13] MEDS: levETIRAcetam 500 MG TAB PO SCH ×2 (13:32→21:23)
[2019-08-13] MEDS: risperiDONE 1 MG TAB PO SCH ×2 (13:33→21:23)
[2019-08-13] MEDS: MIRTAZAPINE 15 MG TAB PO SCH (21:24)
[2019-08-14] MEDS: risperiDONE 1 MG TAB PO SCH (01:26)
[2019-08-14] MEDS: levETIRAcetam 500 MG TAB PO SCH (01:26)
[2019-08-14] MEDS: MIRTAZAPINE 15 MG TAB PO SCH (01:26)
[2019-08-14] MEDS: PHENYTOIN 100 MG CAPSULE.ER PO SCH (01:27)
== END 2019-08-14 02:30 | disposition home or self-care (01) ==
LOC: ED 10:17
DX: R56.9 Unspecified convulsions (principal); I10 Essential (primary) hypertension; F31.89 Other bipolar disorder; F20.89 Other schizophrenia; Z90.49 Acquired absence of other specified parts of digestive tract; Z79.899 Other long term (current) drug therapy
CPT/HCPCS: 99282

== ENCOUNTER 2019-08-16 12:44 | Emergency (ER) | payer MEDICAID ==
--- NOTE | 2019-08-16 12:58 | Event Note ---
ED Screening Note Date of service: 08/16/19 Time: 12:57 ED Screening Note: Pt complains of seizure x today This initial assessment/diagnostic orders/clinical plan/treatment(s) is/are subject to change based on patients health status, clinical progression and re- assessment by fellow clinical providers in the ED. Further treatment and workup at subsequent clinical providers discretion. Patient/guardian urged not to elope from the ED as their condition may be serious if not clinically assessed and managed. Initial orders include: labs
[2019-08-16 15:10] LABS: Basophils % (Auto) 0.5 % (0.0-1.8); Eosinophils # (Auto) 0.1 K/mm3 (0.0-0.4); Eosinophils % (Auto) 1.1 % (0.0-4.3); Hemoglobin 11.3 gm/dl (11.8-15.2); Lymphocytes # (Auto) 0.6 K/mm3 (1.2-5.4); Lymphocytes % (Auto) 8.9 % (13.4-35.0); Mean Corpuscular HGB Conc 32 % (32-34); Mean Corpuscular Volume 77 fl (84-94); Monocytes # (Auto) 0.6 K/mm3 (0.0-0.8); Monocytes % (Auto) 9.4 % (0.0-7.3); Platelet Count 319 K/mm3 (140-440); Red Blood Count 4.64 M/mm3 (3.65-5.03); Red Cell Distribution Width 14.2 % (13.2-15.2)
[2019-08-16 15:21] LABS: BUN/Creatinine Ratio 10; Blood Urea Nitrogen 6 mg/dL (9-20); Calcium 8.8 mg/dL (8.4-10.2); Hemolysis Index 3
[2019-08-16] MEDS ORDERED: PHENYTOIN 100 MG CAPSULE.ER PO ONE (16:22)
--- NOTE | 2019-08-16 16:31 | Emergency Department Report ---
ED Seizure HPI - General Chief Complaint: Seizure Stated Complaint: POSS SEIZURE Time Seen by Provider: 08/16/19 12:56 Source: patient, EMS Mode of arrival: Ambulatory Limitations: Other - History of Present Illness Initial Comments: Mr Recinos is 49 years old male, known to me and to this facility due to his frequent ER visits. Patient has a known history of seizure on Dilantin 300 mg, noncompliant with his medication. Patient presented to the ER stating that he had one episode of seizure today. Patient stated that he was kicked out of the home by his brother. Patient presented to the ER with his belongings. Patient stated that he did not take his medication today. He stated that he will have seizure when he go outside in the cold. He also asking for a place to stay stating that he is homeless now. MD Complaint: seizure - Related Data Previous Rx's Medication Instructions Recorded Last Taken Type Paliperidone Palmitate (Nf) 156 mg IM MO #7 ml 06/08/19 Unknown Rx [Invega Sustenna (Nf)] Mirtazapine [Remeron 15mg TAB] 15 mg PO QHS #30 tablet 06/30/19 Unknown Rx risperiDONE [RisperDAL] 2 mg PO BID #60 tablet 06/30/19 Unknown Rx Ondansetron [Zofran ODT TAB] 4 mg PO Q8HR PRN #20 tab.rapdis 07/06/19 Unknown Rx Phenytoin [Dilantin] 100 mg PO Q8HR #90 capsule 07/30/19 Unknown Rx Acetaminophen [Acetaminophen TAB] 2 tab PO Q4H PRN #15 tablet 08/11/19 Unknown Rx levETIRAcetam [Keppra TAB] 500 mg PO BID #60 tablet 08/11/19 Unknown Rx Allergies Allergy/AdvReac Type Severity Reaction Status Date / Time No Known Allergies Allergy Verified 08/06/19 09:58 ED Review of Systems ROS: Stated complaint: POSS SEIZURE Other details as noted in HPI Comment: All other systems reviewed and negative Constitutional: denies: chills, fever Respiratory: denies: cough, shortness of breath, SOB with exertion Cardiovascular: denies: chest pain Gastrointestinal: denies: abdominal pain, nausea, vomiting Neurological: denies: headache, weakness, numbness, paresthesias, confusion ED Past Medical Hx - Past Medical History Hx Hypertension: Yes Hx Congestive Heart Failure: No Hx Diabetes: No Hx Seizures: Yes Hx Psychiatric Treatment: Yes (bipolar Schizophrenia) Hx Asthma: No Hx COPD: No Hx HIV: No - Surgical History Hx Cholecystectomy: Yes - Social History Smoking Status: Never Smoker Substance Use Type: None - Medications Home Medications: Home Medications Medication Instructions Recorded Confirmed Last Taken Type Paliperidone Palmitate (Nf) 156 mg IM MO #7 ml 06/08/19 08/07/19 Unknown Rx [Invega Sustenna (Nf)] Mirtazapine [Remeron 15mg TAB] 15 mg PO QHS #30 tablet 06/30/19 08/07/19 Unknown Rx risperiDONE [RisperDAL] 2 mg PO BID #60 tablet 06/30/19 08/07/19 Unknown Rx Ondansetron [Zofran ODT TAB] 4 mg PO Q8HR PRN #20 tab.rapdis 07/06/19 08/07/19 Unknown Rx Phenytoin [Dilantin] 100 mg PO Q8HR #90 capsule 07/30/19 08/07/19 Unknown Rx Acetaminophen [Acetaminophen TAB] 2 tab PO Q4H PRN #15 tablet 08/11/19 Unknown Rx levETIRAcetam [Keppra TAB] 500 mg PO BID #60 tablet 08/11/19 Unknown Rx ED Physical Exam - General Limitations: Other General appearance: alert, in no apparent distress - Head Head exam: Present: atraumatic, normocephalic, normal inspection - Eye Eye exam: Present: normal appearance - ENT ENT exam: Present: normal exam, normal orophraynx, mucous membranes moist - Neck Neck exam: Present: normal inspection, full ROM. Absent: tenderness, meningismus, lymphadenopathy, thyromegaly - Respiratory Respiratory exam: Present: normal lung sounds bilaterally - Cardiovascular Cardiovascular Exam: Present: regular rate, normal rhythm, normal heart sounds - GI/Abdominal GI/Abdominal exam: Present: soft, normal bowel sounds. Absent: distended, tenderness, guarding, rebound, rigid - Extremities Exam Extremities exam: Present: normal inspection, full ROM, normal capillary refill. Absent: tenderness - Back Exam Back exam: Present: normal inspection, full ROM. Absent: CVA tenderness (R), CVA tenderness (L) - Neurological Exam Neurological exam: Present: alert, oriented X3, CN II-XII intact, normal gait, reflexes normal. Absent: abnormal gait, motor sensory deficit - Psychiatric Psychiatric exam: Present: normal mood. Absent: agitated, homicidal ideation, suicidal ideation - Skin Skin exam: Present: warm, intact, normal color ED Course Vital Signs 08/16/19 12:56 Temperature 98.7 F Pulse Rate 94 H Respiratory 18 Rate Blood Pressure 123/61 O2 Sat by Pulse 98 Oximetry ED Medical Decision Making - Lab Data Result diagrams: 08/16/19 14:30 08/16/19 14:30 - Medical Decision Making Mr Recinos is 49 years old male, known to me and to this facility due to his frequent ER visits. Patient has a known history of seizure on Dilantin 300 mg, noncompliant with his medication. Patient presented to the ER stating that he had one episode of seizure today. Patient stated that he was kicked out of the home by his brother. Patient presented to the ER with his belongings. Patient stated that he did not take his medication today. He stated that he will have s eizure when he go outside in the cold. He also asking for a place to stay stating that he is homeless now. Patient labs reviewed and is unremarkable. No seizure activity observed in the ER. Patient received Dilantin 300 mg by mouth. A consult for case management and requested for placement. Critical care attestation.: If time is entered above; I have spent that time in minutes in the direct care of this critically ill patient, excluding procedure time. ED Disposition Clinical Impression: Seizure disorder, Noncompliance, Homeless Disposition: DC-01 TO HOME OR SELFCARE Is pt being admited?: No Condition: Stable Instructions: Recurrent Seizures Adult (ED) Referrals: [facility] [Provider Group] - 3-5 Days
[2019-08-18] MEDS ORDERED: LORazepam 2 MG/ML VIAL ONE (10:23)
[2019-08-18] MEDS ORDERED: levETIRAcetam 1000 MG/NS 0.75% 1,000 MG/100 ML BAG IV ONE ×2 (10:26→10:28)
[2019-08-18] MEDS ORDERED: LORazepam 2 MG/ML VIAL IV ONE (10:28)
--- NOTE | 2019-08-18 20:25 | Cat Scan Report ---
CT head/brain wo con INDICATION / CLINICAL INFORMATION: 49 years Male; hematoma, post fall. TECHNIQUE: Routine CT head without contrast. All CT scans at this location are performed using CT dos e reduction for ALARA by means of automated exposure control. COMPARISON: 08/06/2019 FINDINGS: BRAIN / INTRACRANIAL CONTENTS: Asymmetrically prominent cerebellar atrophy seen, when compared with t he degree of cerebral atrophy present. Would question chronic EtOH usage, chronic antiseizure medicat ion, or primary cerebellar degeneration. Similar findings seen on prior. No acute hemorrhage, mass effect, midline shift, hydrocephalus, or acute, large territorial infarct. There are areas of decreased attenuation in the white matter of the cerebral hemispheres. These are n onspecific findings and may be related to microangiopathy (hypertension, diabetes, atherosclerosis), given the patient's age. It might be difficult to evaluate for small areas of ischemia without diffus ion imaging by MRI. CRANIOCERVICAL JUNCTION: No significant abnormality. ORBITS: No significant abnormality of visualized orbits. SINUSES / MASTOIDS: Minimal mucosal thickening seen in the ethmoids. There is partial opacification o f the inferior mastoids on the right, as well. ADDITIONAL FINDINGS: Subcutaneous soft tissue swelling seen in the left frontoparietal region. There is no evidence of underlying calvarial fracture. Temporomandibular joint disease noted bilaterally. No significant atherosclerotic disease appreciated. IMPRESSION: 1. No focal mass, intracranial hemorrhage, hydrocephalus, or acute, large territorial infarct. 2. Asymmetrically prominent cerebellar atrophy, as described above. Signer Name: Zeus Platt MD, III Signed: 08/18/2019 8:20 PM Workstation Name: [id number]
[2019-08-19] MEDS: levETIRAcetam 500 MG TAB PO SCH ×3 (00:58→22:25)
[2019-08-20] MEDS: levETIRAcetam 500 MG TAB PO SCH ×2 (10:20→22:42)
[2019-08-21 00:55] VITALS: BP 116/70
[2019-08-21] MEDS ORDERED: levETIRAcetam 500 MG TAB PO ONE (12:25)
[2019-08-21] MEDS: levETIRAcetam 500 MG TAB PO SCH (12:26)
== END 2019-08-21 17:22 | disposition home or self-care (01) ==
LOC: ED 12:44
DX: G40.909 Epilepsy, unspecified, not intractable, without status epilepticus (principal); I10 Essential (primary) hypertension; F25.0 Schizoaffective disorder, bipolar type; Z91.14 Patient's other noncompliance with medication regimen; Z59.0 Homelessness; Z90.49 Acquired absence of other specified parts of digestive tract; Z79.899 Other long term (current) drug therapy
CPT/HCPCS: 36415; 70450; 80048; 83735; 85025; 96365; 96375; 99285; J1953; J2060

== ENCOUNTER 2019-09-11 11:58 | Emergency (ER) | payer MEDICAID ==
[2019-09-11] MEDS ORDERED: levETIRAcetam 1000 MG/NS 0.75% 1,000 MG/100 ML BAG IV ONE ×2 (12:00→12:42)
[2019-09-11] MEDS ORDERED: levETIRAcetam 1,000 MG in DEXTROSE 5% IN WATER 100 ML IV ONE (12:51)
--- NOTE | 2019-09-11 13:30 | Emergency Department Report ---
ED Seizure HPI - General Chief Complaint: Seizure Stated Complaint: SEIZURE Time Seen by Provider: 09/11/19 13:23 Source: EMS Mode of arrival: Ambulatory Limitations: Other - History of Present Illness Initial Comments: 49-year-old -[place] male well known to the emergency department presents complaining of seizure activity. He was brought in via EMS and taken off for triage. Prior to arrival seizure was not witnessed while in triage she had another seizure episode resulting in him falling forward and striking the front of his head and developing hematoma. This accompanied the the the head injury to the occipital region of this head was lead also related to come to the emergency department Witnessed:: Yes Trauma: No Seizure History: known seizure disorder (and currently out of his medications) Place: home (and 1 episode here in the triage area of emergency department) Possible Precipitating Event: head injury Associated Symptoms: denies other symptoms Treatments Prior to Arrival: other (out of his medications) - Related Data Previous Rx's Medication Instructions Recorded Last Taken Type Paliperidone Palmitate (Nf) 156 mg IM MO #7 ml 06/08/19 Unknown Rx [Invega Sustenna (Nf)] Mirtazapine [Remeron 15mg TAB] 15 mg PO QHS #30 tablet 06/30/19 Unknown Rx risperiDONE [RisperDAL] 2 mg PO BID #60 tablet 06/30/19 Unknown Rx Ondansetron [Zofran ODT TAB] 4 mg PO Q8HR PRN #20 tab.rapdis 07/06/19 Unknown Rx Phenytoin [Dilantin] 100 mg PO Q8HR #90 capsule 07/30/19 Unknown Rx Acetaminophen [Acetaminophen TAB] 2 tab PO Q4H PRN #15 tablet 08/11/19 Unknown Rx levETIRAcetam [Keppra TAB] 500 mg PO BID #60 tablet 08/11/19 Unknown Rx levETIRAcetam [Keppra TAB] 1,000 mg PO BID #30 tab 09/11/19 Unknown Rx Allergies Allergy/AdvReac Type Severity Reaction Status Date / Time No Known Allergies Allergy Verified 09/11/19 11:59 ED Review of Systems ROS: Stated complaint: SEIZURE Other details as noted in HPI Comment: All other systems reviewed and negative ED Past Medical Hx - Past Medical History Hx Hypertension: Yes Hx Congestive Heart Failure: No Hx Diabetes: No Hx Seizures: Yes Hx Psychiatric Treatment: Yes (bipolar Schizophrenia) Hx Asthma: No Hx COPD: No Hx HIV: No - Surgical History Hx Cholecystectomy: Yes - Social History Smoking Status: Never Smoker Substance Use Type: None - Medications Home Medications: Home Medications Medication Instructions Recorded Confirmed Last Taken Type Paliperidone Palmitate (Nf) 156 mg IM MO #7 ml 06/08/19 08/07/19 Unknown Rx [Invega Sustenna (Nf)] Mirtazapine [Remeron 15mg TAB] 15 mg PO QHS #30 tablet 06/30/19 08/07/19 Unknown Rx risperiDONE [RisperDAL] 2 mg PO BID #60 tablet 06/30/19 08/07/19 Unknown Rx Ondansetron [Zofran ODT TAB] 4 mg PO Q8HR PRN #20 tab.rapdis 07/06/19 08/07/19 Unknown Rx Phenytoin [Dilantin] 100 mg PO Q8HR #90 capsule 07/30/19 08/07/19 Unknown Rx Acetaminophen [Acetaminophen TAB] 2 tab PO Q4H PRN #15 tablet 08/11/19 Unknown Rx levETIRAcetam [Keppra TAB] 500 mg PO BID #60 tablet 08/11/19 Unknown Rx levETIRAcetam [Keppra TAB] 1,000 mg PO BID #30 tab 09/11/19 Unknown Rx ED Physical Exam - General Limitations: Other General appearance: alert, in no apparent distress - Head Head exam: Present: atraumatic, normocephalic - Eye Eye exam: Present: normal appearance, PERRL, EOMI Pupils: Present: normal accommodation - ENT ENT exam: Present: mucous membranes moist - Neck Neck exam: Present: normal inspection - Respiratory Respiratory exam: Present: normal lung sounds bilaterally. Absent: respiratory distress - Cardiovascular Cardiovascular Exam: Present: regular rate, normal rhythm. Absent: systolic murmur, diastolic murmur, rubs, gallop - GI/Abdominal GI/Abdominal exam: Present: soft, normal bowel sounds - Rectal Rectal exam: Present: deferred - Extremities Exam Extremities exam: Present: normal inspection - Back Exam Back exam: Present: normal inspection - Neurological Exam Neurological exam: Present: alert, oriented X3 - Psychiatric Psychiatric exam: Present: normal affect, normal mood - Skin Skin exam: Present: warm, dry, intact, normal color. Absent: rash ED Medical Decision Making - Lab Data Result diagrams: 09/11/19 14:20 09/11/19 14:20 - Radiology Data Radiology results: report reviewed [facility] [address] [place] [address] Cat Scan Report Signed Patient: NILSON FLOWERS MR#: [id number] : 1970 Acct:[id number] Age/Sex: 49 / M ADM Date: 09/11/19 Loc: ED Attending Dr: Ordering Physician: LAURA VORA DO Date of Service: 09/11/19 Procedure(s): CT head/brain wo con Accession Number(s): [id number] cc: LAURA VORA DO CT head/brain wo con INDICATION / CLINICAL INFORMATION: seizure with fall. TECHNIQUE: All CT scans at this location are performed using CT dose reduction for ALARA by means of automated exposure control. COMPARISON: Multiple prior head CTs, the most recent from 08/18/2019. FINDINGS: Noncontrast head CT again demonstrates normal supratentorial appearance with unremarkable ventricles and sulci. No acute or recent infarct, hemorrhage, mass-effect or midline shift. No a bnormal extra-axial fluid collections. Stable posterior fossa with mild to moderate cerebellar atrophy, again disproportionate to the supratentorial appearance. Preserved basilar cisterns. Normal eye globes. Slight rightward nasal septal deviation anteriorly. Clear imaged paranasal sinuses and left mastoid air cells. Mild right mastoid air cell opacification again seen. Interval resolution of left supraorbital swelling. However, mild frontal scalp swelling anteriorly as on axial image 19 and greater, approximately 2.8 cm left paramidline/parietal scalp swelling/hematoma now noted. Intact calvarium. Few small radiopaque dental material. Multilevel cervical spondylosis. IMPRESSION: 1. No acute intracranial CT abnormality, though new anterior and posterior scalp swelling/hematoma identified in this patient with interval resolution of left supraorbital/temporal soft tissue swelling since earlier this month, as described. Please correlate. 2. Other findings as cerebellar atrophy and mild right mastoiditis, amongst others, as above. Signer Name: Sean Bridges Signed: 09/11/2019 1:53 PM Workstation Name: [id number] Transcribed By: RS Dictated By: SEAN BRIDGES MD Electronically Authenticated By: SEAN BRIDGES MD Signed Date/Time: 09/11/19 1353 DD/ 1340 TD/TT: [facility] [address] [place] [address] Cat Scan Report Signed Patient: NILSON FLOWERS MR#: [id number] : 1970 Acct:[id number] Age/Sex: 49 / M ADM Date: 09/11/19 Loc: ED Attending Dr: Ordering Physician: LAURA VORA DO Date of Service: 09/11/19 Procedure(s): CT cervical spine wo con Accession Number(s): [id number] cc: LAURA VORA DO CT cervical spine wo con INDICATION / CLINICAL INFORMATION: 49 years Male; MAIN: seizure with fall AMS. TECHNIQUE: Axial CT images of the cervical spine were obtained. Sagittal and coronal reformatted images were produced. All CT scans at this location are performed using CT dose reduction for ALARA by means of automated exposure control. COMPARISON: The study is compared to the previous CT cervical spine of 04/22/2019. FINDINGS: POST-SURGICAL CHANGES: None. ALIGNMENT: There is no significant developing spondylolisthesis. VERTEBRAE: There are persistent multilevel degenerative disc changes with prominent endplate findings at C3-4 and C6-7. There is also notable anterior osteophytic formation at C4-5 and C5-C6 at. The above findings correlate with previous CT without clear evidence of acute fracture. INTRAVERTEBRAL DISCS: The left facet and uncovertebral joint hypertrophy at C3- 4 results in marked left neural foraminal narrowing. The spondylosis encroaches on the left lateral recess. The disc bulge at C4-5 appears to efface the ventral subarachnoid space. There is mild left neural foraminal narrowing at C5-C6 at. The spondylosis at C6-7 appears to efface the ventral subarachnoid space. There is moderate left neural foraminal narrowing. PARASPINAL SOFT TISSUES: No prevertebral soft tissue fluid collections are identified. There is heterogeneous appearance of the thyroid gland which is nonspecific. ADDITIONAL FINDINGS: None. IMPRESSION: 1. There is no clear CT evidence of acute fracture involving the cervical spine. 2. There are continued multilevel degenerative changes as detailed above. Signer Name: Slade Nation MD Signed: 09/11/2019 2:08 PM Workstation Name: [id number] Transcribed By: MR Dictated By: Slade Nation MD Electronically Authenticated By: Slade Nation MD Signed Date/Time: 09/11/19 140 DD/ 1401 TD/TT: - Medical Decision Making This patient presents with symptoms consistent with acute seizure, most likely due to a severe lack of medication compliance. I considered, but think less likely, secondary etiologies of epileptic seizures to include drug / toxin etiologies (ETOH, stimulants, medication side effects), metabolic disturbances (glucose, Na), acute [employer] infections (meningitis, encephalitis, abscess), ICH / tumor / CVA. Presentation not consistent with non-epileptic type seizure to include syncope, neurologic etiologies (vertebrobasilar insufficiency, movement disorder, migraine), impact seizure related to head trauma. Plan: BZDs, labs, CT brain and the neck were both normal, seizure precautions, educated him extensively on the importance of medication compliance reassess Critical care attestation.: If time is entered above; I have spent that time in minutes in the direct care of this critically ill patient, excluding procedure time. ED Disposition Clinical Impression: Seizure disorder Disposition: DC-01 TO HOME OR SELFCARE Is pt being admited?: No Does the pt Need Aspirin: No Condition: Stable Instructions: Recurrent Seizures Adult (ED) Prescriptions: levETIRAcetam [Keppra TAB] 1,000 mg PO BID #30 tab
--- NOTE | 2019-09-11 13:57 | Cat Scan Report ---
CT head/brain wo con INDICATION / CLINICAL INFORMATION: seizure with fall. TECHNIQUE: All CT scans at this location are performed using CT dose reduction for ALARA by means of automated exposure control. COMPARISON: Multiple prior head CTs, the most recent from 08/18/2019. FINDINGS: Noncontrast head CT again demonstrates normal supratentorial appearance with unremarkable v entricles and sulci. No acute or recent infarct, hemorrhage, mass-effect or midline shift. No abnor mal extra-axial fluid collections. Stable posterior fossa with mild to moderate cerebellar atrophy, again disproportionate to the supratentorial appearance. Preserved basilar cisterns. Normal eye globes. Slight rightward nasal septal deviation anteriorly. Clear imaged paranasal sinus es and left mastoid air cells. Mild right mastoid air cell opacification again seen. Interval resol ution of left supraorbital swelling. However, mild frontal scalp swelling anteriorly as on axial eli ge 19 and greater, approximately 2.8 cm left paramidline/parietal scalp swelling/hematoma now noted. Intact calvarium. Few small radiopaque dental material. Multilevel cervical spondylosis. IMPRESSION: 1. No acute intracranial CT abnormality, though new anterior and posterior scalp swelling/hematoma i dentified in this patient with interval resolution of left supraorbital/temporal soft tissue swelling since earlier this month, as described. Please correlate. 2. Other findings as cerebellar atrophy and mild right mastoiditis, amongst others, as above. Signer Name: Lauren Severino Signed: 09/11/2019 1:53 PM Workstation Name: [id number]
--- NOTE | 2019-09-11 14:13 | Cat Scan Report ---
CT cervical spine wo con INDICATION / CLINICAL INFORMATION: 49 years Male; MAIN: seizure with fall AMS. TECHNIQUE: Axial CT images of the cervical spine were obtained. Sagittal and coronal reformatted images were pr oduced. All CT scans at this location are performed using CT dose reduction for ALARA by means of aut omated exposure control. COMPARISON: The study is compared to the previous CT cervical spine of 04/22/2019. FINDINGS: POST-SURGICAL CHANGES: None. ALIGNMENT: There is no significant developing spondylolisthesis. VERTEBRAE: There are persistent multilevel degenerative disc changes with prominent endplate findings at C3-4 and C6-7. There is also notable anterior osteophytic formation at C4-5 and C5-C6 at. The abo ve findings correlate with previous CT without clear evidence of acute fracture. INTRAVERTEBRAL DISCS: The left facet and uncovertebral joint hypertrophy at C3-4 results in marked le ft neural foraminal narrowing. The spondylosis encroaches on the left lateral recess. The disc bulge at C4-5 appears to efface the ventral subarachnoid space. There is mild left neural foraminal narrowing at C5-C6 at. The spondylosis at C6-7 appears to efface the ventral subarachnoid space. There is moderate left neural foraminal narrowing. PARASPINAL SOFT TISSUES: No prevertebral soft tissue fluid collections are identified. There is heter ogeneous appearance of the thyroid gland which is nonspecific. ADDITIONAL FINDINGS: None. IMPRESSION: 1. There is no clear CT evidence of acute fracture involving the cervical spine. 2. There are continued multilevel degenerative changes as detailed above. Signer Name: Slade Nation MD Signed: 09/11/2019 2:08 PM Workstation Name: [id number]
[2019-09-11 14:46] LABS: Basophils # (Auto) 0.1 K/mm3 (0.0-0.1); Eosinophils # (Auto) 0.1 K/mm3 (0.0-0.4); Eosinophils % (Auto) 1.1 % (0.0-4.3); Hematocrit 43.2 % (35.5-45.6); Hemoglobin 13.4 gm/dl (11.8-15.2); Lymphocytes # (Auto) 0.9 K/mm3 (1.2-5.4); Lymphocytes % (Auto) 15.5 % (13.4-35.0); Mean Corpuscular HGB Conc 31 % (32-34); Mean Corpuscular Volume 78 fl (84-94); Monocytes # (Auto) 0.6 K/mm3 (0.0-0.8); Monocytes % (Auto) 10.3 % (0.0-7.3); Red Blood Count 5.57 M/mm3 (3.65-5.03); Red Cell Distribution Width 14.4 % (13.2-15.2)
[2019-09-11 14:51] LABS: Platelet Count 170 K/mm3 (140-440)
[2019-09-11 15:09] LABS: Alanine Aminotransferase 11 units/L (7-56); Albumin 4.2 g/dL (3.9-5); BUN/Creatinine Ratio 12; Blood Urea Nitrogen 6 mg/dL (9-20); Calcium 9.5 mg/dL (8.4-10.2); Hemolysis Index 28
[2019-09-11 17:24] VITALS: BP 121/80
== END 2019-09-11 18:03 | disposition home or self-care (01) ==
LOC: ED 11:58
DX: G40.909 Epilepsy, unspecified, not intractable, without status epilepticus (principal); I10 Essential (primary) hypertension; F20.89 Other schizophrenia; Z90.49 Acquired absence of other specified parts of digestive tract; Z79.899 Other long term (current) drug therapy
CPT/HCPCS: 36415; 70450; 72125; 80053; 85025; 96365; 99284; J1953

== ENCOUNTER 2019-09-18 13:51 | Emergency (ER) | payer MEDICAID ==
[2019-09-18] MEDS ORDERED: levETIRAcetam 1000 MG/NS 0.75% 1,000 MG/100 ML BAG IV ONE (14:27)
[2019-09-18] MEDS ORDERED: FOSPHENYTOIN 1,000 MG.PE in SODIUM CHLORIDE 0.9% 100 ML IV ONE (16:41)
--- NOTE | 2019-09-18 17:30 | Emergency Department Report ---
ED Seizure HPI - General Chief Complaint: Seizure Stated Complaint: CONVULSIONS Time Seen by Provider: 09/18/19 14:22 Source: patient, EMS Mode of arrival: Ambulatory Limitations: Altered Mental Status - History of Present Illness Initial Comments: 49-year-old male with a past medical history seizures with frequent ER visits secondary to seizures presents to Hospital a complaint of seizure. As per medical record patient is on Keppra and has also been on Dilantin in the past. Patient states he's been compliant with his medications. No pain reported. - Related Data Previous Rx's Medication Instructions Recorded Last Taken Type Paliperidone Palmitate (Nf) 156 mg IM MO #7 ml 06/08/19 Unknown Rx [Invega Sustenna (Nf)] Mirtazapine [Remeron 15mg TAB] 15 mg PO QHS #30 tablet 06/30/19 Unknown Rx risperiDONE [RisperDAL] 2 mg PO BID #60 tablet 06/30/19 Unknown Rx Ondansetron [Zofran ODT TAB] 4 mg PO Q8HR PRN #20 tab.rapdis 07/06/19 Unknown Rx Acetaminophen [Acetaminophen TAB] 2 tab PO Q4H PRN #15 tablet 08/11/19 Unknown Rx levETIRAcetam [Keppra TAB] 500 mg PO BID #60 tablet 08/11/19 Unknown Rx Phenytoin [Dilantin] 100 mg PO Q8HR #90 capsule 09/18/19 Unknown Rx levETIRAcetam [Keppra TAB] 1,000 mg PO BID #60 tab 09/18/19 Unknown Rx Allergies Allergy/AdvReac Type Severity Reaction Status Date / Time No Known Allergies Allergy Verified 09/11/19 11:59 ED Review of Systems ROS: Stated complaint: CONVULSIONS Other details as noted in HPI Comment: All other systems reviewed and negative ED Past Medical Hx - Past Medical History Hx Hypertension: Yes Hx Congestive Heart Failure: No Hx Diabetes: No Hx Seizures: Yes Hx Psychiatric Treatment: Yes (bipolar Schizophrenia) Hx Asthma: No Hx COPD: No Hx HIV: No - Surgical History Hx Cholecystectomy: Yes - Social History Smoking Status: Never Smoker Substance Use Type: None - Medications Home Medications: Home Medications Medication Instructions Recorded Confirmed Last Taken Type Paliperidone Palmitate (Nf) 156 mg IM MO #7 ml 06/08/19 08/07/19 Unknown Rx [Invega Sustenna (Nf)] Mirtazapine [Remeron 15mg TAB] 15 mg PO QHS #30 tablet 06/30/19 08/07/19 Unknown Rx risperiDONE [RisperDAL] 2 mg PO BID #60 tablet 06/30/19 08/07/19 Unknown Rx Ondansetron [Zofran ODT TAB] 4 mg PO Q8HR PRN #20 tab.rapdis 07/06/19 08/07/19 Unknown Rx Acetaminophen [Acetaminophen TAB] 2 tab PO Q4H PRN #15 tablet 08/11/19 Unknown Rx levETIRAcetam [Keppra TAB] 500 mg PO BID #60 tablet 08/11/19 Unknown Rx Phenytoin [Dilantin] 100 mg PO Q8HR #90 capsule 09/18/19 Unknown Rx levETIRAcetam [Keppra TAB] 1,000 mg PO BID #60 tab 09/18/19 Unknown Rx ED Physical Exam - General Limitations: Altered Mental Status - Other Other exam information: General: No limitations, patient is alert in no acute distress Head exam: Atraumatic, normocephalic Eyes exam: Normal appearance, extraocular eye movements intact, pupils equally reactive to light ENT: Moist mucous membrane, no tongue laceration Neck exam: Normal inspection, full range of motion Respiratory exam: Clear to auscultation bilateral, no wheezes, rales, crackles Cardiovascular: Normal rate and rhythm Abdomen: Soft, nondistended, and nontender, with normal bowel sounds, no rebound, or guarding, Extremity: No deformity Back: Normal Inspection, no CVA tenderness Neurologic: Alert, little slow to respond to questions, no focal weakness or numbness Psychiatric: Normal mood, affect Skin: No rash ED Medical Decision Making - Medical Decision Making Patient has a subtherapeutic Dilantin level. This point, unclear patient is supposed to be on Keppra only have both Keppra and Dilantin. Patient was prescribed 15 day of Keppra on September 11 and prescribed Dilantin 100 mg 3 times a day 1 month's supply on July 30 as per medical record. Patient was loaded with Keppra and Cerybrex in the ED. Prescription refills will be provided and patient will be discharged home Pt at baseline mental status at time of discharge - Differential Diagnosis medication noncompliance, seizure disorder Critical Care Time: No Critical care attestation.: If time is entered above; I have spent that time in minutes in the direct care of this critically ill patient, excluding procedure time. ED Disposition Clinical Impression: Seizure Disposition: DC-01 TO HOME OR SELFCARE Is pt being admited?: No Does the pt Need Aspirin: No Condition: Stable Instructions: Recurrent Seizures Adult (ED) Additional Instructions: Take the medication as prescribed. Follow-up with your doctor or the doctor/clinic provided. Return if symptoms worsen as indicated by your discharge instructions. Prescriptions: Phenytoin [Dilantin] 100 mg PO Q8HR #90 capsule levETIRAcetam [Keppra TAB] 1,000 mg PO BID #60 tab Referrals: PRIMARY CARE, [Primary Care Provider] - 3-5 Days ESSIE DOWNING MD [Staff Physician] - 3-5 Days (Neurologist) Time of Disposition: 17:50
[2019-09-18 21:35] VITALS: BP 120/80
== END 2019-09-18 20:30 | disposition home or self-care (01) ==
LOC: ED 13:51
DX: R56.9 Unspecified convulsions (principal); I10 Essential (primary) hypertension; F20.9 Schizophrenia, unspecified; Z90.49 Acquired absence of other specified parts of digestive tract; Z79.899 Other long term (current) drug therapy
CPT/HCPCS: 36415; 80185; 82962; 96365; 96367; 99284; J1953; Q2009

== ENCOUNTER 2019-10-14 16:13 | Emergency (ER) | payer MEDICAID ==
[2019-10-14 16:42] VITALS: BP 143/94
[2019-10-14] MEDS ORDERED: LORazepam 2 MG/ML VIAL IV ONE (17:17)
[2019-10-14] MEDS ORDERED: levETIRAcetam 1000 MG/NS 0.75% 1,000 MG/100 ML BAG IV ONE (17:17)
--- NOTE | 2019-10-14 17:27 | Emergency Department Report ---
ED General Adult HPI - General Chief complaint: Seizure Stated complaint: SEIZURE Time Seen by Provider: 10/14/19 16:35 Source: EMS Mode of arrival: Stretcher Limitations: No Limitations - History of Present Illness Initial comments: The patient presents to the emergency department chief complaint of seizure. Patient states today while he was out in the palate he had a seizure. Patient has a history of seizures and states he takes Dilantin daily for. Patient states she is back to his baseline he has no complaints besides his normal muscle pain status post a seizure. -: Sudden Severity scale (0 -10): 1 Quality: aching Consistency: now resolved Improves with: none Worsens with: none Associated Symptoms: denies other symptoms Treatments Prior to Arrival: none - Related Data Previous Rx's Medication Instructions Recorded Last Taken Type Paliperidone Palmitate (Nf) 156 mg IM MO #7 ml 06/08/19 Unknown Rx [Invega Sustenna (Nf)] Mirtazapine [Remeron 15mg TAB] 15 mg PO QHS #30 tablet 06/30/19 Unknown Rx risperiDONE [RisperDAL] 2 mg PO BID #60 tablet 06/30/19 Unknown Rx Ondansetron [Zofran ODT TAB] 4 mg PO Q8HR PRN #20 tab.rapdis 07/06/19 Unknown Rx Acetaminophen [Acetaminophen TAB] 2 tab PO Q4H PRN #15 tablet 08/11/19 Unknown Rx levETIRAcetam [Keppra TAB] 500 mg PO BID #60 tablet 08/11/19 Unknown Rx Phenytoin [Dilantin] 100 mg PO Q8HR #90 capsule 09/18/19 Unknown Rx levETIRAcetam [Keppra TAB] 1,000 mg PO BID #60 tab 09/18/19 Unknown Rx Allergies Allergy/AdvReac Type Severity Reaction Status Date / Time No Known Allergies Allergy Verified 09/11/19 11:59 ED Review of Systems ROS: Stated complaint: SEIZURE Other details as noted in HPI Comment: All other systems reviewed and negative Constitutional: denies: chills, fever Eyes: denies: eye pain, eye discharge, vision change ENT: denies: ear pain, throat pain Respiratory: denies: cough, shortness of breath, wheezing Cardiovascular: denies: chest pain, palpitations Endocrine: no symptoms reported Gastrointestinal: denies: abdominal pain, nausea, diarrhea Genitourinary: denies: urgency, dysuria Musculoskeletal: denies: back pain, joint swelling, arthralgia Skin: denies: rash, lesions Neurological: denies: headache, weakness, paresthesias Psychiatric: denies: anxiety, depression Hematological/Lymphatic: denies: easy bleeding, easy bruising ED Past Medical Hx - Past Medical History Previous Medical History?: Yes Hx Hypertension: Yes Hx Congestive Heart Failure: No Hx Diabetes: No Hx Seizures: Yes Hx Psychiatric Treatment: Yes (bipolar Schizophrenia) Hx Asthma: No Hx COPD: No Hx HIV: No - Surgical History Past Surgical History?: Yes Hx Cholecystectomy: Yes - Social History Smoking Status: Never Smoker Substance Use Type: None - Medications Home Medications: Home Medications Medication Instructions Recorded Confirmed Last Taken Type Paliperidone Palmitate (Nf) 156 mg IM MO #7 ml 06/08/19 08/07/19 Unknown Rx [Invega Sustenna (Nf)] Mirtazapine [Remeron 15mg TAB] 15 mg PO QHS #30 tablet 06/30/19 08/07/19 Unknown Rx risperiDONE [RisperDAL] 2 mg PO BID #60 tablet 06/30/19 08/07/19 Unknown Rx Ondansetron [Zofran ODT TAB] 4 mg PO Q8HR PRN #20 tab.rapdis 07/06/19 08/07/19 Unknown Rx Acetaminophen [Acetaminophen TAB] 2 tab PO Q4H PRN #15 tablet 08/11/19 Unknown Rx levETIRAcetam [Keppra TAB] 500 mg PO BID #60 tablet 08/11/19 Unknown Rx Phenytoin [Dilantin] 100 mg PO Q8HR #90 capsule 09/18/19 Unknown Rx levETIRAcetam [Keppra TAB] 1,000 mg PO BID #60 tab 09/18/19 Unknown Rx ED Physical Exam - General Limitations: No Limitations General appearance: alert, in no apparent distress - Head Head exam: Present: normocephalic, other (Abrasions) - Eye Eye exam: Present: normal appearance - ENT ENT exam: Present: mucous membranes moist, other (Abrasions to the lips) - Neck Neck exam: Present: normal inspection - Respiratory Respiratory exam: Present: normal lung sounds bilaterally. Absent: respiratory distress - Cardiovascular Cardiovascular Exam: Present: regular rate, normal rhythm. Absent: systolic murmur, diastolic murmur, rubs, gallop - GI/Abdominal GI/Abdominal exam: Present: soft, normal bowel sounds. Absent: distended, tenderness - Rectal Rectal exam: Present: deferred - Extremities Exam Extremities exam: Present: normal inspection - Back Exam Back exam: Present: normal inspection - Neurological Exam Neurological exam: Present: alert, oriented X3, CN II-XII intact. Absent: motor sensory deficit - Psychiatric Psychiatric exam: Present: normal affect, normal mood - Skin Skin exam: Present: warm, dry, intact, normal color. Absent: rash ED Course Vital Signs 10/14/19 10/14/19 16:38 16:42 Temperature 98.7 F Pulse Rate 91 H 91 H Respiratory 17 17 Rate Blood Pressure 143/94 Blood Pressure 143/94 [Left] O2 Sat by Pulse 100 100 Oximetry ED Medical Decision Making - Lab Data Lab Results 10/14/19 Range/Units 17:46 Phenytoin 1.2 L (10.0-20.0) ug/mL - Medical Decision Making Patient given ativan and keppra Critical care attestation.: If time is entered above; I have spent that time in minutes in the direct care of this critically ill patient, excluding procedure time. ED Disposition Clinical Impression: Seizure Disposition: DC-01 TO HOME OR SELFCARE Is pt being admited?: No Does the pt Need Aspirin: No Condition: Stable Instructions: Recurrent Seizures Adult (ED) Additional Instructions: return if worse Referrals: [facility] [Provider Group] - 3-5 Days [facility] [Provider Group] - 3-5 Days Time of Disposition: 18:30
== END 2019-10-14 19:00 | disposition home or self-care (01) ==
LOC: ED 16:13
DX: R56.9 Unspecified convulsions (principal); I10 Essential (primary) hypertension; F31.9 Bipolar disorder, unspecified; F20.9 Schizophrenia, unspecified; Z90.49 Acquired absence of other specified parts of digestive tract; Z79.899 Other long term (current) drug therapy
CPT/HCPCS: 36415; 80185; 96374; 96375; 99284; J1953; J2060

== ENCOUNTER 2019-11-25 17:17 | Emergency (ER) | payer MEDICAID ==
[2019-11-25] MEDS ORDERED: levETIRAcetam 1000 MG/NS 0.75% 1,000 MG/100 ML BAG IV ONE (18:01)
[2019-11-25] MEDS ORDERED: KETOROLAC 30 MG/1 ML INJ IV ONE (18:01)
--- NOTE | 2019-11-25 18:05 | Emergency Department Report ---
<ANUSHKA PIRES - Last Filed: 11/25/19 19:22> ED Seizure HPI - General Chief Complaint: Seizure Stated Complaint: SEIZURE X 2 Time Seen by Provider: 11/25/19 17:50 Source: EMS Mode of arrival: Stretcher Limitations: Other - History of Present Illness Initial Comments: 49-year-old male with a past medical history of schizophrenia, bipolar, hypertension, seizures with multiple ED visits secondary to seizures and noncompliance presents to the hospital with 2 seizures prior to arrival. Patient lives with his brother. Apparently brother reported to EMS that patient fell from bed approximately 1 foot and had 2 seizures prior to arrival. Patient is currently alert and oriented x3 and complains of headache and neck pain. Mahesh grande appears to be at his baseline mental status and has limited communication secondary to underlying psychiatric disorders. He has a delayed response to questions and some difficulty following basic commands. He states he is compliant with his medications and he is responsible for taking his own meds with last dose of seizure medications this morning. - Related Data Previous Rx's Medication Instructions Recorded Last Taken Type Paliperidone Palmitate (Nf) 156 mg IM MO #7 ml 06/08/19 Unknown Rx [Invega Sustenna (Nf)] Mirtazapine [Remeron 15mg TAB] 15 mg PO QHS #30 tablet 06/30/19 Unknown Rx risperiDONE [RisperDAL] 2 mg PO BID #60 tablet 06/30/19 Unknown Rx Ondansetron [Zofran ODT TAB] 4 mg PO Q8HR PRN #20 tab.rapdis 07/06/19 Unknown Rx Acetaminophen [Acetaminophen TAB] 2 tab PO Q4H PRN #15 tablet 08/11/19 Unknown Rx levETIRAcetam [Keppra TAB] 500 mg PO BID #60 tablet 08/11/19 Unknown Rx Phenytoin [Dilantin] 100 mg PO Q8HR #90 capsule 11/25/19 Unknown Rx levETIRAcetam [Keppra TAB] 1,000 mg PO BID #60 tab 11/25/19 Unknown Rx Allergies Allergy/AdvReac Type Severity Reaction Status Date / Time No Known Allergies Allergy Verified 11/25/19 17:52 ED Review of Systems Comment: All other systems reviewed and negative ED Past Medical Hx - Past Medical History Previous Medical History?: Yes Hx Hypertension: Yes Hx Congestive Heart Failure: No Hx Diabetes: No Hx Seizures: Yes Hx Psychiatric Treatment: Yes (bipolar Schizophrenia) Hx Asthma: No Hx COPD: No Hx HIV: No - Surgical History Past Surgical History?: Yes Hx Cholecystectomy: Yes - Social History Smoking Status: Never Smoker - Medications Home Medications: Home Medications Medication Instructions Recorded Confirmed Last Taken Type Paliperidone Palmitate (Nf) 156 mg IM MO #7 ml 06/08/19 08/07/19 Unknown Rx [Invega Sustenna (Nf)] Mirtazapine [Remeron 15mg TAB] 15 mg PO QHS #30 tablet 06/30/19 08/07/19 Unknown Rx risperiDONE [RisperDAL] 2 mg PO BID #60 tablet 06/30/19 08/07/19 Unknown Rx Ondansetron [Zofran ODT TAB] 4 mg PO Q8HR PRN #20 tab.rapdis 07/06/19 08/07/19 Unknown Rx Acetaminophen [Acetaminophen TAB] 2 tab PO Q4H PRN #15 tablet 08/11/19 Unknown Rx levETIRAcetam [Keppra TAB] 500 mg PO BID #60 tablet 08/11/19 Unknown Rx Phenytoin [Dilantin] 100 mg PO Q8HR #90 capsule 11/25/19 Unknown Rx levETIRAcetam [Keppra TAB] 1,000 mg PO BID #60 tab 11/25/19 Unknown Rx ED Physical Exam - General Limitations: Other - Other Other exam information: General: No acute distress Head: Atraumatic Eyes: normal appearance ENT: Moist mucous membranes Neck: Normal appearance, no midline tenderness Chest: Clear to auscultation bilaterally CV: Regular rate and rhythm Abdomen: Soft, normal bowel sounds, nontender, nondistended, no rebound or guarding Back: Normal inspection Extremity: Normal inspection, full range of motion Neuro: Alert O x 3, delayed response to questioning but speech clear no facial asymmetry, speech clear, no gross motor sensory deficit, [id number] function Psych: Appropriate behavior Skin: No rash ED Medical Decision Making - Lab Data Result diagrams: 11/25/19 17:55 11/25/19 17:55 - Medical Decision Making pt receiving keppra and dilantin in ed. patient claims to be compliant with his meds however, his Dilantin level is 1.3 therefore suggesting noncompliance. Mild hyperkalemia secondary to slight hemolysis. Other electrolytes are within normal range. Patient has nonfocal on exam. Case s/o to Dr Tierney to f/u ct head and c spine results pt pending d/c if imaging results unremarkable and pt does not have additional seizures during ed stay. In past pt has had prolonged ed stays due to difficulty transporting him back to his brother. If this is the case pt will require ed sz meds as scheduled to prevent breakthough sz script for refill of meds provided. - Differential Diagnosis Seizures, postictal, med noncompliance Critical Care Time: No ED Disposition Clinical Impression: Non-adherence to medical treatment, History of seizure Disposition: DC-01 TO HOME OR SELFCARE Is pt being admited?: No Does the pt Need Aspirin: No Condition: Stable Instructions: Recurrent Seizures Adult (ED) Additional Instructions: Take the medication as prescribed. Follow-up with your doctor or doctor/clinic provided. Return if symptoms worsen as indicated by your discharge instructions. Do not drive or operate motor vehicles for the next 6 months, or until cleared to do so by a primary care doctor or neurologist. Avoid consumption of alcohol, and sedating medications. Prescriptions: Phenytoin [Dilantin] 100 mg PO Q8HR #90 capsule levETIRAcetam [Keppra TAB] 1,000 mg PO BID #60 tab Referrals: PRIMARY MD NURIA [Primary Care Provider] - 3-5 Days ESSIE DOWNING MD [Staff Physician] - 3-5 Days (neurolgy ) [facility] [Provider Group] - 3-5 Days (primary care clinic) <MYRTLE TIERNEY - Last Filed: 11/25/19 20:37> ED Review of Systems ROS: Stated complaint: SEIZURE X 2 Other details as noted in HPI ED Course Vital Signs 11/25/19 11/25/19 11/25/19 17:41 17:52 19:47 Temperature 99.2 F Pulse Rate 88 83 Respiratory 16 16 18 Rate Blood Pressure 125/85 Blood Pressure 123/76 [Left] O2 Sat by Pulse 97 97 97 Oximetry - Reevaluation(s) Reevaluation #1: 11/25/19 20:36 CT scan of the brain and cervical spine are negative for acute findings. Patient resting comfortably, in stretcher, and in no acute distress. EKG unchanged from prior. Patient will be discharged with instructions to follow-up as an outpatient. ED Medical Decision Making - Lab Data Result diagrams: 11/25/19 17:55 11/25/19 17:55 Vital Signs 11/25/19 11/25/19 11/25/19 17:41 17:52 19:47 Temperature 99.2 F Pulse Rate 88 83 Respiratory 16 16 18 Rate Blood Pressure 125/85 Blood Pressure 123/76 [Left] O2 Sat by Pulse 97 97 97 Oximetry Lab Results 11/25/19 11/25/19 11/25/19 Range/Units 17:55 17:55 17:55 WBC 4.4 L (4.5-11.0) K/mm3 RBC 5.37 H (3.65-5.03) M/mm3 Hgb 13.0 (11.8-15.2) gm/dl Hct 41.5 (35.5-45.6) % MCV 77 L (84-94) fl MCH 24 L (28-32) pg MCHC 31 L (32-34) % RDW 13.9 (13.2-15.2) % Plt Count 224 (140-440) K/mm3 [place] % (Auto) 9.7 H (0.0-7.3) % Eos % (Auto) 1.5 (0.0-4.3) % [place] # 0.4 (0.0-0.8) K/mm3 Eos # 0.1 (0.0-0.4) K/mm3 Baso # 0.0 (0.0-0.1) K/mm3 Seg Neutrophils % 57.4 (40.0-70.0) % Seg Neutrophils # 2.5 (1.8-7.7) K/mm3 Sodium 136 L (137-145) mmol/L Potassium 5.2 H (3.6-5.0) mmol/L Chloride 99.0 (98-107) mmol/L Carbon Dioxide 19 L (22-30) mmol/L Anion Gap 23 mmol/L BUN 9 (9-20) mg/dL Creatinine 0.8 (0.8-1.5) mg/dL Estimated GFR > 60 ml/min BUN/Creatinine Ratio 11 % Glucose 105 H (75-100) mg/dL Calcium 9.8 (8.4-10.2) mg/dL Magnesium 2.10 (1.7-2.3) mg/dL Phenytoin 1.3 L (10.0-20.0) ug/mL - EKG Data -: EKG Interpreted by Me EKG shows normal: sinus rhythm, axis, intervals, ST-T waves (Left ventricular hypertrophy) Rate: normal - EKG Data When compared to previous EKG there are: no significant change Interpretation: unchanged when compared t (08/06/2019) - Radiology Data Radiology results: report reviewed, image reviewed Critical care attestation.: If time is entered above; I have spent that time in minutes in the direct care of this critically ill patient, excluding procedure time. ED Disposition Is pt being admited?: No Does the pt Need Aspirin: No
[2019-11-25 18:21] LABS: Eosinophils # (Auto) 0.1 K/mm3 (0.0-0.4); Eosinophils % (Auto) 1.5 % (0.0-4.3); Monocytes # (Auto) 0.4 K/mm3 (0.0-0.8); Monocytes % (Auto) 9.7 % (0.0-7.3)
[2019-11-25 18:23] LABS: Hematocrit 41.5 % (35.5-45.6); Red Blood Count 5.37 M/mm3 (3.65-5.03)
[2019-11-25 18:24] LABS: Mean Corpuscular HGB Conc 31 % (32-34); Mean Corpuscular Volume 77 fl (84-94); Platelet Count 224 K/mm3 (140-440); Red Cell Distribution Width 13.9 % (13.2-15.2)
[2019-11-25 18:34] LABS: BUN/Creatinine Ratio 11; Blood Urea Nitrogen 9 mg/dL (9-20); Calcium 9.8 mg/dL (8.4-10.2); Hemolysis Index 150
[2019-11-25] MEDS ORDERED: FOSPHENYTOIN 1,000 MG.PE in SODIUM CHLORIDE 0.9% 100 ML IV ONE (19:30)
--- NOTE | 2019-11-25 19:50 | Cat Scan Report ---
CT BRAIN: 11/25/2019 INDICATION / CLINICAL INFORMATION: seizure, fall, headache. COMPARISON: Since 04/13/2018, there has been [address] exams performed here. Direct comparison is made with the most recent exams from 09/11/2019 and 08/06/2019. FINDINGS: BRAIN/INTRACRANIAL STRUCTURES: Unenhanced CT images of the brain demonstrate no evidence of acute int racranial abnormality. Ventricles and hemispheric sulci are normal in size and shape. Prominent bilat eral cerebellar atrophy is present. There is no CT evidence of acute ischemic injury, hemorrhage, or mass. There are no abnormal extra-ax ial fluid collections. There is been no change when compared to prior exams. EXTRACRANIAL STRUCTURES: Unremarkable. IMPRESSION: No acute abnormality. Stable prominent bilateral cerebellar atrophy. All CT scans at this location are performed using dose reduction to ALARA by means of automated expos ure control. Signer Name: Meir Phillip MD Signed: 11/25/2019 7:45 PM Workstation Name: [id number]
--- NOTE | 2019-11-25 20:00 | Cat Scan Report ---
CT CERVICAL SPINE: 11/25/2019 INDICATION / CLINICAL INFORMATION: seizure, fall, headache,neck pain. COMPARISON: 09/11/2019 FINDINGS: CT images of the cervical spine were obtained. Images are evaluated in the axial, coronal, and sagitt al planes. There is no evidence of acute traumatic injury. Degenerative disc space narrowing and osteophyte formation is present throughout the cervical spine. Slight reversal of cervical lordosis is present. Overall, there is been no significant change when compared to the prior exam. CRANIOCERVICAL JUNCTION: Unremarkable. PARASPINAL STRUCTURES: Unremarkable. IMPRESSION: No acute abnormality. All CT scans at this location are performed using dose reduction to ALARA by means of automated expos ure control. Signer Name: Meir Phillip MD Signed: 11/25/2019 7:55 PM Workstation Name: [id number]
[2019-11-25] MEDS ORDERED: ACETAMINOPHEN 325 MG TAB PO PRN (20:35)
[2019-11-25 20:50] VITALS: BP 138/54
[2019-11-25] MEDS ORDERED: levETIRAcetam 500 MG TAB PO SCH (22:00)
[2019-11-25] MEDS ORDERED: PHENYTOIN 100 MG CAPSULE.ER PO SCH (22:00)
[2019-11-25] MEDS ORDERED: MIRTAZAPINE 15 MG TAB PO SCH (22:00)
== END 2019-11-25 20:50 | disposition home or self-care (01) ==
LOC: ED 17:17
DX: R56.9 Unspecified convulsions (principal)
CPT/HCPCS: 36415; 70450; 72125; 80048; 80185; 83735; 85025; 93005; 93010; 96365; 96375; 99285; J1885; J1953; Q2009

== ENCOUNTER 2019-12-25 13:54 | Emergency (ER) | payer MEDICAID ==
[2019-12-25] MEDS ORDERED: levETIRAcetam 1000 MG/NS 0.75% 1,000 MG/100 ML BAG IV ONE (15:17)
[2019-12-25 15:38] VITALS: BP 121/91
--- NOTE | 2019-12-25 15:55 | Emergency Department Report ---
ED Seizure HPI - General Chief Complaint: Medical Clearance Stated Complaint: DIZZY Time Seen by Provider: 12/25/19 15:47 Source: patient, EMS Mode of arrival: Stretcher Limitations: No Limitations - History of Present Illness Initial Comments: Patient is a 49-year-old F Indian male with past medical history of seizure disorder who is well-known to our department. Patient was found in a park complaining of dizziness. He has not had his Keppra 2 days as he states his brother whom he lives with has not filled his prescription. Patient states he h as to sit in the park while his brother is at work because he was is not allowed to stay inside of the house when his brother is not there. Patient is not sure if he had a seizure today or not. He is not showing evidence of any trauma has only complaint is some left shoulder pain which is chronic. - Related Data Previous Rx's Medication Instructions Recorded Last Taken Type Paliperidone Palmitate (Nf) 156 mg IM MO #7 ml 06/08/19 Unknown Rx [Invega Sustenna (Nf)] Mirtazapine [Remeron 15mg TAB] 15 mg PO QHS #30 tablet 06/30/19 Unknown Rx risperiDONE [RisperDAL] 2 mg PO BID #60 tablet 06/30/19 Unknown Rx Ondansetron [Zofran ODT TAB] 4 mg PO Q8HR PRN #20 tab.rapdis 07/06/19 Unknown Rx Acetaminophen [Acetaminophen TAB] 2 tab PO Q4H PRN #15 tablet 08/11/19 Unknown Rx levETIRAcetam [Keppra TAB] 500 mg PO BID #60 tablet 08/11/19 Unknown Rx Ciprofloxacin HCl [Ciprofloxacin 500 mg PO Q12HR #14 tab 12/16/19 Unknown Rx TAB] HYDROcodone/APAP 5-325 [[place] 1 - 2 each PO Q6HR PRN #10 tablet 12/16/19 Unknown Rx 5/325] Promethazine [Phenergan] 25 mg PO Q6HR PRN #20 tab 12/16/19 Unknown Rx Promethazine [Phenergan] 25 mg [place] Q6HR PRN #5 supp.rect 12/16/19 Unknown Rx PHENobarbitaL [PHENobarbital] 60 mg PO BID #60 tablet 12/22/19 Unknown Rx Phenytoin [Dilantin] 100 mg PO Q8HR #90 capsule 12/22/19 Unknown Rx levETIRAcetam [Keppra TAB] 1,000 mg PO BID #60 tab 12/25/19 Unknown Rx Allergies Allergy/AdvReac Type Severity Reaction Status Date / Time No Known Allergies Allergy Verified 12/22/19 16:13 ED Review of Systems ROS: Stated complaint: DIZZY Other details as noted in HPI Comment: All other systems reviewed and negative ED Past Medical Hx - Past Medical History Previous Medical History?: Yes Hx Hypertension: Yes Hx CVA: Yes Hx Congestive Heart Failure: No Hx Diabetes: No Hx Seizures: Yes Hx Psychiatric Treatment: Yes (bipolar Schizophrenia) Hx Asthma: No Hx COPD: No Hx HIV: No - Surgical History Hx Cholecystectomy: Yes - Social History Smoking Status: Current Every Day Smoker Substance Use Type: None - Medications Home Medications: Home Medications Medication Instructions Recorded Confirmed Last Taken Type Paliperidone Palmitate (Nf) 156 mg IM MO #7 ml 06/08/19 08/07/19 Unknown Rx [Invega Sustenna (Nf)] Mirtazapine [Remeron 15mg TAB] 15 mg PO QHS #30 tablet 06/30/19 08/07/19 Unknown Rx risperiDONE [RisperDAL] 2 mg PO BID #60 tablet 06/30/19 08/07/19 Unknown Rx Ondansetron [Zofran ODT TAB] 4 mg PO Q8HR PRN #20 tab.rapdis 07/06/19 08/07/19 Unknown Rx Acetaminophen [Acetaminophen TAB] 2 tab PO Q4H PRN #15 tablet 08/11/19 Unknown Rx levETIRAcetam [Keppra TAB] 500 mg PO BID #60 tablet 08/11/19 Unknown Rx Ciprofloxacin HCl [Ciprofloxacin 500 mg PO Q12HR #14 tab 12/16/19 Unknown Rx TAB] HYDROcodone/APAP 5-325 [[place] 1 - 2 each PO Q6HR PRN #10 tablet 12/16/19 Unknown Rx 5/325] Promethazine [Phenergan] 25 mg PO Q6HR PRN #20 tab 12/16/19 Unknown Rx Promethazine [Phenergan] 25 mg [place] Q6HR PRN #5 supp.rect 12/16/19 Unknown Rx PHENobarbitaL [PHENobarbital] 60 mg PO BID #60 tablet 12/22/19 Unknown Rx Phenytoin [Dilantin] 100 mg PO Q8HR #90 capsule 12/22/19 Unknown Rx levETIRAcetam [Keppra TAB] 1,000 mg PO BID #60 tab 12/25/19 Unknown Rx ED Physical Exam - General Limitations: No Limitations General appearance: alert, in no apparent distress - Head Head exam: Present: atraumatic, normocephalic - Eye Eye exam: Present: normal appearance, PERRL, EOMI - ENT ENT exam: Present: mucous membranes moist - Neck Neck exam: Present: normal inspection - Respiratory Respiratory exam: Present: normal lung sounds bilaterally. Absent: respiratory distress, wheezes, rales, rhonchi - Cardiovascular Cardiovascular Exam: Present: regular rate, normal rhythm. Absent: systolic murmur, diastolic murmur, rubs, gallop - GI/Abdominal GI/Abdominal exam: Present: soft, normal bowel sounds - Rectal Rectal exam: Present: deferred - Extremities Exam Extremities exam: Present: normal inspection - Back Exam Back exam: Present: normal inspection - Neurological Exam Neurological exam: Present: alert, oriented X3 - Psychiatric Psychiatric exam: Present: normal affect, normal mood - Skin Skin exam: Present: warm, dry, intact, normal color. Absent: rash ED Course Vital Signs 12/25/19 15:36 Temperature 98.1 F Pulse Rate 81 Respiratory 16 Rate Blood Pressure 121/91 [Right] O2 Sat by Pulse 97 Oximetry ED Medical Decision Making - Medical Decision Making Patient is a 49-year-old F Indian male with past medical history of seizures who is been out of his seizure medication for 2 days. Patient was found wandering in a park and was complaining initially of dizziness. Patient was loaded with Keppra. Patient be discharged home. Reprint of the patient's prescription has been given to him. Critical care attestation.: If time is entered above; I have spent that time in minutes in the direct care of this critically ill patient, excluding procedure time. ED Disposition Clinical Impression: Seizure, Medical non-compliance Disposition: - TO HOME OR SELFCARE Is pt being admited?: No Does the pt Need Aspirin: No Condition: Stable Additional Instructions: Please go to the nearest pharmacy and fill your prescription Prescriptions: levETIRAcetam [Keppra TAB] 1,000 mg PO BID #60 tab Referrals: PRIMARY CARE, [Primary Care Provider] - 3-5 Days Time of Disposition: 15:54
== END 2019-12-25 16:41 | disposition home or self-care (01) ==
LOC: ED 13:54
DX: G40.909 Epilepsy, unspecified, not intractable, without status epilepticus (principal); I10 Essential (primary) hypertension; F25.0 Schizoaffective disorder, bipolar type; F17.200 Nicotine dependence, unspecified, uncomplicated; Z86.73 Personal history of transient ischemic attack (TIA), and cerebral infarction without residual deficits; Z90.49 Acquired absence of other specified parts of digestive tract; Z91.14 Patient's other noncompliance with medication regimen; Z79.899 Other long term (current) drug therapy
CPT/HCPCS: 96365; 99283; J1953